=== PATIENT | female | born 1940 | race Caucasian/White ===

== ENCOUNTER 2018-02-07 09:50 | Day surgery (SDC) | payer OTHER ==
--- OUTSIDE RECORDS SUMMARY | 2018-02-07 10:11 | XMS REPORT | Clinical Summary ---
:1940 Author Organization [facility] Address [address] [place] [address] Care Team Providers Name Role Phone Rene Pimenetl MD Primary Care Provider Allergies No Known Allergies Current Medications Prescription Sig. Disp. Refills Start Date End Date Status albuterol (PROAIR Take by mouth. Active HFA,PROVENTIL HFA,VENTOLIN HFA) 90 mcg/actuation inhaler atorvastatin (LIPITOR) 10 Take 10 mg by Active MG tablet mouth. CALCIUM ORAL Take by mouth. Active CHOLECALCIFEROL, VITAMIN Take by mouth. Active D3, ORAL clopidogrel (PLAVIX) 75 mg Take 75 mg by Active tablet mouth. etanercept (ENBREL) 25 mg 25 mg. 11/05/2017 Active (1 mL) injection folic acid (FOLVITE) 1 MG TAKE 1 TABLET 03/01/2017 Active tablet DAILY multivitamins & Take by mouth. Active minerals-ferrous gluconate 9 mg iron/15 mL liquid pantoprazole (PROTONIX) 40 Take 40 mg by Active MG EC tablet mouth. predniSONE (DELTASONE) 2.5 Take 2.5 mg by 12/27/2014 Active mg tablet mouth. valsartan (DIOVAN) 80 MG Take 80 mg by Active tablet mouth. 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) Class 2 obesity due to excess calories with serious comorbidity and body 12/23 mass index (BMI) of 35.0 to 35.9 in adult Encounters Date Type Specialty Care Team Description 01/14/2018 Hospital Encounter Radiology Yohana Hsu, Abnormal CXR (chest MD x-ray) 12/24/2017 Transcribe Orders Access Yohana Hsu, Abnormal CXR (chest MD x-ray) (Primary Dx) 12/23/2017 Hospital Encounter Mauro Arriaza MD 12/23/2017 Hospital Encounter Mauro Arriaza MD 12/23/2017 Hospital Encounter Mauro Arriaza MD 12/23/2017 Office Visit Neurosurgery Mauro Torrez, Lumbar stenosis with neurogenic claudication (Primary Dx); Osteoporosis without current pathological fracture, unspecified osteoporosis type; Rheumatoid arthritis involving multiple sites with positive rheumatoid factor; Class 2 obesity due to excess calories with serious comorbidity and body mass index (BMI) of 35.0 to 35.9 in adult 12/23/2017 Hospital Encounter Mauro Arriaza, Lumbar radiculopathy 12/23/2017 Hospital Encounter Radiology Mauro Torrez Lumbar radiculopathy 12/23/2017 Procedure Pass Radiology 12/23/2017 Procedure Pass Radiology 12/23/2017 Ancillary Orders Mauro Arriaza MD 12/23/2017 Abstract Neurosurgery Sita Cope LVN 12/22/2017 Orders Only Neurosurgery Mauro Torrez, Lumbar radiculopathy (Primary Dx) after 02/06/2017 Family History Medical History Relation Name Comments Cancer Father Cancer Maternal Aunt Asthma Maternal Grandfather Heart disease Maternal Grandfather Diabetes Maternal Grandmother Cancer Mother Relation Name Status Comments Father Maternal Aunt Maternal Grandfather Maternal Grandmother Mother Social History Tobacco Use Types Packs/Day Years Used Date Former Smoker Cigarettes 4 Smokeless Tobacco: Never Used Alcohol Use Drinks/Week oz/Week Comments Yes 2 Standard drinks or equivalent 1.2 Sex Assigned at Date Recorded Not on file Last Filed Vital Signs Vital Sign Reading Time Taken Blood Pressure - - Pulse - - Temperature - - Respiratory Rate - - Oxygen Saturation - - Inhaled Oxygen Concentration - - Weight 90.7 kg (200 lb) 12/23/2017 10:40 AM CDT Height 160 cm (5' 3") 12/23/2017 10:40 AM CDT Body Mass Index 35.43 12/23/2017 10:40 AM CDT Plan of Treatment Health Maintenance Due Date Last Done Comments BREAST CANCER SCREENING 1992 COLON CANCER SCREENING 1992 SHINGRIX VACCINE (#1) 1992 ZOSTER VACCINE 2002 PNEUMOCOCCAL POLYSACCHARIDE VACCINE AGE 65 12/19/2007 AND OVER PNEUMOCOCCAL-13 12/19/2007 INFLUENZA VACCINE 11/17/2017 02/06/2016, 02/05/2015 Procedures Procedure Name Priority Date/Time Associated Diagnosis Comments CT CHEST WO Routine 01/14/2018 11:51 Abnormal CXR (chest Results for this CONTRAST AM CDT x-ray) procedure are in the results section. XR SPINE SCOLIOSIS Routine 12/23/2017 11:51 Lumbar radiculopathy Results for this 2-3 VIEWS AM CDT procedure are in the results section. XR LUMBAR SPINE Routine 12/23/2017 11:50 Lumbar radiculopathy Results for this COMPLETE W BENDING AM CDT procedure are in the results section. CT SPINE EXTERNAL Routine 06/24/2017 11:06 Results for this STUDY AM FRONT ELEVATOR OPERATOR procedure are in the results section. after 02/06/[address] Chest Wo Contrast (01/14/2018 11:51 AM) Narrative Performed At EXAMINATION: CT CHEST WO CONTRAST [facility] CLINICAL HISTORY: R93.8 Abnormal findings on diagnostic imaging of other specified body structures, ABN CHEST XRAY TECHNIQUE:Axial images of the chest were obtained without intravenous contrast. The lack of intravenous contrast reduces the sensitivity of the exam and evaluating vasculature. CT imaging was performed with iterative reconstruction technique and/or automated exposure control to reduce radiation dose. COMPARISON:None. FINDINGS: Lungs and airways: There are numerous calcified and noncalcified pulmonary nodules, most of which are round or ovoid and well-circumscribed. Many of the calcified nodules are in a clustered or linear distribution. Examples of the largest solid noncalcified nodules include the following: *Right upper lobe on image 42 series 2 measuring 5 mm. *Left upper lobe on image 40 of series 2 measuring 5 mm. There is diffuse mosaicism. Mild cylindrical bronchiectasis with bronchial wall thickening, greatest in the lower lobes. Pleura: No pleural effusion or pneumothorax. Mediastinum and lymph nodes: No lymphadenopathy. Cardiovascular: The ascending aorta measures 40 mm. Moderate coronary calcifications. Heavy mitral annular calcifications. Upper abdomen: There are numerous hepatic hypodensities, some compatible with cysts and some too small to characterize but also statistically likely representing cysts. Cholelithiasis without evidence of cholecystitis. Moderate hiatal hernia. Bones: Severe degenerative changes of the left greater than right shoulders. Spondylosis. Mild anterior wedging of several midthoracic vertebral bodies. IMPRESSION: 1.Numerous pulmonary nodules, most of which are calcified, clustered/linear, and therefore very likely postinflammatory. There are solid noncalcified pulmonary nodules measuring up to 5 mm which could also represent granulomas or intrapulmonary lymph nodes but are technically indeterminate. Recommend 12 month follow-up if patient has risk factors for lung cancer. 2.Diffuse mosaicism with mild cylindrical bronchiectasis and bronchial wall thickening, compatible with nonspecific large and small airways disease. 3.Moderate hiatal hernia. 4.Cholelithiasis without evidence of cholecystitis. [facility]-[id number] Procedure Note [facility], Radiology Results - 01/14/2018 12:27 PM CDT EXAMINATION: CT CHEST WO CONTRAST CLINICAL HISTORY: R93.8 Abnormal findings on diagnostic imaging of other specified body structures, ABN CHEST XRAY TECHNIQUE: Axial images of the chest were obtained without intravenous contrast. The lack of intravenous contrast reduces the sensitivity of the exam and evaluating vasculature. CT imaging was performed with iterative reconstruction technique and/or automated exposure control to reduce radiation dose. COMPARISON: None. FINDINGS: Lungs and airways: There are numerous calcified and noncalcified pulmonary nodules, most of which are round or ovoid and well-circumscribed. Many of the calcified nodules are in a clustered or linear distribution. Examples of the largest solid noncalcified nodules include the following: * Right upper lobe on image 42 series 2 measuring 5 mm. * Left upper lobe on image 40 of series 2 measuring 5 mm. There is diffuse mosaicism. Mild cylindrical bronchiectasis with bronchial wall thickening, greatest in the lower lobes. Pleura: No pleural effusion or pneumothorax. Mediastinum and lymph nodes: No lymphadenopathy. Cardiovascular: The ascending aorta measures 40 mm. Moderate coronary calcifications. Heavy mitral annular calcifications. Upper abdomen: There are numerous hepatic hypodensities, some compatible with cysts and some too small to characterize but also statistically likely representing cysts. Cholelithiasis without evidence of cholecystitis. Moderate hiatal hernia. Bones: Severe degenerative changes of the left greater than right shoulders. Spondylosis. Mild anterior wedging of several midthoracic vertebral bodies. IMPRESSION: 1. Numerous pulmonary nodules, most of which are calcified, clustered/linear, and therefore very likely postinflammatory. There are solid noncalcified pulmonary nodules measuring up to 5 mm which could also represent granulomas or intrapulmonary lymph nodes but are technically indeterminate. Recommend 12 month follow-up if patient has risk factors for lung cancer. 2. Diffuse mosaicism with mild cylindrical bronchiectasis and bronchial wall thickening, compatible with nonspecific large and small airways disease. 3. Moderate hiatal hernia. 4. Cholelithiasis without evidence of cholecystitis. [facility]-[id number] Performing Organization Address [facility] Phone Number [facility] [address] [place] [address] XR Spine Scoliosos 2-3 Views (12/23/2017 11:51 AM) Narrative Performed At EXAMINATION:XR SPINE SCOLIOSIS 2-3 VIEWS [facility] CLINICAL HISTORY:M54.16 Radiculopathylumbar region, radiculopathy IMPRESSION: 8 views of the spine were obtained. COMPARISON is made to prior x-rays dated December 23, [address] and MRI of the spine dated June 24, 2017 and January 26, 2017 The spine alignment is unremarkable. Spondylotic disc and facet changes are seen at L3-L4, L4-L5 and L5-S1 levels. Minimal grade 1 anterior translation of L4 on L5 level is appreciated. The bone diseases unremarkable with no focal bone lesion. There is no acute fracture or subluxation. There is no compression deformity. The frontal view is limited due to stitching artifact. [facility]-[id number] Procedure Note Interface, Radiology Results - 12/30/2017 3:39 PM CDT EXAMINATION: XR SPINE SCOLIOSIS 2-3 VIEWS CLINICAL HISTORY: M54.16 Radiculopathy lumbar region, radiculopathy IMPRESSION: 8 views of the spine were obtained. COMPARISON is made to prior x-rays dated December 23, [address] and MRI of the spine dated June 24, 2017 and January 26, 2017 The spine alignment is unremarkable. Spondylotic disc and facet changes are seen at L3-L4, L4-L5 and L5-S1 levels. Minimal grade 1 anterior translation of L4 on L5 level is appreciated. The bone diseases unremarkable with no focal bone lesion. There is no acute fracture or subluxation. There is no compression deformity. The frontal view is limited due to stitching artifact. [facility]-[id number] Performing Organization Address [facility] Phone Number [facility] [address] [place] [address] XR Lumbar Spine Complete W Flex and Ext (12/23/2017 11:50 AM) Narrative Performed At EXAMINATION:XR LUMBAR SPINE COMPLETE W FLEX & EXTEND [facility] NUMBER OF VIEWS: 8 CLINICAL HISTORY:M54.16 Radiculopathylumbar region, radiculopathy COMPARISON:None. FINDINGS: There are 5 nonrib-bearing lumbar vertebra. Marked disc space narrowing, mild spondylosis and degenerative change in the disc at L4-5 and L5-S1 where there are also at least mild degenerative changes in the facet joints and minimal spondylolisthesis at L4-5. There is moderate disc space narrowing greater posteriorly at L3-4 where there are also moderate degenerative changes in the setting joints. There is otherwise no significant spondylosis. There is no abnormal movement on the dynamic views. There is no fracture demonstrated. There is an apparent hip prosthesis on the right side. Vascular calcifications are noted. Note that the spine detail is not well demonstrated because of the patient's size. IMPRESSION: Degenerative changes without acute abnormality. [facility]-[id number] Procedure Note Interface, Radiology Results Incoming - 12/23/2017 3:23 PM CDT EXAMINATION: XR LUMBAR SPINE COMPLETE W FLEX & EXTEND NUMBER OF VIEWS: 8 CLINICAL HISTORY: M54.16 Radiculopathy lumbar region, radiculopathy COMPARISON: None. FINDINGS: There are 5 nonrib-bearing lumbar vertebra. Marked disc space narrowing, mild spondylosis and degenerative change in the disc at L4-5 and L5-S1 where there are also at least mild degenerative changes in the facet joints and minimal spondylolisthesis at L4-5. There is moderate disc space narrowing greater posteriorly at L3-4 where there are also moderate degenerative changes in the setting joints. There is otherwise no significant spondylosis. There is no abnormal movement on the dynamic views. There is no fracture demonstrated. There is an apparent hip prosthesis on the right side. Vascular calcifications are noted. Note that the spine detail is not well demonstrated because of the patient's size. IMPRESSION: Degenerative changes without acute abnormality. [facility]-[id number] Performing Organization Address City/State/Zipcode Phone Number [facility] [address] [place] [address] CT Spine External Study (06/24/2017 11:06 AM) Narrative Performed At This exam was not acquired at a [facility] facility and has not been [facility] interpreted by a [facility] Provider.The exam was imported into our imaging system for comparisons purposes. Performing Organization Address City/State/Zipcode Phone Number [facility] [address] [place] [address] after 02/06/2017 Insurance Payer Benefit Plan / Group Subscriber ID Type Phone Address [employer] PPO xxxxxxxxx PPO [phone] [place] [id number]
[2018-02-07] MEDS ORDERED: Zoledronic Acid/Mannitol/Water 5 MG/100 ML INFUS.BOT IV NR (11:00)
== END 2018-02-07 10:56 | disposition home or self-care (01) ==
LOC: DS 09:50
PROVIDERS: ATTEND Family Medicine
DX: M81.0 Age-related osteoporosis without current pathological fracture (principal)
CPT/HCPCS: 96365; J3489

== ENCOUNTER 2018-08-01 16:29 | Emergency (ER) | payer OTHER ==
--- OUTSIDE RECORDS SUMMARY | 2018-08-01 16:31 | XMS REPORT | Clinical Summary ---
:1940 Author Organization [facility] Address [address] [place] [address] Care Team Providers Name Role Phone Rene Pimentel MD Primary Care Provider Allergies No Known Allergies Medications Medication Sig Dispensed Refills Start Date End Date Status atorvastatin Take 10 mg by 0 Active (LIPITOR) 10 MG mouth. tablet CALCIUM ORAL Take 1 tablet 0 Active by mouth 2 (two) times a day. CHOLECALCIFEROL, Take by mouth 0 Active VITAMIN D3, ORAL daily. clopidogrel (PLAVIX) Take 75 mg by 0 Active 75 mg tablet mouth daily. etanercept (ENBREL) 25 mg 2 (two) 0 11/05/2017 Active 25 mg (1 mL) times a week. injection folic acid (FOLVITE) TAKE 1 TABLET 0 03/01/2017 Active 1 MG tablet DAILY pantoprazole Take 40 mg by 0 Active (PROTONIX) 40 MG EC mouth. tablet predniSONE Take 2.5 mg 0 12/27/2014 Active (DELTASONE) 2.5 mg by mouth. tablet valsartan (DIOVAN) Take 80 mg by 0 Active 80 MG tablet mouth. albuterol (PROAIR Take by 0 05/05/2018 Discontinued HFA,PROVENTIL mouth. HFA,VENTOLIN HFA) 90 mcg/actuation inhaler multivitamins & Take by 0 03/24/2018 Discontinued minerals-ferrous mouth. 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 Class 3 severe obesity due to excess calories with serious comorbidity and 09/2017 body mass index (BMI) of 40.0 to 44.9 in adult Encounters Date Type Specialty Care Team Description 07/11/2018 Office Visit Neurosurgery Mauro Torrez Osteoporosis without current pathological fracture, unspecified osteoporosis type (Primary Dx); MD Artem Lumbar stenosis with neurogenic claudication; Class 3 severe obesity due to excess calories with serious comorbidity and body mass index (BMI) of 40.0 to 44.9 in adult (HCC) 07/11/2018 Hospital Radiology Mauro Torrez Lumbar radiculopathy Encounter MD Artem 07/11/2018 Orders Only Neurosurgery Mauro Torrez Lumbar radiculopathy MD Artem (Primary Dx) 07/04/2018 Anesthesia Event Cardiothoracic Surgery Collins Torres, FARM HELPER 07/04/2018 Surgery Cardiothoracic Surgery Vinny Ashford EGDemetri, ROBOTIC MD Aliza ASSISTED LAPAROSCOPIC TYPE III HIATAL HERNIA W/ TOUPET FUNDOPLICATION, AND ENDOFLIP 07/04/2018 [facility] General Internal Vinny Ashford Hiatal hernia - Encounter Medicine MD Aliza 07/05/2018 07/01/2018 Telephone Cardiothoracic Surgery Hafsa Coleman NP 06/13/2018 Orders Only Cardiothoracic Surgery Vinny Ashford MD 06/09/2018 Telephone Cardiothoracic Surgery Catherine Yoon MA 06/09/2018 Orders Only Cardiothoracic Surgery Bereket Yoon, hiatal ( Primary Dx); J CARLOS Alexander Pre-operative laboratory examination 05/31/2018 Telephone Cardiothoracic Surgery Hafsa Coleman NP 05/26/2018 Orders Only Cardiology Aleksey Bronson MD 05/24/2018 Orders Only Cardiology Aleksey Bronson MD 05/10/2018 Office Visit Cardiology Aleksey Bronson Pre-op exam (Primary Dx); MD Melita Essential hypertension; SOB (shortness of breath) 05/05/2018 Lab Lab Vinny Ashford Hiatal hernia; MD Aliza Pre-op testing 05/05/2018 Office Visit Cardiothoracic Surgery Vinny Ashford Hiatal hernia ( Primary Dx); MD Aliza Pre-op testing 04/29/2018 Surgery Gastroenterology Ergun, Ceceliahin ESOPHAGEAL MANOMETRY MD Jonathon WITH IMPEDANCE PROBE RETURN 04/29/2018 Hospital Gastroenterology Carolina Salmon MD 04/28/2018 Surgery Gastroenterology Carolina Salmon ESOPHAGEAL MANOMETRY MD Jonathon WITH IMPEDANCE PROBE 04/28/2018 [facility] Gastroenterology Carolina Salmon MD 03/30/2018 Orders Only Cardiothoracic Surgery Lyons, Hiatal hernia J CARLOS Aleaxnder (Primary Dx) 03/24/2018 Office Visit Cardiothoracic Surgery Vinny Ashford, kimoatal MD Aliza (Primary Dx) 03/24/2018 Hospital Radiology Vinny Ashford Hiatal hernia Encounter MD Aliza 03/02/2018 Orders Only Cardiothoracic Surgery Anton, Hiatal hernia J CARLOS Carr (Primary Dx) 02/28/2018 Telephone Cardiothoracic Surgery Lilly Walton MA 01/14/2018 [facility] Radiology Yohana Hsu Abnormal CXR (chest Encounter MD [place] x-ray) 12/24/2017 Transcribe Orders Access Yohana Hsu Abnormal CXR (chest MD [place] x-ray) (Primary Dx) 12/23/2017 [facility] Radiology Mauro Torrez MD 12/23/2017 Hospital Radiology Mauro Torrez MD 12/23/2017 [facility] Radiology Mauro Torrez MD 12/23/2017 Office Visit Neurosurgery Mauro Torrez Lumbar stenosis with neurogenic claudication (Primary Dx); MD Artem Osteoporosis without current pathological fracture, unspecified osteoporosis type; Rheumatoid arthritis involving multiple sites with positive rheumatoid factor; Class 2 obesity due to excess calories with serious comorbidity and body mass index (BMI) of 35.0 to 35.9 in adult 12/23/2017 Hospital Radiology Mauro Torrez Lumbar radiculopathy Paul Mcgill MD 12/23/2017 Hospital Radiology Mauro Torrez Lumbar radiculopathy Paul Mcgill MD 12/23/2017 Abstract Neurosurgery Sita Cope LVN 12/22/2017 Orders Only Neurosurgery Mauro Torrez Lumbar radiculopathy MD Artem (Primary Dx) after 07/31/2017 Family History Medical History Relation Name Comments Cancer Father Cancer Maternal Aunt Asthma Maternal Grandfather Heart disease Maternal Grandfather Diabetes Maternal Grandmother Cancer Mother Relation Name Status Comments Father Maternal Aunt Maternal Grandfather Maternal Grandmother Mother Social History Tobacco Use Types Packs/Day Years Used Date Former Smoker Cigarettes 4 Smokeless Tobacco: Never Used Tobacco Cessation: Counseling Given: Yes Alcohol Use Drinks/Week oz/Week Comments Yes 2 Standard drinks or equivalent 1.2 Sex Assigned at Date Recorded Not on file Job Start Date Occupation Industry Not on file Not on file Not on file Travel History Travel Start Travel End No recent travel history available. Last Filed Vital Signs Vital Sign Reading Time Taken Blood Pressure 131/58 07/05/2018 7:38 AM CDT Pulse 78 07/05/2018 7:38 AM CDT Temperature 36.7 C (98 F) 07/05/2018 7:38 AM CDT Respiratory Rate 20 07/05/2018 7:38 AM CDT Oxygen Saturation 96% 07/05/2018 7:38 AM CDT Inhaled Oxygen Concentration - - Weight 102 kg (224 lb 14.4 oz) 07/05/2018 3:55 AM CDT Height 157.5 cm (5' 2") 07/04/2018 5:56 AM CDT Body Mass Index 41.13 07/05/2018 3:55 AM CDT Plan of Treatment Date Type Specialty Care Team Description 08/11/2018 Office Visit Cardiothoracic Surgery Vinny Ashford MD [address] [address] Health Maintenance Due Date Last Done Comments BREAST CANCER SCREENING 1992 COLON CANCER SCREENING 1992 SHINGLES VACCINES (#1) 1992 65+ PNEUMOCOCCAL VACCINE (1 of 2 - 12/19/2007 PCV13) PNEUMOCOCCAL POLYSACCHARIDE VACCINE 12/19/2007 AGE 65 AND OVER INFLUENZA VACCINE 11/17/2018 02/02/2018, 02/06/2016, 02/05/2015 Implants Implanted Type Area Floor Scrubber Device Shelf Model / Identifier Expiration Serial / Date Lot Catheter Endoflip 8cm Measurement - [id number] Surgical N/A: N/A CROSPON 06/08/2019 EF 325N / Implanted: Qty: 1 on 07/04/2018 by Vinny Ashford MD Implants; / Expanders; Extenders; Surgical Wires Procedures Procedure Name Priority Date/Time Associated Diagnosis Comments XR LUMBAR SPINE Routine 07/11/2018 11:45 Lumbar radiculopathy Results for this COMPLETE W BENDING AM CDT procedure are in the results section. HC COMPLETE BLD COUNT Routine 07/05/2018 5:15 Results for this W/AUTO DIFF AM CDT procedure are in the results section. ESTIMATED GFR Routine 07/05/2018 4:00 Results for this AM CDT procedure are in the results section. BASIC METABOLIC PANEL Routine 07/05/2018 4:00 Results for this AM CDT procedure are in the results section. SURGICAL PATHOLOGY Routine 07/04/2018 1:58 Results for this REQUEST PM CDT procedure are in the results section. [place] AN ELECTIVE Routine 07/04/2018 8:28 ENDOTRACHEAL AIRWAY AM CDT Procedure Note - Collins Torres CRNA - 07/04/2018 8:28 AM CDT Airway Date/Time: 07/04/2018 7:49 AM Performed by: Collins Torres CRNA Authorized by: Alexandra Moyer MD Location: OR Urgency: Elective Difficult Airway: No Anesthesiologist: Alexandra Moyer MD Resident/FARM HELPER/AA: Collins Torres CRNA Performed by: resident/GERALD/AA Preoxygenated with 100% O2: Yes C-spine Precautions Maintained Throughout: Yes Mask Ventilation: Easy mask (with oral airway) Final Airway Type: Endotracheal airway Final Endotracheal Airway: ETT Cuffed: Yes Technique Used: Direct laryngoscopy Devices/Methods Used in Placement: Intubating stylet Insertion Site: Oral Blade Type: Bauer Laryngoscope Blade/Videolaryngoscope Blade Size: 2 ETT Size (mm): 7.0 Cuff at minimum occlusion pressure: Yes Measured from: Teeth ETT to Teeth (cm): 20 Placement Verified by: CO2 detection, direct visualization and equal breath sounds Laryngoscopic view: Grade IIa - partial view of glottis Rapid Sequence Induction (RSI): No Modified RSI: No Number of Attempts at Approach: 1 Pt intubated without difficulty or trauma; Positive end tidal CO2 noted, BBS , dentition remains intact per preop assessment TYPE AND SCREEN STAT 07/04/2018 5:32 Results for this AM CDT procedure are in the results section. CBC WITH PLATELET AND Routine 06/13/2018 12:29 Results for this DIFFERENTIAL PM PERISHABLE FRUIT INSPECTOR procedure are in the results section. PROTHROMBIN TIME WITH Routine 06/13/2018 12:29 Results for this INR PM PERISHABLE FRUIT INSPECTOR procedure are in the results section. PARTIAL THROMBOPLASTIN Routine 06/13/2018 12:29 Results for this TIME (PTT) PM PERISHABLE FRUIT INSPECTOR procedure are in the results section. COMPREHENSIVE Routine 06/13/2018 12:29 Results for this METABOLIC PANEL PM PERISHABLE FRUIT INSPECTOR procedure are in the results section. OBTAIN MEDICAL RECORDS Routine 05/26/2018 ECHOCARDIOGRAM 2D Routine 05/25/2018 3:05 SOB (shortness of Results for this COMPLETE W MMODE PM PERISHABLE FRUIT INSPECTOR breath) procedure are in SPECTRAL COLOR DOPPLER Pre-op exam the results (54155) section. NM MYOCARDIAL Routine 05/21/2018 PERFUSION ECG 12-LEAD Routine 05/10/2018 3:21 Essential Results for this PM PERISHABLE FRUIT INSPECTOR hypertension procedure are in the results section. ESTIMATED GFR Routine 05/05/2018 1:40 Results for this PM PERISHABLE FRUIT INSPECTOR procedure are in the results section. PARTIAL THROMBOPLASTIN Routine 05/05/2018 1:40 Hiatal hernia Results for this TIME (PTT) PM PERISHABLE FRUIT INSPECTOR Pre-op testing procedure are in the results section. PROTHROMBIN TIME WITH Routine 05/05/2018 1:40 Hiatal hernia Results for this INR PM PERISHABLE FRUIT INSPECTOR Pre-op testing procedure are in the results section. COMPREHENSIVE Routine 05/05/2018 1:40 Hiatal hernia Results for this METABOLIC PANEL PM PERISHABLE FRUIT INSPECTOR Pre-op testing procedure are in the results section. HC COMPLETE BLD COUNT Routine 05/05/2018 1:40 Hiatal hernia Results for this W/AUTO DIFF PM PERISHABLE FRUIT INSPECTOR Pre-op testing procedure are in the results section. TYPE AND SCREEN Routine 05/05/2018 1:40 Hiatal hernia Results for this PM PERISHABLE FRUIT INSPECTOR Pre-op testing procedure are in the results section. ESOPHAGEAL MANOMETRY 04/29/2018 2:15 Hiatal hernia WITH IMPEDANCE PROBE PM PERISHABLE FRUIT INSPECTOR Special Needs DR ASHFORD ESOPHAGEAL MANOMETRY WITH IMPEDANCE PROBE 04/28/2018 9:00 AM PERISHABLE FRUIT INSPECTOR Hiatal hernia Special Needs DR ASHFORD [place] ESOPHAGRAM Routine 03/24/2018 11:05 AM Hiatal hernia Results for this COMPLETE PERISHABLE FRUIT INSPECTOR procedure are in the results section. CT CHEST WO Routine 01/14/2018 11:51 AM Abnormal CXR (chest Results for this CONTRAST CDT x-ray) procedure are in the results section. XR SPINE SCOLIOSIS Routine 12/23/2017 11:51 AM Lumbar radiculopathy Results for this 2-3 VIEWS CDT procedure are in the results section. XR LUMBAR SPINE Routine 12/23/2017 11:50 AM Lumbar radiculopathy Results for this COMPLETE W BENDING CDT procedure are in the results section. after 07/31/2017 Results XR Lumbar Spine Complete W Flex and Ext (07/11/2018 11:45 AM CDT)Only the most recent of2 resultswithin the time period is included. Narrative Performed At EXAMINATION: XR LUMBAR SPINE COMPLETE W FLEX & EXTEND [facility] CLINICAL HISTORY: M54.16 Radiculopathylumbar region, radiculopathy COMPARISON:12/23/2017 IMPRESSION: 7 views of lumbar spine are interpreted. Dynamic lateral radiograph's are included. Body habitus somewhat degrades image quality. Vertebral heights are preserved. Prominent disc degenerative changes are again noted at L4-5 and L5-S1. There is slight grade 1 anterolisthesis of L4 relative L5. There is no significant change in alignment on dynamic lateral radiographs. Right hip arthroplasty is noted. [id number] Procedure Note Interface, Radiology Results Incoming - 07/11/2018 12:57 PM CDT EXAMINATION: XR LUMBAR SPINE COMPLETE W FLEX & EXTEND CLINICAL HISTORY: M54.16 Radiculopathy lumbar region, radiculopathy COMPARISON: 12/23/2017 IMPRESSION: 7 views of lumbar spine are interpreted. Dynamic lateral radiograph's are included. Body habitus somewhat degrades image quality. Vertebral heights are preserved. Prominent disc degenerative changes are again noted at L4-5 and L5-S1. There is slight grade 1 anterolisthesis of L4 relative L5. There is no significant change in alignment on dynamic lateral radiographs. Right hip arthroplasty is noted. [id number] Performing Organization Address City/State/Zipcode Phone Number [facility] [address] [place] [address] CBC with platelet and differential (07/05/2018 5:15 AM CDT)Only the most recent of3 resultswithin the time period is included. WBC 8.02 4.50 - 11.00 k/uL [facility] RBC 4.19 (L) 4.20 - 5.50 m/uL [facility] HGB 12.3 12.0 - 16.0 g/dL [facility] HCT 40.3 37.0 - 47.0 % [facility] MCV 96.2 82.0 - 100.0 fL [facility] MCH 29.4 27.0 - 34.0 pg [facility] MCHC 30.5 (L) 31.0 - 37.0 g/dL [facility] RDW - SD 49.8 37.0 - 55.0 fL [facility] MPV 10.3 8.8 - 13.2 fL [facility] Platelet count 204 150 - 400 k/uL [facility] Nucleated RBC 0.00 /100 WBC [facility] Neutrophils 62.7 39.0 - 69.0 % [facility] Lymphocytes 25.3 25.0 - 45.0 % [facility] Monocytes 9.2 0.0 - 10.0 % [facility] Eosinophils 1.9 0.0 - 5.0 % [facility] Basophils 0.4 0.0 - 1.0 % [facility] Immature granulocytes 0.5Comment: "Immature 0.0 - 1.0 % [facility] granulocytes" HOSPITAL (promyelocytes, myelocytes, metamyelocytes) Specimen Blood Performing Organization Address City/[facility] Phone Number [facility] DEPARTMENT OF PATHOLOGY AND [address] [place] [address] Estimated GFR (07/05/2018 4:00 AM CDT)Only the most recent of2 resultswithin the time period is included. Estimated GFR 72 mL/min/1.73 m2 [facility] Comment: HOSPITAL CatergoryUnitsInterpretation G1 >=90 Normal or high G2 60-89Mildly decreased S4i11-61Ahzwqe to moderately decreased Q8g05-98Hbyggefuvx to severely decreased G4 15-29Severely decreased G5 <15Kidney failure The eGFR was calculated using the Chronic Kidney Disease Epidemiology Collaboration (CKD-EPI) equation. Interpretation is based on recommendations of the National Kidney Foundation-Kidney Disease Outcomes Quality Initiative (NKF-KDOQI) published in 2014. Specimen Plasma specimen Performing Organization Address City/State/Zipcode Phone Number [facility] DEPARTMENT OF PATHOLOGY AND [address] [place], [place] [id number] Basic metabolic panel (07/05/2018 4:00 AM CDT) Sodium 138 135 - 148 mEq/L [facility] Potassium 3.9 3.5 - 5.0 mEq/L [facility] Chloride 104 98 - 112 mEq/L [facility] CO2 24 24 - 31 mEq/L [facility] Anion gap 10@ANIO 7 - 15 mEq/L [facility] BUN 17 8 - 23 mg/dL [facility] Creatinine 0.80 0.50 - 0.90 mg/dL [facility] Glucose 96 65 - 99 mg/dL [facility] Calcium 8.5 (L) 8.8 - 10.2 mg/dL [facility] Specimen Plasma specimen Performing Organization Address City/[facility] Phone Number [facility] DEPARTMENT OF PATHOLOGY AND [address] [place] [address] Surgical pathology request (07/04/2018 1:58 PM CDT) [facility] DEPARTMENT OF PATHOLOGY AND GENOMIC MEDICINE Surgical pathology report See link below for PDF [facility] DEPARTMENT OF Lab Report PATHOLOGY AND GENOMIC MEDICINE Result status This is Final Report [facility] DEPARTMENT OF for [id number] PATHOLOGY AND GENOMIC MEDICINE Performing Organization Address City/[facility] Phone Number [facility] DEPARTMENT OF PATHOLOGY AND [address] [place] [address] GENOMIC MEDICINE Type and screen (07/04/2018 5:32 AM CDT)Only the most recent of2 resultswithin the time period is included. ABO grouping A [facility] Rh type POS [facility] Antibody screen (gel) NEG [facility] Specimen Blood Performing Organization Address City/[facility] Phone Number [facility] DEPARTMENT OF PATHOLOGY AND [address] [place] [address] GENOMIC MEDICINE [address] [address] Partial thromboplastin time, activated (06/13/2018 12:29 PM PERISHABLE FRUIT INSPECTOR)Only the most recent of2 resultswithin the time period is included. PTT 25 22 - 34 sec [employer] [place] Comment: This test has not been validated for monitoring unfractionated heparin therapy. For testing that is validated for this type of therapy, please refer to the Heparin Anti-Xa assay (test code 34314). For additional information, please refer to http://[employer].WebAction/faq/ZCP247 (This link is being provided for informational/educational purposes only.) Narrative Performed At FASTING:NO [facility]ST FASTING: NO Resulting Agency Comment Performing Organization Information: Site ID: [id number] Name: [facility] Address: [address] [place] [phone] Director: Gilma Edwards Performing Organization Address [facility] Phone Number [place] [address] Prothrombin time with INR (06/13/2018 12:29 PM PERISHABLE FRUIT INSPECTOR)Only the most recent of2 resultswithin the time period is included. INR 1.0 [employer] [place] Comment: Reference Range 0.9-1.1 Moderate-intensity Warfarin Therapy 2.0-3.0 Higher-intensity Warfarin Therapy 3.0-4.0 Prothrombin time 10.1 9.0 - 11.5 sec [employer] [place] Comment: For more information on this test, go to: http://[employer].WO Funding/faq/KKO917 Narrative Performed At FASTING:NO [facility]ST FASTING: NO Resulting Agency Comment Performing Organization Information: Site ID: [id number] Name: [facility] Address: [address] [place] [phone] Director: Gilma Edwards Performing Organization Address [facility] Phone Number JOHNNY [employer] [address] Comprehensive metabolic panel (06/13/2018 12:29 PM PERISHABLE FRUIT INSPECTOR)Only the most recent of2 resultswithin the time period is included. Glucose 122 65 - 139 mg/dL [employer] Comment: [place] Non-fasting reference interval BUN, whole blood 22 7 - 25 mg/dL [employer] [place] Creatinine 0.66 0.60 - 0.93 [facility] Comment: mg/dL [place] For patients >49 years of age, the reference limit for Creatinine is approximately 13% higher for people identified as -Tanzanian. EGFR Non-Afr. Tanzanian 86 > OR=60 [facility] mL/min/1.73m2 [place] EGFR 100 > OR=60 [facility] mL/min/1.73m2 [place] BUN/creatinine ratio NOT APPLICABLE 6 - 22 (calc) [employer] [place] Sodium 139 135 - 146 mmol/L [employer] [place] Potassium 4.5 3.5 - 5.3 mmol/L [facility] [place] Chloride 104 98 - 110 mmol/L [employer] [place] CO2 27 20 - 32 mmol/L [employer] [place] Calcium 9.3 8.6 - 10.4 mg/dL [facility] [employer] [place] Protein 7.1 6.1 - 8.1 g/dL [employer] [place] Albumin, S 4.1 3.6 - 5.1 g/dL [employer] [place] Globulin, total 3.0 1.9 - 3.7 g/dL [employer] (calc) [place] Albumin/globulin ratio 1.4 1.0 - 2.5 (calc) [employer] [place] Total bilirubin 0.4 0.2 - 1.2 mg/dL [employer] [place] Alkaline phosphatase 53 33 - 130 U/L [employer] [facility] AST 13 10 - 35 U/L [employer] [place] ALT 10 6 - 29 U/L [employer] [place] Narrative Performed At FASTING:NO [facility]ST FASTING: NO Resulting Agency Comment Performing Organization Information: Site ID: [id number] Name: [facility] Address: [address] [place] [phone] Director: Gilma Edwards Performing Organization Address City/State/Zipcode Phone [place] [address] Obtain medical records (05/26/2018) Narrative Performed At Echocardiogram complete w contrast and 3D if needed (05/25/2018 3:05 PM PERISHABLE FRUIT INSPECTOR) Narrative Performed At [facility] Echocardiography Report Pat.Name:LEONORA BELLO Pat.ID:[id number] .Date: 05/25/2018Refer.MD:ALEKSEY BRONSON MD Exam Time: 2:10:00 PMStudy Type:Routine Echo Height:63inWeight: 227lb BSA: 2.04 m2 DOBAge:1940,77Y Sex: FEMALEBP:134/75 HR:93 bpm Sonogrphr: FARHAD Morrell FASE Pat. Stat.:OutpatientRoom:[facility] Study Status:Final Echo Event ID:[id number] Order ID:[id number] Reason for Study:SOB, suspected cardiac etiology Procedures:2D Echo, Colorflow Doppler Race:C SUMMARY: Findings are consistent with HFpEF. FINDINGS: LV: LV size is normal. There is mild concentric LV hypertrophy. LVEF is normal. Overall wall motion is normal. Estimated EFis 60-64%. RV: RV size is normal. RV systolic function is normal. RV wall motionis normal. LA: LA volume is severely enlarged. RA: RA size is normal. AO: Aortic root diameter is normal. MAXWELL: No pericardial effusion. AV: Mild calcification of AV leaflets. Mild aortic regurgitation. MV: Moderate mitral annular calcification. PV: Pulmonic valve not well seen. TV: No structural TV abnormalities noted. A trace of tricuspid regurgitation Thompson: LV relaxation is impaired. LV filling pressure is elevated. Other:Estimated PA systolic pressure is 41 mmHg, assuming a mean RAPof 5 mmHg. MEASUREMENTS: 2D Parasternal Long [place] LVIDs3.1 cmLA Ds4.7 cm LV%fs 36.6 % Ao Rtd 3.3 cm Index1.6 cm/m LVOT 2 cmLV Trcq886.8 g(87-129) LVIDd5.1 cmIndex2.5 cm/m LVM Ghpko618 g/m2 IVSd 1.2 cmRWT0.5 LVPWd1.2 cm LA Sng Plane LA Area 27.3 cm2(8.8-23.4) LA Vol99.8 ml Index48.9 ml/m LA LngAx 5.9 cm DOPPLER LVOT Stroke Vol LVOT 2 cmLVOT CO7.9 l/min LVOT TVI27.6 cmLVOT CI3.9 l/m/m2 LVOT Tm286 rgsxSS75 bpm LVOT SV 86.7 ml MV For Flow/Valve Assess MV pkVel 149.9 cm/sMV Mean G3.9 mmHg MV pkPG9 mmHgMV TVI22.9 cm Signed 05/26/2018 5:07:00 PM Emely Baires M.D. Procedure Note Interface, Radiology Results In - 05/27/2018 12:23 PM PERISHABLE FRUIT INSPECTOR [facility] Echocardiography Report Pat.Name: LEONORA BELLO Pat.ID: [id number] St.Date: 05/25/2018 Refer.MD: ALEKSEY BRONSON MD Exam Time: 2:10:00 PM Study Type:Routine Echo Height: 63in Weight: 227lb BSA: 2.04 m2 Age: 9 1940,77Y Sex: FEMALE BP: 134/75 HR: 93 bpm Sonogrphr: FARHAD Morrell FASE Pat. Stat.:Outpatient Room: [place] Study Status:Final Echo Event ID:[id number] Order ID: [id number] Reason for Study:SOB, suspected cardiac etiology Procedures:2D Echo, Colorflow Doppler Race: C SUMMARY: Findings are consistent with HFpEF. FINDINGS: LV: LV size is normal. There is mild concentric LV hypertrophy. LV EF is normal. Overall wall motion is normal. Estimated EF is 60-64%. RV: RV size is normal. RV systolic function is normal. RV wall motion is normal. LA: LA volume is severely enlarged. RA: RA size is normal. AO: Aortic root diameter is normal. MAXWELL: No pericardial effusion. AV: Mild calcification of AV leaflets. Mild aortic regurgitation. MV: Moderate mitral annular calcification. PV: Pulmonic valve not well seen. TV: No structural TV abnormalities noted. A trace of tricuspid regurgitation Thompson: LV relaxation is impaired. LV filling pressure is elevated. Other: Estimated PA systolic pressure is 41 mmHg, assuming a mean RAP of 5 mmHg. MEASUREMENTS: 2D Parasternal Long [place] LVIDs 3.1 cm LA Ds 4.7 cm LV%fs 36.6 % Ao Rtd 3.3 cm Index 1.6 cm/m LVOT 2 cm LV Mass 242.8 g (87-129) LVIDd 5.1 cm Index 2.5 cm/m LVM Index 119 g/m2 IVSd 1.2 cm RWT 0.5 LVPWd 1.2 cm LA Sng Plane LA Area 27.3 cm2 (8.8-23.4) LA Vol 99.8 ml Index 48.9 ml/m LA LngAx 5.9 cm DOPPLER LVOT Stroke Vol LVOT 2 cm LVOT CO 7.9 l/min LVOT TVI 27.6 cm LVOT CI 3.9 l/m/m2 LVOT Tm 286 msec HR 91 bpm LVOT SV 86.7 ml MV For Flow/Valve Assess MV pkVel 149.9 cm/s MV Mean G 3.9 mmHg MV pkPG 9 mmHg MV TVI 22.9 cm Signed 05/26/2018 5:07:00 PM Emely Baires M.D. Performing Organization Address City/State/Zipcode Phone Number [facility] [address] [place] [address] [place] myocardial perfusion (05/21/2018) Narrative Performed At ECG 12 lead (05/10/2018 3:21 PM PERISHABLE FRUIT INSPECTOR) Ventricular rate 86 [facility] Atrial rate 86 [facility] [place] interval 154 [facility] QRSD interval 84 [facility] QT interval 356 [facility] QTC interval 426 [facility] P axis 1 58 [facility] QRS axis 1 -26 [facility] T wave axis 64 [facility] EKG impression Sinus rhythm with occasional premature [facility] MUSE ventricular complexes-Otherwise normal ECG-No previous ECGs available- Narrative Performed At Performing Organization Address City/State/Zipcode Phone Number [facility] MUSE [address] [place] [address] [place] Esophagram Complete (03/24/2018 11:05 AM PERISHABLE FRUIT INSPECTOR) Narrative Performed At [place] ESOPHAGRAM COMPLETE [facility] CLINICAL INDICATION:K44.9 Diaphragmatic hernia without obstruction or gangrene, hiatal hernia TECHNIQUE:An esophogram was performed with single and double contrast technique COMPARISON:None. DOSE: 63.65 mGy (ka,r) FINDINGS: ESOPHAGUS:Esophagus is mildly ectatic in course but normal in caliber without mass or ulceration. No mucosal changes are identified. MOTILITY:Primary peristalsis was preserved but was diminished in amplitude. GASTROESOPHAGEAL JUNCTION:A moderately large hiatal hernia is present. STOMACH:Visualized portions of the proximal stomach appear unremarkable. IMPRESSION: Moderate hiatal hernia. Thank you for allowing us to participate in the care of your patient. [facility]-[id number] Procedure Note Interface, Radiology Results Incoming - 03/24/2018 11:22 AM PERISHABLE FRUIT INSPECTOR [place] ESOPHAGRAM COMPLETE CLINICAL INDICATION: K44.9 Diaphragmatic hernia without obstruction or gangrene, hiatal hernia TECHNIQUE: An esophogram was performed with single and double contrast technique COMPARISON: None. DOSE: 63.65 mGy (ka,r) FINDINGS: ESOPHAGUS: Esophagus is mildly ectatic in course but normal in caliber without mass or ulceration. No mucosal changes are identified. MOTILITY: Primary peristalsis was preserved but was diminished in amplitude. GASTROESOPHAGEAL JUNCTION: A moderately large hiatal hernia is present. STOMACH: Visualized portions of the proximal stomach appear unremarkable. IMPRESSION: Moderate hiatal hernia. Thank you for allowing us to participate in the care of your patient. [facility]-[id number] Performing Organization Address City/State/Zipcode Phone Number [facility] [address] [place] [address] CT Chest Wo Contrast (01/14/2018 11:51 AM CDT) Narrative Performed At EXAMINATION: CT CHEST WO CONTRAST [facility] CLINICAL HISTORY: R93.8 Abnormal findings on diagnostic [...] hiatal hernia. 4.Cholelithiasis without evidence of cholecystitis. [facility]-[id number] Procedure Note Interface, Radiology Results - 01/14/2018 12:27 PM CDT [...] hernia. 4. Cholelithiasis without evidence of cholecystitis. [facility]-[id number] Performing Organization Address City/State/Zipcode Phone Number [facility] [address] [place] [address] XR Spine Scoliosos 2-3 Views (12/23/2017 11:51 AM CDT) Narrative Performed At EXAMINATION:XR SPINE SCOLIOSIS 2-3 VIEWS [facility] CLINICAL HISTORY:M54.16 Radiculopathylumbar region, radiculopathy IMPRESSION: 8 [...] view is limited due to stitching artifact. [id number] Procedure Note Hm Interface, Radiology Results Incoming - 12/30/2017 3:39 PM CDT EXAMINATION: XR [...] view is limited due to stitching artifact. [id number] Performing Organization Address City/State/Zipcode Phone Number [facility] [address] [place] [address] after 07/31/2017 Insurance Payer Benefit Plan / Group Subscriber ID Type Phone Address [employer] MEDICARE HU[employer]NA MEDICARE PPO/PFFS/ERS [facility] xxxxxxxxx PPO ([place]) [place] [address] Advance Directives Patient has advance care planning documents on file. For more information, please contact:[facility] [place] [phone]
[2018-08-01] MEDS ORDERED: TETANUS & DIPHTHERIA TOX,ADULT 0.5 ML VIAL ONE (18:03)
[2018-08-01 18:04] LABS: Absolute Lymphocytes (CBC) 1.6 K/uL (0.7-4.9); Absolute Monocytes 0.6 K/uL (0.1-1.3); Absolute Neutrophil 5.1 K/uL (1.8-8.0); Basophils % 0.5 % (0-1.3); Eosinophils % 3.4 % (0-4.4); Hematocrit 40.8 % (36.0-45.0); Lymphocytes % 20.9 % (15.3-44.8); MPV 8.5 fL (7.6-11.3); Monocytes % 7.7 % (3.3-12.3); RBC Red Blood Cell Count 4.52 M/uL (3.86-4.86)
[2018-08-01 18:41] LABS: Albumin 3.5 g/dL (3.4-5.0); Bilirubin Total 0.4 mg/dL (0.2-1.0); Potassium 4.3 mmol/L (3.5-5.1); Protein, Total 7.1 g/dL (6.4-8.2)
--- NOTE | 2018-08-01 19:13 | RAD REPORT ---
EXAM DESCRIPTION: RAD - Hand Right 3 View - 08/01/2018 6:50 pm CLINICAL HISTORY: Right hand pain FINDINGS: Marked changes of rheumatoid arthritis involves MCP joints and wrist consisting of joint s pace narrowing, erosions and subluxations. No fracture is seen. Osteoporosis. Mild narrowing involves the DIP and PIP joints with mild erosions.
--- NOTE | 2018-08-01 21:21 | ER ---
Nurse's Notes [facility] Name: Marisabel Bello Age: 77 yrs Sex: Female : 1940 Arrival Date: 08/01/2018 Time: 16:30 Bed 9 Private MD: Rene Pimentel Diagnosis: Localized swelling, mass and lump, right upper limb Presentation: 08/01 16:33 Presenting complaint: Patient states: R wrist and hand pain and swelling that began a ss "couple weeks ago." Pt reports that before that she remembered that she had poked her skin at the same wrist about that same time the symptoms began with a metal coat sheet rock hanger. Transition of care: patient was not received from another setting of care. Onset of symptoms was July 18, 2018. Risk Assessment: Do you want to hurt yourself or someone else? Patient reports no desire to harm self or others. Initial Sepsis Screen: Does the patient meet any 2 criteria? No. Patient's initial sepsis screen is negative. Does the patient have a suspected source of infection? Yes: Skin breakdown/wound. Care prior to arrival: None. 16:33 Method Of Arrival: Ambulatory ss 16:33 Acuity: ZECHARIAH 3 ss Historical: - Allergies: 16:36 No Known Allergies; ss - PMHx: 16:36 Back pain; Rheumatoid Arthritis; ss - PSHx: 16:36 FEMUR SURG; ANKLE SURG; HIP REPLACEMENT; Knee surgery; Hernia repair; ss - Immunization history:: Adult Immunizations up to date. - Social history:: Smoking status: Patient/guardian denies using tobacco. - Ebola Screening: : Patient denies exposure to infectious person Patient denies travel to an Ebola-affected area in the 21 days before illness onset. Screenin:45 Abuse screen: Denies threats or abuse. Denies injuries from another. Nutritional aj1 screening: No deficits noted. Tuberculosis screening: No symptoms or risk factors identified. 21:39 Fall Risk None identified. aj1 Assessment: 17:45 General: Appears in no apparent distress. uncomfortable, Behavior is calm, cooperative, aj1 appropriate for age. Pain: Complains of pain in right wrist Pain does not radiate. Neuro: Level of Consciousness is awake, alert, obeys commands. Cardiovascular: Patient's skin is warm and dry. Respiratory: Airway is patent Respiratory effort is even, unlabored, Respiratory pattern is regular, symmetrical. GI: No signs and/or symptoms were reported involving the gastrointestinal system. : No signs and/or symptoms were reported regarding the genitourinary system. EENT: No signs and/or symptoms were reported regarding the EENT system. Derm: No signs and/or symptoms reported regarding the dermatologic system. Skin is pink, warm \\T\\ dry. normal. Musculoskeletal: Range of motion: limited in left wrist Swelling present in left wrist. 18:07 Reassessment: Patient refused splint, states that she does not feel it will help and aj1 she will hold up her arm or prop it up as needed. 18:23 Reassessment: Patient appears in no apparent distress at this time. No changes from aj1 previously documented assessment. Patient and/or family updated on plan of care and expected duration. Pain level reassessed. Patient is alert, oriented x 3, equal unlabored respirations, skin warm/dry/pink. 20:34 Reassessment: Patient appears in no apparent distress at this time. No changes from aj1 previously documented assessment. Patient and/or family updated on plan of care and expected duration. Pain level reassessed. Patient is alert, oriented x 3, equal unlabored respirations, skin warm/dry/pink. 20:34 Reassessment: Rama Anderson NP at bedside. aj1 21:00 Reassessment: Dr. Meek at bedside to evaluate patient. aj1 21:38 Reassessment: Patient appears in no apparent distress at this time. No changes from aj1 previously documented assessment. Patient and/or family updated on plan of care and expected duration. Pain level reassessed. Patient is alert, oriented x 3, equal unlabored respirations, skin warm/dry/pink. Vital Signs: 16:36 BP 165 / 86; Pulse 86; Resp 17; Temp 98.5(TE); Pulse Ox 95% on R/A; Weight 90.72 kg; Height 5 ft. 3 in. (160.02 cm); Pain 2/10; 20:34 BP 175 / 83; Pulse 86; Resp 18; Pulse Ox 95% on R/A; aj1 16:36 Body Mass Index 35.43 (90.72 kg, 160.02 cm) ED Course: 16:30 Patient arrived in ED. as 16:30 Rene Pimentel MD is Private Physician. as 16:35 Triage completed. ss 16:36 Arm band placed on left wrist. ss 17:16 Johnny Anderson NP is PHCP. pm1 17:16 Ellis Meek MD is Attending Physician. pm1 17:31 Magi Abrams RN is Primary Nurse. iw 17:36 Linnea Jones RN is Primary Nurse. aj1 17:45 Patient has correct armband on for positive identification. aj1 17:45 No provider procedures requiring assistance completed. aj1 17:46 Initial lab(s) drawn, by wv, sent to lab. Inserted saline lock: 20 gauge in left iw antecubital area, using aseptic technique. Blood collected. 18:50 Hand Right 3 View XRAY In Process Unspecified. EDMS 21:20 Neftali Lott MD is Referral Physician. pm1 21:39 IV discontinued, intact, bleeding controlled, No redness/swelling at site. Pressure aj1 dressing applied. 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 Exp: aj1 06/02/2020. Lot #: [id number]. } Route: IM; Site: right deltoid; 21:38 Follow up: Response: No adverse reaction aj1 21:37 Drug: predniSONE 60 mg Route: PO; aj1 21:38 Follow up: Response: No adverse reaction aj1 21:38 Drug: KeFLEX 500 mg Route: PO; aj1 21:38 Follow up: Response: No adverse reaction aj1 Outcome: 21:21 Discharge ordered by . pm1 21:39 Discharged to home ambulatory. aj1 21:39 Condition: good 21:39 Discharge instructions given to patient, Instructed on discharge instructions, follow up and referral plans. medication usage, Demonstrated understanding of instructions, follow-up care, medications, Prescriptions given X 2. 21:39 Patient left the ED. aj1 Signatures: Dispatcher [employer] EDHI Linnea Jones RN RN aj1 Mary Ellen Meza as Magi Abrams RN RN Ashley Marshall RN RN ss Johnny Anderson NP HERD TESTER pm1
--- NOTE | 2018-08-01 21:22 | EDPHYS ---
Physician Documentation [facility] Name: Marisabel Bello Age: 77 yrs Sex: Female : 1940 Arrival Date: 08/01/2018 Time: 16:30 Bed 9 Private MD: Rene Pimentel ED Physician Ellis Meek HPI: 08/01 18:30 This 77 yrs old Female presents to ER via Ambulatory with complaints of Wrist pm1 Swelling. 18:30 The patient or guardian complains of swelling. The complaints affect the right wrist pm1 and right hand. Context: The problem was sustained at home, resulted from unknown cause. Onset: The symptoms/episode began/occurred 2 week(s) ago. Treatment prior to arrival includes: no previous treatment. Modifying factors: The symptoms are alleviated by nothing. the symptoms are aggravated by nothing. Associated signs and symptoms: Pertinent positives: swelling, Pertinent negatives: fever, numbness, pain, tingling. Severity of symptoms: in the emergency department the symptoms are actually worse, shortness of breath is not present in the emergency department. The patient has not experienced similar symptoms in the past. Patient reports scratch by coat meat hanger two weeks ago to the right wrist area. Historical: - Allergies: 16:36 No Known Allergies; ss - PMHx: 16:36 Back pain; Rheumatoid Arthritis; ss - PSHx: 16:36 FEMUR SURG; ANKLE SURG; HIP REPLACEMENT; Knee surgery; Hernia repair; ss - Immunization history:: Adult Immunizations up to date. - Social history:: Smoking status: Patient/guardian denies using tobacco. - Ebola Screening: : Patient denies exposure to infectious person Patient denies travel to an Ebola-affected area in the 21 days before illness onset. ROS: 18:30 Constitutional: Negative for fever, chills, and weight loss, Eyes: Negative for injury, pm1 pain, redness, and discharge, ENT: Negative for injury, pain, and discharge, Neck: Negative for injury, pain, and swelling, Cardiovascular: Negative for chest pain, palpitations, and edema, Respiratory: Negative for shortness of breath, cough, wheezing, and pleuritic chest pain, Abdomen/GI: Negative for abdominal pain, nausea, vomiting, diarrhea, and constipation, Back: Negative for injury and pain, : Negative for injury, bleeding, discharge, and swelling. 18:30 Skin: Negative for injury, rash, and discoloration, Neuro: Negative for headache, weakness, numbness, tingling, and seizure. 18:30 MS/extremity: Positive for swelling, of the right hand and right wrist, Negative for decreased range of motion, deformity. Exam: 18:30 Constitutional: This is a well developed, well nourished patient who is awake, alert, pm1 and in no acute distress. Head/Face: Normocephalic, atraumatic. Eyes: Pupils equal round and reactive to light, extra-ocular motions intact. Lids and lashes normal. Conjunctiva and sclera are non-icteric and not injected. Cornea within normal limits. Periorbital areas with no swelling, redness, or edema. ENT: Nares patent. No nasal discharge, no septal abnormalities noted. Tympanic membranes are normal and external auditory canals are clear. Oropharynx with no redness, swelling, or masses, exudates, or evidence of obstruction, uvula midline. Mucous membranes moist. Neck: Trachea midline, no thyromegaly or masses palpated, and no cervical lymphadenopathy. Supple, full range of motion without nuchal rigidity, or vertebral point tenderness. No Meningismus. Chest/axilla: Normal chest wall appearance and motion. Nontender with no deformity. No lesions are appreciated. Cardiovascular: Regular rate and rhythm with a normal S1 and S2. No gallops, murmurs, or rubs. Normal PMI, no JVD. No pulse deficits. Respiratory: Lungs have equal breath sounds bilaterally, clear to auscultation and percussion. No rales, rhonchi or wheezes noted. No increased work of breathing, no retractions or nasal flaring. Abdomen/GI: Soft, non-tender, with normal bowel sounds. No distension or tympany. No guarding or rebound. No evidence of tenderness throughout. Back: No spinal tenderness. No costovertebral tenderness. Full range of motion. Skin: Warm, dry with normal turgor. Normal color with no rashes, no lesions, and no evidence of cellulitis. 18:30 Musculoskeletal/extremity: Extremities: grossly normal except: noted in the right hand and right wrist: swelling, There is no evidence of decreased ROM, erythema, tenderness, Perfusion: the extremity is normal 2+ right radial pulse . Vital Signs: 16:36 BP 165 / 86; Pulse 86; Resp 17; Temp 98.5(TE); Pulse Ox 95% on R/A; Weight 90.72 kg; ss Height 5 ft. 3 in. (160.02 cm); Pain 2/10; 20:34 BP 175 / 83; Pulse 86; Resp 18; Pulse Ox 95% on R/A; aj1 16:36 Body Mass Index 35.43 (90.72 kg, 160.02 cm) ss MDM: 17:19 Patient medically screened. pm1 21:20 Data reviewed: vital signs. Data interpreted: Pulse oximetry: on room air is 95 %. pm1 Interpretation: normal. Counseling: I had a detailed discussion with the patient and/or guardian regarding: the historical points, exam findings, and any diagnostic results supporting the discharge/admit diagnosis, lab results, radiology results, the need for outpatient follow up, for definitive care, a orthopedic surgeon, to return to the emergency department if symptoms worsen or persist or if there are any questions or concerns that arise at home. 21:20 ED course: Dr. Meek evaluated patient. Impression is that it is likely an inflammatory pm1 response versus infection. Recommends outpatient treatment with Keflex and steroids and follow up with PCP rheumatology . 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 Exp: aj06/02/2020. Lot #: [id number]. } Route: IM; Site: right deltoid; 21:38 Follow up: Response: No adverse reaction aj1 21:37 Drug: predniSONE 60 mg Route: PO; aj 21:38 Follow up: Response: No adverse reaction aj 21:38 Drug: KeFLEX 500 mg Route: PO; aj 21:38 Follow up: Response: No adverse reaction aj1 Disposition: 08/02 10:29 Co-signature as Attending Physician, Ellis Meek MD. gs Disposition: 08/01/18 21:21 Discharged to Home. Impression: Localized swelling, mass and lump, right upper limb. - Condition is Stable. - Prescriptions for Keflex 500 mg Oral Capsule - take 1 capsule by ORAL route every 6 hours for 10 days; 40 capsule. Medrol (Taz) 4 mg Oral Tablets, Dose Pack - take 1 tablet by ORAL route as directed - follow package instructions; 1 packet. - Medication Reconciliation Form, Thank You Letter, Antibiotic Education, Prescription Opioid Use form. - Follow up: Emergency Department; When: As needed; Reason: Worsening of condition. Follow up: Neftali Lott MD; When: 2 - 3 days; Reason: Recheck today's complaints, Continuance of care, Re-evaluation by your physician. - Problem is new. - Symptoms have improved. Signatures: Dispatcher [employer] EDMS Linnea Jones RN RN aj1 Ashley Marshall RN RN ss Johnny Anderson, RADIO SURVEY WORKER RADIO SURVEY WORKER pm1 Ellis Meek MD MD Corrections: (The following items were deleted from the chart) 08/01 21:39 21:21 08/01/2018 21:21 Discharged to Home. Impression: Localized swelling, mass and aj1 lump, right upper limb. Condition is Stable. Forms are Medication Reconciliation Form, Thank You Letter, Antibiotic Education, Prescription Opioid Use. Follow up: Emergency Department; When: As needed; Reason: Worsening of condition. Follow up: Neftali Lott; When: 2 - 3 days; Reason: Recheck today's complaints, Continuance of care, Re-evaluation by your physician. Problem is new. Symptoms have improved. pm1
[2018-08-01] MEDS ORDERED: predniSONE 20 MG TAB ONE (21:44)
[2018-08-01] MEDS ORDERED: CEPHALEXIN 250 MG CAP ONE (21:44)
== END 2018-08-01 21:39 | disposition home or self-care (01) ==
LOC: ER 16:29
DX: R22.31 Localized swelling, mass and lump, right upper limb (principal); Z23 Encounter for immunization; M06.831 Other specified rheumatoid arthritis, right wrist; M81.0 Age-related osteoporosis without current pathological fracture
CPT/HCPCS: 36415; 80053; 85025; 90714; 99284; J7512

== ENCOUNTER 2018-09-20 11:58 | Emergency (ER) | payer OTHER ==
--- OUTSIDE RECORDS SUMMARY | 2018-09-20 12:04 | XMS REPORT | Clinical Summary ---
:1940 Author Organization [facility] Address [address] [place] [address] Care Team Providers Name Role Phone Rene [...] 0 03/01/2017 Active 1 MG tablet DAILY predniSONE Take 2.5 mg 0 12/27/2014 Active (DELTASONE) 2.5 mg by mouth. tablet valsartan (DIOVAN) Take 80 mg by 0 Active 80 MG tablet mouth. albuterol (PROAIR Take by 0 05/05/2018 Discontinued HFA,PROVENTIL mouth. HFA,VENTOLIN HFA) 90 mcg/actuation inhaler multivitamins & Take by 0 03/24/2018 Discontinued minerals-ferrous mouth. gluconate 9 mg iron/15 mL liquid pantoprazole Take 40 mg by 0 08/11/2018 Discontinued (PROTONIX) 40 MG EC mouth. tablet Active Problems Problem Noted Date Hiatal hernia [...] Encounters Date Type Specialty Care Team Description 08/11/2018 Office Visit Cardiothoracic Surgery Vinny Ashford Surgery follow- up MD Aliza examination (Primary Dx) 07/11/2018 Office Visit Neurosurgery Mauro Torrez Osteoporosis without current pathological fracture, unspecified osteoporosis type (Primary Dx); MD Artem Lumbar stenosis with neurogenic claudication; Class 3 severe obesity due to excess calories with serious comorbidity and body mass index (BMI) of 40.0 to 44.9 in adult (HCC) 07/11/2018 [facility] Radiology Mauro Torrez Lumbar radiculopathy Encounter MD Artem 07/11/2018 Orders Only Neurosurgery Mauro Torrez Lumbar radiculopathy MD Artem (Primary Dx) 07/04/2018 Anesthesia Event Cardiothoracic Surgery Collins Torres, GERALD 07/04/2018 Surgery Cardiothoracic Surgery Vinny Ashford, ROBOTIC MD Aliza ASSISTED LAPAROSCOPIC TYPE III HIATAL HERNIA W/ TOUPET FUNDOPLICATION, AND ENDOFLIP 07/04/2018 [facility] General Internal Vinny Ashford Hiatal hernia - Encounter Medicine MD Aliza 07/05/2018 07/01/2018 Telephone Cardiothoracic Surgery Hafsa Coleman, GYMNASTIC TEACHER 06/13/2018 Orders Only Cardiothoracic Surgery Vinny Ashford MD 06/09/2018 Telephone Cardiothoracic Surgery Catherine Yoon MA 06/09/2018 Orders Only Cardiothoracic Surgery Bereket Yoon, hiatal ( Primary Dx); J CARLOS Alexander Pre-operative laboratory examination 05/31/2018 Telephone Cardiothoracic Surgery Hafsa Coleman, GYMNASTIC TEACHER 05/26/2018 Orders Only Cardiology Aleksey Bronson MD 05/24/2018 Orders Only Cardiology Aleksey Bronson MD 05/10/2018 Office Visit Cardiology Aleksey Bronson Pre-op exam (Primary Dx); MD Melita Essential hypertension; SOB (shortness of breath) 05/05/2018 Lab Lab Vinny Ashford Hiatal hernia; MD Aliza Pre-op testing 05/05/2018 Office Visit Cardiothoracic Surgery Vinny Ashford Hiatal hernia ( Primary Dx); MD Aliza Pre-op testing 04/29/2018 Surgery Gastroenterology Carolina Salmon ESOPHAGEAL MANOMETRY MD Jonathon WITH IMPEDANCE PROBE RETURN 04/29/2018 [facility] Gastroenterology Carolina Salmon MD 04/28/2018 Surgery Gastroenterology Carolina Salmon ESOPHAGEAL MANOMETRY MD Jonathon WITH IMPEDANCE PROBE 04/28/2018 [facility] Gastroenterology Carolina Salmon MD 03/30/2018 Orders Only Cardiothoracic Surgery Saxis, Hiatal hernia J CARLOS Alexander (Primary Dx) 03/24/2018 Office Visit Cardiothoracic Surgery Vinny Ashford, hiatal MD Aliza (Primary Dx) 03/24/2018 [facility] Radiology Vinny Ashford Hiatal hernia Encounter MD Aliza 03/02/2018 Orders Only Cardiothoracic Surgery Anton, Hiatal hernia J CARLOS Carr (Primary Dx) 02/28/2018 Telephone Cardiothoracic Surgery Lilly Walton MA 01/14/2018 [facility] Radiology Yohana Hsu Abnormal CXR (chest Encounter MD [place] x-ray) 12/24/2017 Transcribe Orders Access Yohana Hsu Abnormal CXR (chest MD [place] x-ray) (Primary Dx) 12/23/2017 [facility] Radiology Mauro Torrez MD 12/23/2017 [facility] Radiology Mauro Torrez MD 12/23/2017 [facility] Radiology Mauro Torrez MD 12/23/2017 Office Visit Neurosurgery Mauro Torrez Lumbar stenosis with neurogenic claudication (Primary Dx); MD Artem Osteoporosis without current pathological fracture, unspecified osteoporosis type; Rheumatoid arthritis involving multiple sites with positive rheumatoid factor; Class 2 obesity due to excess calories with serious comorbidity and body mass index (BMI) of 35.0 to 35.9 in adult 12/23/2017 [facility] Radiology Mauro Torrez Lumbar radiculopathy Paul Mcgill MD 12/23/2017 [facility] Radiology Mauro Torrez Lumbar radiculopathy Paul Mcgill MD 12/23/2017 Abstract Neurosurgery Sita Cope LVN 12/22/2017 Orders Only Neurosurgery Mauro Torrez Lumbar radiculopathy MD Artem (Primary Dx) after 09/19/2017 Family History Medical History Relation Name Comments [...] Vital Sign Reading Time Taken Blood Pressure 145/67 08/11/2018 10:27 AM CDT Pulse 100 08/11/2018 11:25 AM CDT Temperature 36.1 C (96.9 F) 08/11/2018 10:27 AM CDT Respiratory Rate 17 08/11/2018 10:27 AM CDT Oxygen Saturation 97% 08/11/2018 10:27 AM CDT Inhaled Oxygen Concentration - - Weight 95.2 kg (209 lb 12.8 oz) 08/11/2018 10:27 AM CDT Height 157.5 cm (5' 2") 08/11/2018 10:27 AM CDT Body Mass Index 38.37 08/11/2018 10:27 AM CDT Plan of Treatment Health Maintenance Due Date Last Done Comments BREAST CANCER SCREENING 1992 COLON CANCER SCREENING 1992 SHINGLES VACCINES (#1) 1992 65+ PNEUMOCOCCAL VACCINE (1 of 2 - 12/19/2007 PCV13) PNEUMOCOCCAL POLYSACCHARIDE VACCINE 12/19/2007 AGE 65 AND OVER INFLUENZA VACCINE 11/17/2018 02/02/2018, 02/06/2016, 02/05/2015 Implants Implanted Type Area Rn Clinical Documentation Specialist Device Shelf Model / Identifier Expiration Serial / Date Lot Catheter Endoflip 8cm Measurement - [id number] Surgical N/A: N/A CROSPON 06/08/2019 EF 325N [...] procedure are in the results section. CT AN ELECTIVE Routine 07/04/2018 8:28 ENDOTRACHEAL AIRWAY AM CDT Procedure Note - Collins Torres CRNA - 07/04/2018 8:28 AM CDT Airway Date/Time: 07/04/2018 7:49 AM Performed by: Collins Torres CRNA Authorized by: Alexandra Moyer MD Location: OR Urgency: Elective Difficult Airway: No Anesthesiologist: Alexandra Moyer MD Resident/FAMILY SERVICES COORDINATOR/AA: Collins Torres CRNA Performed by: resident/GERALD/AA Preoxygenated [...] 06/13/2018 12:29 Results for this DIFFERENTIAL PM APPLICATION SUPPORT ENGINEER procedure are in the results section. PROTHROMBIN TIME WITH Routine 06/13/2018 12:29 Results for this INR PM APPLICATION SUPPORT ENGINEER procedure are in the results section. PARTIAL THROMBOPLASTIN Routine 06/13/2018 12:29 Results for this TIME (PTT) PM APPLICATION SUPPORT ENGINEER procedure are in the results section. COMPREHENSIVE Routine 06/13/2018 12:29 Results for this METABOLIC PANEL PM APPLICATION SUPPORT ENGINEER procedure are in the results section. OBTAIN MEDICAL RECORDS Routine 05/26/2018 ECHOCARDIOGRAM 2D Routine 05/25/2018 3:05 SOB (shortness of Results for this COMPLETE W MMODE PM APPLICATION SUPPORT ENGINEER breath) procedure are in SPECTRAL COLOR DOPPLER Pre-op exam the results (72276) section. NM MYOCARDIAL Routine 05/21/2018 PERFUSION ECG 12-LEAD Routine 05/10/2018 3:21 Essential Results for this PM APPLICATION SUPPORT ENGINEER hypertension procedure are in the results section. ESTIMATED GFR Routine 05/05/2018 1:40 Results for this PM APPLICATION SUPPORT ENGINEER procedure are in the results section. PARTIAL THROMBOPLASTIN Routine 05/05/2018 1:40 Hiatal hernia Results for this TIME (PTT) PM APPLICATION SUPPORT ENGINEER Pre-op testing procedure are in the results section. PROTHROMBIN TIME WITH Routine 05/05/2018 1:40 Hiatal hernia Results for this INR PM APPLICATION SUPPORT ENGINEER Pre-op testing procedure are in the results section. COMPREHENSIVE Routine 05/05/2018 1:40 Hiatal hernia Results for this METABOLIC PANEL PM APPLICATION SUPPORT ENGINEER Pre-op testing procedure are in the results section. HC COMPLETE BLD COUNT Routine 05/05/2018 1:40 Hiatal hernia Results for this W/AUTO DIFF PM APPLICATION SUPPORT ENGINEER Pre-op testing procedure are in the results section. TYPE AND SCREEN Routine 05/05/2018 1:40 Hiatal hernia Results for this PM APPLICATION SUPPORT ENGINEER Pre-op testing procedure are in the results section. ESOPHAGEAL MANOMETRY 04/29/2018 2:15 Hiatal hernia WITH IMPEDANCE PROBE PM APPLICATION SUPPORT ENGINEER Special Needs DR ASHFORD ESOPHAGEAL MANOMETRY WITH IMPEDANCE PROBE 04/28/2018 9:00 AM APPLICATION SUPPORT ENGINEER Hiatal hernia Special Needs DR ASHFORD [place] ESOPHAGRAM Routine 03/24/2018 11:05 AM Hiatal hernia Results for this COMPLETE APPLICATION SUPPORT ENGINEER procedure are in the results section. CT [...] procedure are in the results section. after 09/19/2017 Results XR Lumbar Spine Complete W Flex and Ext (07/11/2018 11:45 AM CDT)Only the most recent of2 resultswithin the time period is included. Specimen Narrative Performed At EXAMINATION: XR LUMBAR SPINE [...] lateral radiographs. Right hip arthroplasty is noted. [id number] Procedure Note Interface, Radiology Results Incoming - [...] lateral radiographs. Right hip arthroplasty is noted. [id number] Performing Organization Address City/State/Zipcode Phone Number [facility] [address] [place] [address] CBC with platelet and differential (07/05/2018 5:15 AM CDT)Only the most recent of3 resultswithin the time period is included. WBC 8.02 4.50 - 11.00 [facility] RBC 4.19 (L) 4.20 - 5.50 [facility] HGB 12.3 12.0 - 16.0 [facility] g/dL [facility] HCT 40.3 37.0 - 47.0 % [facility] MCV 96.2 82.0 - 100.0 [facility] MCH 29.4 27.0 - 34.0 pg [facility] MCHC 30.5 (L) 31.0 - 37.0 [facility] g/dL HOSPITAL RDW - SD 49.8 37.0 - 55.0 fL [facility] MPV 10.3 8.8 - 13.2 fL [facility] Platelet count 204 150 - 400 k/uL [facility] Nucleated RBC 0.00 /100 WBC [facility] Neutrophils 62.7 39.0 - 69.0 % [facility] Lymphocytes 25.3 25.0 - 45.0 % [facility] Monocytes 9.2 0.0 - 10.0 % [facility] Eosinophils 1.9 0.0 - 5.0 % [facility] Basophils 0.4 0.0 - 1.0 % [facility] Immature granulocytes 0.5Comment: 0.0 - 1.0 % [facility] "[facility] granulocytes" (promyelocytes , myelocytes, metamyelocytes ) Specimen Blood Performing Organization Address City/[facility] Phone Number [facility] DEPARTMENT OF PATHOLOGY AND [address] [place] [address] Estimated GFR (07/05/2018 4:00 AM CDT)Only the most recent of2 resultswithin the time period is included. [facility] Estimated GFR 72 mL/min/1.73 [facility] Comment: HOSPITAL CatergoryUnitsInterpretation G1 >=90 Normal or high G2 60-89Mildly decreased E3x62-99Enecku to moderately decreased W8y76-28Iexdhboyjr to severely decreased G4 15-29Severely decreased G5 <15Kidney failure The eGFR was calculated using the Chronic Kidney Disease Epidemiology Collaboration (CKD-EPI) equation. Interpretation is based on recommendations of the National Kidney Foundation-Kidney Disease Outcomes Quality Initiative (NKF-KDOQI) published in 2014. Specimen Plasma specimen Performing Organization Address City/[facility] Phone Number [facility] DEPARTMENT OF PATHOLOGY AND [address] [place], [place] [id number] Basic metabolic panel (07/05/2018 4:00 AM CDT) [facility] Sodium 138 135 - 148 mEq/L [facility] Potassium 3.9 3.5 - 5.0 mEq/L [facility] Chloride 104 98 - 112 mEq/L [facility] CO2 24 24 - 31 mEq/L [facility] Anion gap 10@ANIO 7 - 15 mEq/L [facility] BUN 17 8 - 23 mg/dL [facility] Creatinine 0.80 0.50 - 0.90 mg/dL [facility] Glucose 96 65 - 99 mg/dL [facility] Calcium 8.5 (L) 8.8 - 10.2 mg/dL [facility] Specimen Plasma specimen Performing Organization Address City/[facility] Phone Number [facility] DEPARTMENT OF PATHOLOGY AND [address] [place] [address] [place] [address] Surgical pathology request (07/04/2018 1:58 PM CDT) [facility] DEPARTMENT OF PATHOLOGY AND GENOMIC MEDICINE Surgical pathology See link below [facility] DEPARTMENT OF report for PDF Lab PATHOLOGY AND Report GENOMIC MEDICINE Result status This is Final [facility] DEPARTMENT OF Report for PATHOLOGY AND [id number] GENOMIC MEDICINE Specimen Performing Organization Address [facility] Phone Number [facility] DEPARTMENT OF PATHOLOGY AND [address] [place] [address] GENOMIC MEDICINE Type and screen (07/04/2018 5:32 AM CDT)Only the most recent of2 resultswithin the time period is included. ABO grouping A [facility] Rh type POS [facility] Antibody screen (gel) NEG [facility] Specimen Blood Performing Organization Address City/[facility] Phone Number [facility] DEPARTMENT OF PATHOLOGY AND [address] [place] [address] GENOMIC MEDICINE [address] [address] Partial thromboplastin time, activated (06/13/2018 12:29 PM APPLICATION SUPPORT ENGINEER)Only the most recent of2 resultswithin the time period is included. PTT 25 22 - 34 sec [facility] Comment: HORATIO This test has not been validated for monitoring unfractionated heparin therapy. For testing that is validated for this type of therapy, please refer to the Heparin Anti-Xa assay (test code 22645). For additional information, please refer to http://education.Shwrüm/faq/BHG010 (This link is being provided for informational/educational purposes only.) Specimen Narrative Performed At FASTING:NO [facility] FASTING: NO Resulting Agency Comment Performing Organization Information: Site ID: [id number] Name: [facility] Address: [address] [place] [phone] Director: Gilma Edwards Performing Organization Address [facility] Phone Number [place] [address] Prothrombin time with INR (06/13/2018 12:29 PM APPLICATION SUPPORT ENGINEER)Only the most recent of2 resultswithin the time period is included. INR 1.0 [facility] Comment: HORATIO Reference Range 0.9-1.1 Moderate-intensity Warfarin Therapy 2.0-3.0 Higher-intensity Warfarin Therapy 3.0-4.0 Prothrombin time 10.1 9.0 - 11.5 [facility] Comment: sec HORATIO For more information on this test, go to: http://[employer].Spoofem.com/faq/UVR400 Specimen Narrative Performed At FASTING:NO [facility] FASTING: NO Resulting Agency Comment Performing Organization Information: Site ID: [facility] Name: [facility] Address: [address] [place] [phone] Director: Gilma Edwards Performing Organization Address [facility] Phone Number [facility] [address] [address] Comprehensive metabolic panel (06/13/2018 12:29 PM APPLICATION SUPPORT ENGINEER)Only the most recent of2 resultswithin the time period is included. Glucose 122 65 - 139 [facility] Comment: mg/dL HORATIO Non-fasting reference interval BUN, whole blood 22 7 - 25 mg/dL [facility] HORATIO Creatinine 0.66 0.60 - 0.93 [facility] Comment: mg/dL HORATIO For patients >49 years of age, the reference limit for Creatinine is approximately 13% higher for people identified as -Croatian. EGFR Non-Afr. 86 > OR=60 [facility] Croatian mL/min/1.73m HORATIO 2 EGFR 100 > OR=60 [facility] Croatian mL/min/1.73m HORATIO 2 BUN/creatinine NOT APPLICABLE 6 - 22 [facility] ratio (calc) HORATIO Sodium 139 135 - 146 [facility] mmol/L [facility] Potassium 4.5 3.5 - 5.3 [facility] mmol/L [facility]ATIO Chloride 104 98 - 110 [facility] mmol/L HORATIO CO2 27 20 - 32 [facility] mmol/L H[facility]ATIO Calcium 9.3 8.6 - 10.4 [facility] mg/dL HORATIO Protein 7.1 6.1 - 8.1 [facility] g/dL HORATIO Albumin, S 4.1 3.6 - 5.1 [facility] g/dL HORATIO Globulin, total 3.0 1.9 - 3.7 [facility] g/dL (calc) HORATIO Albumin/globulin 1.4 1.0 - 2.5 [facility] ratio (calc) HORATIO Total bilirubin 0.4 0.2 - 1.2 [facility] mg/dL HORATIO Alkaline 53 33 - 130 U/L [facility] phosphatase HORATIO AST 13 10 - 35 U/L [facility] HORATIO ALT 10 6 - 29 U/L [facility] HORATIO Specimen Narrative Performed At FASTING:NO [facility] FASTING: NO Resulting Agency Comment Performing Organization Information: Site ID: [id number] Name: [facility] Address: [address] [place] [phone] Director: Gilma Edwards Performing Organization Address City/State/Zipcode [place] [address] Obtain medical records (05/26/2018) Narrative Performed At Echocardiogram complete w contrast and 3D if needed (05/25/2018 3:05 PM APPLICATION SUPPORT ENGINEER) Specimen Narrative Performed At [facility] Echocardiography Report Pat.Name:LEONORA BELLO Pat.ID:[id number] .Date: 05/25/2018Refer.MD:ALEKSEY BRONSON MD Exam Time: 2:10:00 PMStudy Type:Routine Echo Height:63inWeight: 227lb BSA: 2.04 m2 DOBAge:1940,77Y Sex: FEMALEBP:134/75 HR:93 bpm Sonogrphr: FARHAD Morrell FASE Pat. Stat.:OutpatientRoom:Bureau Study Status:Final Echo Event ID:[id number] Order ID:[id number] Reason for Study:SOB, suspected cardiac etiology Procedures:2D [...] RAPof 5 mmHg. MEASUREMENTS: 2D Parasternal Long [place] LVIDs3.1 cmLA Ds4.7 cm LV%fs 36.6 % Ao Rtd 3.3 cm Index1.6 cm/m LVOT 2 cmLV Xuzo327.8 g(87-129) LVIDd5.1 cmIndex2.5 cm/m LVM Fmxoo881 g/m2 IVSd 1.2 cmRWT0.5 LVPWd1.2 cm LA Sng Plane LA Area 27.3 cm2(8.8-23.4) LA Vol99.8 ml Index48.9 ml/m LA LngAx 5.9 cm DOPPLER LVOT Stroke Vol LVOT 2 cmLVOT CO7.9 l/min LVOT TVI27.6 cmLVOT CI3.9 l/m/m2 LVOT Tm286 vfoaDJ04 bpm LVOT SV 86.7 ml MV For Flow/Valve Assess MV pkVel 149.9 cm/sMV Mean G3.9 mmHg MV pkPG9 mmHgMV TVI22.9 cm Signed 05/26/2018 5:07:00 PM Emely Baires M.D. Procedure Note Interface, Radiology Results In - 05/27/2018 12:23 PM APPLICATION SUPPORT ENGINEER [facility] Echocardiography Report Pat.Name: LEONORA BELLO Pat.ID: [id number] St.Date: 05/25/2018 Refer.MD: ALEKSEY BRONSON MD Exam Time: 2:10:00 PM Study Type:Routine Echo Height: 63in Weight: 227lb BSA: 2.04 m2 Age: 9 1940,77Y Sex: FEMALE BP: 134/75 HR: 93 bpm Sonogrphr: FARHAD Morrell FASE Pat. Stat.:Outpatient Room: Bureau Study Status:Final Echo Event ID:[id number] Order ID: [id number] Reason for Study:SOB, suspected cardiac etiology Procedures:2D [...] of 5 mmHg. MEASUREMENTS: 2D Parasternal Long [place] LVIDs 3.1 cm LA Ds 4.7 cm [...] Organization Address City/State/Zipcode Phone Number [facility] [address] [place] [address] Nc myocardial perfusion (05/21/2018) Narrative Performed At ECG 12 lead (05/10/2018 3:21 PM APPLICATION SUPPORT ENGINEER) Ventricular rate 86 [facility] Atrial rate [address] interval 154 [facility] QRSD interval 84 [facility] QT interval 356 [facility] QTC interval 426 [facility] P axis 1 58 [facility] QRS axis 1 -26 [facility] T wave axis 64 [facility] EKG impression Sinus rhythm with [facility] MUSE occasional premature ventricular complexes-Otherwise normal ECG-No previous ECGs available-Electronicall y Signed By Paula Kenyon MD ([id number]) on 05/10/2018 10:21:11 PM Specimen Narrative Performed At Performing Organization Address City/State/Zipcode Phone Number [facility] MUSE [address] [place] [address] [place] Esophagram Complete (03/24/2018 11:05 AM APPLICATION SUPPORT ENGINEER) Specimen Narrative Performed At [place] ESOPHAGRAM COMPLETE [facility] CLINICAL INDICATION:K44.9 Diaphragmatic hernia [...] participate in the care of your patient. [facility]-[id number] Procedure Note Interface, Radiology Results Incoming - 03/24/2018 11:22 AM APPLICATION SUPPORT ENGINEER [place] ESOPHAGRAM COMPLETE CLINICAL INDICATION: K44.9 Diaphragmatic [...] participate in the care of your patient. [facility]-[id number] Performing Organization Address City/State/Zipcode Phone Number [facility] [address] [place] [address] CT Chest Wo Contrast (01/14/2018 11:51 AM CDT) Specimen Narrative Performed At EXAMINATION: CT CHEST WO CONTRAST [facility] CLINICAL HISTORY: R93.8 Abnormal findings on diagnostic [...] hiatal hernia. 4.Cholelithiasis without evidence of cholecystitis. [facility]-[id number] Procedure Note Interface, Radiology Results Incoming - 01/14/2018 12:27 PM CDT EXAMINATION: CT [...] hernia. 4. Cholelithiasis without evidence of cholecystitis. [facility]-[id number] Performing Organization Address City/State/Zipcode Phone Number [facility] [address] [place] [address] XR Spine Scoliosos 2-3 Views (12/23/2017 11:51 AM CDT) Specimen Narrative Performed At EXAMINATION:XR SPINE SCOLIOSIS 2-3 [facility]WS [facility] CLINICAL HISTORY:M54.16 Radiculopathylumbar region, radiculopathy IMPRESSION: 8 [...] view is limited due to stitching artifact. [id number] Procedure Note Hm Interface, Radiology Results Incoming [...] view is limited due to stitching artifact. [id number] Performing Organization Address City/State/Zipcode Phone Number [facility] [address] [place] [address] after 09/19/2017 Insurance Payer Benefit Plan / Subscriber ID Effective Dates Phone Address Type Group HUMANA MEDICARE HUMANA MEDICARE xxxxxxxxx 2017-Present PPO PPO/PFFS/[facility] (Home) [place] [address] Advance Directives Patient has advance care planning documents on file. For more information, please contact:Mark Rainey[address] [place] [address]
[2018-09-20] MEDS ORDERED: NA CHLORIDE 0.9% 1,000 ML ONE (12:42)
[2018-09-20] MEDS ORDERED: ONDANSETRON 4 MG/2 ML VIAL ONE (12:42)
[2018-09-20 12:43] LABS: Absolute Lymphocytes (CBC) 0.9 K/uL (0.7-4.9); Absolute Monocytes 0.6 K/uL (0.1-1.3); Absolute Neutrophil 6.1 K/uL (1.8-8.0); Basophils % 0.5 % (0-1.3); Eosinophils % 1.9 % (0-4.4); Hematocrit 40.6 % (36.0-45.0); Lymphocytes % 11.8 % (15.3-44.8); MPV 8.5 fL (7.6-11.3); Monocytes % 7.2 % (3.3-12.3); RBC Red Blood Cell Count 4.57 M/uL (3.86-4.86)
[2018-09-20 12:50] LABS: Protime INR 1.09
--- NOTE | 2018-09-20 12:58 | RAD REPORT ---
EXAM DESCRIPTION: CT - Stone Protocol - 09/20/2018 12:43 pm CLINICAL HISTORY: Flank pain. ABD PAIN COMPARISON: No comparisons TECHNIQUE: Axial images were obtained without oral or IV contrast. Lack of contrast limits solid org an and vascular assessment. The mpeio-aq-qndh spans the entirety of the system partially obscuring uppermost abdomen and lung bases. Coronal reformatted images were obtained and reviewed. All CT scans are performed using dose optimization technique as appropriate and may include automated exposure control or mA/KV adjustment according to patient size. FINDINGS: Bronchiectasis is noted in both lower lung bases. Small hiatal hernia. Several low-density liver lesions are present likely cysts. Cholelithiasis. The spleen, pancreas, adr enal glands are normal. No pathologic lymphadenopathy in the abdomen or pelvis. Small calcifications are present seen in the inferior right kidney compatible nephrolithiasis. No hyd ronephrosis. No bowel obstruction, free air, free fluid or abscess. The appendix is not identified as a discrete s tructure, however, no secondary findings of appendicitis are identified. Moderate lower lumbar degenerative changes with vacuum disc degeneration. IMPRESSION: Nonobstructive punctate right nephrolithiasis. Cholelithiasis.
[2018-09-20 13:04] LABS: Lipase 87 U/L (73-393); Troponin (Emerg Dept Use Only) < 0.02 ng/mL (0.0-0.045)
[2018-09-20 13:05] LABS: Albumin 3.3 g/dL (3.4-5.0); Bilirubin Direct 0.1 mg/dL (0-0.2); Bilirubin Total 0.6 mg/dL (0.2-1.0); Magnesium 1.6 mg/dL (1.8-2.4); Potassium 3.4 mmol/L (3.5-5.1); Protein, Total 6.9 g/dL (6.4-8.2)
--- NOTE | 2018-09-20 13:42 | RAD REPORT ---
EXAM DESCRIPTION: Angelique Single View09/20/2018 1:20 pm CLINICAL HISTORY: cough COMPARISON: 2016 FINDINGS: The lungs appear clear of acute infiltrate. The heart is moderately enlarged IMPRESSION: No acute abnormalities displayed
[2018-09-20] MEDS ORDERED: NS KCL 20MEQ 1,000 ML IV ONE (13:56)
[2018-09-20] MEDS ORDERED: MAGNESIUM SULFATE 1 gm IVPB 1 GM/100 ML BAG IV ONE (13:56)
--- NOTE | 2018-09-20 15:15 | EKG ---
Test Date: 2018-09-20 Test Time: 12:29:39 Tmh Teacher: ABISAI MEASUREMENT RESULTS: Intervals: Rate: 101 VA: 146 QRSD: 84 QT: 358 QTc: 464 [place]: P: 75 VA: 146 QRS: -28 T: 43 INTERPRETIVE STATEMENTS: Sinus tachycardia with occasional premature ventricular complexes Inferior-posterior infarct, age undetermined Abnormal ECG Compared to ECG 10/23/2015 06:50:41 Ventricular premature complex(es) now present Sinus rhythm no longer present Myocardial infarct finding still present Electronically Signed On 09-20-18 15:13:51 CDT by Yonny Ray
--- NOTE | 2018-09-20 15:17 | ER ---
Nurse's Notes [facility] Name: Marisabel Bello Age: 77 yrs Sex: Female : 1940 Arrival Date: 09/20/2018 Time: 12:00 Bed 19 Private MD: Rene Pimentel Diagnosis: Anorexia;Weakness;Hypomagnesemia;Hypokalemia;Cholelithiasis Presentation: 09/20 12:07 Presenting complaint: Patient states: i have just been sick for several weeks, i have tw2 been under treatment for a UTI, but Dr. Pimentel is thinking its something different, i am tired, i have no appetite, frequent urination. Transition of care: patient was not received from another setting of care. Onset of symptoms was September 20, 2018. Risk Assessment: Do you want to hurt yourself or someone else? Patient reports no desire to harm self or others. Initial Sepsis Screen: Does the patient meet any 2 criteria? No. Patient's initial sepsis screen is negative. Does the patient have a suspected source of infection? No. Patient's initial sepsis screen is negative. Care prior to arrival: None. 12:07 Method Of Arrival: Wheelchair tw2 12:07 Acuity: ZECHARIAH 3 tw2 Triage Assessment: 12:09 General: Appears distressed, obese, well groomed, Behavior is calm, cooperative, tw2 appropriate for age. Pain: Denies pain. 12:09 Neuro: Reports fatigue. : Reports urinary frequency. tw2 Historical: - Allergies: 12:13 No Known Allergies; tw2 - Home Meds: 12:13 ENBREL INJECTIONS (Last Dose: 08/20/2018 08:00) [Active]; pantoprazole 40 mg oral TbEC tw2 [Active]; Prednisone Oral [Active]; Iron CR Oral [Active]; Folic Acid Oral [Active]; Vitamin D Oral [Active]; clopidogrel 75 mg oral tab 1 tab once daily [Active]; "unknown bp med" [Active]; 12:14 "unknonw cholesterol medicine" [Active]; tw2 - PMHx: 12:13 Back pain; Rheumatoid Arthritis; DVT; Hypertension; tw2 12:14 Hyperlipidemia; tw2 - PSHx: 12:13 FEMUR SURG; Knee surgery; ANKLE SURG; HIP REPLACEMENT; Hernia repair; tw2 - Immunization history:: Adult Immunizations. - Social history:: Smoking status: . - Ebola Screening: : Patient denies travel to an Ebola-affected area in the 21 days before illness onset. - Family history:: not pertinent. Screenin:18 Abuse screen: Denies threats or abuse. Denies injuries from another. Nutritional hj screening: No deficits noted. Tuberculosis screening: No symptoms or risk factors identified. Fall Risk None identified. Assessment: 12:13 General: Appears in no apparent distress. uncomfortable, Behavior is calm, cooperative, hj appropriate for age. Pain: Denies pain. Neuro: Level of Consciousness is awake, alert, obeys commands, Oriented to person, place, time, situation, Appropriate for age Reports weakness. Cardiovascular: Capillary refill < 3 seconds Patient's skin is warm and dry. Respiratory: Airway is patent Respiratory effort is even, unlabored, Respiratory pattern is regular, symmetrical. GI: No signs and/or symptoms were reported involving the gastrointestinal system. : No signs and/or symptoms were reported regarding the genitourinary system. EENT: No signs and/or symptoms were reported regarding the EENT system. Derm: No signs and/or symptoms reported regarding the dermatologic system. Musculoskeletal: No signs and/or symptoms reported regarding the musculoskeletal system. 13:34 Reassessment: Patient and/or family updated on plan of care and expected duration. Pain hj level reassessed. Patient is alert, oriented x 3, equal unlabored respirations, skin warm/dry/pink. awaiting results and POC:. Vital Signs: 12:09 BP 145 / 62; Pulse 102; Resp 17; Temp 97.9(O); Pulse Ox 97% on R/A; Weight 88.45 kg tw2 (R); Height 5 ft. 2 in. (157.48 cm); Pain 0/10; 12:57 BP 108 / 80; Pulse 96; Resp 18; Pulse Ox 96% on R/A; hj 13:30 BP 128 / 65; Pulse 95; Resp 18; Pulse Ox 98% on R/A; hj 14:30 BP 114 / 64; Pulse 90; Resp 18; Pulse Ox 99% on R/A; hj 15:30 BP 120 / 65; Pulse 89; Resp 18; Pulse Ox 98% on R/A; hj 16:28 BP 110 / 78; Pulse 89; Resp 18; Pulse Ox 100% on R/A; hj 12:09 Body Mass Index 35.67 (88.45 kg, 157.48 cm) tw2 ED Course: 12:00 Patient arrived in ED. mr 12:01 Rene Pimentel MD is Private Physician. mr 12:09 Triage completed. tw2 12:09 Arm band placed on. tw2 12:15 Deon Kelley, RN is Primary Nurse. hj 12:18 Patient has correct armband on for positive identification. Placed in gown. Bed in low hj position. Call light in reach. Side rails up X 1. Adult w/ patient. 12:19 Jb Starr MD is Attending Physician. [facility] 12:37 EKG done, by donor services technician. reviewed by Jb Starr MD. 3 12:38 Initial lab(s) drawn, by vt, sent to lab. Inserted saline lock: 20 gauge in right kj1 antecubital area, using aseptic technique. 12:42 CT completed. Patient tolerated procedure well. Patient moved to CT via wheelchair. [id number] Patient moved back from CT. 12:45 CT Stone Protocol In Process Unspecified. EDMS 13:18 X-ray completed. Portable x-ray completed in exam room. Patient tolerated procedure sw well. 13:21 XRAY Chest (1 view) In Process Unspecified. EDMS 15:16 Rene Pimentel MD is Referral Physician. [facility] 15:45 First set of blood cultures drawn by ED staff. hj 16:00 Second set of blood cultures drawn by ED staff. hj 16:27 No provider procedures requiring assistance completed. IV discontinued, intact, hj bleeding controlled, No redness/swelling at site. Pressure dressing applied. Administered Medications: 12:36 Drug: NS 0.9% 1000 ml Route: IV; Rate: 1 bolus; Site: right antecubital; hj 14:00 Follow up: IV Status: Completed infusion; IV Intake: 1000ml 12:36 Drug: Zofran 4 mg Route: IVP; Site: right antecubital; hj 13:39 Follow up: Response: No adverse reaction 13:37 Drug: NS 0.9% with KCl 20 mEq/L 1000 ml Route: IV; Rate: 125 ml/hr; Site: right hj antecubital; 16:03 Follow up: IV Status: Order to discontinue infusion; IV Intake: 500ml 13:37 Drug: Magnesium Sulfate 1 grams Route: IVPB; Infused Over: 1 hrs; Site: right antecubital; 14:57 Follow up: IV Status: Completed infusion; IV Intake: 100ml hj 15:45 Drug: Potassium Effervescent Tablet 25 mEq Route: PO; hj 16:04 Follow up: Response: No adverse reaction hj 15:45 Drug: NS 0.9% 500 ml Route: IV; Rate: bolus; Site: right antecubital; hj 16:04 Follow up: IV Status: Infusion continued hj 16:05 Drug: Rocephin - (cefTRIAXone) 1 grams Route: IVPB; Infused Over: 30 mins; Site: right antecubital; 16:06 Follow up: IV Status: Completed infusion; IV Intake: 10ml Intake: 14:00 IV: 1000ml; Total: 1000ml. hj 14:57 IV: 100ml; Total: 1100ml. hj 16:03 IV: 500ml; Total: 1600ml. hj 16:06 IV: 10ml; Total: 1610ml. Outcome: 15:16 Discharge ordered by . bib 16:27 Discharged to home via wheelchair. 16:27 Condition: stable 16:27 Discharge instructions given to patient, family, Instructed on discharge instructions, follow up and referral plans. Demonstrated understanding of instructions, follow-up care. 16:39 Patient left the ED. Signatures: Dispatcher [employer] Jb Horowitz MD MD cha Rivera, Sophie mr Bolaños, Deon Riddle RN RN hj Wise, Tara, RN RN 2 Elen Garcia [facility] Michelle Carrillo Kandis 1
--- NOTE | 2018-09-20 15:17 | EDPHYS ---
Physician Documentation [facility] Name: Marisabel Bello Age: 77 yrs Sex: Female : 1940 Arrival Date: 09/20/2018 Time: 12:00 Bed 19 Private MD: Rene Pimentel ED Physician Jb Starr HPI: 09/20 15:05 This 77 yrs old Female presents to ER via Wheelchair with complaints of bib Decreased Appetite, Fatigue. 15:05 The patient presents with abdominal pain in the lower abdomen, abdominal distention in bib the upper abdomen, in the lower abdomen. Onset: The symptoms/episode began/occurred 2 week(s) ago. anorexia, weakness. Onset: The symptoms/episode began/occurred 2 week(s) ago. The symptoms do not radiate. Associated signs and symptoms: none. Modifying factors: The symptoms are alleviated by nothing, the symptoms are aggravated by nothing. Severity of pain: At its worst the pain was mild in the emergency department the pain is unchanged. Historical: - Allergies: 12:13 No Known Allergies; tw2 - Home Meds: 12:13 ENBREL INJECTIONS (Last Dose: 08/20/2018 08:00) [Active]; pantoprazole 40 mg oral TbEC tw2 [Active]; Prednisone Oral [Active]; Iron CR Oral [Active]; Folic Acid Oral [Active]; Vitamin D Oral [Active]; clopidogrel 75 mg oral tab 1 tab once daily [Active]; "unknown bp med" [Active]; 12:14 "unknonw cholesterol medicine" [Active]; tw2 - PMHx: 12:13 Back pain; Rheumatoid Arthritis; DVT; Hypertension; tw2 12:14 Hyperlipidemia; tw2 - PSHx: 12:13 FEMUR SURG; Knee surgery; ANKLE SURG; HIP REPLACEMENT; Hernia repair; tw2 - Immunization history:: Adult Immunizations. - Social history:: Smoking status: . - Ebola Screening: : Patient denies travel to an Ebola-affected area in the 21 days before illness onset. - Family history:: not pertinent. ROS: 15:05 Constitutional: Negative for fever, chills, and weight loss, Eyes: Negative for injury, bib pain, redness, and discharge, ENT: Negative for injury, pain, and discharge, Neck: Negative for injury, pain, and swelling, Cardiovascular: Negative for chest pain, palpitations, and edema, Respiratory: Negative for shortness of breath, cough, wheezing, and pleuritic chest pain, Back: Negative for injury and pain, : Negative for injury, bleeding, discharge, and swelling, MS/Extremity: Negative for injury and deformity, Skin: Negative for injury, rash, and discoloration, Psych: Negative for depression, anxiety, suicide ideation, homicidal ideation, and hallucinations, Allergy/Immunology: Negative for hives, rash, and allergies, Endocrine: Negative for neck swelling, polydipsia, polyuria, polyphagia, and marked weight changes, Hematologic/Lymphatic: Negative for swollen nodes, abnormal bleeding, and unusual bruising. 15:05 Abdomen/GI: Positive for nausea, anorexia. 15:05 Neuro: Positive for weakness. Exam: 15:05 Constitutional: This is a well developed, well nourished patient who is awake, alert, bib and in no acute distress. Head/Face: Normocephalic, atraumatic. Eyes: Pupils equal round and reactive to light, extra-ocular motions intact. Lids and lashes normal. Conjunctiva and sclera are non-icteric and not injected. Cornea within normal limits. Periorbital areas with no swelling, redness, or edema. ENT: Nares patent. No nasal discharge, no septal abnormalities noted. Tympanic membranes are normal and external auditory canals are clear. Oropharynx with no redness, swelling, or masses, exudates, or evidence of obstruction, uvula midline. Mucous membranes moist. Neck: Trachea midline, no thyromegaly or masses palpated, and no cervical lymphadenopathy. Supple, full range of motion without nuchal rigidity, or vertebral point tenderness. No Meningismus. Chest/axilla: Normal chest wall appearance and motion. Nontender with no deformity. No lesions are appreciated. Cardiovascular: Regular rate and rhythm with a normal S1 and S2. No gallops, murmurs, or rubs. Normal PMI, no JVD. No pulse deficits. Respiratory: Lungs have equal breath sounds bilaterally, clear to auscultation and percussion. No rales, rhonchi or wheezes noted. No increased work of breathing, no retractions or nasal flaring. Abdomen/GI: Soft, non-tender, with normal bowel sounds. No distension or tympany. No guarding or rebound. No evidence of tenderness throughout. Back: No spinal tenderness. No costovertebral tenderness. Full range of motion. Female : Normal external genitalia. Skin: Warm, dry with normal turgor. Normal color with no rashes, no lesions, and no evidence of cellulitis. MS/ Extremity: Pulses equal, no cyanosis. Neurovascular intact. Full, normal range of motion. Neuro: Awake and alert, GCS 15, oriented to person, place, time, and situation. Cranial nerves II-XII grossly intact. Motor strength 5/5 in all extremities. Sensory grossly intact. Cerebellar exam normal. Normal gait. Psych: Awake, alert, with orientation to person, place and time. Behavior, mood, and affect are within normal limits. Vital Signs: 12:09 BP 145 / 62; Pulse 102; Resp 17; Temp 97.9(O); Pulse Ox 97% on R/A; Weight 88.45 kg tw2 (R); Height 5 ft. 2 in. (157.48 cm); Pain 0/10; 12:57 BP 108 / 80; Pulse 96; Resp 18; Pulse Ox 96% on R/A; hj 13:30 BP 128 / 65; Pulse 95; Resp 18; Pulse Ox 98% on R/A; hj 14:30 BP 114 / 64; Pulse 90; Resp 18; Pulse Ox 99% on R/A; hj 15:30 BP 120 / 65; Pulse 89; Resp 18; Pulse Ox 98% on R/A; hj 16:28 BP 110 / 78; Pulse 89; Resp 18; Pulse Ox 100% on R/A; hj 12:09 Body Mass Index 35.67 (88.45 kg, 157.48 cm) tw2 MDM: 12:19 Patient medically screened. [facility] 15:08 Data reviewed: vital signs, nurses notes, lab test result(s), EKG, radiologic studies, [facility] CT scan, plain films. 09/20 12:20 Order name: Basic Metabolic Panel; Complete Time: 13:35 [facility] 09/20 12:20 Order name: CBC with Diff; Complete Time: 13:35 [facility] 09/20 12:20 Order name: LFT's; Complete Time: 13:35 [facility] 09/20 12:20 Order name: Magnesium; Complete Time: 13:35 [facility] 09/20 12:20 Order name: NT PRO-BNP; Complete Time: 13:35 [facility] 09/20 12:20 Order name: PT-INR; Complete Time: 13:35 [facility] 09/20 12:20 Order name: Troponin (emerg Dept Use Only); Complete Time: 13:35 [facility] 09/20 12:20 Order name: XRAY Chest (1 view); Complete Time: 15:11 [facility] 09/20 12:20 Order name: Lipase; Complete Time: 13:35 [facility] 09/20 12:20 Order name: Urine Culture [facility] 09/20 12:21 Order name: CT Stone Protocol; Complete Time: 13:35 [facility] 09/20 15:16 Order name: Blood Culture Adult (2) [facility] 09/20 15:45 Order name: Urine Dipstick--Ancillary (enter results) 09/20 12:20 Order name: EKG; Complete Time: 12:23 [facility] 09/20 12:20 Order name: Cardiac monitoring; Complete Time: 12:24 [facility] 09/20 12:20 Order name: EKG - Nurse/Tech; Complete Time: 12:35 [facility] 09/20 12:20 Order name: IV Saline Lock; Complete Time: 12:35 [facility] 09/20 12:20 Order name: Labs collected and sent; Complete Time: 12:35 [facility] 09/20 12:20 Order name: O2 Per Protocol; Complete Time: 12:24 [facility] 09/20 12:20 Order name: O2 Sat Monitoring; Complete Time: 12:24 [facility] 09/20 12:20 Order name: Urine Dipstick-Ancillary (obtain specimen); Complete Time: 14:57 [facility] Administered Medications: 12:36 Drug: NS 0.9% 1000 ml Route: IV; Rate: 1 bolus; Site: right antecubital; hj 14:00 Follow up: IV Status: Completed infusion; IV Intake: 1000ml 12:36 Drug: Zofran 4 mg Route: IVP; Site: right antecubital; hj 13:39 Follow up: Response: No adverse reaction hj 13:37 Drug: NS 0.9% with KCl 20 mEq/L 1000 ml Route: IV; Rate: 125 ml/hr; Site: right hj antecubital; 16:03 Follow up: IV Status: Order to discontinue infusion; IV Intake: 500ml hj 13:37 Drug: Magnesium Sulfate 1 grams Route: IVPB; Infused Over: 1 hrs; Site: right hj antecubital; 14:57 Follow up: IV Status: Completed infusion; IV Intake: 100ml 15:45 Drug: Potassium Effervescent Tablet 25 mEq Route: PO; hj 16:04 Follow up: Response: No adverse reaction hj 15:45 Drug: NS 0.9% 500 ml Route: IV; Rate: bolus; Site: right antecubital; hj 16:04 Follow up: IV Status: Infusion continued hj 16:05 Drug: Rocephin - (cefTRIAXone) 1 grams Route: IVPB; Infused Over: 30 mins; Site: right antecubital; 16:06 Follow up: IV Status: Completed infusion; IV Intake: 10ml Disposition: 09/20/18 15:16 Discharged to Home. Impression: Anorexia, Weakness, Hypomagnesemia, Hypokalemia, Cholelithiasis. - Condition is Stable. - Discharge Instructions: Potassium Content of Foods, Hypomagnesemia, Weakness, Fatigue, Weakness, [id number], Hypokalemia. - Medication Reconciliation Form, Thank You Letter, Antibiotic Education, Prescription Opioid Use form. - Follow up: Rene Pimentel MD; When: Tomorrow; Reason: Recheck today's complaints, Continuance of care, Re-evaluation by your physician. - Problem is new. - Symptoms have improved. Signatures: Dispatcher [employer] EDJb Roper MD MD cha Joaquin, Henry RN RN Kelle Cuevas RN RN tw2 Corrections: (The following items were deleted from the chart) 16:39 15:16 09/20/2018 15:16 Discharged to Home. Impression: Anorexia; Weakness; hj Hypomagnesemia; Hypokalemia; Cholelithiasis. Condition is Stable. Forms are Medication Reconciliation Form, Thank You Letter, Antibiotic Education, Prescription Opioid Use. Follow up: Rene Pimentel; When: Tomorrow; Reason: Recheck today's complaints, Continuance of care, Re-evaluation by your physician. Problem is new. Symptoms have improved. bib
[2018-09-20 15:49] LABS: Urine Blood TRACE (NEG); Urine Glucose NEGATIVE (NEG); Urine Protein NEGATIVE (NEG); Urine Specific Gravity 1.015 (1.005-1.030); Urine pH 5.5 (5.0-7.0)
[2018-09-20] MEDS ORDERED: POTASSIUM 25 MEQ EFFERV TAB ONE (15:57)
[2018-09-20] MEDS ORDERED: CEFTRIAXONE/SWI 1gm 1 GM/10 ML SYR ONE (15:57)
[2018-09-20] MEDS ORDERED: NA CHLORIDE 0.9% 500 ML ONE (15:57)
== END 2018-09-20 16:39 | disposition home or self-care (01) ==
LOC: ER 11:58
DX: R53.1 Weakness (principal); E87.6 Hypokalemia; E83.42 Hypomagnesemia; K80.20 Calculus of gallbladder without cholecystitis without obstruction; I10 Essential (primary) hypertension; E78.5 Hyperlipidemia, unspecified; Z86.718 Personal history of other venous thrombosis and embolism
CPT/HCPCS: 93005; 87040 ×2; 87088; 85025; 87086; 80048; 36415; 83735; 85610; 80076; 81003; 84484; 83690; 83880; 76377; 74176; 71045; J3475; J0696; J7030; J2405; 96361; 96365; 96375; 99284

== ENCOUNTER 2018-10-18 15:09 | Emergency (ER) | payer OTHER ==
--- OUTSIDE RECORDS SUMMARY | 2018-10-18 15:13 | XMS REPORT | Clinical Summary ---
:1940 Author Organization [facility] Address [address] [place] [address] Care Team Providers Name Role Phone Rene [...] 40.0 to 44.9 in adult (HCC) 07/11/2018 [facility] Radiology Mauro Torrez Lumbar radiculopathy Encounter MD Artem 07/11/2018 Orders Only Neurosurgery Mauro Torrez Lumbar radiculopathy MD Artem (Primary Dx) 07/04/2018 Anesthesia Event Cardiothoracic Surgery Collins Torres, GERALD 07/04/2018 Surgery Cardiothoracic Surgery Vinny Ashford, ROBOTIC MD Aliza ASSISTED LAPAROSCOPIC TYPE III HIATAL HERNIA W/ TOUPET FUNDOPLICATION, AND ENDOFLIP 07/04/2018 [facility] General Internal Vinny Ashford Hiatal hernia - Encounter Medicine MD Aliza 07/05/2018 07/01/2018 Telephone Cardiothoracic Surgery Hafsa Coleman, HEPATOLOGY PHYSICIAN 06/13/2018 Orders Only Cardiothoracic Surgery Vinny Ashford MD 06/09/2018 Telephone Cardiothoracic Surgery Catherine Yoon MA 06/09/2018 Orders Only Cardiothoracic Surgery Bereket Yoon, hiatal ( Primary Dx); J CARLOS Alexander Pre-operative laboratory examination 05/31/2018 Telephone Cardiothoracic Surgery Hafsa Coleman, HEPATOLOGY PHYSICIAN 05/26/2018 Orders Only Cardiology Aleksey Bronson MD 05/24/2018 Orders Only Cardiology Aleksey Bronson MD 05/10/2018 Office Visit Cardiology Aleksey Bronson Pre-op exam (Primary Dx); MD Melita Essential hypertension; SOB (shortness of breath) 05/05/2018 Lab Lab Vinny Ashford Hiatal hernia; MD Aliza Pre-op testing 05/05/2018 Office Visit Cardiothoracic Surgery Vinny Ashford Hiatal hernia ( Primary Dx); MD Aliza Pre-op testing 04/29/2018 Surgery Gastroenterology Carolina Slamon ESOPHAGEAL MANOMETRY MD Jonathon WITH IMPEDANCE PROBE RETURN 04/29/2018 [facility] Gastroenterology Carolina Salmon MD 04/28/2018 Surgery Gastroenterology Carolina Salmon ESOPHAGEAL MANOMETRY MD Jonathon WITH IMPEDANCE PROBE 04/28/2018 [facility] Gastroenterology Carolina Salmon MD 03/30/2018 Orders Only Cardiothoracic Surgery [place], Hiatal hernia J CARLOS Alexander (Primary Dx) 03/24/2018 Office Visit Cardiothoracic Surgery Vinny Ashford, hiatal MD Aliza (Primary Dx) 03/24/2018 [facility] Radiology Vinny Ashford Hiatal hernia Encounter MD Aliza 03/02/2018 Orders Only Cardiothoracic Surgery Anton, Hiatal hernia J CARLOS Carr (Primary Dx) 02/28/2018 Telephone Cardiothoracic Surgery Lilly Walton MA 01/14/2018 [facility] Radiology Yohana Hsu Abnormal CXR (chest Encounter MD [place] x-ray) 12/24/2017 Transcribe Orders Access Yohana Hsu Abnormal CXR (chest MD [place] x-ray) (Primary Dx) 12/23/2017 [facility] Radiology Mauro Torrez MD 12/23/2017 [facility] Radiology Mauro Torrez MD 12/23/2017 [facility] Radiology Mauro Torrez MD 12/23/2017 Office Visit Neurosurgery Mauro Torrez Lumbar stenosis with neurogenic claudication (Primary Dx); MD Artem Osteoporosis without current pathological fracture, unspecified osteoporosis type; Rheumatoid arthritis involving multiple sites with positive rheumatoid factor; Class 2 obesity due to excess calories with serious comorbidity and body mass index (BMI) of 35.0 to 35.9 in adult 12/23/2017 [facility] Radiology Mauro Torrez Lumbar radiculopathy Paul Mcgill MD 12/23/2017 [facility] Radiology Mauro Torrez Lumbar radiculopathy Paul Mcgill MD 12/23/2017 Abstract Neurosurgery iSta Cope LVN 12/22/2017 Orders Only Neurosurgery Mauro Torrez Lumbar radiculopathy MD Artem (Primary Dx) after 10/17/2017 Family History Medical History Relation Name Comments [...] Last Done Comments BREAST CANCER SCREENING 1992 COLONOSCOPY SCREENING 1992 SHINGLES VACCINES (#1) 1992 65+ PNEUMOCOCCAL VACCINE (1 of 2 - 12/19/2007 PCV13) INFLUENZA VACCINE 11/17/2018 02/02/2018, 02/06/2016, 02/05/2015 Implants Implanted Type Area Simulation Specialist Device Shelf Model / Identifier Expiration Serial / Date Lot Catheter Endoflip 8cm Measurement - [id number] Surgical N/A: N/A CROSPON 06/08/2019 EF [id number] [...] CDT procedure are in the results section. PA AN ELECTIVE Routine 07/04/2018 8:28 ENDOTRACHEAL AIRWAY AM CDT Procedure Note - Collins Torres CRNA - 07/04/2018 8:28 AM CDT Airway Date/Time: 07/04/2018 7:49 AM Performed by: Collins Torres CRNA Authorized by: Alexandra Moyer MD Location: OR Urgency: Elective Difficult Airway: No Anesthesiologist: Alexandra Moyer MD Resident/SEARCH ENGINE OPTIMIZER/AA: Collins Torres CRNA Performed by: resident/SEARCH ENGINE OPTIMIZER/AA Preoxygenated with 100% O2: Yes C-spine Precautions [...] 06/13/2018 12:29 Results for this DIFFERENTIAL PM MAJOR ACCOUNT MANAGER procedure are in the results section. PROTHROMBIN TIME WITH Routine 06/13/2018 12:29 Results for this INR PM MAJOR ACCOUNT MANAGER procedure are in the results section. PARTIAL THROMBOPLASTIN Routine 06/13/2018 12:29 Results for this TIME (PTT) PM MAJOR ACCOUNT MANAGER procedure are in the results section. COMPREHENSIVE Routine 06/13/2018 12:29 Results for this METABOLIC PANEL PM MAJOR ACCOUNT MANAGER procedure are in the results section. OBTAIN MEDICAL RECORDS Routine 05/26/2018 ECHOCARDIOGRAM 2D Routine 05/25/2018 3:05 SOB (shortness of Results for this COMPLETE W MMODE PM MAJOR ACCOUNT MANAGER breath) procedure are in SPECTRAL COLOR DOPPLER Pre-op exam the results (30915) section. NM MYOCARDIAL Routine 05/21/2018 PERFUSION ECG 12-LEAD Routine 05/10/2018 3:21 Essential Results for this PM MAJOR ACCOUNT MANAGER hypertension procedure are in the results section. ESTIMATED GFR Routine 05/05/2018 1:40 Results for this PM MAJOR ACCOUNT MANAGER procedure are in the results section. PARTIAL THROMBOPLASTIN Routine 05/05/2018 1:40 Hiatal hernia Results for this TIME (PTT) PM MAJOR ACCOUNT MANAGER Pre-op testing procedure are in the results section. PROTHROMBIN TIME WITH Routine 05/05/2018 1:40 Hiatal hernia Results for this INR PM MAJOR ACCOUNT MANAGER Pre-op testing procedure are in the results section. COMPREHENSIVE Routine 05/05/2018 1:40 Hiatal hernia Results for this METABOLIC PANEL PM MAJOR ACCOUNT MANAGER Pre-op testing procedure are in the results section. HC COMPLETE BLD COUNT Routine 05/05/2018 1:40 Hiatal hernia Results for this W/AUTO DIFF PM MAJOR ACCOUNT MANAGER Pre-op testing procedure are in the results section. TYPE AND SCREEN Routine 05/05/2018 1:40 Hiatal hernia Results for this PM MAJOR ACCOUNT MANAGER Pre-op testing procedure are in the results section. ESOPHAGEAL MANOMETRY 04/29/2018 2:15 Hiatal hernia WITH IMPEDANCE PROBE PM MAJOR ACCOUNT MANAGER Special Needs DR ASHFORD ESOPHAGEAL MANOMETRY WITH IMPEDANCE PROBE 04/28/2018 9:00 AM MAJOR ACCOUNT MANAGER Hiatal hernia Special Needs DR ASHFORD [place] ESOPHAGRAM Routine 03/24/2018 11:05 AM Hiatal hernia Results for this COMPLETE MAJOR ACCOUNT MANAGER procedure are in the results section. CT [...] procedure are in the results section. after 10/17/2017 Results XR Lumbar Spine Complete W Flex [...] lateral radiographs. Right hip arthroplasty is noted. [id number] Procedure Note Interface, Radiology Results Incoming - [...] lateral radiographs. Right hip arthroplasty is noted. [id number] Performing Organization Address City/State/Zipcode Phone Number [facility] [address] [place] [address] CBC with platelet and differential (07/05/2018 5:15 AM CDT)Only the most recent of3 resultswithin the time period is included. WBC 8.02 4.50 - 11.00 [facility] RBC 4.19 (L) 4.20 - 5.50 [facility] HGB 12.3 12.0 - 16.0 [facility] g/dL [facility] HCT 40.3 37.0 - 47.0 % [facility] MCV 96.2 82.0 - 100.0 [facility] MCH 29.4 27.0 - 34.0 pg [facility] MCHC 30.5 (L) 31.0 - 37.0 [facility] g/dL [facility] RDW - SD 49.8 37.0 - 55.0 fL [facility] MPV 10.3 8.8 - 13.2 fL [facility] Platelet count 204 150 - 400 k/uL [facility] Nucleated RBC 0.00 /100 WBC [facility] Neutrophils 62.7 39.0 - 69.0 % [facility] Lymphocytes 25.3 25.0 - 45.0 % [facility] Monocytes 9.2 0.0 - 10.0 % [facility] Eosinophils 1.9 0.0 - 5.0 % [facility] Basophils 0.4 0.0 - 1.0 % [facility] Immature granulocytes 0.5Comment: 0.0 - 1.0 % [facility] granulocytes" (promyelocytes , myelocytes, metamyelocytes ) Specimen Blood Performing Organization Address City/[facility] [address]/[facility] Centercode Phone Number [facility] DEPARTMENT OF PATHOLOGY AND [address] [place] [address] Estimated GFR (07/05/2018 4:00 AM CDT)Only the most recent of2 resultswithin the time period is included. Pathologist [facility] Estimated GFR 72 mL/min/1.73 [facility] Comment: HOSPITAL CatergoryUnitsInterpretation G1 >=90 Normal or high G2 60-89Mildly decreased L8l68-95Yjgbgw to moderately decreased B8t30-91Iishhmhmuu to severely decreased G4 15-29Severely decreased G5 <15Kidney failure The eGFR was calculated using the Chronic Kidney Disease Epidemiology Collaboration (CKD-EPI) equation. Interpretation is based on recommendations of the National Kidney Foundation-Kidney Disease Outcomes Quality Initiative (NKF-KDOQI) published in 2014. Specimen Plasma specimen Performing Organization Address City/[facility] [address]/Zipcode Phone Number [facility] DEPARTMENT OF PATHOLOGY AND [address] [place] [address] Basic metabolic panel (07/05/2018 4:00 AM CDT) [facility] Sodium 138 135 - 148 mEq/L [facility] Potassium 3.9 3.5 - 5.0 mEq/L [facility] Chloride 104 98 - 112 mEq/L [facility] CO2 24 24 - 31 mEq/L [facility] Anion gap 10@ANIO 7 - 15 mEq/L [facility] BUN 17 8 - 23 mg/dL [facility] Creatinine 0.80 0.50 - 0.90 mg/dL [facility] Glucose 96 65 - 99 mg/dL [facility] Calcium 8.5 (L) 8.8 - 10.2 mg/dL [facility] Specimen Plasma specimen Performing Organization Address City/State/Zipcode Phone Number [facility] DEPARTMENT OF PATHOLOGY AND [address] [place] [address] [place] [address] Surgical pathology request (07/04/2018 1:58 PM CDT) [facility] DEPARTMENT OF PATHOLOGY AND GENOMIC MEDICINE Surgical pathology See link below [facility] DEPARTMENT OF report for PDF Lab PATHOLOGY AND Report GENOMIC MEDICINE Result status This is Final [facility] DEPARTMENT OF Report for PATHOLOGY AND [id number] GENOMIC MEDICINE Specimen Performing Organization Address City/[facility] [address]/[facility] Centerconv Phone Number [facility] DEPARTMENT OF PATHOLOGY AND [address] [place] [address] GENOMIC MEDICINE Type and screen (07/04/2018 5:32 AM CDT)Only the most recent of2 resultswithin the time period is included. Pathologist [facility] ABO grouping A [facility] Rh type POS [facility] Antibody screen (gel) NEG [facility] Specimen Blood Performing Organization Address [facility] [address]/[facility] Centercode Phone Number [facility] DEPARTMENT OF PATHOLOGY AND [address] [place] [address] GENOMIC MEDIC[address] [address] Partial thromboplastin time, activated (06/13/2018 12:29 PM MAJOR ACCOUNT MANAGER)Only the most recent of2 resultswithin the time period is included. Pathologist [facility] PTT 25 22 - 34 sec [facility] Comment: [place] This test has not been validated for monitoring unfractionated heparin therapy. For testing that is validated for this type of therapy, please refer to the Heparin Anti-Xa assay (test code 98433). For additional information, please refer to http://education.Ohm Universe/faq/OCZ851 (This link is being provided for informational/educational purposes only.) Specimen Narrative Performed At FASTING:NO [facility] FASTING: NO Resulting Agency Comment Performing Organization Information: Site ID: [id number] Name: [facility] Address: [address] [place] [phone] Director: Gilma Edwards Performing Organization Address [facility] [address]/[facility] Centercode Phone Number [facility] [address] [address] Prothrombin time with INR (06/13/2018 12:29 PM MAJOR ACCOUNT MANAGER)Only the most recent of2 resultswithin the time period is included. INR 1.0 [facility] Comment: [place] Reference Range 0.9-1.1 Moderate-intensity Warfarin Therapy 2.0-3.0 Higher-intensity Warfarin Therapy 3.0-4.0 Prothrombin time 10.1 9.0 - 11.5 [facility] Comment: [facility] For more information on this test, go to: http://education.fabrik/faq/CVP834 Specimen Narrative Performed At FASTING:NO [facility] FASTING: NO Resulting Agency Comment Performing Organization Information: Site ID: [id number] Name: [facility] Address: [address] [place] [phone] Director: Gilma Edwards Performing Organization Address [facility] [address]/[facility] [place] [address] Comprehensive metabolic panel (06/13/2018 12:29 PM MAJOR ACCOUNT MANAGER)Only the most recent of2 resultswithin the time period is included. Glucose 122 65 - 139 [facility] Comment: mg/dL [place] Non-fasting reference interval BUN, whole blood 22 7 - 25 mg/dL [facility] [place] Creatinine 0.66 0.60 - 0.93 [facility] Comment: mg/dL [place] For patients >49 years of age, the reference limit for Creatinine is approximately 13% higher for people identified as -[place]. EGFR Non-Afr. 86 > OR=60 [facility] [place] mL/min/1.73m [place] 2 EGFR 100 > OR=60 [facility] [place] mL/min/1.73m [place] 2 BUN/creatinine NOT APPLICABLE 6 - 22 [facility] ratio (calc) [place] Sodium 139 135 - 146 [facility] mmol/L [place] Potassium 4.5 3.5 - 5.3 [facility] mmol/L [place] Chloride 104 98 - 110 [facility] mmol/L [place] CO2 27 20 - 32 [facility] mmol/L [place] Calcium 9.3 8.6 - 10.4 [facility] mg/dL [place] Protein 7.1 6.1 - 8.1 [facility] g/dL [place] Albumin, S 4.1 3.6 - 5.1 [facility] g/dL [place] Globulin, total 3.0 1.9 - 3.7 [facility] g/dL (calc) [place] Albumin/globulin 1.4 1.0 - 2.5 [facility] ratio (calc) [place] Total bilirubin 0.4 0.2 - 1.2 [facility] mg/dL [place] Alkaline 53 33 - 130 U/L [facility] phosphatase [place] AST 13 10 - 35 U/L [facility] [place] ALT 10 6 - 29 U/L [facility] [place] Specimen Narrative Performed At FASTING:NO [facility] FASTING: NO Resulting Agency Comment Performing Organization Information: Site ID: [id number] Name: [facility] Address: [address] [place] [phone] Director: Gilma Edwards Performing Organization Address City/State/Zipcode [place] [address] Obtain medical records (05/26/2018) Narrative Performed At Echocardiogram complete w contrast and 3D if needed (05/25/2018 3:05 PM MAJOR ACCOUNT MANAGER) Specimen Narrative Performed At [facility] Echocardiography Report Pat.Name:LUIS EDUARDOCHIDI TOROLEONORA ANN Pat.ID:[id number] .Date: 05/25/2018Refer.MD:ALEKSEY BRONSON MD Exam Time: 2:10:00 PMStudy Type:Routine Echo Height:63inWeight: 227lb BSA: 2.04 m2 DOBAge:1940,77Y Sex: FEMALEBP:134/75 HR:93 bpm Sonogrphr: FARHAD Morrell FASE Pat. Stat.:OutpatientRoom:[facility] Study Status:Final Echo Event ID:[id number] Order ID:[id number] Reason for Study:SOB, suspected cardiac etiology Procedures:2D [...] RAPof 5 mmHg. MEASUREMENTS: 2D Parasternal [place] LVIDs3.1 cmLA Ds4.7 cm LV%fs 36.6 % Ao Rtd 3.3 cm Index1.6 cm/m LVOT 2 cmLV Ehtc034.8 g(87-129) LVIDd5.1 cmIndex2.5 cm/m LVM Dvwpd321 g/m2 IVSd 1.2 cmRWT0.5 LVPWd1.2 cm LA Sng Plane LA Area 27.3 cm2(8.8-23.4) LA Vol99.8 ml Index48.9 ml/m LA LngAx 5.9 cm DOPPLER LVOT Stroke Vol LVOT 2 cmLVOT CO7.9 l/min LVOT TVI27.6 cmLVOT CI3.9 l/m/m2 LVOT Tm286 jcaqZA46 bpm LVOT SV 86.7 ml MV For Flow/Valve Assess MV pkVel 149.9 cm/sMV Mean G3.9 mmHg MV pkPG9 mmHgMV TVI22.9 cm Signed 05/26/2018 5:07:00 PM Emely Baires M.D. Procedure Note Interface, Radiology Results In - 05/27/2018 12:23 PM MAJOR ACCOUNT MANAGER [facility] Echocardiography Report Pat.Name: LEONORA BELLO Pat.ID: [id number] St.Date: 05/25/2018 Refer.MD: ALEKSEY BRONSON MD Exam Time: 2:10:00 PM Study Type:Routine Echo Height: 63in Weight: 227lb BSA: 2.04 m2 Age: 11 1940,77Y Sex: FEMALE BP: 134/75 HR: 93 bpm Sonogrphr: FARHAD Morrell FASE Pat. Stat.:Outpatient Room: [facility] Study Status:Final Echo Event ID:[id number] Order ID: [id number] Reason for Study:SOB, suspected cardiac etiology Procedures:2D [...] of 5 mmHg. MEASUREMENTS: 2D Parasternal [place] LVIDs 3.1 cm LA Ds 4.7 cm [...] Address City/State/Zipcode Phone Number [facility] [address] [place] [address] Ia myocardial perfusion (05/21/2018) Narrative Performed At ECG 12 lead (05/10/2018 3:21 PM MAJOR ACCOUNT MANAGER) Ventricular rate 86 [facility] Atrial rate 86 [facility] PA interval 154 [facility] QRSD interval 84 [facility] QT interval 356 [facility] QTC interval 426 [facility] P axis 1 58 [facility] QRS axis 1 -26 [facility] T wave axis 64 [facility] EKG impression Sinus rhythm with [facility] MUSE occasional premature ventricular complexes-Otherwise normal ECG-No previous ECGs available-Electronicall y Signed By Paula Kenyon MD ([id number]) on 05/10/2018 10:21:11 PM Specimen Narrative Performed At Performing Organization Address City/State/Zipcode Phone Number [facility] MUSE [address] [place] [address] [place] Esophagram Complete (03/24/2018 11:05 AM MAJOR ACCOUNT MANAGER) Specimen Narrative Performed At [place] ESOPHAGRAM COMPLETE [facility] CLINICAL INDICATION:K44.9 Diaphragmatic hernia [...] in the care of your patient. [facility]-[id number] Procedure Note Interface, Radiology Results Incoming - 03/24/2018 11:22 AM MAJOR ACCOUNT MANAGER [place] ESOPHAGRAM COMPLETE CLINICAL INDICATION: K44.9 Diaphragmatic [...] in the care of your patient. [facility]-[id number] Performing Organization Address City/State/Zipcode Phone Number [facility] [address] [place] [address] CT Chest Wo Contrast (01/14/2018 11:51 AM CDT) Specimen Narrative Performed At EXAMINATION: CT CHEST WO CONTRAST [facility] CLINICAL HISTORY: R93.8 Abnormal findings on [...] hernia. 4.Cholelithiasis without evidence of cholecystitis. [facility]-[id number] Procedure Note Interface, Radiology Results - 01/14/2018 [...] 4. Cholelithiasis without evidence of cholecystitis. [facility]-[id number] Performing Organization Address City/State/Zipcode Phone Number [facility] [address] [place] [address] XR Spine [place] 2-3 Views (12/23/2017 11:51 [...] view is limited due to stitching artifact. [id number] Procedure Note Hm Interface, Radiology Results Incoming [...] view is limited due to stitching artifact. [id number] Performing Organization Address City/State/Zipcode Phone Number [facility] [address] [place] [address] after 10/17/2017 Insurance Payer Benefit Plan / Subscriber ID Effective Dates Phone Address Type Group HUMANA MEDICARE HUMANA MEDICARE xxxxxxxxx 2017-Present PPO PPO/PFFS/[facility] [place] [address] Advance Directives Patient has advance care planning documents on file. For more information, please contact:Mark Rainey[address] [place] [address]
--- NOTE | 2018-10-18 15:37 | RAD REPORT ---
EXAM DESCRIPTION: CT - Ct Stroke Brain Wo Cont - 10/18/2018 3:30 pm CLINICAL HISTORY: Acute onset right-sided weakness and numbness COMPARISON: None. TECHNIQUE: Axial 5 millimeter thick images of the head were obtained without IV contrast. All CT scans are performed using dose optimization technique as appropriate and may include automated exposure control or mA/KV adjustment according to patient size. FINDINGS: A 2.5 centimeter intraparenchymal hematoma is present centered in the deep posterior periv entricular left frontal lobe and superior margin left thalamus. Intraventricular extension of the hem orrhage is present. No associated mass definable. Underlying atrophy and chronic ischemic changes are present. Ventricles are in proportion. No midline shift. There is a mild localized edema surrounding the intraparenchymal hematoma. No other hemorrhage or mass. No sulcal effacement. No acute cortical based infarction. No extra-axial fluid collections. Pete matter-white matter differentiation is preserved. Visualized portions of the mastoid air cells, paranasal sinuses, and orbits are unremarkable. Findings telephoned to the referring clinician 1532 hours. IMPRESSION: A 2.5 centimeter acute intraparenchymal hemorrhage is present centered in the superior m argin left thalamus and the deep periventricular posterior left frontal lobe. Intraventricular extension of hemorrhage is present. Mild localized edema surrounds the hematoma. Ventricles are in proportion to the amount of underlying atrophy. Chronic ischemic change scattered throughout the cerebral hemispheres.
[2018-10-18 15:50] LABS: Absolute Lymphocytes (CBC) 2.2 K/uL (0.7-4.9); Basophils % 0.7 % (0-1.3); Eosinophils % 1.1 % (0-4.4); Hematocrit 40.9 % (36.0-45.0); Lymphocytes % 26.9 % (15.3-44.8); MPV 8.5 fL (7.6-11.3); Monocytes % 5.4 % (3.3-12.3); RBC Red Blood Cell Count 4.54 M/uL (3.86-4.86)
[2018-10-18 15:53] LABS: Protime INR 0.96
[2018-10-18] MEDS ORDERED: levETIRAcetam 1,000 MG in NA CHLORIDE 0.9% 100 ML IV ONE (16:00)
--- NOTE | 2018-10-18 16:11 | RAD REPORT ---
EXAM DESCRIPTION: RAD - Chest Single View - 10/18/2018 4:00 pm CLINICAL HISTORY: Right-sided weakness, slurred speech, code stroke chest film COMPARISON: September 20 TECHNIQUE: AP portable chest image was obtained 1541 hours . FINDINGS: No focal mass, consolidation or failure finding. Chronic interstitial lung disease matches comparison. Heart and vasculature are normal. No measurable pleural effusion and no pneumothorax. No acute bony abnormality seen. No acute aortic findings suspected. IMPRESSION: No acute cardiopulmonary process. Chronic interstitial lung disease is present similar to comparison.
[2018-10-18 16:14] LABS: ALT/SGPT 16 U/L (12-78); AST/SGOT 12 U/L (15-37); Albumin 3.6 g/dL (3.4-5.0); Alkaline Phosphatase 50 U/L (45-117); BUN Blood Urea Nitrogen 12 mg/dL (7-18); Bicarbonate 27 mmol/L (21-32); Bilirubin Direct 0.2 mg/dL (0-0.2); Bilirubin Total 0.6 mg/dL (0.2-1.0); Creatine Phosphokinase 71 U/L (26-192); Glucose Level 175 mg/dL (74-106); Potassium 3.7 mmol/L (3.5-5.1); Protein, Total 7.5 g/dL (6.4-8.2); Sodium Level 139 mmol/L (136-145); Troponin (Emerg Dept Use Only) < 0.02 ng/mL (0.0-0.045)
[2018-10-18] MEDS ORDERED: Nicardipine/NS 25 MG/250 ML KIT IV ONE (16:31)
--- NOTE | 2018-10-18 16:34 | ER ---
Nurse's Notes [facility] Name: Marisabel Bello Age: 77 yrs Sex: Female : 1940 Arrival Date: 10/18/2018 Time: 15:11 Bed 3 Private MD: Rene Pimentel Diagnosis: Acute Fall;L side Intraparechymal and L thalamic bleed;R side weakness;Hyperglycemia Presentation: 10/18 15:20 Presenting complaint: A code stroke has been called. sg 15:25 Presenting complaint: Patient states: My right side of my body went real weak and it sg made me fall getting out of my car, denies head injury, denies LOC, pt has slurred speech and is unable to raise right arm and move right leg. Care prior to arrival: None. Mechanism of Injury: Fall from standing position. 15:25 Acuity: ZECHARIAH 2 sg 15:25 Method Of Arrival: Wheelchair sg 15:36 Transition of care: patient was not received from another setting of care. Onset of sg symptoms was October 18, 2018. Risk Assessment: Do you want to hurt yourself or someone else? Patient reports no desire to harm self or others. Initial Sepsis Screen: Does the patient meet any 2 criteria? HR > 90 bpm. Does the patient have a suspected source of infection? No. Patient's initial sepsis screen is negative. 17:28 Trauma event details: Injury occurred in the [facility], Injury occurred: on a bp street or highway. Injury occurred: October 18, 2018 Injury occurred at: 15:30. Trauma Activation: Not Applicable Physician: ED Physician; Name: ; Notified At: ; Arrived At: Physician: General Surgeon; Name: ; Notified At: ; Arrived At: Physician: Radiology; Name: ; Notified At: ; Arrived At: Physician: Respiratory; Name: ; Notified At: ; Arrived At: Physician: Lab; Name: ; Notified At: ; Arrived At: Historical: - Allergies: 15:35 No Known Allergies; bp 15:35 No Known Allergies; sg - Home Meds: 15:35 clopidogrel 75 mg Oral tab 1 tab once daily [Active]; sg - PMHx: 15:35 Back pain; DVT; Hyperlipidemia; Hypertension; Rheumatoid Arthritis; bp 15:35 Back pain; DVT; Hyperlipidemia; Hypertension; Rheumatoid Arthritis; sg - PSHx: 15:35 FEMUR SURG; Knee surgery; ANKLE SURG; HIP REPLACEMENT; Hernia repair; bp 15:35 FEMUR SURG; Knee surgery; ANKLE SURG; HIP REPLACEMENT; Hernia repair; sg - Immunization history:: Adult Immunizations up to date. - Immunization history: Last tetanus immunization: unknown. - Social history:: Smoking status: Patient/guardian denies using tobacco. - Family history:: not pertinent. - Ebola Screening: : No symptoms or risks identified at this time. - Hospitalizations: : No recent hospitalization is reported. Screenin:35 Abuse screen: Denies threats or abuse. Denies injuries from another. Tuberculosis bp screening: No symptoms or risk factors identified. 16:20 Nutritional screening: No deficits noted. Fall Risk Fall in past 12 months (25 points). ss Secondary diagnosis (15 points) CVA, IV access (20 points). Ambulatory Aid- None/Bed Rest/Nurse Assist (0 pts). Gait- Normal/Bed Rest/Wheelchair (0 pts) Mental Status- Oriented to own ability (0 pts). Total [place] Fall Scale indicates High Risk Score (45 or more points). Fall prevention measures have been instituted. Side Rails Up X 2 Placed Close to Nursing Station Frequent Obs/Assessments Occuring Family Present and informed to notify staff if the need to leave the bedside As available patient and family educated on Fall Prevention Program and Strategies. Primary Survey: 15:35 NO uncontrolled hemorrhage observed. A: The patient is alert. Airway: patent, No bp supplemental oxygen in use on arrival. Breathing/Chest: Respiratory pattern: regular, Respiratory effort: spontaneous, unlabored. 15:35 Circulation: Skin color: pink, Skin temperature: warm, dry. Disability Alert. bp Exposure/Environment: All clothing and personal items were removed. Forensic evidence collection is not deemed to be indicated at this time. Items placed in patient belonging bag. 17:27 Reassessment Breathing/Chest Respiratory pattern Regular Respiratory effort Spontaneous bp Unlabored. Assessment: 15:20 General: Appears distressed, comfortable, obese, Behavior is cooperative, anxious. bp Pain: Denies pain. Neuro: Level of Consciousness is awake, obeys commands, confused, Oriented to person, place, time, situation, Manager Human Resources are weak on right Weakness in right hand(s) arm(s) leg(s) Gait is unsteady, Speech is slurred. EENT: No deficits noted. Cardiovascular: Rhythm is sinus tachycardia with unifocal PVCs. Respiratory: Airway is patent Respiratory effort is even, unlabored, Respiratory pattern is regular, symmetrical. GI: No signs and/or symptoms were reported involving the gastrointestinal system. : No signs and/or symptoms were reported regarding the genitourinary system. Derm: No deficits noted. Musculoskeletal: Circulation, motion, and sensation intact. 15:54 Reassessment: TRANSFER IN PROCESS, HEMORRHAGE NOTED ON CT HEAD. bp 16:20 Reassessment: belongings given to Son Jp and daughter in law Yohana. Black watch (1), gold dangle earrings and 3 rings. 16:20 Reassessment: family and patient updated on plan of care and pending transfer to [facility] center and verbalize understanding. 16:52 Reassessment: REPORT TO IMANI ASHTON AT [facility] FOR 7 SOUTH 4 [id number], TRANSPORT PENDING. bp 17:26 Reassessment: EMS AT B/ FOR TRANSPORT. bp Vital Signs: 15:35 BP 156 / 102; Pulse 121; Resp 17; Pulse Ox 96% on R/A; Weight 88.9 kg; Height 5 ft. 3 bp in. (160.02 cm); Pain 0/10; 15:47 BP 151 / 78; Pulse 113; ss 16:26 BP 136 / 75; Pulse 112; Resp 16; Pulse Ox 97% ; bp 17:26 BP 152 / 75; Pulse 111; Resp 18; Temp 98; Pulse Ox 98% ; bp 15:35 Body Mass Index 34.72 (88.90 kg, 160.02 cm) bp [place] Coma Score: 15:35 Eye Response: spontaneous(4). Verbal Response: confused(4). Motor Response: obeys bp commands(6). Total: 14. Trauma Score (Adult): 15:35 Eye Response: spontaneous(1); Verbal Response: confused(1); Motor Response: obeys bp commands(2); Systolic BP: > 89 mm Hg(4); Respiratory Rate: 10 to 29 per min(4); [place] Score: 14; Trauma Score: 12 ED Course: 15:11 Patient arrived in ED. rg4 15:11 Rene Pimentel MD is Private Physician. rg4 15:15 Rigoberto Arthur MD is Attending Physician. wa 15:20 Krystal Salomon, RN is Primary Nurse. ca1 15:[address] sg 15:22 Danilo Valencia, RN is Primary Nurse. bp 15:26 Triage completed. sg 15:31 CT Stroke Brain w/o Contrast In Process Unspecified. EDMS 15:35 Patient has correct armband on for positive identification. Placed in gown. Bed in low bp position. Call light in reach. Side rails up X2. 15:35 Inserted saline lock: 20 gauge in right forearm, using aseptic technique. Blood bp collected. Patient maintains SpO2 saturation greater than 95% on room air. Thermoregulation: warm blanket given to patient. 15:36 Arm band placed on. sg 15:41 EKG done, by i&c technician. reviewed by Rigoberto Arthur MD. at1 16:00 Stroke CXR 1 View In Process Unspecified. EDMS 16:20 cardiac monitor technician on. Pulse ox on. NIBP on. ss 16:20 Inserted saline lock: 22 gauge in left wrist, using aseptic technique. ss 17:27 No provider procedures requiring assistance completed. Patient transferred, IV remains bp in place. Administered Medications: 16:10 Drug: Keppra 1000 mg Route: IV; Rate: 1000 mg/hr; Site: right forearm; ss 16:59 Follow up: IV Status: Completed infusion; IV Intake: 100ml bp 16:24 Drug: niCARdipine (25mg/250ml) 2.5 mg/hr Route: IV; Rate: mg/hr; Site: left forearm; bp 16:59 Follow up: IV Status: Infusion continued upon transfer bp Point of Care Testing: Blood Glucose: 15:35 Blood Glucose: 181 mg/dL; bp Ranges: Intake: 15:35 PO: 0ml; Total: 0ml. bp 16:59 IV: 100ml; Total: 100ml. bp Output: 15:35 Urine: 0ml; Total: 0ml. bp Outcome: 16:34 ER care complete, transfer ordered by . wa 17:27 Transferred by ground EMS to [facility], Transfer form completed. bp 17:27 Condition: stable 17:27 Instructed on the need for transfer. 17:30 NOT A TRAUMA ACTIVATIONPatient's length of stay extended due to bp 17:35 Patient left the ED. bp Signatures: Dispatcher [employer] EDMS Ermias Sweeney RN RN sg Ashley Marshall RN RN ss Dennise Velazquez, surgical services manager EKG Tat1 Ysabel Carrillo rg4 Rigoberto Arthur MD MD wa Peltier, Brian RN RN bp Krystal Salomon RN RN ca1 Corrections: (The following items were deleted from the chart) 15:37 15:25 Presenting complaint: Patient states: My right side of my body is gone weak and i sg fell getting out of my car, denies head injury, denies LOC, pt has slurred speech sg
--- NOTE | 2018-10-18 16:34 | EDPHYS ---
Physician Documentation [facility] Name: Marisabel Bello Age: 77 yrs Sex: Female : 1940 Arrival Date: 10/18/2018 Time: 15:11 Bed 3 Private MD: Rene Pimentel ED Physician Rigoberto Arthur HPI: 10/18 16:06 This 77 yrs old Female presents to ER via Wheelchair with complaints of Fall wa Injury. 16:06 The patient's problem is reported as weakness, in the right upper extremity. wa 16:19 Onset: The symptoms/episode began/occurred just prior to arrival. Duration: This was a wa single incident. Context: the episode(s) was witnessed, by no one, occurred here on [facility], occurred while the patient was walking, Possible contributing factors include: unknown. The symptoms are alleviated by nothing. The symptoms are aggravated by nothing. Associated signs and symptoms: Pertinent positives: weakness. Severity of symptoms: At their worst the symptoms were moderate in the emergency department the symptoms are unchanged. Patient's baseline: Neuro: alert and fully oriented, Motor: no deficits, Ambulation: walks without assistance, Speech: normal, The patient has a previous history of HTN. The patient has not experienced similar symptoms in the past. The patient has not recently seen a physician. pt states was feeling weak while walking and felt like she was going to fall, then fell. denies hitting head. . Historical: - Allergies: 15:35 No Known Allergies; bp 15:35 No Known Allergies; sg - Home Meds: 15:35 clopidogrel 75 mg Oral tab 1 tab once daily [Active]; sg - PMHx: 15:35 Back pain; DVT; Hyperlipidemia; Hypertension; Rheumatoid Arthritis; bp 15:35 Back pain; DVT; Hyperlipidemia; Hypertension; Rheumatoid Arthritis; sg - PSHx: 15:35 FEMUR SURG; Knee surgery; ANKLE SURG; HIP REPLACEMENT; Hernia repair; bp 15:35 FEMUR SURG; Knee surgery; ANKLE SURG; HIP REPLACEMENT; Hernia repair; sg - Immunization history:: Adult Immunizations up to date. - Immunization history: Last tetanus immunization: unknown. - Social history:: Smoking status: Patient/guardian denies using tobacco. - Family history:: not pertinent. - Ebola Screening: : No symptoms or risks identified at this time. - Hospitalizations: : No recent hospitalization is reported. ROS: 16:22 Constitutional: Negative for fever, chills, and weight loss, Eyes: Negative for injury, wa pain, redness, and discharge, ENT: Negative for injury, pain, and discharge, Neck: Negative for injury, pain, and swelling, Cardiovascular: Negative for chest pain, palpitations, and edema, Respiratory: Negative for shortness of breath, cough, wheezing, and pleuritic chest pain, Abdomen/GI: Negative for abdominal pain, nausea, vomiting, diarrhea, and constipation, Back: Negative for injury and pain, : Negative for injury, bleeding, discharge, and swelling, MS/Extremity: Negative for injury and deformity, Skin: Negative for injury, rash, and discoloration. 16:22 Neuro: Positive for speech changes, weakness. 16:22 All other systems are negative. Exam: 16:23 Radiologist reports: 2.5 cm Intraparenchymal bleed superior margin of L thalamus and wa deep periventricular posterior L frontal lobe. Interventricular extension of hemorrhage noted present 16:23 Constitutional: This is a well developed, well nourished patient who is awake, alert, and in no acute distress. Head/Face: Normocephalic, atraumatic. Eyes: Pupils equal round and reactive to light, extra-ocular motions intact. Lids and lashes normal. Conjunctiva and sclera are non-icteric and not injected. Cornea within normal limits. Periorbital areas with no swelling, redness, or edema. ENT: Nares patent. No nasal discharge, no septal abnormalities noted. Tympanic membranes are normal and external auditory canals are clear. Oropharynx with no redness, swelling, or masses, exudates, or evidence of obstruction, uvula midline. Mucous membranes moist. Neck: Trachea midline, no thyromegaly or masses palpated, and no cervical lymphadenopathy. Supple, full range of motion without nuchal rigidity, or vertebral point tenderness. No Meningismus. Chest/axilla: Normal chest wall appearance and motion. Nontender with no deformity. No lesions are appreciated. Cardiovascular: Regular rate and rhythm with a normal S1 and S2. No gallops, murmurs, or rubs. Normal PMI, no JVD. No pulse deficits. Respiratory: Lungs have equal breath sounds bilaterally, clear to auscultation and percussion. No rales, rhonchi or wheezes noted. No increased work of breathing, no retractions or nasal flaring. Abdomen/GI: Soft, non-tender, with normal bowel sounds. No distension or tympany. No guarding or rebound. No evidence of tenderness throughout. Back: No spinal tenderness. No costovertebral tenderness. Full range of motion. Skin: Warm, dry with normal turgor. Normal color with no rashes, no lesions, and no evidence of cellulitis. MS/ Extremity: Pulses equal, no cyanosis. Neurovascular intact. Full, normal range of motion. Psych: Awake, alert, with orientation to person, place and time. Behavior, mood, and affect are within normal limits. 16:23 Neuro: Orientation: is normal, Mentation: is normal, Cranial nerves: grossly normal, Motor: noted 2/5 motor weakness R UE. no facial droop. , noted slurred speech. Vital Signs: 15:35 BP 156 / 102; Pulse 121; Resp 17; Pulse Ox 96% on R/A; Weight 88.9 kg; Height 5 ft. 3 bp in. (160.02 cm); Pain 0/10; 15:47 BP 151 / 78; Pulse 113; ss 16:26 BP 136 / 75; Pulse 112; Resp 16; Pulse Ox 97% ; bp 17:26 BP 152 / 75; Pulse 111; Resp 18; Temp 98; Pulse Ox 98% ; bp 15:35 Body Mass Index 34.72 (88.90 kg, 160.02 cm) bp [place] Coma Score: 15:35 Eye Response: spontaneous(4). Verbal Response: confused(4). Motor Response: obeys bp commands(6). Total: 14. Trauma Score (Adult): 15:35 Eye Response: spontaneous(1); Verbal Response: confused(1); Motor Response: obeys bp commands(2); Systolic BP: > 89 mm Hg(4); Respiratory Rate: 10 to 29 per min(4); Nish Score: 14; Trauma Score: 12 MDM: 15:15 Patient medically screened. al 16:26 Differential diagnosis: CVA, TIA, paralysis, metabolic disorder, suspect acute CVA. wa STAT head CT shows acute bleed. will give IV cerebyx. cardene drip to improve BP. transfer for neuro care. Data reviewed: vital signs, nurses notes, lab test result(s), EKG, radiologic studies. Test interpretation: by ED physician or midlevel provider: EKG: HR 116. sinus tach. nml axis. PVC's incomplete RBBB. Response to treatment: the patient's symptoms have mildly improved after treatment. Physician consultation: neurosurgery Dr. Woodard at [facility] advised BP control and transfer to his neuro ICU. Admission orders: after a detailed discussion of the patient's condition and case, the admit orders are written by me. Admission orders: after a detailed discussion of the patient's condition and case, the admit orders are written by me. Admission orders: after a detailed discussion of the patient's condition and case, the admit orders are written by me. Admission orders: after a detailed discussion of the patient's condition and case, the admit orders are written by me. 16:30 Special discussion: possible hypertensive bleed per location. pt did not hit head or wa has lesions on head to suggest head injury. probably fell as a result of weakness secondary to bleed. . 16:31 Test interpretation: by ED physician or midlevel provider: labs: elevated Blood al glucose, otherwise wnl.. 10/18 15:41 Order name: Magnesium al 10/18 15:41 Order name: CPK al 10/18 15:41 Order name: Hepatic Function al 10/18 15:41 Order name: Troponin (emerg Dept Use Only); Complete Time: 16:17 al 10/18 15:41 Order name: Basic Metabolic Panel al 10/18 15:41 Order name: CBC with Diff; Complete Time: 16:05 al 10/18 15:25 Order name: CT Stroke Brain w/o Contrast; Complete Time: 15:44 10/18 15:41 Order name: Protime (+inr); Complete Time: 16:05 al 10/18 15:41 Order name: Ptt, Activated; Complete Time: 16:05 al 10/18 15:41 Order name: Stroke CXR 1 View; Complete Time: 16:18 al 10/18 15:42 Order name: Magnesium; Complete Time: 16:17 [facility] 10/18 15:42 Order name: Creatine Phosphokinase; Complete Time: 16:17 [facility] 10/18 15:42 Order name: Liver (Hepatic) Function; Complete Time: 16:17 [facility] 10/18 15:42 Order name: Basic Metabolic Panel; Complete Time: 16:17 [facility] 10/18 15:41 Order name: EKG; Complete Time: 15:43 al 10/18 15:41 Order name: Accucheck; Complete Time: 15:45 al 10/18 15:41 Order name: Cardiac monitoring; Complete Time: 15:45 al 10/18 15:41 Order name: EKG - Nurse/Tech; Complete Time: 15:46 al 10/18 15:41 Order name: IV Saline Lock; Complete Time: 15:46 al 10/18 15:41 Order name: Labs collected and sent; Complete Time: 15:47 al 10/18 15:41 Order name: NPO; Complete Time: 15:47 al 10/18 15:41 Order name: O2 Per Protocol; Complete Time: 15:46 al 10/18 15:41 Order name: O2 Sat Monitoring; Complete Time: 15:46 al Administered Medications: 16:10 Drug: Keppra 1000 mg Route: IV; Rate: 1000 mg/hr; Site: right forearm; ss 16:59 Follow up: IV Status: Completed infusion; IV Intake: 100ml bp 16:24 Drug: niCARdipine (25mg/250ml) 2.5 mg/hr Route: IV; Rate: mg/hr; Site: left forearm; bp 16:59 Follow up: IV Status: Infusion continued upon transfer bp Point of Care Testing: Blood Glucose: 15:35 Blood Glucose: 181 mg/dL; bp Ranges: Critical Glucose Levels:Adult <50 mg/dl or >400 mg/dl <40 mg/dl or >180 mg/dl Disposition: 10/18/18 16:34 Transfer ordered to [facility]. Diagnosis are Acute Fall, L side Intraparechymal and L thalamic bleed, R side weakness, Hyperglycemia. - Reason for transfer: Higher level of care. - Accepting physician is Dr. Verde _ [facility]. - Condition is Serious. - Problem is new. - Symptoms have improved. Critical care time excluding procedures: 16:34 Critical care time: Bedside Care: 20 minutes, Consultation: 5 minutes, Family wa Intervention: 10 minutes. Total time: 35 minutes Signatures: Dispatcher [employer] Ermias Dyer RN RN Ashley Marshall RN RN ss Rigoberto Arthur MD MD wa Peltier, Brian, RN RN bp Corrections: (The following items were deleted from the chart) 17:35 16:34 10/18/2018 16:34 Transfer ordered to [facility]. Diagnosis is bp Acute Fall; L side Intraparechymal and L thalamic bleed; R side weakness; Hyperglycemia. Reason for transfer: Higher level of care. Accepting physician is Dr. Verde _ [facility]. Condition is Serious. Problem is new. Symptoms have improved. ron
--- NOTE | 2018-10-19 06:54 | EKG ---
Test Date: 2018-10-18 Test Time: 15:36:55 Director Of Vendor Management: MEASUREMENT RESULTS: Intervals: Rate: 116 RI: 134 QRSD: 90 QT: 332 QTc: 461 [place]: P: 15 RI: 134 QRS: -29 T: 49 INTERPRETIVE STATEMENTS: Sinus tachycardia with frequent premature ventricular complexes Inferior infarct, age undetermined Abnormal ECG Compared to ECG 09/20/2018 12:29:39 No significant changes Electronically Signed On 10-19-18 06:53:14 CDT by Yonny Ray
== END 2018-10-18 17:35 | disposition short-term general hospital (02) ==
LOC: ER 15:09
DX: I61.4 Nontraumatic intracerebral hemorrhage in cerebellum (principal); R73.9 Hyperglycemia, unspecified; W18.30XA Fall on same level, unspecified, initial encounter; Y93.01 Activity, walking, marching and hiking; Y92.239 Unspecified place in hospital as the place of occurrence of the external cause; I10 Essential (primary) hypertension; Z86.718 Personal history of other venous thrombosis and embolism
CPT/HCPCS: 93005; 85025; 80048; 36415; 83735; 82550; 85610; 82962; 80076; 85730; 84484; 70450; 71045; 99285; J1953

== ENCOUNTER 2018-10-28 09:05 | Inpatient (IN) | payer OTHER ==
--- NOTE | 2018-10-28 09:49 | R.PREADM ---
SCREENING DATE AND TIME 10/28/2018 09:10 (CDT) ANTICIPATED REHAB ADMISSION DATE 10/30/2018 REFERRING FACILITY [facility] REFERRAL DATE AND TIME 10/28/2018 09:10 (CDT) ACUTE ADMIT DATE 10/18/2018 Previous Rehabilitation(s): No. REFERRING PHYSICIAN Indra Myers REHAB FACILITY [facility] CLINICAL LIAISON Paul Chandler PHYSICIAN REVIEWER Dr. Harpreet Alan M.D. MR# [id number] NAME LEONORA HOFF AD[address]ESS [address] [place] [place] [address] DATE OF 1940 AGE 77 SSN# [id number] GENDER female MARITAL STATUS RACE white ADMIT FROM 02 - [facility] PRE-HOSPITAL LIVING SETTING 01 - Home (private home/apt. board/care, assisted living, fci, transitional living) HOME TYPE AND DETAILS Type of home: single family house # of steps to enter the residence: 0 # of steps within the residence: 0 # of levels in the residence: 1 PRE-HOSPITAL LIVING WITH Family/Relatives FAMILY SUPPORT Yes PRIMARY FAMILY CONTACT NAME Migue Hoff PRIMARY FAMILY CONTACT PHONE PHONE PRIMARY FAMILY CONTACT ON ADM.? no IS PRIMARY FAMILY CONTACT AUTH. REP.? no 1ST EMERGENCY CONTACT Migue Hoff 1ST CONTACT PHONE PHONE 1ST CONTACT ON ADM. no IS 1ST CONTACT AUTH. REP.? no PHONE 2ND CONTACT ON ADM.? no PATIENT EMPLOYMENT STATUS Retired (for age) PATIENT EMPLOYER No Employer PAYOR INFORMATION: 1ST PAYOR NAME WOODY 1ST PAYOR PHONE 1ST PAYOR INJURY/ILLNESS DUE TO ACCIDENT? No ANOTHER CONSTITUTION PARTY RESPONSIBLE? 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 COMORBID REHAB/ACUTE DIAGNOSES: - N/A rheumatoid arthritis involving multiple sites SUMMARY OF ACUTE HOSPITALIZATION: Pt. is a 77 yo Right-handed white female. On 10/18/2018 Pt. presented to [facility] with sudden onset of right-side weakness. On 10/18/2018 she was admitted to [facility] with diagnosis acute parenchy mal hemorrhage in the left thalamocapsular region and left gallego radiata with intraventricular exten lamine. Her impairment category is Stroke 01 - Right Body (Left Brain) (01.2). Pre-morbidly, Pt. was independent/mod-I in Self-Care, Sphincter Control, Transfers Control, Locomotio n, Communication, and Social Cognition; and she had good Sphincter Control. Currently, she has deficits of Transfers Control, Locomotion, Endurance, Balance, Safety Awareness, a nd Self-Care. Pt. is now referred to [facility] for acute in-patient rehabilitation in order to maximize patient's functional independence in activities of daily living, strength, ROM, and mobi lity. Patient has realistic goal of being discharged at assistance level 2-maxA to reside at Home with Fam blanka/Relatives. PAST MEDICAL HISTORY rheumatoid arthritis involving multiple sites MEDICATION ALLERGIES: No Known Drug Allergies (NKDA) ENVIRONMENTAL ALLERGIES: - Substance Allergies None Known - Other Allergies None Known CODE STATUS: Full code WEIGHT/HEIGHT/BMI: WEIGHT 192 lbs HEIGHT 5' 3" BMI 34 DIET: - Diet Type Regular - Diet - Solid Texture Regular - Diet - Liquid Texture Regular - Tube Feed N/A REVIEW OF SYSTEMS: - Gen Alert and awake Lying in bed No apparent distress Oriented to: person, time, and place - Vital Signs Vital signs stable, afebrile - CVS RRR VITAL SIGNS Temperature: 98.0 F SBP/DBP: 135/59 Pulse: 88 Resp: 21 Vital signs stable, afebrile MEDICATIONS/TREATMENT: Other- See attached MAR (Medication Administration Record) [id number].pdf. CURRENT SPHINCTER CONTROL: Pre-hospital bladder status: continent # of bladder accidents in the last 7 days prior to screenin Pre-hospital bowel status: continent # of bowel accidents in the last 7 days prior to screenin Last Bowel Movement Date: 10/28/2018 DETAILED CURRENT FUNCTIONAL STATUS: - Bladder accident frequency: Ind - No accidents in the past 7 days - Bowel accident frequency: Ind - No accidents in the past 7 days - Walking score based on distance walked: 1(<=50ft) - Wheelchair score based on distance traveled: 1(<=50ft) FUNCTIONAL STATUS: - Self-Care A. Eating Ind Ind B. Grooming Ind modA C. Bathing Ind maxA D. Dressing - Upper Ind modA E. Dressing - Lower Ind Dep F. Toileting Ind maxA - Sphincter Control G: Bladder control Ind Ind H: Bowel control Ind Ind - Transfers Control I. Bed/Chair/Wheelchair Ind maxA J. Toilet Ind maxA K. Tub/Shower Ind maxA - Locomotion L. Walk/Wheelchair (C) Ind maxA L. Walk/Wheelchair (W) Ind maxA M. Stairs Ind ADNO - Communication N. Comprehension (B) Ind Ind O. Expression (B) Ind Ind - Social Cognition P. Social Interaction Ind Ind Q. Problem Solving Ind Ind R. Memory Ind Ind - Endurance Poor - Balance Poor - Safety Awareness Poor CURRENT FUNC. DEFICITS: Transfers Control, Locomotion, Endurance, Balance, Safety Awareness, and Self-Care THERAPY NOTES FROM ACUTE CARE: Attached. SPECIAL NEEDS: - Safety Concerns Skin breakdown precautions needed due to skin breakdown risk PRECAUTIONS: - Weight Bearing Precaution WBAT right LE PATIENT NEEDS ACTIVE AND ONGOING THERAPEUTIC INTERVENTION OF MULTIPLE THERAPY DISCIPLINES, INCLUDING: - Occupational Therapy Cognitive Retraining. Visual Perceptual Training. - Dietary and Nutrition Adequate Nutrition. Nutritional Education. Nutritional Supplements. - Speech Therapy Cognitive Training. Expressive Language Skills. Memory Strategies. Receptive Language Skills. Speech Intelligibility Training. PATIENT NEEDS CLOSE MEDICAL SUPERVISION BY A REHABILITATION PHYSICIAN FOR: Bowel and Bladder Management Coordination of Treatment Team Medical and Co-Morbidity Management PATIENT REQUIRES 24X7 REHAB NURSING FOR MEDICAL AND FUNCTIONAL MGT. OF THE FOLLOWING DEFICITS: ADL's Ambulation Bowel and Bladder Management Communication Disease Management Medication Management Patient/Family Education Providing Safe Environment Transfers PATIENT REQUIRES INTENSIVE, COORDINATED INTERDISCIPLINARY APPROACH TO REHAB: Arranging Home Equipment/Services Discharge Planning Family Intervention/Training Cotton Ginner Helper/Case Management PATIENT REHAB POTENTIAL: Rama HOFF is able and expected to receive 3 hours of individualized therapy daily on at least 5 of romain ry 7 days Rama HOFF's prognosis for significant practical improvement within a reasonable period of time appears Good Expected level of measurable improvement will be of a practical value to Rama HOFF's functional capaci ty or adaptations to impairments Has a viable Discharge Plan Medically appropriate; condition is sufficiently stable to participate in intensive rehab program DISCHARGE PLAN: - Estimated Length of Stay (days) 17. - Consensus on plan Discharge plan has been discussed with primary caregiver. Patient/Family is in agreement with the mirian n. Primary caregiver is in agreement with the plan. - Patient/Family Goals Return home with assistance. - Planned Living Setting Upon Discharge Home, to live with Family/Relatives. RECOMMENDED CARE LEVEL: IRF RECOMMENDATION DETAILS: Recommended Admission to Comprehensive Rehabilitation Program to Increase Functional Foster SCREENER'S COMPLETENESS CONFIRMATION: - Screening Confirmation The patient data collection on this preadmission screening form is finished PHYSICIANS REVIEW AND ADMISSION DETERMINATION Admit - Based on my review of the Pre-Admission Screening results, in my medical judgment and experie nce, I concur with the findings and recommend admission to [facility], as this patient requires an IRF level of care. SIGNATURE PANEL: Clinical Liaison - [electronically] signed by Emily Carr on 10/28/2018 at 09:43 (CDT) Clinical Liaison - [electronically] signed by Paul Chandler on 10/28/2018 at 09:46 (CDT) Physician Reviewer - [electronically] signed by Dr. Harpreet Alan M.D. on 10/28/2018 at 09:48 (CDT )
--- OUTSIDE RECORDS SUMMARY | 2018-10-28 15:25 | XMS REPORT | Clinical Summary ---
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, AND ENDOFLIP 07/04/2018 [facility] General Internal Vinny Ashford Hiatal hernia - Encounter Medicine MD Aliza 07/05/2018 07/01/2018 Telephone Cardiothoracic Surgery Hafsa Coleman, STOCK PATCH SAWYER 06/13/2018 Orders Only Cardiothoracic Surgery Vinny Ashford MD 06/09/2018 Telephone Cardiothoracic Surgery Catherine Yoon MA 06/09/2018 Orders Only Cardiothoracic Surgery Bereket Yoon, hiatal ( Primary Dx); J CARLOS Alexander Pre-operative laboratory examination 05/31/2018 Telephone Cardiothoracic Surgery Hafsa Coleman, STOCK PATCH SAWYER 05/26/2018 Orders Only Cardiology Aleksey Bronson MD [...] MD Jonathon WITH IMPEDANCE PROBE RETURN 04/29/2018 [facility] Gastroenterology Carolina Salmon MD 04/28/2018 Surgery Gastroenterology Carolina Salmon ESOPHAGEAL MANOMETRY MD Jonathon WITH IMPEDANCE PROBE 04/28/2018 [facility] Gastroenterology Carolina Salmon MD 03/30/2018 Orders Only Cardiothoracic Surgery Olin, Hiatal hernia J CARLOS Alexander (Primary Dx) 03/24/2018 Office Visit Cardiothoracic Surgery Vinny Ashford, hiatal MD Aliza (Primary Dx) 03/24/2018 [facility] Radiology Vinny Ashford Hiatal hernia Encounter MD Aliza 03/02/2018 Orders Only Cardiothoracic Surgery Anton, Hiatal hernia J CARLOS Carr (Primary Dx) 02/28/2018 Telephone Cardiothoracic Surgery Lilly Walton MA 01/14/2018 [facility] Radiology Yohana Hsu Abnormal CXR (chest Encounter MD [place] x-ray) 12/24/2017 Transcribe Orders Access Yohana Hsu Abnormal CXR (chest MD [place] x-ray) (Primary Dx) 12/23/2017 [facility] Radiology Mauro Torrez MD 12/23/2017 [facility] Radiology Mauro Torrez MD 12/23/2017 [facility] Radiology Mauro Torrez MD 12/23/2017 Office Visit Neurosurgery Mauro Torrez Lumbar stenosis with neurogenic claudication (Primary Dx); MD Artem Osteoporosis without current pathological fracture, unspecified osteoporosis type; Rheumatoid arthritis involving multiple sites with positive rheumatoid factor; Class 2 obesity due to excess calories with serious comorbidity and body mass index (BMI) of 35.0 to 35.9 in adult 12/23/2017 [facility] Radiology Mauro Torrez Lumbar radiculopathy Paul Mcgill MD 12/23/2017 [facility] Radiology Mauro Torrez Lumbar radiculopathy Paul Mcgill MD 12/23/2017 Abstract Neurosurgery Sita Cope LVN 12/22/2017 Orders Only Neurosurgery Mauro Torrez Lumbar radiculopathy MD Artem (Primary Dx) after 10/27/2017 Family History Medical History Relation Name Comments [...] 02/02/2018, 02/06/2016, 02/05/2015 Implants Implanted Type Area Basin Operator Device Shelf Model / Identifier Expiration Serial / Date Lot Catheter Endoflip 8cm Measurement - [id number] Surgical N/A: N/A CROSPON 06/08/2019 EF 325N [...] CDT procedure are in the results section. TN AN ELECTIVE Routine 07/04/2018 8:28 ENDOTRACHEAL AIRWAY AM CDT Procedure Note - Collins Torres CRNA - 07/04/2018 8:28 AM CDT Airway Date/Time: 07/04/2018 7:49 AM Performed by: Collins Torres CRNA Authorized by: Alexandra Moyer MD Location: OR Urgency: Elective Difficult Airway: No Anesthesiologist: Alexandra Moyer MD Resident/TICKET BROKER/AA: Collins Torres CRNA Performed by: resident/TICKET BROKER/AA Preoxygenated with 100% O2: Yes C-spine Precautions [...] 06/13/2018 12:29 Results for this DIFFERENTIAL PM [employer] procedure are in the results section. PROTHROMBIN TIME WITH Routine 06/13/2018 12:29 Results for this INR PM [employer]ADE [employer] procedure are in the results section. PARTIAL THROMBOPLASTIN Routine 06/13/2018 12:29 Results for this TIME (PTT) PM [employer] procedure are in the results section. COMPREHENSIVE Routine 06/13/2018 12:29 Results for this METABOLIC PANEL PM [employer]ADE [employer] procedure are in the results section. OBTAIN MEDICAL RECORDS Routine 05/26/2018 ECHOCARDIOGRAM 2D Routine 05/25/2018 3:05 SOB (shortness of Results for this COMPLETE W MMODE PM [employer] BLADE ALIGNER breath) procedure are in SPECTRAL COLOR DOPPLER Pre-op exam the results (71690) section. NM MYOCARDIAL Routine 05/21/2018 PERFUSION ECG 12-LEAD Routine 05/10/2018 3:21 Essential Results for this PM [employer]ADE [employer]ER hypertension procedure are in the results section. ESTIMATED GFR Routine 05/05/2018 1:40 Results for this PM [employer]ER procedure are in the results section. PARTIAL THROMBOPLASTIN Routine 05/05/2018 1:40 Hiatal hernia Results for this TIME (PTT) PM [employer]ADE [employer]ER Pre-op testing procedure are in the results section. PROTHROMBIN TIME WITH Routine 05/05/2018 1:40 Hiatal hernia Results for this INR PM [employer]ADE [employer]ER Pre-op testing procedure are in the results section. COMPREHENSIVE Routine 05/05/2018 1:40 Hiatal hernia Results for this METABOLIC PANEL PM [employer] BLADE ALIGNER Pre-op testing procedure are in the results section. HC COMPLETE BLD COUNT Routine 05/05/2018 1:40 Hiatal hernia Results for this W/AUTO DIFF PM [employer]ER Pre-op testing procedure are in the results section. TYPE AND SCREEN Routine 05/05/2018 1:40 Hiatal hernia Results for this PM [employer]ER Pre-op testing procedure are in the results section. ESOPHAGEAL MANOMETRY 04/29/2018 2:15 Hiatal hernia WITH IMPEDANCE PROBE PM F[employer] BLADE ALIGNER Special Needs DR ASHFORD ESOPHAGEAL MANOMETRY WITH IMPEDANCE PROBE 04/28/2018 9:00 AM F[employer]ADE ALIGNER Hiatal hernia Special Needs DR ASHFORD [place] ESOPHAGRAM Routine 03/24/2018 11:05 AM Hiatal hernia Results for this COMPLETE [employer]IGNER procedure are in the results section. CT [...] procedure are in the results section. after 10/27/2017 Results XR Lumbar Spine Complete W Flex [...] lateral radiographs. Right hip arthroplasty is noted. [id number] Procedure Note Interface, Radiology Results Incoming - [...] lateral radiographs. Right hip arthroplasty is noted. [id number] Performing Organization Address City/State/Zipcode Phone Number [facility] [address] [place] [address] CBC with platelet and differential (07/05/2018 5:15 AM CDT)Only the most recent of3 resultswithin the time period is included. WBC 8.02 4.50 - 11.00 [facility] RBC 4.19 (L) 4.20 - 5.50 [facility] HGB 12.3 12.0 - 16.0 [facility] g/dL [facility] HCT 40.3 37.0 - 47.0 % [facility] MCV 96.2 82.0 - 100.0 [facility] MCH 29.4 27.0 - 34.0 pg [facility] MCHC 30.5 (L) 31.0 - 37.0 [facility] g/dL [facility] RDW - SD 49.8 37.0 - 55.0 fL [facility] MPV 10.3 8.8 - 13.2 fL [facility] Platelet count 204 150 - 400 k/uL [facility] Nucleated RBC 0.00 /100 WBC [facility] Neutrophils 62.7 39.0 - 69.0 % [facility] Lymphocytes 25.3 25.0 - 45.0 % [facility] Monocytes 9.2 0.0 - 10.0 % [facility] Eosinophils 1.9 0.0 - 5.0 % [facility] Basophils 0.4 0.0 - 1.0 % [facility] Immature granulocytes 0.5Comment: 0.0 - 1.0 % [facility] granulocytes" (promyelocytes , myelocytes, metamyelocytes ) Specimen Blood Performing Organization Address City/[facility] Phone Number [facility] DEPARTMENT OF PATHOLOGY AND [address] [place] [address] Estimated GFR (07/05/2018 4:00 AM CDT)Only the most recent of2 resultswithin the time period is included. Pathologist [facility] Estimated GFR 72 mL/min/1.73 [facility] Comment: HOSPITAL CatergoryUnitsInterpretation G1 >=90 Normal or high G2 60-89Mildly decreased N8l59-53Ejgjwk to moderately decreased J7g73-09Yongocjurv to severely decreased G4 15-29Severely decreased G5 <15Kidney failure The eGFR was calculated using the Chronic Kidney Disease Epidemiology Collaboration (CKD-EPI) equation. Interpretation is based on recommendations of the National Kidney Foundation-Kidney Disease Outcomes Quality Initiative (NKF-KDOQI) published in 2014. Specimen Plasma specimen Performing Organization Address City/[facility]/Zipcode Phone Number [facility] DEPARTMENT OF PATHOLOGY AND [address] [place] [address] Basic metabolic panel (07/05/2018 4:00 AM CDT) [facility] Sodium 138 135 - 148 mEq/L [facility] Potassium 3.9 3.5 - 5.0 mEq/L [facility] Chloride 104 98 - 112 mEq/L [facility] CO2 24 24 - 31 mEq/L [facility] Anion gap 10@ANIO 7 - 15 mEq/L [facility] BUN 17 8 - 23 mg/dL [facility] Creatinine 0.80 0.50 - 0.90 mg/dL [facility] Glucose 96 65 - 99 mg/dL [facility] Calcium 8.5 (L) 8.8 - 10.2 mg/dL [facility] Specimen Plasma specimen Performing Organization Address City/State/Zipcode Phone Number [facility] DEPARTMENT OF PATHOLOGY AND [address] [place] [address] [place] [address] Surgical pathology request (07/04/2018 1:58 PM CDT) [facility] DEPARTMENT OF PATHOLOGY AND GENOMIC MEDICINE Surgical pathology See link below [facility] DEPARTMENT OF report for PDF Lab PATHOLOGY AND Report GENOMIC MEDICINE Result status This is Final [facility] DEPARTMENT OF Report for PATHOLOGY AND [id number] GENOMIC MEDICINE Specimen Performing Organization Address City/[facility] Phone Number [facility] DEPARTMENT OF PATHOLOGY AND [address] [place] [address] GENOMIC MEDICINE Type and screen (07/04/2018 5:32 AM CDT)Only the most recent of2 resultswithin the time period is included. Pathologist [facility] ABO grouping A [facility] Rh type POS [facility] Antibody screen (gel) NEG [facility] Specimen Blood Performing Organization Address [facility] Phone Number [facility] DEPARTMENT OF PATHOLOGY AND [address] [place] [address] GENOM[address] MED[address]INE [address] [address] Partial thromboplastin time, activated (06/13/2018 12:29 PM F[employer] BLADE ALIGNER)Only the most recent of2 resultswithin the time period is included. Pathologist [facility] PTT 25 22 - 34 sec [facility] Comment: [place] This test has not been validated for monitoring unfractionated heparin therapy. For testing that is validated for this type of therapy, please refer to the Heparin Anti-Xa assay (test code 21491). For additional information, please refer to http://education.QponDirect/faq/DIT872 (This link is being provided for informational/educational purposes only.) Specimen Narrative Performed At FASTING:NO [facility] FASTING: NO Resulting Agency Comment Performing Organization Information: Site ID: [id number] Name: [employer] [facility] Address: [address] [place] [phone] Director: Gilma Edwards Performing Organization Address [facility] Hospitalcode Phone Number [facility] [address] [address] Prothrombin time with INR (06/13/2018 12:29 PM FAN BLADE ALIGNER)Only the most recent of2 resultswithin the time period is included. INR 1.0 [facility] Comment: [place] Reference Range 0.9-1.1 Moderate-intensity Warfarin Therapy 2.0-3.0 Higher-intensity Warfarin Therapy 3.0-4.0 Prothrombin time 10.1 9.0 - 11.5 [facility] Comment: [facility] For more information on this test, go to: http://education.Aquicore/faq/DVB641 Specimen Narrative Performed At FASTING:NO [facility] FASTING: NO Resulting Agency Comment Performing Organization Information: Site ID: [id number] Name: [facility] Address: [address] [place] [phone] Director: Gilma Edwards Performing Organization Address [facility] [place] [address] Comprehensive metabolic panel (06/13/2018 12:29 PM F[employer] BLADE ALIGNER)Only the most recent of2 resultswithin the time period is included. Glucose 122 65 - 139 [facility] Comment: mg/dL [place] Non-fasting reference interval BUN, whole blood 22 7 - 25 mg/dL [facility] [place] Creatinine 0.66 0.60 - 0.93 [facility] Comment: mg/dL [place] For patients >49 years of age, the reference limit for Creatinine is approximately 13% higher for people identified as -Italian. EGFR Non-Afr. 86 > OR=60 [facility] Italian mL/min/1.73m [place] 2 EGFR 100 > OR=60 [facility] Italian mL/min/1.73m [place] 2 BUN/creatinine NOT APPLICABLE 6 - 22 [facility] ratio (calc) [place] Sodium 139 135 - 146 [facility] mmol/L [place] Potassium 4.5 3.5 - 5.3 [facility] mmol/L [place] Chloride 104 98 - 110 [facility] mmol/L [place] CO2 27 20 - 32 [facility] mmol/L [place] Calcium 9.3 8.6 - 10.4 [facility] mg/dL [place] Protein 7.1 6.1 - 8.1 [facility] g/dL [place] Albumin, S 4.1 3.6 - 5.1 [facility] g/dL [place] Globulin, total 3.0 1.9 - 3.7 [facility] g/dL (calc) [place] Albumin/globulin 1.4 1.0 - 2.5 [facility] ratio (calc) [place] Total bilirubin 0.4 0.2 - 1.2 [facility] mg/dL [place] Alkaline 53 33 - 130 U/L [facility] phosphatase [place] AST 13 10 - 35 U/L [facility] [place] ALT 10 6 - 29 U/L [facility] [place] Specimen Narrative Performed At FASTING:NO [facility] FASTING: NO Resulting Agency Comment Performing Organization Information: Site ID: [id number] Name: [facility] Address: [address] [place] [phone] Director: Gilma Edwards Performing Organization Address City/State/[place] [address] Obtain medical records (05/26/2018) Narrative Performed At Echocardiogram complete w contrast and 3D if needed (05/25/2018 3:05 PM F[employer] BLADE ALIGNER) Specimen Narrative Performed At [facility] Echocardiography Report Pat.Name:LUIS EDUARDOCHIDI TOROLEONORA ANN Pat.ID:[id number] .Date: 05/25/2018Refer.MD:ALEKSEY BRONSON MD Exam Time: 2:10:00 PMStudy Type:Routine Echo Height:63inWeight: 227lb BSA: 2.04 m2 DOBAge:1940,77Y Sex: FEMALEBP:134/75 HR:93 bpm Sonogrphr: FARHAD Morrell FASE Pat. Stat.:OutpatientRoom:[place] Study Status:Final Echo Event ID:[id number] Order ID:[id number] Reason for Study:SOB, suspected cardiac etiology Procedures:2D [...] RAPof 5 mmHg. MEASUREMENTS: 2D Parasternal Long Ailey LVIDs3.1 cmLA Ds4.7 cm LV%fs 36.6 % Ao Rtd 3.3 cm Index1.6 cm/m LVOT 2 cmLV Bron585.8 g(87-129) LVIDd5.1 cmIndex2.5 cm/m LVM Rjmtc229 g/m2 IVSd 1.2 cmRWT0.5 LVPWd1.2 cm LA Sng Plane LA Area 27.3 cm2(8.8-23.4) LA Vol99.8 ml Index48.9 ml/m LA LngAx 5.9 cm DOPPLER LVOT Stroke Vol LVOT 2 cmLVOT CO7.9 l/min LVOT TVI27.6 cmLVOT CI3.9 l/m/m2 LVOT Tm286 cfzeLO79 bpm LVOT SV 86.7 ml MV For Flow/Valve Assess MV pkVel 149.9 cm/sMV Mean G3.9 mmHg MV pkPG9 mmHgMV TVI22.9 cm Signed 05/26/2018 5:07:00 PM Emely Baires M.D. Procedure Note Interface, Radiology Results In - 05/27/2018 12:23 PM [facility]ADE [facility] Echocardiography Report Pat.Name: LEONORA BELLO Pat.ID: [id number] St.Date: 05/25/2018 Refer.MD: ALEKSEY BRONSON MD Exam Time: 2:10:00 PM Study Type:Routine Echo Height: 63in Weight: 227lb BSA: 2.04 m2 Age: 9 1940,77Y Sex: FEMALE BP: 134/75 HR: 93 bpm Sonogrphr: FARHAD Morrell FASE Pat. Stat.:Outpatient Room: [place] Study Status:Final Echo Event ID:[id number] Order ID: [id number] Reason for Study:SOB, suspected cardiac etiology Procedures:2D [...] of 5 mmHg. MEASUREMENTS: 2D Parasternal Long Ailey LVIDs 3.1 cm LA Ds 4.7 cm [...] Address City/State/Zipcode Phone Number [facility] [address] [place] [address] [place] myocardial perfusion (05/21/2018) Narrative Performed At ECG 12 lead (05/10/2018 3:21 PM F[employer] BLADE [employer]IGNER) Ventricular rate 86 [facility] Atrial rate 86 [facility] TN interval 154 [facility] QRSD interval 84 [facility] QT interval 356 [facility] QTC interval 426 [facility] P axis 1 58 [facility] QRS axis 1 -26 [facility] T wave axis 64 [facility] EKG impression Sinus rhythm with [facility] MUSE occasional premature ventricular complexes-Otherwise normal ECG-No previous ECGs available-Electronicall y Signed By Paula Kenyon MD ([id number]) on 05/10/2018 10:21:11 PM Specimen Narrative Performed At Performing Organization Address City/State/Zipcode Phone Number [facility] MUSE [address] [place] [address] [place] Esophagram Complete (03/24/2018 11:05 AM F[employer]IGNER) Specimen Narrative Performed At [place] ESOPHAGRAM COMPLETE [facility] CLINICAL INDICATION:K44.9 Diaphragmatic hernia [...] participate in the care of your patient. [facility]-[id number] Procedure Note Interface, Radiology Results Incoming - 03/24/2018 11:22 AM F[employer]ER [place] ESOPHAGRAM COMPLETE CLINICAL INDICATION: K44.9 Diaphragmatic [...] participate in the care of your patient. [facility]-[id number] Performing Organization Address City/State/Zipcode Phone Number [facility] [address] [place] [address] CT Chest Wo Contrast (01/14/2018 11:51 AM [...] hiatal hernia. 4.Cholelithiasis without evidence of cholecystitis. [facility]-[id number] Procedure Note Interface, Radiology Results - 01/14/2018 [...] hernia. 4. Cholelithiasis without evidence of cholecystitis. [facility]-[id number] Performing Organization Address City/State/Zipcode Phone Number [facility] [address] [place] [address] XR Spine [place] 2-3 Views (12/23/2017 11:51 [...] view is limited due to stitching artifact. [id number] Procedure Note Hm Interface, Radiology Results Incoming [...] view is limited due to stitching artifact. [id number] Performing Organization Address City/State/Zipcode Phone Number [facility] [address] [place] [address] after 10/27/2017 Insurance Payer Benefit Plan / Subscriber ID Effective Dates Phone Address Type Group HU[employer]NA MEDICARE HUMANA MEDICARE xxxxxxxxx 2017-Present PPO PPO/PFFS/[facility] [place] [address] Advance Directives Patient has advance care planning documents on file. For more information, please contact:Mark Rainey[address] [place] [address]
--- OUTSIDE RECORDS SUMMARY | 2018-10-28 15:26 | XMS REPORT | Clinical Summary ---
:1940 Author Organization [facility] [employer] Address [address] [place] [address] Care Team Providers Name Role Phone Rene Pimentel MD Primary Care Provider Allergies No Known Allergies Medications Medication Sig Dispensed Refills Start Date End Date Status predniSONE Take 2.5 mg by mouth 0 12/27/2014 Active (DELTASONE) 2.5 MG every other day. tablet folic acid (FOLVITE) Take 1 mg by mouth 0 Active 1 MG tablet daily. pantoprazole Take 40 mg by mouth 0 Active (PROTONIX) 40 MG daily. tablet clopidogrel (PLAVIX) Take 75 mg by mouth 0 Active 75 mg tablet daily. atorvastatin Take 10 mg by mouth 0 Active (LIPITOR) 10 MG daily. tablet irbesartan (AVAPRO) Take 75 mg by mouth 0 Active 75 MG tablet nightly. cholecalciferol, Take 1,000 Units by 0 Active vitamin D3, 1,000 mouth daily. unit capsule calcium carbonate Take 1 tablet by 0 Active (TUMS) 500 mg mouth 2 (two) times chewable tablet daily. acetaminophen Take 500 mg by mouth 0 Active (TYLENOL) 500 MG every 6 (six) hours tablet as needed for Pain. etanercept (ENBREL) Inject 25 mg 0 Active 25 mg (1 mL) subcutaneously twice injection a week. 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 Never 10/19/2018 How many drinks containing alcohol do you have on a typical Not asked day when you are drinking? How often do you have six or more drinks on one occasion? Not asked Sex Assigned at Date Recorded Not on file Job Start Date Occupation Industry Not on file Not on file Not on file Travel History Travel Start Travel End No recent travel history available. Last Filed Vital Signs Vital Sign Reading Time Taken Blood Pressure 122/60 10/28/2018 11:50 AM CDT Pulse 86 10/28/2018 11:50 AM CDT Temperature 36.1 C (96.9 F) 10/28/2018 11:50 AM CDT Respiratory Rate 18 10/28/2018 11:50 AM CDT Oxygen Saturation 94% 10/28/2018 11:50 AM CDT Inhaled Oxygen Concentration - - Weight 87.2 kg (192 lb 3.9 oz) 10/18/2018 7:15 PM CDT Height 160 cm (5' 3") 10/18/2018 7:15 PM CDT Body Mass Index 34.05 10/18/2018 7:15 PM CDT Plan of Treatment Not on file Procedures Procedure Name Priority Date/Time Associated Comments Diagnosis POCT-GLUCOSE METER Routine 10/28/2018 1:33 Results for this PM CDT procedure are in the results section. POCT-GLUCOSE METER Routine 10/28/2018 11:49 Results for this AM CDT procedure are in the results section. POCT-GLUCOSE METER Routine 10/28/2018 6:18 Results for this AM CDT procedure are in the results section. POCT-GLUCOSE METER Routine 10/27/2018 5:36 Results for this PM CDT procedure are in the results section. POCT-GLUCOSE METER Routine 10/27/2018 12:03 Results for this PM CDT procedure are in the results section. POCT-GLUCOSE METER Routine 10/27/2018 12:28 Results for this AM CDT procedure are in the results section. POCT-GLUCOSE METER Routine 10/26/2018 5:52 Results for this PM CDT procedure are in the results section. POCT-GLUCOSE METER Routine 10/26/2018 12:16 Results for this PM CDT procedure are in the results section. POCT-GLUCOSE METER Routine 10/25/2018 5:00 Results for this PM CDT procedure are in the results section. POCT-GLUCOSE METER Routine 10/25/2018 11:51 Results for this AM CDT procedure are in the results section. POCT-GLUCOSE METER Routine 10/25/2018 12:01 Results for this AM CDT procedure are in the results section. POCT-GLUCOSE METER Routine 10/24/2018 6:18 Results for this PM CDT procedure are in the results section. POCT-GLUCOSE METER Routine 10/24/2018 2:06 Results for this PM CDT procedure are in the results section. POCT-GLUCOSE METER Routine 10/24/2018 8:03 Results for this AM CDT procedure are in the results section. POCT-GLUCOSE METER Routine 10/23/2018 9:40 Results for this PM CDT procedure are in the results section. POCT-GLUCOSE METER Routine 10/23/2018 5:26 Results for this PM CDT procedure are in the results section. POCT-GLUCOSE METER Routine 10/23/2018 8:09 Results for this AM CDT procedure are in the results section. POCT-GLUCOSE METER Routine 10/22/2018 7:49 Results for this AM CDT procedure are in the results section. POCT-GLUCOSE METER Routine 10/21/2018 10:41 Results for this PM CDT procedure are in the results section. POCT-GLUCOSE METER Routine 10/21/2018 5:09 Results for this PM CDT procedure are in the results section. POCT-GLUCOSE METER Routine 10/21/2018 5:36 Results for this AM CDT procedure are in the results section. CBC (HEMOGRAM ONLY) Routine 10/21/2018 3:28 Results for this AM CDT procedure are in the results section. BASIC METABOLIC PANEL Routine 10/21/2018 3:28 Results for this (7) AM CDT procedure are in the results section. POCT-GLUCOSE METER Routine 10/20/2018 11:24 Results for this PM CDT procedure are in the results section. POCT-GLUCOSE METER Routine 10/20/2018 6:20 Results for this PM CDT procedure are in the results section. TRANSFUSION SERVICE 10/20/2018 5:52 REPORT - SCAN PM CDT XR FOREARM RIGHT 2 Routine 10/20/2018 12:55 Results for this VIEW PM CDT procedure are in the results section. POCT-GLUCOSE METER Routine 10/20/2018 12:44 Results for this PM CDT procedure are in the results section. POCT-GLUCOSE METER Routine 10/20/2018 5:50 Results for this AM CDT procedure are in the results section. CBC (HEMOGRAM ONLY) Routine 10/20/2018 5:08 Results for this AM CDT procedure are in the results section. PHOSPHORUS Routine 10/20/2018 5:08 Results for this AM CDT procedure are in the results section. MAGNESIUM Routine 10/20/2018 5:08 Results for this AM CDT procedure are in the results section. BASIC METABOLIC PANEL Routine 10/20/2018 5:08 Results for this (7) AM CDT procedure are in the results section. PREPARE LEUKO-REDUCED Routine 10/19/2018 11:54 Results for this PLATELETS PM CDT procedure are in the results section. POCT-GLUCOSE METER Routine 10/19/2018 9:34 Results for this PM CDT procedure are in the results section. POCT-GLUCOSE METER Routine 10/19/2018 6:00 Results for this PM CDT procedure are in the results section. TRANSFUSION SERVICE 10/19/2018 5:51 REPORT - SCAN PM CDT BASIC METABOLIC PANEL STAT 10/19/2018 5:28 Results for this (7) PM CDT procedure are in the results section. MAGNESIUM Routine 10/19/2018 3:38 Results for this PM CDT procedure are in the results section. POTASSIUM Routine 10/19/2018 3:38 Results for this PM CDT procedure are in the results section. XR WRIST RIGHT Routine 10/19/2018 3:35 Results for this COMPLETE (MIN 3 PM CDT procedure are in VIEWS) the results section. XR SHOULDER RIGHT Routine 10/19/2018 3:35 Results for this COMPLETE MIN 2 VWS PM CDT procedure are in the results section. XR ELBOW RIGHT (MIN 3 Routine 10/19/2018 3:35 Results for this VIEWS) PM CDT procedure are in the results section. XR LEG/TIBIA & FIBULA Routine 10/19/2018 3:35 Results for this RIGHT 2 VIEWS PM CDT procedure are in the results section. XR HIP RIGHT 2 VIEW STAT 10/19/2018 3:15 Results for this PM CDT procedure are in the results section. POCT-GLUCOSE METER Routine 10/19/2018 11:53 Results for this AM CDT procedure are in the results section. POCT-GLUCOSE METER Routine 10/19/2018 6:21 Results for this AM CDT procedure are in the results section. CBC (HEMOGRAM ONLY) Routine 10/19/2018 4:27 Results for this AM CDT procedure are in the results section. PHOSPHORUS Routine 10/19/2018 4:27 Results for this AM CDT procedure are in the results section. MAGNESIUM Routine 10/19/2018 4:27 Results for this AM CDT procedure are in the results section. BASIC METABOLIC PANEL Routine 10/19/2018 4:27 Results for this (7) AM CDT procedure are in the results section. CT BRAIN WITHOUT IV Routine 10/19/2018 4:12 Results for this CONTRAST AM CDT procedure are in the results section. TRANSFUSE Routine 10/19/2018 3:47 LEUKO-REDUCED AM CDT PLATELETS TRANSFUSE Routine 10/19/2018 1:40 LEUKO-REDUCED AM CDT PLATELETS POCT-GLUCOSE METER Routine 10/19/2018 12:32 Results for this AM CDT procedure are in the results section. ABORH, MANUAL STAT 10/18/2018 10:37 Results for this PM CDT procedure are in the results section. TYPE AND SCREEN, Routine 10/18/2018 10:02 Results for this AUTOMATED PM CDT procedure are in the results section. TROPONIN I Routine 10/18/2018 8:23 Results for this PM CDT procedure are in the results section. CBC (HEMOGRAM ONLY) Routine 10/18/2018 8:23 Results for this PM CDT procedure are in the results section. APTT Routine 10/18/2018 8:23 Results for this PM CDT procedure are in the results section. PROTHROMBIN TIME/INR Routine 10/18/2018 8:23 Results for this PM CDT procedure are in the results section. HEPATIC FUNCTION Routine 10/18/2018 8:23 Results for this PANEL PM CDT procedure are in the results section. PHOSPHORUS Routine 10/18/2018 8:23 Results for this PM CDT procedure are in the results section. MAGNESIUM Routine 10/18/2018 8:23 Results for this PM CDT procedure are in the results section. BASIC METABOLIC PANEL Routine 10/18/2018 8:23 Results for this (7) PM CDT procedure are in the results section. after 10/27/2017 Results POC-Glucose meter (10/28/2018 1:33 PM CDT)Only the most recent of30 resultswithin the time period is included. POC-Glucose Meter 124 (H)Comment: TESTED AT 70 - 110 mg/dL [facility] [address] [place] [id number] Specimen Blood Performing Organization Address City/[facility] [place] [address] [place] CBC (Hemogram only) (10/21/2018 3:28 AM CDT)Only the most recent of4 resultswithin the time period is included. WBC 7.1 3.5 - 10.5 K/L [facility] RBC 3.63 (L) 3.93 - 5.22 M/L [facility] Hemoglobin 10.7 (L) 11.2 - 15.7 GM/DL [facility] Hematocrit 34.1 34.1 - 44.9 % [facility] MCV 93.9 79.4 - 94.8 fL [facility] MCH 29.5 25.6 - 32.2 pg [facility] MCHC 31.4 (L) 32.2 - 35.5 GM/DL [facility] RDW 14.7 (H) 11.7 - 14.4 % [facility] Platelets 279 150 - 450 K/CU MM [facility] MPV 10.0 9.4 - 12.3 fL [facility] nRBC 0 0 - 0 /100 WBC [facility] Specimen Blood Performing Organization Address City/[facility]/Zipcode Phone Number [address] [address] [phone] [place] Basic Metabolic Panel (10/21/2018 3:28 AM CDT)Only the most recent of5 resultswithin the time period is included. Sodium 139 136 - 145 meq/L [facility] Potassium 4.1 3.5 - 5.1 meq/L [facility] Chloride 106 98 - 107 meq/L [facility] CO2 26 22 - 29 meq/L [facility] BUN 12 7 - 21 mg/dL [facility] Creatinine 0.69 0.57 - 1.25 mg/dL [facility] Glucose 114 (H) 70 - 105 mg/dL [facility] Calcium 8.1 (L) 8.4 - 10.2 mg/dL [facility] EGFR 83Comment: ESTIMATED GFR IS mL/min/1.73 sq m [facility] NOT ACCURATE CREATININE [facility] CLEARANCE IN PREDICTING GLOMERULAR FILTRATION RATE. ESTIMATED GFR IS NOT APPLICABLE FOR DIALYSIS PATIENTS. Specimen Blood Narrative Performed At Once on admission and Daily AM afterwards [facility] Performing Organization Address City/State/Zipcode Phone Number [facility] [address] [place] [address] CENTER TRANSFUSION SERVICE REPORT - SCAN (10/20/2018 5:52 PM CDT)Only the most recent of2 resultswithin the time period is included. Narrative Performed At XR forearm 2 views right (10/20/2018 12:55 PM CDT) Specimen Narrative Performed At FINAL REPORT [facility] Technique: 2 views of the right forearm COMPARISON: None FINDINGS: Exam limited by diffuse osteopenia and suboptimal technique and positioning. No gross acute fracture or dislocation involving the right forearm. Osteopenia and degenerative changes of the wrist bones noted. No gross radiopaque soft tissue foreign body. Signed: Stevan Villagran MD Report Verified Date/Time:10/20/2018 13:04:50 Reading Location: [address] Transitional Reading Room Procedure Note Interface, External Ris In - 10/20/2018 1:07 PM CDT FINAL REPORT Technique: 2 views of the right forearm COMPARISON: None FINDINGS: Exam limited by diffuse osteopenia and suboptimal technique and positioning. No gross acute fracture or dislocation involving the right forearm. Osteopenia and degenerative changes of the wrist bones noted. No gross radiopaque soft tissue foreign body. Signed: Stevan Villagran MD Report Verified Date/Time: 10/20/2018 13:04:50 Reading Location: [facility] Transitional Reading Room Performing Organization Address City/State/Zipcode Phone Number RIS Phosphorus (10/20/2018 5:08 AM CDT)Only the most recent of3 resultswithin the time period is included. Phosphorus 2.5 2.3 - 4.7 mg/dL [facility] Specimen Blood Narrative Performed At Once on admission and Daily AM afterwards [facility] Once on admission and Daily AM afterwards Once on admission and Daily AM afterwards Performing Organization Address City/[facility]/Zipcode Phone Number [address] [address] CENTER Magnesium (10/20/2018 5:08 AM CDT)Only the most recent of4 resultswithin the time period is included. Magnesium 2.3 1.6 - 2.6 mg/dL [facility] Specimen Blood Narrative Performed At Once on admission and Daily AM afterwards [facility] Once on admission and Daily AM afterwards Once on admission and Daily AM afterwards Performing Organization Address [facility]/Zipcode Phone Number [address] [address] CENTER Prepare Leuko-Red PLT (10/19/2018 11:54 PM CDT) Unit ABO O Pos SAFETRACE TX UNIT NUMBER [id number] SAFETRACE TX Status TX_TIMEINCHART SAFETRACE TX Blood Bank Product PLATELETS [employer]ET[employer] [place] PRODUCT CODE [id number] SAFETRACE TX Unit ABO O Pos SAFETRACE TX UNIT NUMBER [id number] SAFETRACE TX Status TX_TIMEINCHART SAFETRACE TX Blood Bank Product PLATELETS SAFETRACE [place] PRODUCT CODE [id number] [employer]AFET[employer] [place] Specimen Blood Performing Organization Address City/State/Zipcode Phone Number SAFET[employer] [place] Potassium (10/19/2018 3:38 PM CDT) Potassium 5.7 (H) 3.5 - 5.1 meq/L [facility] Specimen Blood Narrative Performed At Check Serum Potassium level 2 hours after [facility] oral potassium replacement completed or 30 min after intravenous potassium replacement. Performing Organization Address City/[facility] Phone Number [address] [phone] CENTER XR wrist complete 3 views min right (10/19/2018 3:35 PM CDT) Specimen Narrative Performed At FINAL REPORT [facility] RAD, WRIST, RIGHT, COMPLETE (MIN 3 VIEWS) CLINICAL INDICATION:Fracture rule out COMPARISON: None TECHNIQUE: Frontal, oblique and lateral views of the right wrist were obtained. 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 There is severe degenerative disease at the radiocarpal interval and at the distal radial ulnar joint. No acute fracture is identified. Overlying soft tissue edema is present. Signed: JR Abdul Robert MD Report Verified Date/Time:10/19/2018 15:55:55 Reading Location: [facility] B1 [id number] Consult Reading Room Procedure Note Interface, External Ris In - 10/19/2018 3:58 PM CDT FINAL REPORT RAD, WRIST, RIGHT, COMPLETE (MIN 3 VIEWS) CLINICAL INDICATION: Fracture rule out COMPARISON: None TECHNIQUE: Frontal, oblique and lateral views of the right wrist were obtained. 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 There is severe degenerative disease at the radiocarpal interval and at the distal radial ulnar joint. No acute fracture is identified. Overlying soft tissue edema is present. Signed: JR Abdul Robert MD Report Verified Date/Time: 10/19/2018 15:55:55 Reading Location: [facility] C013 Consult Reading Room Performing Organization Address [facility] Number [facility] XR shoulder complete 2 views min right (10/19/2018 3:35 PM CDT) Specimen Narrative Performed At FINAL REPORT [facility] RAD, SHOULDER, COMPLETE (MIN 2 VIEWS), RIGHT COMPARISON: None INDICATION:fracture FINDINGS:AP views in internal and external rotation and an axillary "Y" view of the right shoulder. Osseous structures: No fracture. Joint spaces: Intact without malalignment. No significant degenerative changes. Soft tissues: Unremarkable IMPRESSION: No acute abnormality of the right shoulder. Signed: JR Abdul Robert MD Report Verified Date/Time:10/19/2018 15:47:55 Reading Location: [facility] C013 Consult Reading Room Procedure Note Interface, External Ris In - 10/19/2018 3:50 PM CDT FINAL REPORT RAD, SHOULDER, COMPLETE (MIN 2 VIEWS), RIGHT COMPARISON: None INDICATION: fracture FINDINGS: AP views in internal and external rotation and an axillary "Y" view of the right shoulder. Osseous structures: No fracture. Joint spaces: Intact without malalignment. No significant degenerative changes. Soft tissues: Unremarkable IMPRESSION: No acute abnormality of the right shoulder. Signed: JR Abdul Robert MD Report Verified Date/Time: 10/19/2018 15:47:55 Reading Location: [facility] C013 Consult Reading Room Performing Organization Address [facility] [place] Phone Number GE RIS XR leg / tibia and fibula 2 views right (10/19/2018 3:35 PM CDT) Specimen Narrative Performed At FINAL REPORT [facility] RAD, LEG, TIBIA \\T\\ FIBULA, 2 VIEWS, RIGHT CLINICAL INDICATION:Fracture rule out COMPARISON: None FINDINGS: Frontal and lateral views of the right tibia and fibula. IMPRESSION: Severe degenerative changes are present in the visible portions of the ankle joint. 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 Osseous expansile and degenerative changes are noted. There is minimal overlying soft tissue edema. Tibial and fibular shafts are intact. The patient is post total knee arthroplasty in satisfactory alignment within the limits of the provided images. Signed: JR Abdul Robert MD Report Verified Date/Time:10/19/2018 15:57:30 Reading Location: [address] Consult Reading Room Procedure Note Interface, External Ris In - 10/19/2018 3:59 PM CDT FINAL REPORT RAD, LEG, TIBIA \\T\\ FIBULA, 2 VIEWS, RIGHT CLINICAL INDICATION: Fracture rule out COMPARISON: None FINDINGS: Frontal and lateral views of the right tibia and fibula. IMPRESSION: Severe degenerative changes are present in the visible portions of the ankle joint. 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 Osseous expansile and degenerative changes are noted. There is minimal overlying soft tissue edema. Tibial and fibular shafts are intact. The patient is post total knee arthroplasty in satisfactory alignment within the limits of the provided images. Signed: JR Abdul Robert MD Report Verified Date/Time: 10/19/2018 15:57:30 Reading Location: [address] Consult Reading Room Performing Organization Address City/State/Zipcode Phone Number [facility] XR elbow 3 views min right (10/19/2018 3:35 PM CDT) Specimen Narrative Performed At FINAL REPORT [facility] RAD, ELBOW, 3 VIEWS, RIGHT CLINICAL INDICATION: Fall COMPARISON: None FINDINGS: AP, lateral and oblique radiographs of the right elbow. IMPRESSION: Severe degenerative changes are noted at the elbow joint. There are posterior and anterior joint effusions without identifiable fracture or malalignment. This suggests occult fracture. Cross-sectional imaging is recommended for additional characterization. Signed: JR Abdul Robert MD Report Verified Date/Time:10/19/2018 15:49:56 Reading Location: [address] Consult Reading Room Procedure Note Interface, External Ris In - 10/19/2018 3:52 PM CDT FINAL REPORT RAD, ELBOW, 3 VIEWS, RIGHT CLINICAL INDICATION: Fall COMPARISON: None FINDINGS: AP, lateral and oblique radiographs of the right elbow. IMPRESSION: Severe degenerative changes are noted at the elbow joint. There are posterior and anterior joint effusions without identifiable fracture or malalignment. This suggests occult fracture. Cross-sectional imaging is recommended for additional characterization. Signed: JR Abdul Robert MD Report Verified Date/Time: 10/19/2018 15:49:56 Reading Location: [address] Consult Reading Room Performing Organization Address City/State/Zipcode Phone Number [facility] XR hip 2 views right (10/19/2018 3:15 PM CDT) Specimen Narrative Performed At FINAL REPORT [facility] RAD, HIP, 2 VIEWS, RIGHT CLINICAL INDICATION: Fall, rule out fracture COMPARISON: None FINDINGS: Frontal and frogleg views of the Right hip. IMPRESSION: The examination is limited by osteopenia and body habitus. No fracture or malalignment is identified. The patient is post total hip arthroplasty and open reduction, internal fixation of the proximal femur with cerclage wire placement. Surgical construct is intact and appears anatomically seated. Signed: JR Abdul Robert MD Report Verified Date/Time:10/19/2018 15:52:13 Reading Location: [address] Consult Reading Room Procedure Note Interface, External Ris In - 10/19/2018 3:54 PM CDT FINAL REPORT RAD, HIP, 2 VIEWS, RIGHT CLINICAL INDICATION: Fall, rule out fracture COMPARISON: None FINDINGS: Frontal and frogleg views of the Right hip. IMPRESSION: The examination is limited by osteopenia and body habitus. No fracture or malalignment is identified. The patient is post total hip arthroplasty and open reduction, internal fixation of the proximal femur with cerclage wire placement. Surgical construct is intact and appears anatomically seated. Signed: JR Abdul Robert MD Report Verified Date/Time: 10/19/2018 15:52:13 Reading Location: [facility] B1 [id number] Consult Reading Room Performing Organization Address City/State/Zipcode Phone Number [facility] CT brain without IV contrast (10/19/2018 4:12 AM CDT) Specimen Narrative Performed At FINAL REPORT [employer] EXAM: CT head without contrast. CLINICAL HISTORY: Intracranial hemorrhage COMPARISON: None TECHNIQUE: CT images of the head were obtained without intravenous contrast.This exam was performed according to our departmental dose optimization program which includes automated exposure control, adjustment of the mA and/or kV according to patient's size and/or use of iterative reconstructive technique. FINDINGS: There is an acute parenchymal hemorrhage in the left thalamocapsular region with extension into the left gallego radiata, measuring 2.5 x 2 x 1.9 cm (2.5 cc in volume). There is mild surrounding edema and mild mass effect. There is extension of the hematoma into the left lateral ventricle. There is layering hemorrhage in both occipital horns, left greater than right. There are mild white matter microvascular ischemic changes. There is intracranial calcific atherosclerosis. There is no midline shift or hydrocephalus. The basal cisterns are patent. There are bilateral lens replacements. The visualized paranasal sinuses and tympanomastoid cavities are clear.The skull base and calvarium are intact. There are degenerative changes of the tonsil dental interval. IMPRESSION: Small acute parenchymal hemorrhage in the left thalamocapsular region and left gallego radiata with intraventricular extension. Mild associated and mild mass effect. No midline shift or hydrocephalus. Discussed with Dr Howard of neurology at 505a 10/19/18. Signed: Griselda Dowling MD Report Verified Date/Time:10/19/2018 05:05:44 Procedure Note Interface, External Ris In - 10/19/2018 5:07 AM CDT FINAL REPORT EXAM: CT head without contrast. CLINICAL HISTORY: Intracranial hemorrhage COMPARISON: None TECHNIQUE: CT images of the head were obtained without intravenous contrast. This exam was performed according to our departmental dose optimization program which includes automated exposure control, adjustment of the mA and/or kV according to patient's size and/or use of iterative reconstructive technique. FINDINGS: There is an acute parenchymal hemorrhage in the left thalamocapsular region with extension into the left gallego radiata, measuring 2.5 x 2 x 1.9 cm (2.5 cc in volume). There is mild surrounding edema and mild mass effect. There is extension of the hematoma into the left lateral ventricle. There is layering hemorrhage in both occipital horns, left greater than right. There are mild white matter microvascular ischemic changes. There is intracranial calcific atherosclerosis. There is no midline shift or hydrocephalus. The basal cisterns are patent. There are bilateral lens replacements. The visualized paranasal sinuses and tympanomastoid cavities are clear. The skull base and calvarium are intact. There are degenerative changes of the tonsil dental interval. IMPRESSION: Small acute parenchymal hemorrhage in the left thalamocapsular region and left gallego radiata with intraventricular extension. Mild associated and mild mass effect. No midline shift or hydrocephalus. Discussed with Dr Howard of neurology at 505a 10/19/18. Signed: Griselda Dowling MD Report Verified Date/Time: 10/19/2018 05:05:44 Performing Organization Address City/[facility]/Zipcode Phone Number GE RIS Transfuse Leuko-Red PLT (10/19/2018 3:47 AM CDT)Only the most recent of3 resultswithin the time period is included.ABORH, manual (10/18/2018 10:37 PM CDT ) ABO Grouping A [facility] Rh Factor POS [facility] Specimen Blood Performing Organization Address City/[facility]/Zipcode Phone Number [facility] [address] [place] [address] [phone] Type and screen, automated (10/18/2018 10:02 PM CDT) ABO/RH AUTOMATED (BEAKER) A POSITIVE [facility] Ab Scrn NEGATIVE [facility] Specimen Blood Performing Organization Address [facility] Phone Number [address] [phone] Troponin I (10/18/2018 8:23 PM CDT) Troponin I <0.01 0.00 - 0.03 ng/mL [facility] Specimen Blood Narrative Performed At Troponin I (TnI) levels must be interpreted [facility] in the context of the presenting symptoms and the clinical findings. Elevated TnI levels indicate myocardial damage, but are not specific for ischemic heart disease. Elevated TnI levels are seen in patients with other cardiac conditions (including myocarditis and congestive heart failure), and slight TnI elevations occur in patients with other conditions, including sepsis, renal failure, acidosis, acute neurological disease, and persistent tachyarrhythmia. Once on admission and Daily AM afterwards Once on admission and Daily AM afterwards Once on admission and Daily AM afterwards Performing Organization Address City/[facility] Phone Number [address] [address] [phone] CENTER aPTT (10/18/2018 8:23 PM CDT) PTT 25.4 22.5 - 36.0 seconds [facility] Specimen Blood Performing Organization Address [facility] Phone Number [address] [address] CENTER Prothrombin time/INR (10/18/2018 8:23 PM CDT) Protime 13.3 11.9 - 14.2 seconds [facility] INR 1.1 <=5.9 [facility] Specimen Blood Narrative Performed At Effective 09/14/2018: PT Reference Range [facility] Change New: 11.9-14.2Previous: 11.7-14.7 RECOMMENDED COUMADIN/WARFARIN INR THERAPY RANGES STANDARD DOSE: 2.0-3.0Includes: PROPHYLAXIS for venous thrombosis, systemic embolization; TREATMENT for venous thrombosis and/or pulmonary embolus. HIGH RISK: Target INR is 2.5-3.5 for patients wiht mechanical heart valves. Performing Organization Address City/State/Zipcode Phone Number [phone] [place], [place] [phone] [place] Hepatic function panel (10/18/2018 8:23 PM CDT) Protein, Total 7.1 6.0 - 8.3 gm/dL [facility] Albumin 4.0 3.5 - 5.0 g/dL [facility] Total Bilirubin 0.6 0.2 - 1.2 mg/dL [facility] Bilirubin, Direct 0.3 0.1 - 0.5 mg/dL [facility] Alkaline Phosphatase 47 40 - 150 U/L [facility] AST 14 5 - 34 U/L [facility] ALT 14 6 - 55 U/L [facility] Specimen Blood Narrative Performed At Once on admission and Daily AM afterwards [facility] Once on admission and Daily AM afterwards Once on admission and Daily AM afterwards Performing Organization Address City/State/[facility] Phone Number [phone] [place] [address] [phone] [place] after 10/27/2017 Insurance Payer Benefit Plan / Group Subscriber ID Type Phone Address [employer] - MEDICARE MGD [employer] MEDICARE ADV xxxxxxxxx Maps Contracted CARE ([place]) [place] [address] Advance Directives For more information, please contact:[address] [phone] Code Status Date Activated Date Inactivated Comments Full Code 10/18/2018 7:38 PM This code status was determined by: Patient
--- OUTSIDE RECORDS SUMMARY | 2018-10-28 15:26 | XMS REPORT ---
:1940 Author Organization [facility] Address [address] [place] [address] Dr. Kaminski [address] [place] [address] Care Team Providers Name Role Phone NISHI AMARAL Unavailable Unavailable Problems This patient has no known problems. Allergies, Adverse Reactions, Alerts This patient has no known allergies or adverse reactions. Medications This patient has no known medications. Results Test Description Test Time Test Comments Text Results Atomic Results Result Comments POCT-GLUCOSE METER 2018-10-28 13:37:00 Test Item Value Reference Range Comments POC-GLUCOSE METER (BEAKER) (test 124 mg/dL 70-110 TESTED AT [address] mesp=9926) [facility] [address] POCT-GLUCOSE [id number] 12:26:00 Test Item Value Reference Range Comments POC-GLUCOSE METER (BEAKER) 327 mg/dL 70-110 Notified DAISHA VILLALOBOS/TESTED AT [facility] (test wuyy=9722) [address] [place] [address] POCT-GLUCOSE [id number] 06:25:00 Test Item Value Reference Range Comments POC-GLUCOSE METER (BEAKER) 102 mg/dL 70-110 TESTED AT [address] (test wdmw=5444) [facility] [address] POCT-GLUCOSE [id number] 17:56:00 Test Item Value Reference Range Comments POC-GLUCOSE METER (BEAKER) 111 mg/dL 70-110 TESTED AT [address] (test rmzp=7311) [facility] [address] POCT-GLUCOSE [id number] 14:04:00 Test Item Value Reference Range Comments POC-GLUCOSE METER (BEAKER) 188 mg/dL 70-110 TESTED AT [address] (test qfcf=5062) [facility] [address] POCT-GLUCOSE [id number] 00:42:00 Test Item Value Reference Range Comments POC-GLUCOSE METER (BEAKER) 123 mg/dL 70-110 TESTED AT [address] (test tewl=5850) [facility] [address] POCT-GLUCOSE [id number] 17:58:00 Test Item Value Reference Range Comments POC-GLUCOSE METER (BEAKER) 162 mg/dL 70-110 TESTED AT [address] (test xvgh=0832) [facility] [address] POCT-GLUCOSE [id number] 12:17:00 Test Item Value Reference Range Comments POC-GLUCOSE METER (BEAKER) 133 mg/dL 70-110 TESTED AT [address] (test rmqu=5613) [facility] [address] POCT-GLUCOSE [id number] 17:18:00 Test Item Value Reference Range Comments POC-GLUCOSE METER (BEAKER) 101 mg/dL 70-110 TESTED AT [address] (test qolh=4384) [facility] [address] POCT-GLUCOSE [id number] 12:05:00 Test Item Value Reference Range Comments POC-GLUCOSE METER (BEAKER) 131 mg/dL 70-110 TESTED AT [address] (test orwj=5008) [facility] [address] POCT-GLUCOSE [id number] 00:07:00 Test Item Value Reference Range Comments POC-GLUCOSE METER (BEAKER) 103 mg/dL 70-110 TESTED AT [address] (test ihns=9007) [facility] [address] POCT-GLUCOSE [id number] 18:41:00 Test Item Value Reference Range Comments POC-GLUCOSE METER (BEAKER) 136 mg/dL 70-110 TESTED AT [address] (test htsp=3089) [facility] [address] POCT-GLUCOSE [id number] 14:11:00 Test Item Value Reference Range Comments POC-GLUCOSE METER (BEAKER) 150 mg/dL 70-110 TESTED AT [address] (test uowa=8090) [facility] [address] POCT-GLUCOSE [id number] 08:37:00 Test Item Value Reference Range Comments POC-GLUCOSE METER (BEAKER) 119 mg/dL 70-110 TESTED AT [address] (test koqx=7543) [facility] [address] POCT-GLUCOSE [id number] 21:50:00 Test Item Value Reference Range Comments POC-GLUCOSE METER (BEAKER) 123 mg/dL 70-110 TESTED AT [address] (test ncmt=6839) [facility] [address] POCT-GLUCOSE [id number] 17:49:00 Test Item Value Reference Range Comments POC-GLUCOSE METER (BEAKER) 126 mg/dL 70-110 TESTED AT [address] (test kuke=8299) [facility] [address] POCT-GLUCOSE [id number] 08:22:00 Test Item Value Reference Range Comments POC-GLUCOSE METER (BEAKER) 122 mg/dL 70-110 TESTED AT [address] (test axew=8922) [facility] [address] POCT-GLUCOSE [id number] 08:19:00 Test Item Value Reference Range Comments POC-GLUCOSE METER (BEAKER) 107 mg/dL 70-110 TESTED AT [address] (test czkr=7802) [place] [address] POCT-GLUCOSE [id number] 22:45:00 Test Item Value Reference Range Comments POC-GLUCOSE METER (BEAKER) 117 mg/dL 70-110 TESTED AT [address] (test zoew=6627) [facility] [address] POCT-GLUCOSE [id number] 17:17:00 Test Item Value Reference Range Comments POC-GLUCOSE METER (BEAKER) 131 mg/dL 70-110 TESTED AT [address] (test salq=7086) [place] [address] POCT-GLUCOSE [id number] 05:42:00 Test Item Value Reference Range Comments POC-GLUCOSE METER (BEAKER) 101 mg/dL 70-110 TESTED AT [address] (test wwav=3630) [facility] [address] BASIC METABOLIC [id number] 04:34:00 Test Item Value Reference Range Comments SODIUM (BEAKER) (test 139 meq/L 136-145 bayu=282) POTASSIUM (BEAKER) (test 4.1 meq/L 3.5-5.1 bonx=485) CHLORIDE (BEAKER) (test 106 meq/L 98-107 xthd=892) CO2 (BEAKER) (test 26 meq/L 22-29 uzwn=504) BLOOD UREA NITROGEN 12 mg/dL 7-21 (BEAKER) (test wafr=833) CREATININE (BEAKER) (test 0.69 mg/dL 0.57-1.25 awxg=564) GLUCOSE RANDOM (BEAKER) 114 mg/dL 70-105 (test utby=845) CALCIUM (BEAKER) (test 8.1 mg/dL 8.4-10.2 vvyt=696) EGFR (BEAKER) (test 83 mL/min/1.73 sq m ESTIMATED GFR IS NOT hqxw=5595) ACCURATE CREATININE CLEARANCE IN PREDICTING GLOMERULAR FILTRATION RATE. ESTIMATED GFR IS NOT APPLICABLE FOR DIALYSIS PATIENTS. [facility] on [facility] and [facility]-21 03:59:00 Test Item Value Reference Range Comments WHITE BLOOD CELL COUNT (BEAKER) (test ttyf=091) 7.1 K/ L 3.5-10.5 RED BLOOD CELL COUNT (BEAKER) (test fecb=598) 3.63 M/ L 3.93-5.22 HEMOGLOBIN (BEAKER) (test iuxt=968) 10.7 GM/DL 11.2-15.7 HEMATOCRIT (BEAKER) (test kitj=778) 34.1 % 34.1-44.9 MEAN CORPUSCULAR VOLUME (BEAKER) (test ffyg=997) 93.9 fL 79.4-94.8 MEAN CORPUSCULAR HEMOGLOBIN (BEAKER) (test 29.5 pg 25.6-32.2 kocn=414) MEAN CORPUSCULAR HEMOGLOBIN CONC (BEAKER) (test 31.4 GM/DL 32.2-35.5 smqz=645) RED CELL DISTRIBUTION WIDTH (BEAKER) (test 14.7 % 11.7-14.4 tupy=621) PLATELET COUNT (BEAKER) (test qurh=306) 279 K/CU MM 150-450 MEAN PLATELET VOLUME (BEAKER) (test ywep=974) 10.0 fL 9.4-12.3 NUCLEATED RED BLOOD CELLS (BEAKER) (test 0 /100 WBC 0-0 dlrv=749) POCT-GLUCOSE [id number] 23:50:00 Test Item Value Reference Range Comments POC-GLUCOSE METER (BEAKER) 116 mg/dL 70-110 TESTED AT [facility] [address] [facility] (test kuvf=7488) [facility] [address] POCT-GLUCOSE [id number] 18:45:00 Test Item Value Reference Range Comments POC-GLUCOSE METER (BEAKER) 107 mg/dL 70-110 TESTED AT [address] (test wgvv=8433) [facility] [address] RAD, FOREARM, 2 VIEWS, [id number] 13:04:00Reason for exam:->Rule out fractureShould this be performed at the bedside?->YesFINAL REPORT Technique: 2 views of the right forearm COMPARISON: None FINDINGS: Exam limited by diffuse osteopenia and suboptimal technique and positioning. No gross acute fracture or dislocation involving the right forearm. Osteopenia and degenerative changes of the wrist bonesnoted. No gross radiopaque soft tissue foreign body. Signed: Stevan Villagraneport Verified Date/Time: 10/20/2018 13:04 :50 Reading Location: [address] Transitional Reading Room POCT-GLUCOSE [id number] 12:53:00 Test Item Value Reference Range Comments POC-GLUCOSE METER (BEAKER) 144 mg/dL 70-110 TESTED AT [address] (test fkuo=9024) [place] [id number] [id number] 06:18:00 Test Item Value Reference Range Comments PHOSPHORUS (BEAKER) (test asic=136) 2.5 mg/dL 2.3-4.7 Once on admission and Daily AM afterwardsOnce on admission and Daily AM afterwardsOnce on admission and Daily AM [id number] 06:18:00 Test Item Value Reference Range Comments MAGNESIUM (BEAKER) (test ffla=396) 2.3 mg/dL 1.6-2.6 Once on admission and Daily AM afterwardsOnce on admission and Daily AM afterwardsOnce on admission and Daily AM afterwardsBASIC METABOLIC [id number] 06:18:00 Test Item Value Reference Range Comments SODIUM (BEAKER) (test 138 meq/L 136-145 suzo=404) POTASSIUM (BEAKER) (test 3.9 meq/L 3.5-5.1 luew=646) CHLORIDE (BEAKER) (test 107 meq/L 98-107 yycr=005) CO2 (BEAKER) (test 26 meq/L 22-29 uzcs=924) BLOOD UREA NITROGEN 10 mg/dL 7-21 (BEAKER) (test glym=479) CREATININE (BEAKER) (test 0.66 mg/dL 0.57-1.25 ohou=086) GLUCOSE RANDOM (BEAKER) 107 mg/dL 70-105 (test dkcj=246) CALCIUM (BEAKER) (test 8.3 mg/dL 8.4-10.2 ggye=559) EGFR (BEAKER) (test 87 mL/min/1.73 sq m ESTIMATED GFR IS NOT vqwc=0572) ACCURATE CREATININE CLEARANCE IN PREDICTING GLOMERULAR FILTRATION RATE. ESTIMATED GFR IS NOT APPLICABLE FOR DIALYSIS PATIENTS. Once on admission and Daily AM afterwardsOnce on admission and Daily AM afterwardsOnce on admission and Daily AM afterwardsPOCT-GLUCOSE [id number] 05:59:00 Test Item Value Reference Range Comments POC-GLUCOSE METER (BEAKER) 98 mg/dL 70-110 TESTED AT [facility] [address] [facility] (test fmhp=2333) [facility] [address] CBC (HEMOGRAM ONLY)2018-10-20 05:47:00 Test Item Value Reference Range Comments WHITE BLOOD CELL COUNT (BEAKER) (test vvum=706) 7.0 K/ L 3.5-10.5 RED BLOOD CELL COUNT (BEAKER) (test uaka=571) 3.92 M/ L 3.93-5.22 HEMOGLOBIN (BEAKER) (test pedc=056) 11.3 GM/DL 11.2-15.7 HEMATOCRIT (BEAKER) (test wpwe=418) 37.5 % 34.1-44.9 MEAN CORPUSCULAR VOLUME (BEAKER) (test yene=451) 95.7 fL 79.4-94.8 MEAN CORPUSCULAR HEMOGLOBIN (BEAKER) (test 28.8 pg 25.6-32.2 qfym=039) MEAN CORPUSCULAR HEMOGLOBIN CONC (BEAKER) (test 30.1 GM/DL 32.2-35.5 mroo=052) RED CELL DISTRIBUTION WIDTH (BEAKER) (test 14.8 % 11.7-14.4 hshs=036) PLATELET COUNT (BEAKER) (test pfci=030) 286 K/CU MM 150-450 MEAN PLATELET VOLUME (BEAKER) (test brnu=115) 9.9 fL 9.4-12.3 NUCLEATED RED BLOOD CELLS (BEAKER) (test 0 /100 WBC 0-0 ovqg=792) POCT-GLUCOSE [id number] 21:36:00 Test Item Value Reference Range Comments POC-GLUCOSE METER (BEAKER) 146 mg/dL 70-110 TESTED AT [address] (test azew=6352) [place] [address] BASIC METABOLIC [id number] 18:49:00 Test Item Value Reference Range Comments SODIUM (BEAKER) (test 136 meq/L 136-145 khyb=011) POTASSIUM (BEAKER) (test 4.3 meq/L 3.5-5.1 dedr=283) CHLORIDE (BEAKER) (test 105 meq/L 98-107 jkcc=606) CO2 (BEAKER) (test 23 meq/L 22-29 amda=204) BLOOD UREA NITROGEN 8 mg/dL 7-21 (BEAKER) (test vbjp=048) CREATININE (BEAKER) (test 0.69 mg/dL 0.57-1.25 qecv=168) GLUCOSE RANDOM (BEAKER) 118 mg/dL 70-105 (test lxnm=673) CALCIUM (BEAKER) (test 8.5 mg/dL 8.4-10.2 jukn=779) EGFR (BEAKER) (test 83 mL/min/1.73 sq m ESTIMATED GFR IS NOT yjzh=3788) ACCURATE CREATININE CLEARANCE IN PREDICTING GLOMERULAR FILTRATION RATE. ESTIMATED GFR IS NOT APPLICABLE FOR DIALYSIS PATIENTS. POCT-GLUCOSE [id number] 18:31:00 Test Item Value Reference Range Comments POC-GLUCOSE METER (BEAKER) 162 mg/dL 70-110 TESTED AT [address] (test wymo=4819) [place] [address] [id number] 16:03:00 Test Item Value Reference Range Comments POTASSIUM (BEAKER) (test whde=682) 5.7 meq/L 3.5-5.1 Check Serum Potassium level 2 hours after oral potassium replacement completed or 30 min after intravenous potassium replacement.[id number] 16:03:00 Test Item Value Reference Range Comments MAGNESIUM (BEAKER) (test dtmu=835) 2.1 mg/dL 1.6-2.6 Check Serum Potassium level 2 hours after oral potassium replacement completed or 30 min after intravenous potassium replacement.RAD, LEG, [id number] 15: 57:00Reason for exam:->Fracture rule outShould this be performed at the bedside?->YesFINAL REPORT RAD, LEG, TIBIA \\T\\ FIBULA , 2 VIEWS, RIGHT CLINICAL INDICATION: Fracture rule out COMPARISON: None FINDINGS: Frontal and lateral views of the right tibia and fibula. 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 Osseous expansile and degenerative changes are noted. There is minimal overlying soft tissue edema. Tibial and fibular shafts are intact. The patient is post total knee arthroplasty in satisfactory alignment within the limits of the provided images. Signed: JR Abdul Robert MDReport Verified Date/Time: 10/19/2018 15:57:30 Reading Location: [address] Consult Reading Room RAD, WRIST, RIGHT, COMPLETE (MIN 3 VIEWS)2018 15:55:00Reason for exam:->Fracture rule outShould this be performed at the bedside?->YesFINAL REPORT RAD, WRIST, RIGHT, COMPLETE (MIN 3 [...] edema is present. Signed: JR Abdul Robert MDReport Verified Date/Time: 10/19/2018 15:55:55 Reading Location: [facility] Consult Reading Room RAD, HIP, 2 VIEWS, [id number] 15:52:00Reason for exam :->Fall, rule out fractureShould this be performed at the bedside?-> YesFINAL REPORT RAD, HIP, 2 VIEWS, RIGHT CLINICAL [...] appears anatomically seated. Signed: JR Abdul Robert MDReport Verified Date/Time: 10/19/2018 15:52:13 Reading Location: [address] Consult Reading Room RAD, ELBOW, 3 VIEWS, [id number] 15:49:00Reason for exam:-> FallShould this be performed at the bedside?->YesFINAL REPORT RAD, ELBOW, 3 VIEWS, RIGHT CLINICAL INDICATION: Fall COMPARISON: None FINDINGS: AP, lateral and oblique radiographs of the right elbow. IMPRESSION: Severe degenerative changes are noted at the elbow joint. There are posterior and anterior joint effusions without identifiable fracture or malalignment. This suggests occult fracture. Cross-sectional imaging is recommended for additional characterization. Signed: JR Abdul Robert MDReport Verified Date/Time: 10/19/2018 15:49:56 Reading Location: [facility] Consult Reading Room RAD, SHOULDER, COMPLETE (MIN 2 VIEWS), [id number] 15: 47:00Reason for exam:->fractureShould this be performed at the bedside?-> YesFINAL REPORT RAD, SHOULDER, COMPLETE (MIN 2 VIEWS), RIGHT COMPARISON: None INDICATION: fracture FINDINGS: AP views in internal and external rotation and an axillary "Y" view of the right shoulder. Osseous structures: No fracture.Joint spaces: Intact without malalignment. No significant degenerative changes.Soft tissues: Unremarkable IMPRESSION: No acute abnormality of theright shoulder. Signed: JR Abdul Robert MDReport Verified Date/Time: 10/19/2018 15:47:55 Reading Location: [facility] B1 C013W Consult Reading Room POCT-GLUCOSE [id number] 12:47:00 Test Item Value Reference Range Comments POC-GLUCOSE METER (BEAKER) 109 mg/dL 70-110 TESTED AT [facility] [address] [facility] (test ejlf=5648) [facility] [address] POCT-GLUCOSE [id number] 07:04:00 Test Item Value Reference Range Comments POC-GLUCOSE METER (BEAKER) 111 mg/dL 70-110 TESTED AT [address] (test zvoz=7386) [facility] [address] CT, BRAIN, WITHOUT [id number] 05:05:00FINAL REPORT EXAM: CT head without contrast. CLINICAL HISTORY: Intracranial hemorrhage COMPARISON: None TECHNIQUE: CT images of the head were obtained without intravenous contrast. This exam was performed according to our departmental dose optimization program which includes automated exposure control , adjustment of the mA and/or kV according to patient's size and/or use of iterative reconstructive technique. FINDINGS:There is an acute parenchymal hemorrhage in the left thalamocapsular region with extension into the left gallgeo radiata, measuring 2.5 x 2 x 1.9 cm (2.5 cc involume). There is mild surrounding edema and mild mass effect. There is extension of the hematoma into the left lateral ventricle. There is layering hemorrhage in both occipital horns , left greater than right. There are mild white matter microvascular ischemic changes. There is intracranial calcificatherosclerosis. There is no midline shift or hydrocephalus. [...] and mild mass effect. No midline shift orhydrocephalus. Discussed with Dr Howard of neurology at 505a 10/19/18. Signed: Griselda Dowling MDReport Verified Date/Time: 10/19/2018 05:05:44 [id number] 05:02:00 Test Item Value Reference Range Comments PHOSPHORUS (BEAKER) (test xvnw=910) 2.8 mg/dL 2.3-4.7 Once on admission and Daily AM afterwardsOnce on admission and Daily AM afterwardsOnce on admission and Daily AM [id number] 05:02:00 Test Item Value Reference Range Comments MAGNESIUM (BEAKER) (test anzt=693) 1.7 mg/dL 1.6-2.6 Once on admission and Daily AM afterwardsOnce on admission and Daily AM afterwardsOnce on admission and Daily AM afterwardsBASIC METABOLIC [id number] 05:02:00 Test Item Value Reference Range Comments SODIUM (BEAKER) (test 140 meq/L 136-145 rbrx=642) POTASSIUM (BEAKER) (test 3.7 meq/L 3.5-5.1 ktdo=979) CHLORIDE (BEAKER) (test 106 meq/L 98-107 qwtj=469) CO2 (BEAKER) (test 27 meq/L 22-29 vgxg=915) BLOOD UREA NITROGEN 9 mg/dL 7-21 (BEAKER) (test ogbm=405) CREATININE (BEAKER) (test 0.70 mg/dL 0.57-1.25 lnit=706) GLUCOSE RANDOM (BEAKER) 122 mg/dL 70-105 (test tjql=229) CALCIUM (BEAKER) (test 9.0 mg/dL 8.4-10.2 ckcr=645) EGFR (BEAKER) (test 82 mL/min/1.73 sq m ESTIMATED GFR IS NOT xbqc=6252) ACCURATE CREATININE CLEARANCE IN PREDICTING GLOMERULAR FILTRATION RATE. ESTIMATED GFR IS NOT APPLICABLE FOR DIALYSIS PATIENTS. Once on admission and Daily AM afterwardsOnce on admission and Daily AM afterwardsOnce on admission and Daily AM afterwardsCBC (HEMOGRAM ONLY) 04:48:00 Test Item Value Reference Range Comments WHITE BLOOD CELL COUNT (BEAKER) (test rzdn=536) 8.3 K/ L 3.5-10.5 RED BLOOD CELL COUNT (BEAKER) (test mwow=060) 3.80 M/ L 3.93-5.22 HEMOGLOBIN (BEAKER) (test jojp=225) 11.3 GM/DL 11.2-15.7 HEMATOCRIT (BEAKER) (test pbvt=222) 35.4 % 34.1-44.9 MEAN CORPUSCULAR VOLUME (BEAKER) (test werv=202) 93.2 fL 79.4-94.8 MEAN CORPUSCULAR HEMOGLOBIN (BEAKER) (test 29.7 pg 25.6-32.2 vvmr=871) MEAN CORPUSCULAR HEMOGLOBIN CONC (BEAKER) (test 31.9 GM/DL 32.2-35.5 ckmn=834) RED CELL DISTRIBUTION WIDTH (BEAKER) (test 14.7 % 11.7-14.4 exdh=010) PLATELET COUNT (BEAKER) (test fsgy=956) 269 K/CU MM 150-450 MEAN PLATELET VOLUME (BEAKER) (test cxds=585) 9.7 fL 9.4-12.3 NUCLEATED RED BLOOD CELLS (BEAKER) (test 0 /100 WBC 0-0 aykl=865) POCT-GLUCOSE [id number] 00:34:00 Test Item Value Reference Range Comments POC-GLUCOSE METER (BEAKER) 122 mg/dL 70-110 TESTED AT [facility] [address] [place] [address] (test oacu=9442) [facility] [address] TROPONIN [id number] 20:52:00 Test Item Value Reference Range Comments TROPONIN I (BEAKER) (test kyjv=267) < ng/mL 0.00-0.03 Troponin I (TnI) levels must be interpreted in the context of the presenting symptoms and the clinical findings. Elevated TnI levels indicate myocardial damage, but are not specific for ischemic heart disease. Elevated TnI levels are seen in patients with other cardiac conditions (including myocarditis and congestive heart failure), and slight TnI elevations occur in patients with other conditions, including sepsis, renal failure, acidosis, acute neurological disease, and persistent tachyarrhythmia.Once on admission and Daily AM afterwardsOnce on admission and Daily AM afterwardsOnce on admission and Daily AM [id number] 20:47:00 Test Item Value Reference Range Comments PHOSPHORUS (BEAKER) (test lvpv=072) 3.3 mg/dL 2.3-4.7 Once on admission and Daily AM afterwardsOnce on admission and Daily AM afterwardsOnce on admission and Daily AM [id number] 20:47:00 Test Item Value Reference Range Comments MAGNESIUM (BEAKER) (test gyrj=962) 1.7 mg/dL 1.6-2.6 Once on admission and Daily AM afterwardsOnce on admission and Daily AM afterwardsOnce on admission and Daily AM afterwardsBASIC METABOLIC [id number] 20:47:00 Test Item Value Reference Range Comments SODIUM (BEAKER) (test 140 meq/L 136-145 aktz=265) POTASSIUM (BEAKER) (test 3.8 meq/L 3.5-5.1 cndy=896) CHLORIDE (BEAKER) (test 104 meq/L 98-107 mvsk=726) CO2 (BEAKER) (test 26 meq/L 22-29 vasz=804) BLOOD UREA NITROGEN 11 mg/dL 7-21 (BEAKER) (test cdmm=615) CREATININE (BEAKER) (test 0.74 mg/dL 0.57-1.25 mrog=791) GLUCOSE RANDOM (BEAKER) 123 mg/dL 70-105 (test cisp=836) CALCIUM (BEAKER) (test 9.8 mg/dL 8.4-10.2 iydx=459) EGFR (BEAKER) (test 77 mL/min/1.73 sq m ESTIMATED GFR IS NOT nlai=4122) ACCURATE CREATININE CLEARANCE IN PREDICTING GLOMERULAR FILTRATION RATE. ESTIMATED GFR IS NOT APPLICABLE FOR DIALYSIS PATIENTS. Once on admission and Daily AM afterwardsOnce on admission and Daily AM afterwardsOnce on admission and Daily AM afterwardsHEPATIC FUNCTION [id number] 20:47:00 Test Item Value Reference Range Comments TOTAL PROTEIN (BEAKER) (test gkbj=715) 7.1 gm/dL 6.0-8.3 ALBUMIN (BEAKER) (test feuw=6680) 4.0 g/dL 3.5-5.0 BILIRUBIN TOTAL (BEAKER) (test jqbp=886) 0.6 mg/dL 0.2-1.2 BILIRUBIN DIRECT (BEAKER) (test bwsr=356) 0.3 mg/dL 0.1-0.5 ALKALINE PHOSPHATASE (BEAKER) (test evvg=126) 47 U/L 40-150 AST (SGOT) (BEAKER) (test brpb=097) 14 U/L 5-34 ALT (SGPT) (BEAKER) (test jcfr=366) 14 U/L 6-55 Once on admission and Daily AM afterwardsOnce on admission and Daily AM afterwardsOnce on admission and Daily AM [id number] 20:37:00 Test Item Value Reference Range Comments PARTIAL THROMBOPLASTIN TIME (BEAKER) (test 25.4 seconds 22.5-36.0 yzts=163) PROTHROMBIN TIME/[id number] 20:36:00 Test Item Value Reference Range Comments PROTIME (BEAKER) (test uqfj=035) 13.3 seconds 11.9-14.2 INR (BEAKER) (test fmmb=447) 1.1 <=5.9 Effective 09/14/2018: PT Reference Range ChangeNew: 11.9-14.2 Previous: 11.7- 14.7RECOMMENDED COUMADIN/WARFARIN INR THERAPY RANGESSTANDARD DOSE: 2.0-3.0 Includes: PROPHYLAXIS for venous thrombosis, systemic embolization; TREATMENT for venous thrombosis and/or pulmonary embolus.HIGH RISK: Target INR is2.5-3.5 for patients wiht mechanical heart valves.CBC (HEMOGRAM ONLY)2018-10-18 20:30:00 Test Item Value Reference Range Comments WHITE BLOOD CELL COUNT (BEAKER) (test pbzv=378) 10.8 K/ L 3.5-10.5 RED BLOOD CELL COUNT (BEAKER) (test wqfi=213) 4.42 M/ L 3.93-5.22 HEMOGLOBIN (BEAKER) (test slwh=778) 13.1 GM/DL 11.2-15.7 HEMATOCRIT (BEAKER) (test daio=344) 40.4 % 34.1-44.9 MEAN CORPUSCULAR VOLUME (BEAKER) (test ppxb=682) 91.4 fL 79.4-94.8 MEAN CORPUSCULAR HEMOGLOBIN (BEAKER) (test 29.6 pg 25.6-32.2 aizb=241) MEAN CORPUSCULAR HEMOGLOBIN CONC (BEAKER) (test 32.4 GM/DL 32.2-35.5 xbru=002) RED CELL DISTRIBUTION WIDTH (BEAKER) (test 14.7 % 11.7-14.4 tkke=737) PLATELET COUNT (BEAKER) (test qius=074) 255 K/CU MM 150-450 MEAN PLATELET VOLUME (BEAKER) (test hzaw=126) 9.5 fL 9.4-12.3 NUCLEATED RED BLOOD CELLS (BEAKER) (test 0 /100 WBC 0-0 lqfi=850)
[2018-10-28] MEDS: predniSONE 5 MG TAB PO SCH (17:07)
[2018-10-28] MEDS ORDERED: ENOXAPARIN 40 MG/0.4 ML SQ SCH (19:00)
[2018-10-28] MEDS ORDERED: PNEUMOCOCCAL VACCINE 0.5 ML IMVAC ONE (19:00)
[2018-10-28] MEDS: CALCIUM CARBONATE 500 MG TAB PO SCH (20:00)
[2018-10-28 20:12] LABS: Urine Appearance TURBID; Urine Bilirubin NEGATIVE (NEG); Urine Blood 3+ (NEG); Urine Color YELLOW; Urine Glucose NEGATIVE (NEG); Urine Protein 2+ (NEG); Urine Urobilinogen 0.2 mg/dL (0.2-1.0); Urine pH 5.5 (5.0-7.0)
[2018-10-28 20:34] LABS: Urine Bacteria LOADED /HPF (<20); Urine Culture Reflex Order NOT NEEDED; Urine RBC TNTC /HPF (NONE SEEN)
[2018-10-28] MEDS: IRBESARTAN 150 MG TAB PO SCH (21:00)
[2018-10-29] MEDS: ACETAMINOPHEN 500 MG TAB PO PRN ×4 (03:10→20:07)
[2018-10-29 06:04] LABS: Absolute Lymphocytes (CBC) 1.6 K/uL (0.7-4.9); Basophils % 0.7 % (0-1.3); Hematocrit 35.1 % (36.0-45.0); Lymphocytes % 24.7 % (15.3-44.8); MPV 8.3 fL (7.6-11.3); RBC Red Blood Cell Count 3.89 M/uL (3.86-4.86)
[2018-10-29 06:21] LABS: Albumin 2.8 g/dL (3.4-5.0); Magnesium 2.3 mg/dL (1.8-2.4); Potassium 4.5 mmol/L (3.5-5.1); Prealbumin 17.9 mg/dL (20-40)
[2018-10-29] MEDS: PANTOPRAZOLE 40MG TABLET PO SCH (06:56)
[2018-10-29] MEDS: ENOXAPARIN 40 MG/0.4 ML SQ SCH (06:56)
[2018-10-29] MEDS: VITAMIN D 1000 UNIT TAB PO SCH (07:29)
[2018-10-29] MEDS: ATORVASTATIN 10 MG TAB PO SCH (07:30)
[2018-10-29] MEDS: CALCIUM CARBONATE 500 MG TAB PO SCH ×2 (07:30→19:19)
[2018-10-29] MEDS: CLOPIDOGREL 75 MG TABLET PO SCH (07:30)
[2018-10-29] MEDS: FOLIC ACID 1 MG TABLET PO SCH (07:30)
[2018-10-29] MEDS ORDERED: ENBREL SQ SCH ×2 (08:00)
--- NOTE | 2018-10-29 10:29 | FAST ---
SHIFT START DATE/TIME: 10/29/2018 07:00 (CDT) SHIFT END DATE/TIME: 10/29/2018 19:00 (CDT) NAME LEONORA HOFF DATE OF : 1940 DATE OF ADMISSION: 10/28/2018 15:22 (CDT) PHONE: AGE: 77 N# [id number] GENDER: Female ENCOUNTER PHYSICIAN: Dr. Harpreet Alan M.D. 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 EATING: EATING - STEP 1: Does the patient require the assistance of a person or device, or need extra time when eating? Yes. EATING - STEP 2: Does the patient require the assistance of a helper? Yes. EATING - STEP 3: Does the patient perform half or more of the eating tasks? Yes. EATING - STEP 4: Does the patient need only supervision, cuing, coaxing OR help to apply an orthosis OR help to cut fo od, open containers, pour liquids, or butter bread? Yes. EATING - SCORE: 5-SUP GROOMING: Activity did not occur on this shift GROOMING - SCORE: 0-UNK BATHING: Activity did not occur on this shift BATHING - SCORE: 0-UNK DRESSING - UPPER BODY: Activity did not occur on this shift ARTICLES SCORE Total number of steps: 0 DRESSING - UPPER BODY - SCORE: 0-UNK DRESSING - LOWER BODY: Activity did not occur on this shift ARTICLES SCORE Total number of steps: 0 DRESSING - LOWER BODY - SCORE: 0-UNK TOILETING: TOILETING - STEP 1: Does the patient require the assistance of a person or device, or need extra time with toileting? Yes . TOILETING - STEP 2: Does the patient require the assistance of a helper? Yes. TOILETING - STEP 3: How much assistance does the patient require from the helper? Hands-on assistance from the helper TOILETING - STEP 4: Of the 3 tasks: 1) Adjusting clothing prior to use, 2) Cleansing of perineal area, 3) Adjusting clot juan f after use; How many tasks does the patient perform WITHOUT assistance of the helper? No tasks; h elper performs all three tasks TOILETING - SCORE: 1-DEP BLADDER MANAGEMENT: Patient depends entirely on [place] when using bedpan [helper rolls patient onto side / side-lying pos ition; positions bedpan; assists patient to roll onto bedpan; holds bedpan in place; assists patient off bedpan]. BLADDER MANAGEMENT - SCORE: 1-DEP BOWEL MANAGEMENT: Activity did not occur on this shift BOWEL MANAGEMENT - SCORE: 7-IND TRANSFERS: BED, CHAIR, WHEELCHAIR: TRANSFERS: BED, CHAIR, WHEELCHAIR - STEP 1: Does the patient require assistance of a person or device, or need extra time with bed, chair, or whe elchair transfers? Yes. TRANSFERS: BED, CHAIR, WHEELCHAIR - STEP 2: Does the patient require the assistance of a helper? Yes. TRANSFERS: BED, CHAIR, WHEELCHAIR - STEP 3: How much assistance does the patient require from the helper? Lifting of the patient TRANSFERS: BED, CHAIR, WHEELCHAIR - STEP 4: Does the helper lift the patient ONLY up? ONLY down? Up AND Down? Up AND Down. TRANSFERS: BED, CHAIR, WHEELCHAIR - SCORE: 2-MAX TRANSFERS: TOILET: TRANSFERS: TOILET - STEP 1: Does the patient require the assistance of a person or device, or need extra time with toilet transfe rs? Yes. TRANSFERS: TOILET - STEP 2: Does the patient require the assistance of a helper? Yes. TRANSFERS: TOILET - STEP 3: How much assistance does the patient require from the helper? Patient performs less than half of the transferring tasks TRANSFERS: TOILET - STEP 4: Does the patient require total assistance for the toilet transfer such as the helper doing basically all the lifting? No. TRANSFERS: TOILET - SCORE: 2-MAX TRANSFERS: SHOWER: Activity did not occur on this shift TRANSFERS: SHOWER - SCORE: 0-UNK TRANSFERS: TUB: Activity did not occur on this shift TRANSFERS: TUB - SCORE: 0-UNK LOCOMOTION: WALK: Activity did not occur on this shift LOCOMOTION: WALK - SCORE: 0-UNK LOCOMOTION: WHEELCHAIR: Activity did not occur on this shift LOCOMOTION: WHEELCHAIR - SCORE: 0-UNK COMPREHENSION: COMPREHENSION: TYPE: Both COMPREHENSION - STEP 1: Does the patient require help from a person or device, or need extra time to understand complex and a bstract ideas (such as current events, finances, discharge planning, medical issues, relationships, e tc)? No. COMPREHENSION - STEP 2: Does the patient need extra time, require an assistive device (such as glasses for visual comprehensi on or a hearing aid for auditory comprehension) or does s/he have mild difficulty understanding compl ex and abstract information? Yes. COMPREHENSION - SCORE: 6-RANDY EXPRESSION EXPRESSION: TYPE: Both EXPRESSION - STEP 1: Does the patient require help from a person or device, or need extra time expressing complex and abst ract ideas (such as current events, finances, discharge planning, medical issues, relationships, etc) ? No. EXPRESSION - STEP 2: Does the patient need extra time, require an assistive device (such as augmentive communication syste m or a communication board), OR does s/he have mild difficulty expressing complex and abstract ideas (including mild dysarthria or mild word-find problems)? Yes. EXPRESSION - SCORE: 6-RANDY SOCIAL INTERACTION: SOCIAL INTERACTION - STEP 1: Does the patient require a helper to interact with others in social and therapeutic situations? Yes. SOCIAL INTERACTION - STEP 2: Does the patient interact appropriately half or more of the time? Yes. SOCIAL INTERACTION - STEP 3: How often does the patient need help to interact appropriately? Less than 10% of the time SOCIAL INTERACTION - SCORE: 5-SUP PROBLEM SOLVING: PROBLEM SOLVING - STEP 1: Does the patient need help from a person or device, or need extra time to solve complex problems such as managing a checking account or confronting interpersonal problems? Yes. PROBLEM SOLVING - STEP 2: Does the patient solve basic routine problems half or more of the time? Yes. PROBLEM SOLVING - STEP 3: How often does the patient need help to solve basic routine problems? Less than 10% of the time PROBLEM SOLVING - SCORE: 5-SUP MEMORY: MEMORY - STEP 1: Does the patient need help from a person or device, or need extra time to remember frequently encount ered people, daily routines, and executing requests? Yes. MEMORY - STEP 2: How often does the patient need help to remember frequently encountered people, daily routines, and e xecuting requests? Less than 10% of the time MEMORY - SCORE: 5-SUP SIGNATURE PANEL: The following modified sections: Eating - Score, Grooming - Score, Bathing - Score, Dressing - Upper Body - Score, Dressing - Lower Body - Score, Toileting - Score, Bladder Management - Score, Bowel Man agement - Score, Transfers: Bed, Chair, Wheelchair - Score, Transfers: Toilet - Score, Transfers: Amrita wer - Score, Transfers: Tub - Score, Locomotion: Walk - Score, Locomotion: Wheelchair - Score, Compre hension - Score, Social Interaction - Score, Problem Solving - Score, Memory - Score, Expression - Sc ore were [electronically] signed by Germán Camilo on Sat Oct 29 2018 10:28:09 T-0500 (Central Daylight Time)
--- NOTE | 2018-10-29 13:47 | FAST ---
ENCOUNTER DATE AND TIME: 10/29/2018 08:00 (CDT) NAME LEONORA HOFF DATE OF : 1940 DATE OF ADMISSION: 10/28/2018 15:22 (CDT) PHONE: AGE: 77 SSN# [id number] GENDER: Female ENCOUNTER PHYSICIAN: Dr. Harpreet Alan M.D. 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 EATING: Activity did not occur on this shift EATING - SCORE: 0-UNK GROOMING: Activity did not occur on this shift GROOMING - SCORE: 0-UNK BATHING: Activity did not occur on this shift BATHING - SCORE: 0-UNK DRESSING - UPPER BODY: Activity did not occur on this shift Patient is not dressing in public clothing ARTICLES SCORE Total number of steps: 0 DRESSING - UPPER BODY - SCORE: 0-UNK DRESSING - LOWER BODY: Activity did not occur on this shift Patient is not dressing in public clothing ARTICLES SCORE Total number of steps: 0 DRESSING - LOWER BODY - SCORE: 0-UNK TOILETING: Activity did not occur on this shift TOILETING - SCORE: 0-UNK BLADDER MANAGEMENT: Activity did not occur on this shift BLADDER MANAGEMENT - SCORE: 7-IND BOWEL MANAGEMENT: Activity did not occur on this shift BOWEL MANAGEMENT - SCORE: 7-IND TRANSFERS: BED, CHAIR, WHEELCHAIR: TRANSFERS: BED, CHAIR, WHEELCHAIR - STEP 1: Does the patient require assistance of a person or device, or need extra time with bed, chair, or whe elchair transfers? Yes. TRANSFERS: BED, CHAIR, WHEELCHAIR - STEP 2: Does the patient require the assistance of a helper? Yes. TRANSFERS: BED, CHAIR, WHEELCHAIR - STEP 3: How much assistance does the patient require from the helper? Lifting of the patient TRANSFERS: BED, CHAIR, WHEELCHAIR - STEP 4: Does the helper lift the patient ONLY up? ONLY down? Up AND Down? Patient needs help with all lifting TRANSFERS: BED, CHAIR, WHEELCHAIR - SCORE: 1-DEP TRANSFERS: TOILET: Activity did not occur on this shift TRANSFERS: TOILET - SCORE: 0-UNK TRANSFERS: SHOWER: Activity did not occur on this shift TRANSFERS: SHOWER - SCORE: 0-UNK TRANSFERS: TUB: Activity did not occur on this shift TRANSFERS: TUB - SCORE: 0-UNK LOCOMOTION: WALK: Activity did not occur on this shift LOCOMOTION: WALK - SCORE: 0-UNK LOCOMOTION: WHEELCHAIR: LOCOMOTION: WHEELCHAIR - STEP 1: Does the patient need help to go 150 feet in a wheelchair? Yes. LOCOMOTION: WHEELCHAIR - STEP 2: How much assistance does the patient need from the helper? Patient goes less than 150 feet - but more than 50 feet - with the assistance of only one helper LOCOMOTION: WHEELCHAIR - SCORE: 2-MAX LOCOMOTION: STAIRS: Activity did not occur on this shift LOCOMOTION: STAIRS - SCORE: 0-UNK COMPREHENSION: COMPREHENSION - SCORE: 0-UNK EXPRESSION EXPRESSION - SCORE: 0-UNK SOCIAL INTERACTION: SOCIAL INTERACTION - SCORE: 0-UNK PROBLEM SOLVING: PROBLEM SOLVING - SCORE: 0-UNK MEMORY: MEMORY - SCORE: 0-UNK SIGNATURE PANEL: The following modified sections: Transfers: Bed, Chair, Wheelchair - Score, Transfers: Toilet - Score , Locomotion: Walk - Score, Locomotion: Wheelchair - Score, Locomotion: Stairs - Score were [electron ically] signed by Michael Vazquez PT on Sat Oct 29 2018 13:46:41 T-0500 (Central Daylight Time)
--- NOTE | 2018-10-29 15:24 | R.HP ---
FACILITY: [facility] ENCOUNTER DATE AND TIME: 10/29/2018 15:17 (CDT) MR#: [id number] NAME LEONORA HOFF ADDRESS: [address] [place] [address]: [place] [address] [address] PHONE: DATE OF : 1940 AGE: 77 SSN# [id number] GENDER: Female DEXTERITY Right-handed MARITAL STATUS RACE White PRE-HOSPITAL LIVING SETTING 01 - Home (private home/apt. board/care, assisted living, shelter, transitional living) PRE-HOSPITAL LIVING WITH Family/Relatives ENCOUNTER PHYSICIAN: Dr. Harpreet Alan M.D. REFERRING DOCTOR: Indra Myers DATE OF ADMISSION: 10/28/2018 15:22 (CDT) REFERRING FACILITY [facility] HOME TYPE AND DETAILS: Type of home: single family house # of steps to enter the residence: 0 # of steps within the residence: 0 # of levels in the residence: 1 ADMISSION DIAGNOSIS: acute parenchymal hemorrhage in the left thalamocapsular region and left gallego radiata with intraven tricular extension PRIMARY DIAGNOSIS-RELATED SURGERIES: No surgeries related to the primary diagnosis were performed. SECONDARY/COMORBID DIAGNOSES (TIERED): - N/A rheumatoid arthritis involving multiple sites HISTORY OF PRESENT ILLNESS (HPI): Pt. is a 77 yo Right-handed white female. On 10/18/2018 Pt. presented to [facility] with sudden onset of right-side weakness. On 10/18/2018 she was admitted to [facility] with diagnosis acute parenchy mal hemorrhage in the left thalamocapsular region and left gallego radiata with intraventricular exten lamine. Her impairment category is Stroke 01 - Right Body (Left Brain) (01.2). Pre-morbidly, Pt. was independent/mod-I in Self-Care, Sphincter Control, Transfers Control, Locomotio n, Communication, and Social Cognition; and she had good Sphincter Control. Currently, she has deficits of Transfers Control, Locomotion, Endurance, Balance, Safety Awareness, a nd Self-Care. Pt. is now referred to [facility] for acute in-patient rehabilitation in order to maximize patient's functional independence in activities of daily living, strength, ROM, and mobi lity. Patient has realistic goal of being discharged at assistance level 2-[facility] to reside at Home with Fam blanka/Relatives. MEDICATION ALLERGIES: No Known Drug Allergies (NKDA) ENVIRONMENTAL ALLERGIES: - Substance Allergies None Known - Other Allergies None Known PAST MEDICAL HISTORY: rheumatoid arthritis involving multiple sites FAMILY HISTORY: Family history is not contributory. SOCIAL HISTORY: - Home Living Family/Relatives REVIEW OF SYSTEMS: - Gen No Chills No Fatigue No Fever - Eyes No Double Vision No itchiness - ENMT No Difficulty Swallowing - CVS No Chest Discomfort No Chest Pain Fatigue No Weight Gain - Resp No Cough No Shortness of Breath - GI Continent No Abdominal Pain No Constipation No Diarrhea - Continent No Kidney Pain No Painful Urination No Urinary Urgency - MSK Joint Pain Muscle Cramps Stiffness - Skin No Itching No Rash No Suspicious Lesions - Neuro Coordination Difficulty No Difficulty with Concentration No Memory Loss No Seizures Weakness - Psych No Anxiety Depression No HIV Exposure No Persistent Infections No Seasonal Allergies - Endo No Cold/Heat Intolerance No Excessive Hunger No Excessive Thirst No Excessive Urination PHYSICAL EXAM - Gen Alert and awake Lying in bed No apparent distress Oriented to: person, time, and place - Skin No breakdown No abnormalities - Eyes No abnormalities - ENMT No abnormalities - Neck No pain - CVS RRR - Chest Clear - Abd Soft - GI Non distended Deferred - No abnormalities - Ext Mild right more than left lower extremity edema. - MSK 2/5 weakness in right upper and 4/5 weakness in right lower extremity. - Neuro 2/5 weakness in right upper and 4/5 weakness in right lower extremity. - Psych No abnormalities VITAL SIGNS Temperature: 98.4 F SBP/DBP: 142/63 Pulse: 91 Resp: 14 NURSING: - Shower allowing shower - Bladder care per protocol - Skin care per protocol PRECAUTIONS: - Weight Bearing Precaution WBAT right LE ACTIVITIES OOB only with supervision FUNCTIONAL STATUS: - Self-Care A. Eating Ind Ind B. Grooming Ind modA C. Bathing Ind maxA D. Dressing - Upper Ind modA E. Dressing - Lower Ind Dep F. Toileting Ind maxA - Sphincter Control G: Bladder control Ind Ind H: Bowel control Ind Ind - Transfers Control I. Bed/Chair/Wheelchair Ind maxA J. Toilet Ind maxA K. Tub/Shower Ind maxA - Locomotion L. Walk/Wheelchair (C) Ind maxA L. Walk/Wheelchair (W) Ind maxA M. Stairs Ind ADNO - Communication N. Comprehension (B) Ind Ind O. Expression (B) Ind Ind - Social Cognition P. Social Interaction Ind Ind Q. Problem Solving Ind Ind R. Memory Ind Ind - Endurance Poor - Balance Poor - Safety Awareness Poor CURRENT FUNC. DEFICITS: Transfers Control, Locomotion, Endurance, Balance, Safety Awareness, and Self-Care MEDICATIONS: - Other See attached MAR (Medication Administration Record) [id number].pdf ASSESSMENT: Pt. is a 77 yo Right-handed white female.On 10/18/2018 Pt. presented to [facility] with sudden onset of right-side weakness.On 10/18/2018 she was admitted to [facility] with diagnosis acute parenchymal hemorrhage in the left thalamocapsular region a nd left gallego radiata with intraventricular extension.Her impairment category is Stroke 01 - Right Body (Left Brain) (01.2).Pre-morbidly, Pt. was independent/mod-I in Self-Care, Sphincter Control, Tra nsfers Control, Locomotion, Communication, and Social Cognition; and she had good Sphincter Control.C urrently, she has deficits of Transfers Control, Locomotion, Endurance, Balance, Safety Awareness, an d Self-Care.Pt. is now referred to [facility] for acute in-patient rehabilitat ion in order to maximize patient's functional independence in activities of daily living, strength, R OM, and mobility.- Rehab Goal Patient has realistic goal of being discharged at assistance level 2-maxA to reside at Home with Fam blanka/Relatives. for Dementia, TBI, Stroke, or others - Physical Therapy Gait dysfunction - to improve, our physical therapists will perform initial evaluation of pt's statu s upon admission and devise an individualized program for Gait Training, and Wheel Chair mobility Inability to transfer - to improve, our physical therapists will perform initial evaluation of pt's status upon admission and devise an individualized program for Bed mobility Need for home safety evaluation - to improve, our physical therapists will perform initial evaluatio n of pt's status upon admission and devise an individualized program for Home Evaluation Need in caregiver upon discharge - to improve, our physical therapists will perform initial evaluati on of pt's status upon admission and devise an individualized program for Caregiver Training New precaution - to improve, our physical therapists will perform initial evaluation of pt's status upon admission and devise an individualized program for Patient precaution education Poor balance - to improve, our physical therapists will perform initial evaluation of pt's status up on admission and devise an individualized program for Balance Training Poor endurance - to improve, our physical therapists will perform initial evaluation of pt's status upon admission and devise an individualized program for Endurance Training Weakness - to improve, our physical therapists will perform initial evaluation of pt's status upon a dmission and devise an individualized program for Aquatic Therapy, Neuromuscular Reeducation, and Str engthening Edema - to improve, our physical therapists will perform initial evaluation of pt's status upon admi ssion and devise an individualized program for Elevation Training, and Lymphedema Therapy - Occupational Therapy ADL deficits - to improve, our occupation therapists will perform initial evaluation of pt's status upon admission and devise an individualized program for Bathing, Bed mobility, Community Reintegratio n, Cooking, Dressing, Eating, Fine Motor Skills, Grooming, Homemaking, Kitchen Mobility, Laundry, Pat ient Education, Safety Awareness, Splinting - Positioning, Transfers(Toilet, Tub, Shower), and Wheel Chair Management Need for daycare manager - to improve, our occupation therapists will perform initial evaluation of pt's status upon admission and devise an individualized program for Caregiver Training Weakness - to improve, our occupation therapists will perform initial evaluation of pt's status upon admission and devise an individualized program for Aquatic Therapy, Balance, Endurance, UE ROM, and UE strengthening MEDICAL PLAN: - Bladder care per protocol - Weight Bearing Precaution WBAT right UE andLE - Skin care per protocol - Diet - Solid Texture Start Regular - Shower allowing shower DISCHARGE PLAN: - Estimated Length of Stay (days) 17. - Consensus on plan Discharge plan has been discussed with primary caregiver. Patient/Family is in agreement with the mirian n. Primary caregiver is in agreement with the plan. - Patient/Family Goals Return home with assistance. - Planned Living Setting Upon Discharge Home, to live with Family/Relatives. SIGNATURE PANEL: (CDT)
--- NOTE | 2018-10-29 15:25 | PAPE ---
PATIENT: [facility] MR# [id number] REFERRING DOCTOR Indra Myers EVALUATION DATE AND TIME 10/29/2018 15:23 (CDT) NAME LEONORA HOFF DATE OF 1940 AGE 77 PHONE SSN# [id number] GENDER female EVALUATING PHYSICIAN Dr. Harpreet Alan M.D. 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 PATIENT NEEDS CLOSE MEDICAL SUPERVISION BY A REHABILITATION PHYSICIAN FOR: Bowel and Bladder Management Coordination of Treatment Team Medical and Co-Morbidity Management PATIENT REQUIRES 24X7 REHAB NURSING FOR MEDICAL AND FUNCTIONAL MGT. OF THE FOLLOWING DEFICITS: ADL's Ambulation Bowel and Bladder Management Communication Disease Management Medication Management Patient/Family Education Providing Safe Environment Transfers PATIENT REQUIRES INTENSIVE, COORDINATED INTERDISCIPLINARY APPROACH TO REHAB: Arranging Home Equipment/Services Discharge Planning Family Intervention/Training Application Designer/Case Management LIST OF IDENTIFIED AND POTENTIAL PROBLEMS: Alteration in leisure activities Bladder, Incontinence Bowel, Incontinence Infection, Actual or Potential Mobility Impaired Pain, Alteration in Comfort Self Care Deficit Skin Integrity, Actual or Potential Urinary Tract Infection (UTI), Actual or Potential PATIENT COULD BE AT RISK FOR COMPLICATIONS FROM ADVERSE MEDICAL CONDITIONS DUE TO HIS/HER COMORBIDITI ES AND THE RIGORS OF THE INTENSIVE REHABILLITATION PROGRAM. METHODS OR INTERVENTIONS TO AVOID COMPLIC ATIONS INCLUDE: - Bleeding Stroke patients assessed for lethargy or change in status. - Infection Clinical staff to assess and manage the signs and symptoms of infection including fever, redness, war mth, etc. - Urinary Tract Infection - Aspiration Clinical staff will assess and manage coughing, drooling, congestion. - Falls Patient will be evaluated for Fall Precautions and will be placed on Fall Precautions as indicated pe r protocol. - Skin Breakdown Nursing will assess skin daily using assessment tool and will place on Skin Breakdown Precautions as indicated per protocol. - Pain Clinical staff may employ non-medication methods such as massage, distraction, decrease stimulus, etc . as needed. Clinical staff will assess patient's pain level every shift per protocol to assess and e nsure pain management effectiveness. Medications will be given and the pain level re-assessed. PRELIMINARY PLAN OF CARE: - Physical Therapy Patient needs Physical Therapy for a daily minimum of 1.5 hours at least 5 out of 7 days, to improve: Mobility, Strengthening, Transfers, Stretching, ROM, Endurance, Ability to manage stairs, Gait, and Balance. - Speech Therapy Patient needs Speech Therapy for a daily minimum of 0.5 hours at least 5 out of 7 days, to improve: S wallowing, Cognition, Language Skills, and Compensatory Strategies. - Rehabilitation Nursing Patient requires 24x7 Rehabilitation Nursing for: Pain Issues, Identifying and preventing risk factor s, Monitoring and reporting current medical conditions, Assisting with ambulation and transfer, Shawna ting with all ADL-s, Teaching patients about disease process and medications, Family teaching, Provid ing safe environment, Bowel and Bladder Issues, Skin Integrity, and Medication Management. Patient needs Application Designer and/or Case Management for: Discharge Planning, Arranging Home Equipmen t or Services, and Family Interventions. - Dietary and Nutrition Services Patient needs Dietary and Nutrition Services for: Adequate Nutrition, Nutritional Supplements, and Nu tritional Education. - Occupational Therapy Patient needs Occupational Therapy for a daily minimum of 1.5 hours at least 5 out of 7 days, to impr ove Activities of Daily Living, including: Eating, Grooming, Bathing, Dressing, Toileting, Toilet Tra nsfers, Community Reintegration, Higher functional activities, Adaptive Equipment, Splinting, Househo ld Tasks, and Other activities as determined. POTENTIAL FUNCTIONAL GOALS FOR PATIENT TO ACHIEVE BY DISCHARGE: - Safety Precaution Patient will remain free from falls or injury at time of discharge. - Bed Mobility Patient will perform bed mobility at 4-Angella level of assistance. - Transfers Patient will complete transfers from bed to chair at 4-Angella level of assistance. - Mobility Patient will ambulate 150 ft with 4-Angella level of assistance with RW. PATIENT REHAB POTENTIAL Rama HOFF is able and expected to receive 3 hours of individualized therapy daily on at least 5 of romain ry 7 days PSuzie HOFF's prognosis for significant practical improvement within a reasonable period of time appears Good Expected level of measurable improvement will be of a practical value to Rama HOFF's functional capaci ty or adaptations to impairments Has a viable Discharge Plan Medically appropriate; condition is sufficiently stable to participate in intensive rehab program DISCHARGE PLAN: - Estimated Length of Stay (days) 17. - Consensus on plan Discharge plan has been discussed with primary caregiver. Patient/Family is in agreement with the mirian n. Primary caregiver is in agreement with the plan. - Patient/Family Goals Return home with assistance. - Planned Living Setting Upon Discharge Home, to live with Family/Relatives. CONCLUSION ON REHABILITATION NECESSITY: I have evaluated patient's pre-admission functional status and, comparing it to the patient's post-ad mission functional status now, I conclude that the pre-admission assessment was accurate. Patient's c ondition on admission supports the medical necessity of admission to IRF. It is safe to proceed with patient's therapy program. SIGNATURE PANEL: (CDT)
--- NOTE | 2018-10-29 16:18 | FAST ---
ENCOUNTER DATE AND TIME: 10/29/2018 08:00 (CDT) NAME LEONORA HOFF DATE OF : 1940 DATE OF ADMISSION: 10/28/2018 15:22 (CDT) PHONE: AGE: 77 SSN# [id number] GENDER: Female ENCOUNTER PHYSICIAN: Dr. Harpreet Alan M.D. 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 EATING: Activity did not occur on this shift EATING - SCORE: 0-UNK GROOMING: Comb/brush hair Wash, rinse, and dry face Wash, rinse, and dry hands GROOMING - STEP 1: Does the patient require the assistance of a person or device, or need extra time when grooming? Yes. GROOMING - STEP 2: Does the patient require the assistance of a helper? Yes. GROOMING - STEP 3: How much assistance does the patient require from the helper? More than incidental help GROOMING - STEP 4: How many grooming tasks does the patient perform WITHOUT the assistance of the helper? Half or more o f the grooming tasks GROOMING - SCORE: 3-MOD BATHING: Abdomen Buttocks Chest Left arm Left lower leg and foot Left upper leg Perineal area Right arm Right lower leg and foot Right upper leg BATHING - STEP 1: Does the patient require the assistance of a person or device, or need extra time when bathing? Yes. BATHING - STEP 2: Does the patient require the assistance of a helper? Yes. BATHING - STEP 3: How much assistance does the patient require from the helper? More than just incidental help BATHING - STEP 4: What percent of the body parts did the patient bathe WITHOUT the helper? None. All work was performed by the helper BATHING - SCORE: 1-DEP DRESSING - UPPER BODY: Bra (three steps) T-shirt/pullover shirt (four steps) ARTICLES SCORE Total number of steps: 7 DRESSING - UPPER BODY - STEP 1: Does the patient require help from a person or device, or need extra time when dressing above the [address]? Yes. DRESSING - UPPER BODY - STEP 2: Does the patient require the assistance of a helper? Yes. DRESSING - UPPER BODY - STEP 3: Does the helper touch the patient while dressing? Yes. DRESSING - UPPER BODY - STEP 4: How many of the total steps does the patient complete on his/her own? 1 DRESSING - UPPER BODY - STEP 5: Does Patient require total assistance for dressing above the waist such as the helper holding clothin g and performing basically all the activities? No. DRESSING - UPPER BODY - SCORE: 2-MAX DRESSING - LOWER BODY: Elastic waist pants (three steps) Sock - Left foot (one step) Sock - Right foot (one step) Underwear (three steps) ARTICLES SCORE Total number of steps: 8 DRESSING - LOWER BODY - STEP 1: Does the patient require help from a person or device, or need extra time when dressing below the [address] st? Yes. DRESSING - LOWER BODY - STEP 2: Does the patient require the assistance of a helper? Yes. DRESSING - LOWER BODY - STEP 3: Does the helper touch the patient while dressing? Yes. DRESSING - LOWER BODY - STEP 4: How many of the total steps does the patient complete on his/her own? 0 DRESSING - LOWER BODY - STEP 5: Does patient require total assistance for dressing below the waist such as the helper holding clothin g and performing basically all the activities? Yes. DRESSING - LOWER BODY - SCORE: 1-DEP TOILETING: TOILETING - STEP 1: Does the patient require the assistance of a person or device, or need extra time with toileting? Yes . TOILETING - STEP 2: Does the patient require the assistance of a helper? Yes. TOILETING - STEP 3: How much assistance does the patient require from the helper? Hands-on assistance from the helper TOILETING - STEP 4: Of the 3 tasks: 1) Adjusting clothing prior to use, 2) Cleansing of perineal area, 3) Adjusting clot juan f after use; How many tasks does the patient perform WITHOUT assistance of the helper? No tasks; h abhilash performs all three tasks TOILETING - SCORE: 1-DEP BLADDER MANAGEMENT: Activity did not occur on this shift BLADDER MANAGEMENT - SCORE: 7-IND BOWEL MANAGEMENT: Activity did not occur on this shift BOWEL MANAGEMENT - SCORE: 7-IND TRANSFERS: BED, CHAIR, WHEELCHAIR: Activity did not occur on this shift TRANSFERS: BED, CHAIR, WHEELCHAIR - SCORE: 0-UNK TRANSFERS: TOILET: Patient requires more than one helper and/or the use of a mechanical lift is utilized TRANSFERS: TOILET - SCORE: 1-DEP TRANSFERS: SHOWER: More than one helper is required for shower transfer TRANSFERS: SHOWER - SCORE: 1-DEP TRANSFERS: TUB: Activity did not occur on this shift TRANSFERS: TUB - SCORE: 0-UNK LOCOMOTION: WALK: Activity did not occur on this shift LOCOMOTION: WALK - SCORE: 0-UNK LOCOMOTION: WHEELCHAIR: Activity did not occur on this shift LOCOMOTION: WHEELCHAIR - SCORE: 0-UNK LOCOMOTION: STAIRS: Activity did not occur on this shift LOCOMOTION: STAIRS - SCORE: 0-UNK COMPREHENSION: COMPREHENSION: TYPE: Both COMPREHENSION - STEP 1: Does the patient require help from a person or device, or need extra time to understand complex and a bstract ideas (such as current events, finances, discharge planning, medical issues, relationships, e tc)? No. COMPREHENSION - STEP 2: Does the patient need extra time, require an assistive device (such as glasses for visual comprehensi on or a hearing aid for auditory comprehension) or does s/he have mild difficulty understanding compl ex and abstract information? Yes. COMPREHENSION - SCORE: 6-RANDY EXPRESSION EXPRESSION: TYPE: Vocal EXPRESSION - STEP 1: Does the patient require help from a person or device, or need extra time expressing complex and abst ract ideas (such as current events, finances, discharge planning, medical issues, relationships, etc) ? No. EXPRESSION - STEP 2: Does the patient need extra time, require an assistive device (such as augmentive communication syste m or a communication board), OR does s/he have mild difficulty expressing complex and abstract ideas (including mild dysarthria or mild word-find problems)? Yes. EXPRESSION - SCORE: 6-RANDY SOCIAL INTERACTION: SOCIAL INTERACTION - STEP 1: Does the patient require a helper to interact with others in social and therapeutic situations? No. SOCIAL INTERACTION - STEP 2: Does the patient need extra time in social situations, OR does s/he interact with staff, other patien ts, and family members ONLY in structured environments, OR does s/he require medication for social in teraction? No. SOCIAL INTERACTION - SCORE: 7-IND PROBLEM SOLVING: PROBLEM SOLVING - STEP 1: Does the patient need help from a person or device, or need extra time to solve complex problems such as managing a checking account or confronting interpersonal problems? Yes. PROBLEM SOLVING - STEP 2: Does the patient solve basic routine problems half or more of the time? Yes. PROBLEM SOLVING - STEP 3: How often does the patient need help to solve basic routine problems? Less than 10% of the time PROBLEM SOLVING - SCORE: 5-SUP MEMORY: MEMORY - STEP 1: Does the patient need help from a person or device, or need extra time to remember frequently encount ered people, daily routines, and executing requests? No. MEMORY - STEP 2: Does the patient have slight difficulty recognizing frequently encountered people, daily routines, or executing requests without the need for repetition or using self-initiated or environmental cues to remember? Yes. MEMORY - SCORE: 6-RANDY SIGNATURE PANEL: The following modified sections: Eating - Score, Grooming - Score, Bathing - Score, Dressing - Upper Body - Score, Dressing - Lower Body - Score, Toileting - Score, Transfers: Bed, Chair, Wheelchair - S core, Transfers: Toilet - Score, Transfers: Shower - Score, Transfers: Tub - Score, Comprehension - S core, Expression - Score, Social Interaction - Score, Problem Solving - Score, Memory - Score were [e lectronically] signed by Ashlie Polk OT on Sat Oct 29 2018 16:17:59 GMT-0500 ([facility])
[2018-10-29] MEDS: ENBREL SQ SCH (16:24)
[2018-10-29] MEDS: LIDOCAINE 5% PATCH TOP SCH (19:32)
[2018-10-29] MEDS: IRBESARTAN 150 MG TAB PO SCH (19:59)
[2018-10-29] MEDS: MELATONIN 3 MG TABLET PO PRN (20:00)
[2018-10-30] MEDS: TRAMADOL HCL 50 MG TAB PO PRN ×4 (01:11→20:48)
[2018-10-30] MEDS: ACETAMINOPHEN 500 MG TAB PO PRN (01:46)
--- NOTE | 2018-10-30 02:23 | FAST ---
SHIFT START DATE/TIME: 10/29/2018 19:00 (CDT) SHIFT END DATE/TIME: 10/30/2018 07:00 (CDT) NAME LEONORA HOFF DATE OF : 1940 DATE OF ADMISSION: 10/28/2018 15:22 (CDT) PHONE: AGE: 77 N# [id number] GENDER: Female ENCOUNTER PHYSICIAN: Dr. Harpreet Alan M.D. 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 EATING: Activity did not occur on this shift EATING - SCORE: 0-UNK GROOMING: Activity did not occur on this shift GROOMING - SCORE: 0-UNK BATHING: Activity did not occur on this shift BATHING - SCORE: 0-UNK DRESSING - UPPER BODY: T-shirt/pullover shirt (four steps) ARTICLES SCORE Total number of steps: 4 DRESSING - UPPER BODY - STEP 1: Does the patient require help from a person or device, or need extra time when dressing above the [address]? Yes. DRESSING - UPPER BODY - STEP 2: Does the patient require the assistance of a helper? Yes. DRESSING - UPPER BODY - STEP 3: Does the helper touch the patient while dressing? Yes. DRESSING - UPPER BODY - STEP 4: How many of the total steps does the patient complete on his/her own? 0 DRESSING - UPPER BODY - STEP 5: Does Patient require total assistance for dressing above the waist such as the helper holding clothin g and performing basically all the activities? No. DRESSING - UPPER BODY - SCORE: 2-MAX DRESSING - LOWER BODY: Elastic waist pants (three steps) ARTICLES SCORE Total number of steps: 3 DRESSING - LOWER BODY - STEP 1: Does the patient require help from a person or device, or need extra time when dressing below the z[address] st? Yes. DRESSING - LOWER BODY - STEP 2: Does the patient require the assistance of a helper? Yes. DRESSING - LOWER BODY - STEP 3: Does the helper touch the patient while dressing? Yes. DRESSING - LOWER BODY - STEP 4: How many of the total steps does the patient complete on his/her own? 0 DRESSING - LOWER BODY - STEP 5: Does patient require total assistance for dressing below the waist such as the helper holding clothin g and performing basically all the activities? No. DRESSING - LOWER BODY - SCORE: 2-MAX TOILETING: TOILETING - STEP 1: Does the patient require the assistance of a person or device, or need extra time with toileting? Yes . TOILETING - STEP 2: Does the patient require the assistance of a helper? Yes. TOILETING - STEP 3: How much assistance does the patient require from the helper? Hands-on assistance from the helper TOILETING - STEP 4: Of the 3 tasks: 1) Adjusting clothing prior to use, 2) Cleansing of perineal area, 3) Adjusting clot juan f after use; How many tasks does the patient perform WITHOUT assistance of the helper? No tasks; h elper performs all three tasks TOILETING - SCORE: 1-DEP BLADDER MANAGEMENT: BLADDER MANAGEMENT - STEP 1: Does the patient control the bladder completely and intentionally without equipment or devices or med ications, and is always continent? No. BLADDER MANAGEMENT - STEP 2: Does the patient require the assistance of a helper? Yes. BLADDER MANAGEMENT - STEP 3: How much assistance does the patient require from the helper? Patient requires contact assistance fro m the helper BLADDER MANAGEMENT - STEP 4: How much contact assistance does the patient require from the helper? Patient requires maximal assist ance, and only performs 25% to 49% of bladder management tasks BLADDER MANAGEMENT - SCORE: 2-MAX BLADDER MANAGEMENT - FREQUENCY OF ACCIDENTS: BLADDER MANAGEMENT(FA) - STEP 1: How many accidents has the patient had during the current shift? 1 BOWEL MANAGEMENT: BOWEL MANAGEMENT - STEP 1: Does the patient control bowels completely and intentionally without equipment devices or medications AND is always continent? No. BOWEL MANAGEMENT - STEP 2: Does the patient require the assistance of a helper? No, patient requires and manages independently a n assistive device such as a bedpan, bedside commode, absorbent pad, incontinent device, or collectin g device BOWEL MANAGEMENT - SCORE: 6-RANDY BOWEL MANAGEMENT - FREQUENCY OF ACCIDENTS: BOWEL MANAGEMENT(FA) - STEP 1: How many accidents has the patient had during the current shift? 0 TRANSFERS: BED, CHAIR, WHEELCHAIR: Activity did not occur on this shift TRANSFERS: BED, CHAIR, WHEELCHAIR - SCORE: 0-UNK TRANSFERS: TOILET: Activity did not occur on this shift TRANSFERS: TOILET - SCORE: 0-UNK TRANSFERS: SHOWER: Activity did not occur on this shift TRANSFERS: SHOWER - SCORE: 0-UNK TRANSFERS: TUB: Activity did not occur on this shift TRANSFERS: TUB - SCORE: 0-UNK LOCOMOTION: WALK: Activity did not occur on this shift LOCOMOTION: WALK - SCORE: 0-UNK LOCOMOTION: WHEELCHAIR: Activity did not occur on this shift LOCOMOTION: WHEELCHAIR - SCORE: 0-UNK COMPREHENSION: COMPREHENSION - SCORE: 0-UNK EXPRESSION EXPRESSION - SCORE: 0-UNK SOCIAL INTERACTION: SOCIAL INTERACTION - SCORE: 0-UNK PROBLEM SOLVING: PROBLEM SOLVING - SCORE: 0-UNK MEMORY: MEMORY - SCORE: 0-UNK SIGNATURE PANEL: The following modified sections: Eating - Score, Grooming - Score, Bathing - Score, Dressing - Upper Body - Score, Dressing - Lower Body - Score, Toileting - Score, Bladder Management - Score, Bowel Man agement - Score, Transfers: Bed, Chair, Wheelchair - Score, Transfers: Toilet - Score, Transfers: Amrita wer - Score, Transfers: Tub - Score, Locomotion: Walk - Score, Locomotion: Wheelchair - Score, Compre hension - Score, Expression - Score, Social Interaction - Score, Problem Solving - Score, Memory - Sc ore were [electronically] signed by Zachary Roth RN on WedOct 30 2018 02:22:32 T-0500 ([facility] Time)
[2018-10-30] MEDS: PANTOPRAZOLE 40MG TABLET PO SCH (06:47)
[2018-10-30] MEDS: ENOXAPARIN 40 MG/0.4 ML SQ SCH (06:48)
[2018-10-30] MEDS: LIDOCAINE 5% PATCH TOP SCH (06:48)
[2018-10-30] MEDS: FOLIC ACID 1 MG TABLET PO SCH (09:30)
[2018-10-30] MEDS: VITAMIN D 1000 UNIT TAB PO SCH (09:30)
[2018-10-30] MEDS: CLOPIDOGREL 75 MG TABLET PO SCH (09:30)
[2018-10-30] MEDS: ATORVASTATIN 10 MG TAB PO SCH (09:31)
[2018-10-30] MEDS: CALCIUM CARBONATE 500 MG TAB PO SCH ×2 (09:31→20:48)
--- NOTE | 2018-10-30 10:20 | FAST ---
SHIFT START DATE/TIME: 10/30/2018 07:00 (CDT) SHIFT END DATE/TIME: 10/30/2018 19:00 (CDT) NAME LEONORA HOFF DATE OF : 1940 DATE OF ADMISSION: 10/28/2018 15:22 (CDT) PHONE: AGE: 77 N# [id number] GENDER: Female ENCOUNTER PHYSICIAN: Dr. Harpreet Alan M.D. 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 EATING: EATING - STEP 1: Does the patient require the assistance of a person or device, or need extra time when eating? Yes. EATING - STEP 2: Does the patient require the assistance of a helper? Yes. EATING - STEP 3: Does the patient perform half or more of the eating tasks? Yes. EATING - STEP 4: Does the patient need only supervision, cuing, coaxing OR help to apply an orthosis OR help to cut fo od, open containers, pour liquids, or butter bread? Yes. EATING - SCORE: 5-SUP GROOMING: Activity did not occur on this shift GROOMING - SCORE: 0-UNK BATHING: Activity did not occur on this shift BATHING - SCORE: 0-UNK DRESSING - UPPER BODY: Activity did not occur on this shift ARTICLES SCORE Total number of steps: 0 DRESSING - UPPER BODY - SCORE: 0-UNK DRESSING - LOWER BODY: Activity did not occur on this shift ARTICLES SCORE Total number of steps: 0 DRESSING - LOWER BODY - SCORE: 0-UNK TOILETING: TOILETING - STEP 1: Does the patient require the assistance of a person or device, or need extra time with toileting? Yes . TOILETING - STEP 2: Does the patient require the assistance of a helper? Yes. TOILETING - STEP 3: How much assistance does the patient require from the helper? Hands-on assistance from the helper TOILETING - STEP 4: Of the 3 tasks: 1) Adjusting clothing prior to use, 2) Cleansing of perineal area, 3) Adjusting clot juan f after use; How many tasks does the patient perform WITHOUT assistance of the helper? No tasks; h elper performs all three tasks TOILETING - SCORE: 1-DEP BLADDER MANAGEMENT: Patient depends entirely on [place] when using bedpan [helper rolls patient onto side / side-lying pos ition; positions bedpan; assists patient to roll onto bedpan; holds bedpan in place; assists patient off bedpan]. BLADDER MANAGEMENT - SCORE: 1-DEP BOWEL MANAGEMENT: Activity did not occur on this shift BOWEL MANAGEMENT - SCORE: 7-IND TRANSFERS: BED, CHAIR, WHEELCHAIR: Patient requires more than one helper and/or the use of a mechanical lift is utilized TRANSFERS: BED, CHAIR, WHEELCHAIR - SCORE: 1-DEP TRANSFERS: TOILET: Patient requires more than one helper and/or the use of a mechanical lift is utilized TRANSFERS: TOILET - SCORE: 1-DEP TRANSFERS: SHOWER: Activity did not occur on this shift TRANSFERS: SHOWER - SCORE: 0-UNK TRANSFERS: TUB: Activity did not occur on this shift TRANSFERS: TUB - SCORE: 0-UNK LOCOMOTION: WALK: Activity did not occur on this shift LOCOMOTION: WALK - SCORE: 0-UNK LOCOMOTION: WHEELCHAIR: Activity did not occur on this shift LOCOMOTION: WHEELCHAIR - SCORE: 0-UNK COMPREHENSION: COMPREHENSION: TYPE: Both COMPREHENSION - STEP 1: Does the patient require help from a person or device, or need extra time to understand complex and a bstract ideas (such as current events, finances, discharge planning, medical issues, relationships, e tc)? Yes. COMPREHENSION - STEP 2: Does the patient require help to understand questions or statements about basic needs or ideas (such as hunger, thirst, sleep, safety, daily schedule, room location, or discomfort) half or more of the t davin? No. COMPREHENSION - STEP 3: How often does the patient need help to understand directions and conversation about basic needs? 10% - 24% of the time COMPREHENSION - SCORE: 4-MIN EXPRESSION EXPRESSION: TYPE: Both EXPRESSION - STEP 1: Does the patient require help from a person or device, or need extra time expressing complex and abst ract ideas (such as current events, finances, discharge planning, medical issues, relationships, etc) ? Yes. EXPRESSION - STEP 2: Does the patient require help to express basic necessities or ideas (such as hunger, thirst, sleep, s afety, daily schedule, room location, or discomfort) half or more of the time? No. EXPRESSION - STEP 3: How often does the patient need help to express directions and conversation about basic needs? 10-24% of the time EXPRESSION - SCORE: 4-MIN SOCIAL INTERACTION: SOCIAL INTERACTION - STEP 1: Does the patient require a helper to interact with others in social and therapeutic situations? Yes. SOCIAL INTERACTION - STEP 2: Does the patient interact appropriately half or more of the time? Yes. SOCIAL INTERACTION - STEP 3: How often does the patient need help to interact appropriately? 10-24% of the time SOCIAL INTERACTION - SCORE: 4-MIN PROBLEM SOLVING: PROBLEM SOLVING - STEP 1: Does the patient need help from a person or device, or need extra time to solve complex problems such as managing a checking account or confronting interpersonal problems? Yes. PROBLEM SOLVING - STEP 2: Does the patient solve basic routine problems half or more of the time? Yes. PROBLEM SOLVING - STEP 3: How often does the patient need help to solve basic routine problems? 10%-24% of the time PROBLEM SOLVING - SCORE: 4-MIN MEMORY: MEMORY - STEP 1: Does the patient need help from a person or device, or need extra time to remember frequently encount ered people, daily routines, and executing requests? Yes. MEMORY - STEP 2: How often does the patient need help to remember frequently encountered people, daily routines, and e xecuting requests? 25% - 49% of the time MEMORY - SCORE: 3-MOD SIGNATURE PANEL: The following modified sections: Eating - Score, Grooming - Score, Bathing - Score, Dressing - Upper Body - Score, Dressing - Lower Body - Score, Toileting - Score, Bladder Management - Score, Bowel Man agement - Score, Transfers: Bed, Chair, Wheelchair - Score, Transfers: Toilet - Score, Transfers: Amrita wer - Score, Transfers: Tub - Score, Locomotion: Walk - Score, Locomotion: Wheelchair - Score, Compre hension - Score, Expression - Score, Social Interaction - Score, Problem Solving - Score, Memory - Sc ore were [electronically] signed by Germán Camilo on WedOct 30 2018 10:19:16 T-0500 (Central Daylight Time)
[2018-10-30] MEDS: GABAPENTIN 100 MG CAP PO SCH ×2 (11:47→20:47)
[2018-10-30] MEDS: predniSONE 5 MG TAB PO SCH (17:15)
[2018-10-30] MEDS: IRBESARTAN 150 MG TAB PO SCH (20:47)
[2018-10-30] MEDS: MELATONIN 3 MG TABLET PO PRN (20:48)
--- NOTE | 2018-10-31 02:06 | FAST ---
SHIFT START DATE/TIME: 10/30/2018 19:00 (CDT) SHIFT END DATE/TIME: 10/31/2018 07:00 (CDT) NAME LEONORA HOFF DATE OF : 1940 DATE OF ADMISSION: 10/28/2018 15:22 (CDT) PHONE: AGE: 77 N# [id number] GENDER: Female ENCOUNTER PHYSICIAN: Dr. Harpreet Alan M.D. 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 EATING: Activity did not occur on this shift EATING - SCORE: 0-UNK GROOMING: Activity did not occur on this shift GROOMING - SCORE: 0-UNK BATHING: Activity did not occur on this shift BATHING - SCORE: 0-UNK DRESSING - UPPER BODY: Patient is not dressing in public clothing ARTICLES SCORE Total number of steps: 0 DRESSING - UPPER BODY - SCORE: 0-UNK DRESSING - LOWER BODY: Patient is not dressing in public clothing ARTICLES SCORE Total number of steps: 0 DRESSING - LOWER BODY - SCORE: 0-UNK TOILETING: TOILETING - STEP 1: Does the patient require the assistance of a person or device, or need extra time with toileting? Yes . TOILETING - STEP 2: Does the patient require the assistance of a helper? Yes. TOILETING - STEP 3: How much assistance does the patient require from the helper? Hands-on assistance from the helper TOILETING - STEP 4: Of the 3 tasks: 1) Adjusting clothing prior to use, 2) Cleansing of perineal area, 3) Adjusting clot juan f after use; How many tasks does the patient perform WITHOUT assistance of the helper? No tasks; h elper performs all three tasks TOILETING - SCORE: 1-DEP BLADDER MANAGEMENT: Hundred removes incontinent device (Depends, pull ups, etc.); cleans the patient after accident / inco ntinent episode; and, applies new incontinent device. BLADDER MANAGEMENT - SCORE: 1-DEP BOWEL MANAGEMENT: Activity did not occur on this shift BOWEL MANAGEMENT - SCORE: 7-IND TRANSFERS: BED, CHAIR, WHEELCHAIR: Patient requires more than one helper and/or the use of a mechanical lift is utilized TRANSFERS: BED, CHAIR, WHEELCHAIR - SCORE: 1-DEP TRANSFERS: TOILET: Patient requires more than one helper and/or the use of a mechanical lift is utilized TRANSFERS: TOILET - SCORE: 1-DEP TRANSFERS: SHOWER: Activity did not occur on this shift TRANSFERS: SHOWER - SCORE: 0-UNK TRANSFERS: TUB: Activity did not occur on this shift TRANSFERS: TUB - SCORE: 0-UNK LOCOMOTION: WALK: Activity did not occur on this shift LOCOMOTION: WALK - SCORE: 0-UNK LOCOMOTION: WHEELCHAIR: Activity did not occur on this shift LOCOMOTION: WHEELCHAIR - SCORE: 0-UNK COMPREHENSION: COMPREHENSION: TYPE: Both COMPREHENSION - STEP 1: Does the patient require help from a person or device, or need extra time to understand complex and a bstract ideas (such as current events, finances, discharge planning, medical issues, relationships, e tc)? Yes. COMPREHENSION - STEP 2: Does the patient require help to understand questions or statements about basic needs or ideas (such as hunger, thirst, sleep, safety, daily schedule, room location, or discomfort) half or more of the t davin? No. COMPREHENSION - STEP 3: How often does the patient need help to understand directions and conversation about basic needs? 25% - 49% of the time COMPREHENSION - SCORE: 3-MOD EXPRESSION EXPRESSION: TYPE: Both EXPRESSION - STEP 1: Does the patient require help from a person or device, or need extra time expressing complex and abst ract ideas (such as current events, finances, discharge planning, medical issues, relationships, etc) ? No. EXPRESSION - STEP 2: Does the patient need extra time, require an assistive device (such as augmentive communication syste m or a communication board), OR does s/he have mild difficulty expressing complex and abstract ideas (including mild dysarthria or mild word-find problems)? Yes. EXPRESSION - SCORE: 6-RANDY SOCIAL INTERACTION: SOCIAL INTERACTION - STEP 1: Does the patient require a helper to interact with others in social and therapeutic situations? No. SOCIAL INTERACTION - STEP 2: Does the patient need extra time in social situations, OR does s/he interact with staff, other patien ts, and family members ONLY in structured environments, OR does s/he require medication for social in teraction? Yes, patient needs extra time SOCIAL INTERACTION - SCORE: 6-RANDY PROBLEM SOLVING: PROBLEM SOLVING - STEP 1: Does the patient need help from a person or device, or need extra time to solve complex problems such as managing a checking account or confronting interpersonal problems? Yes. PROBLEM SOLVING - STEP 2: Does the patient solve basic routine problems half or more of the time? Yes. PROBLEM SOLVING - STEP 3: How often does the patient need help to solve basic routine problems? 25%-49% of the time PROBLEM SOLVING - SCORE: 3-MOD MEMORY: MEMORY - STEP 1: Does the patient need help from a person or device, or need extra time to remember frequently encount ered people, daily routines, and executing requests? No. MEMORY - STEP 2: Does the patient have slight difficulty recognizing frequently encountered people, daily routines, or executing requests without the need for repetition or using self-initiated or environmental cues to remember? Yes. MEMORY - SCORE: 6-RANDY SIGNATURE PANEL: The following modified sections: Eating - Score, Grooming - Score, Dressing - Upper Body - Score, Vitaliy ssing - Lower Body - Score, Toileting - Score, Bladder Management - Score, Bowel Management - Score, Transfers: Bed, Chair, Wheelchair - Score, Transfers: Toilet - Score, Transfers: Shower - Score, Levine sfers: Tub - Score, Locomotion: Walk - Score, Locomotion: Wheelchair - Score, Comprehension - Score, Expression - Score, Social Interaction - Score, Problem Solving - Score, Memory - Score were [electro nically] signed by Jayda Tejeda CNA on WedOct 31 2018 02:05:15 GMT-0500 (Central Daylight Time)
[2018-10-31] MEDS: ACETAMINOPHEN 500 MG TAB PO PRN (04:09)
[2018-10-31] MEDS: ENOXAPARIN 40 MG/0.4 ML SQ SCH (08:23)
[2018-10-31] MEDS: LIDOCAINE 5% PATCH TOP SCH (08:23)
[2018-10-31] MEDS: ATORVASTATIN 10 MG TAB PO SCH (08:25)
[2018-10-31] MEDS: GABAPENTIN 100 MG CAP PO SCH ×2 (08:25→20:20)
[2018-10-31] MEDS: CALCIUM CARBONATE 500 MG TAB PO SCH ×2 (08:25→20:20)
[2018-10-31] MEDS: VITAMIN D 1000 UNIT TAB PO SCH (08:25)
[2018-10-31] MEDS: CLOPIDOGREL 75 MG TABLET PO SCH (08:26)
[2018-10-31] MEDS: PANTOPRAZOLE 40MG TABLET PO SCH (08:26)
[2018-10-31] MEDS: FOLIC ACID 1 MG TABLET PO SCH (08:26)
--- NOTE | 2018-10-31 12:31 | FAST ---
ENCOUNTER DATE AND TIME: 10/31/2018 08:00 (CDT) NAME LEONORA HOFF DATE OF : 1940 DATE OF ADMISSION: 10/28/2018 15:22 (CDT) PHONE: AGE: 77 SSN# [id number] GENDER: Female ENCOUNTER PHYSICIAN: Dr. Harpreet Alan M.D. 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 EATING: Activity did not occur on this shift EATING - SCORE: 0-UNK GROOMING: Activity did not occur on this shift GROOMING - SCORE: 0-UNK BATHING: Activity did not occur on this shift BATHING - SCORE: 0-UNK DRESSING - UPPER BODY: Activity did not occur on this shift Patient is not dressing in public clothing ARTICLES SCORE Total number of steps: 0 DRESSING - UPPER BODY - SCORE: 0-UNK DRESSING - LOWER BODY: Activity did not occur on this shift Patient is not dressing in public clothing ARTICLES SCORE Total number of steps: 0 DRESSING - LOWER BODY - SCORE: 0-UNK TOILETING: Activity did not occur on this shift TOILETING - SCORE: 0-UNK BLADDER MANAGEMENT: Activity did not occur on this shift BLADDER MANAGEMENT - SCORE: 7-IND BOWEL MANAGEMENT: Activity did not occur on this shift BOWEL MANAGEMENT - SCORE: 7-IND TRANSFERS: BED, CHAIR, WHEELCHAIR: Activity did not occur on this shift TRANSFERS: BED, CHAIR, WHEELCHAIR - SCORE: 0-UNK TRANSFERS: TOILET: Activity did not occur on this shift TRANSFERS: TOILET - SCORE: 0-UNK TRANSFERS: SHOWER: Activity did not occur on this shift TRANSFERS: SHOWER - SCORE: 0-UNK TRANSFERS: TUB: Activity did not occur on this shift TRANSFERS: TUB - SCORE: 0-UNK LOCOMOTION: WALK: Activity did not occur on this shift LOCOMOTION: WALK - SCORE: 0-UNK LOCOMOTION: WHEELCHAIR: Activity did not occur on this shift LOCOMOTION: WHEELCHAIR - SCORE: 0-UNK LOCOMOTION: STAIRS: Activity did not occur on this shift LOCOMOTION: STAIRS - SCORE: 0-UNK COMPREHENSION: COMPREHENSION - SCORE: 0-UNK EXPRESSION EXPRESSION - SCORE: 0-UNK SOCIAL INTERACTION: SOCIAL INTERACTION - SCORE: 0-UNK PROBLEM SOLVING: PROBLEM SOLVING - SCORE: 0-UNK MEMORY: MEMORY - SCORE: 0-UNK SIGNATURE PANEL: The following modified sections: Transfers: Bed, Chair, Wheelchair - Score, Transfers: Toilet - Score , Locomotion: Walk - Score, Locomotion: Wheelchair - Score, Locomotion: Stairs - Score were [electron ically] signed by Michael Vazquez PT on WedOct 31 2018 12:29:41 [facility]-0500 (Central Daylight Time)
[2018-10-31] MEDS: TRAMADOL HCL 50 MG TAB PO PRN ×2 (12:41→21:06)
--- NOTE | 2018-10-31 19:19 | R.PN ---
ENCOUNTER DATE AND TIME: 10/31/2018 19:14 (CDT) NAME LEONORA HOFF DATE OF : 1940 DATE OF ADMISSION: 10/28/2018 15:22 (CDT) acute parenchymal hemorrhage in the left thalamocapsular region and left gallego radiata with intraven tricular extensionCHIEF COMPLAINT: Intracerebral hemorrhage SUBJECTIVE: Pt denied any Shortness of Breath. Pt denied any depression. Hgb 11.5, WBC 6.4, prealbumin 17.9 Toilet transfers with maximum assistance. Mobilized wheelchair 70' with moderate assistance. VITAL SIGNS Temperature: 97.6 F SBP/DBP: 140/76 Pulse: 80 Resp: 16 MEDICATION ALLERGIES: No Known Drug Allergies (NKDA) ENVIRONMENTAL ALLERGIES: - Substance Allergies None Known - Other Allergies None Known NURSING: - Shower allowing shower - Bladder care per protocol - Skin care per protocol PRECAUTIONS: - Weight Bearing Precaution WBAT right LE ACTIVITIES OOB only with supervision THERAPIES: - Occupational Therapy Cognitive Retraining. Visual Perceptual Training. - Dietary and Nutrition Adequate Nutrition. Nutritional Education. Nutritional Supplements. - Speech Therapy Cognitive Training. Expressive Language Skills. Memory Strategies. Receptive Language Skills. Speech Intelligibility Training. PHYSICAL EXAM - Gen Alert and awake Lying in bed No apparent distress Oriented to: person, time, and place - Skin No breakdown No abnormalities - Eyes No abnormalities - ENMT No abnormalities - Neck No pain - CVS RRR - Chest Clear - Abd Soft - GI Non distended Deferred - No abnormalities - Ext Mild right more than left lower extremity edema. - MSK 2/5 weakness in right upper and 4/5 weakness in right lower extremity. - Neuro 2/5 weakness in right upper and 4/5 weakness in right lower extremity. - Psych No abnormalities ASSESSMENT: Pt. is a 77 yo Right-handed white female.On 10/18/2018 Pt. presented to [facility] with sudden onset of right-side weakness.On 10/18/2018 she was admitted to [facility] with diagnosis acute parenchymal hemorrhage in the left thalamocapsular region a nd left gallego radiata with intraventricular extension.Her impairment category is Stroke 01 - Right Body (Left Brain) (01.2).Pre-morbidly, Pt. was independent/mod-I in Self-Care, Sphincter Control, Tra nsfers Control, Locomotion, Communication, and Social Cognition; and she had good Sphincter Control.C urrently, she has deficits of Transfers Control, Locomotion, Endurance, Balance, Safety Awareness, an d Self-Care.Pt. is now referred to [facility] for acute in-patient rehabilitat ion in order to maximize patient's functional independence in activities of daily living, strength, R OM, and mobility.- Rehab Goal Patient has realistic goal of being discharged at assistance level 2-maxA to reside at Home with Fam blanka/Relatives. MDM/PLAN: - Physical Therapy Gait dysfunction - to improve, our physical therapists will perform initial evaluation of pt's status upon admission and devise an individualized program for Gait Training, and Wheel Chair mobility Inability to transfer - to improve, our physical therapists will perform initial evaluation of pt's s tatus upon admission and devise an individualized program for Bed mobility Need for home safety evaluation - to improve, our physical therapists will perform initial evaluation of pt's status upon admission and devise an individualized program for Home Evaluation Need in caregiver upon discharge - to improve, our physical therapists will perform initial evaluatio n of pt's status upon admission and devise an individualized program for Caregiver Training New precaution - to improve, our physical therapists will perform initial evaluation of pt's status u cherise admission and devise an individualized program for Patient precaution education Poor balance - to improve, our physical therapists will perform initial evaluation of pt's status upo n admission and devise an individualized program for Balance Training Poor endurance - to improve, our physical therapists will perform initial evaluation of pt's status u cherise admission and devise an individualized program for Endurance Training Weakness - to improve, our physical therapists will perform initial evaluation of pt's status upon ad mission and devise an individualized program for Aquatic Therapy, Neuromuscular Reeducation, and Stre ngthening Edema - to improve, our physical therapists will perform initial evaluation of pt's status upon admis lamine and devise an individualized program for Elevation Training, and Lymphedema Therapy - Occupational Therapy ADL deficits - to improve, our occupation therapists will perform initial evaluation of pt's status u cherise admission and devise an individualized program for Bathing, Bed mobility, Community Reintegration , Cooking, Dressing, Eating, Fine Motor Skills, Grooming, Homemaking, Kitchen Mobility, Laundry, Cecy ent Education, Safety Awareness, Splinting - Positioning, Transfers(Toilet, Tub, Shower), and Wheel C hair Management Need for lpn care manager - to improve, our occupation therapists will perform initial evaluation of pt's s tatus upon admission and devise an individualized program for Caregiver Training Weakness - to improve, our occupation therapists will perform initial evaluation of pt's status upon admission and devise an individualized program for Aquatic Therapy, Balance, Endurance, UE ROM, and U E strengthening - Other See attached MAR (Medication Administration Record) [id number].pdf - Bladder care per protocol - Weight Bearing Precaution WBAT right UE andLE - Skin care per protocol - Diet - Solid Texture Continue Regular - Shower allowing shower for Dementia, TBI, Stroke, or others FUNCTIONAL STATUS: UPDATED AT WEEKLY TEAM CONFERENCE - Bladder Same accident frequency: 7-Ind - No accidents in the past 7 days - Bowel Same accident frequency: 7-Ind - No accidents in the past 7 days - Walking Same score based on distance walked: 1(<=50ft) - Wheelchair Same score based on distance traveled: 1(<=50ft) FUNCTIONAL STATUS: - Self-Care A. Eating Ind B. Grooming modA C. Bathing maxA D. Dressing - Upper modA E. Dressing - Lower Dep F. Toileting maxA - Sphincter Control G: Bladder control Ind H: Bowel control Ind - Transfers Control I. Bed/Chair/Wheelchair maxA J. Toilet maxA K. Tub/Shower maxA - Locomotion L. Walk/Wheelchair (C) maxA L. Walk/Wheelchair (W) maxA M. Stairs ADNO - Communication N. Comprehension (B) Ind O. Expression (B) Ind - Social Cognition P. Social Interaction Ind Q. Problem Solving Ind R. Memory Ind - Endurance Poor - Balance Poor - Safety Awareness Poor CURRENT FUNC. DEFICITS: Transfers Control, Locomotion, Endurance, Balance, Safety Awareness, and Self-Care SIGNATURE PANEL: (CDT)
[2018-10-31] MEDS: IRBESARTAN 150 MG TAB PO SCH (20:19)
--- NOTE | 2018-11-01 02:58 | FAST ---
SHIFT START DATE/TIME: 10/31/2018 19:00 (CDT) SHIFT END DATE/TIME: 11/01/2018 07:00 (CDT) NAME LEONORA HOFF DATE OF : 1940 DATE OF ADMISSION: 10/28/2018 15:22 (CDT) PHONE: AGE: 77 N# [id number] GENDER: Female ENCOUNTER PHYSICIAN: Dr. Harpreet Alan M.D. 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 EATING: Activity did not occur on this shift EATING - SCORE: 0-UNK GROOMING: Activity did not occur on this shift GROOMING - SCORE: 0-UNK BATHING: Activity did not occur on this shift BATHING - SCORE: 0-UNK DRESSING - UPPER BODY: Patient is not dressing in public clothing ARTICLES SCORE Total number of steps: 0 DRESSING - UPPER BODY - SCORE: 0-UNK DRESSING - LOWER BODY: Patient is not dressing in public clothing ARTICLES SCORE Total number of steps: 0 DRESSING - LOWER BODY - SCORE: 0-UNK TOILETING: TOILETING - STEP 1: Does the patient require the assistance of a person or device, or need extra time with toileting? Yes . TOILETING - STEP 2: Does the patient require the assistance of a helper? Yes. TOILETING - STEP 3: How much assistance does the patient require from the helper? Hands-on assistance from the helper TOILETING - STEP 4: Of the 3 tasks: 1) Adjusting clothing prior to use, 2) Cleansing of perineal area, 3) Adjusting clot juan f after use; How many tasks does the patient perform WITHOUT assistance of the helper? No tasks; h abhilash performs all three tasks TOILETING - SCORE: 1-DEP BLADDER MANAGEMENT: BLADDER MANAGEMENT - STEP 1: Does the patient control the bladder completely and intentionally without equipment or devices or med ications, and is always continent? No. BLADDER MANAGEMENT - STEP 2: Does the patient require the assistance of a helper? Yes. BLADDER MANAGEMENT - STEP 3: How much assistance does the patient require from the helper? Only set-up of equipment - such as plac ing it within reach of the patient or emptying a device - to maintain either satisfactory voiding pat tern or managing an external device, such as an absorbent pad, ileal device, or catheter BLADDER MANAGEMENT - SCORE: 5-SUP BOWEL MANAGEMENT: BOWEL MANAGEMENT - STEP 1: Does the patient control bowels completely and intentionally without equipment devices or medications AND is always continent? No. BOWEL MANAGEMENT - STEP 2: Does the patient require the assistance of a helper? No, patient requires medication for control such as stool softeners, suppositories, laxatives, enemas, or OTC medications BOWEL MANAGEMENT - SCORE: 6-RANDY TRANSFERS: BED, CHAIR, WHEELCHAIR: Patient requires more than one helper and/or the use of a mechanical lift is utilized TRANSFERS: BED, CHAIR, WHEELCHAIR - SCORE: 1-DEP TRANSFERS: TOILET: Patient requires more than one helper and/or the use of a mechanical lift is utilized TRANSFERS: TOILET - SCORE: 1-DEP TRANSFERS: SHOWER: Activity did not occur on this shift TRANSFERS: SHOWER - SCORE: 0-UNK TRANSFERS: TUB: Activity did not occur on this shift TRANSFERS: TUB - SCORE: 0-UNK LOCOMOTION: WALK: Activity did not occur on this shift LOCOMOTION: WALK - SCORE: 0-UNK LOCOMOTION: WHEELCHAIR: Activity did not occur on this shift LOCOMOTION: WHEELCHAIR - SCORE: 0-UNK COMPREHENSION: COMPREHENSION: TYPE: Both COMPREHENSION - STEP 1: Does the patient require help from a person or device, or need extra time to understand complex and a bstract ideas (such as current events, finances, discharge planning, medical issues, relationships, e tc)? Yes. COMPREHENSION - STEP 2: Does the patient require help to understand questions or statements about basic needs or ideas (such as hunger, thirst, sleep, safety, daily schedule, room location, or discomfort) half or more of the t davin? No. COMPREHENSION - STEP 3: How often does the patient need help to understand directions and conversation about basic needs? 25% - 49% of the time COMPREHENSION - SCORE: 3-MOD EXPRESSION EXPRESSION: TYPE: Both EXPRESSION - STEP 1: Does the patient require help from a person or device, or need extra time expressing complex and abst ract ideas (such as current events, finances, discharge planning, medical issues, relationships, etc) ? No. EXPRESSION - STEP 2: Does the patient need extra time, require an assistive device (such as augmentive communication syste m or a communication board), OR does s/he have mild difficulty expressing complex and abstract ideas (including mild dysarthria or mild word-find problems)? Yes. EXPRESSION - SCORE: 6-RANDY SOCIAL INTERACTION: SOCIAL INTERACTION - STEP 1: Does the patient require a helper to interact with others in social and therapeutic situations? No. SOCIAL INTERACTION - STEP 2: Does the patient need extra time in social situations, OR does s/he interact with staff, other patien ts, and family members ONLY in structured environments, OR does s/he require medication for social in teraction? Yes, patient needs extra time SOCIAL INTERACTION - SCORE: 6-RANDY PROBLEM SOLVING: PROBLEM SOLVING - STEP 1: Does the patient need help from a person or device, or need extra time to solve complex problems such as managing a checking account or confronting interpersonal problems? Yes. PROBLEM SOLVING - STEP 2: Does the patient solve basic routine problems half or more of the time? Yes. PROBLEM SOLVING - STEP 3: How often does the patient need help to solve basic routine problems? 25%-49% of the time PROBLEM SOLVING - SCORE: 3-MOD MEMORY: MEMORY - STEP 1: Does the patient need help from a person or device, or need extra time to remember frequently encount ered people, daily routines, and executing requests? No. MEMORY - STEP 2: Does the patient have slight difficulty recognizing frequently encountered people, daily routines, or executing requests without the need for repetition or using self-initiated or environmental cues to remember? Yes. MEMORY - SCORE: 6-RANDY SIGNATURE PANEL: The following modified sections: Eating - Score, Grooming - Score, Dressing - Upper Body - Score, Vitaliy ssing - Lower Body - Score, Toileting - Score, Bladder Management - Score, Bowel Management - Score, Transfers: Bed, Chair, Wheelchair - Score, Transfers: Toilet - Score, Transfers: Shower - Score, Levine sfers: Tub - Score, Locomotion: Walk - Score, Locomotion: Wheelchair - Score, Comprehension - Score, Expression - Score, Social Interaction - Score, Problem Solving - Score, Memory - Score were [electro nically] signed by Jayda Tejeda CNA on WedNov 01 2018 02:58:00 GMT-0500 (Central Daylight Time)
[2018-11-01] MEDS: ACETAMINOPHEN 500 MG TAB PO PRN (03:50)
[2018-11-01] MEDS: GABAPENTIN 100 MG CAP PO SCH ×2 (08:46→20:33)
[2018-11-01] MEDS: CALCIUM CARBONATE 500 MG TAB PO SCH ×2 (08:46→20:33)
[2018-11-01] MEDS: CLOPIDOGREL 75 MG TABLET PO SCH (08:46)
[2018-11-01] MEDS: VITAMIN D 1000 UNIT TAB PO SCH (08:46)
[2018-11-01] MEDS: FOLIC ACID 1 MG TABLET PO SCH (08:47)
[2018-11-01] MEDS: PANTOPRAZOLE 40MG TABLET PO SCH (08:47)
[2018-11-01] MEDS: ATORVASTATIN 10 MG TAB PO SCH (08:47)
[2018-11-01] MEDS: ENOXAPARIN 40 MG/0.4 ML SQ SCH (08:47)
[2018-11-01] MEDS: TRAMADOL HCL 50 MG TAB PO PRN ×2 (08:48→20:37)
[2018-11-01] MEDS: LIDOCAINE 5% PATCH TOP SCH (08:48)
--- NOTE | 2018-11-01 11:48 | FAST ---
ENCOUNTER DATE AND TIME: 10/31/2018 08:00 (CDT) NAME LEONORA HOFF DATE OF : 1940 DATE OF ADMISSION: 10/28/2018 15:22 (CDT) PHONE: AGE: 77 SSN# [id number] GENDER: Female ENCOUNTER PHYSICIAN: Dr. Harpreet Alan M.D. 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 EATING: Activity did not occur on this shift EATING - SCORE: 0-UNK GROOMING: Comb/brush hair Oral care Patient applied make-up Wash, rinse, and dry face Wash, rinse, and dry hands GROOMING - STEP 1: Does the patient require the assistance of a person or device, or need extra time when grooming? Yes. GROOMING - STEP 2: Does the patient require the assistance of a helper? Yes. GROOMING - STEP 3: How much assistance does the patient require from the helper? More than incidental help GROOMING - STEP 4: How many grooming tasks does the patient perform WITHOUT the assistance of the helper? Less than half of the grooming tasks GROOMING - SCORE: 2-MAX BATHING: Abdomen Buttocks Chest Left arm Left lower leg and foot Left upper leg Perineal area Right arm Right lower leg and foot Right upper leg BATHING - STEP 1: Does the patient require the assistance of a person or device, or need extra time when bathing? Yes. BATHING - STEP 2: Does the patient require the assistance of a helper? Yes. BATHING - STEP 3: How much assistance does the patient require from the helper? More than just incidental help BATHING - STEP 4: What percent of the body parts did the patient bathe WITHOUT the helper? Less than half of the body p arts BATHING - SCORE: 2-MAX DRESSING - UPPER BODY: Bra (three steps) T-shirt/pullover shirt (four steps) ARTICLES SCORE Total number of steps: 7 DRESSING - UPPER BODY - STEP 1: Does the patient require help from a person or device, or need extra time when dressing above the [address]? Yes. DRESSING - UPPER BODY - STEP 2: Does the patient require the assistance of a helper? Yes. DRESSING - UPPER BODY - STEP 3: Does the helper touch the patient while dressing? Yes. DRESSING - UPPER BODY - STEP 4: How many of the total steps does the patient complete on his/her own? 4 DRESSING - UPPER BODY - SCORE: 3-MOD DRESSING - LOWER BODY: Elastic waist pants (three steps) Sock - Left foot (one step) Sock - Right foot (one step) Underwear (three steps) ARTICLES SCORE Total number of steps: 8 DRESSING - LOWER BODY - STEP 1: Does the patient require help from a person or device, or need extra time when dressing below the [address] st? Yes. DRESSING - LOWER BODY - STEP 2: Does the patient require the assistance of a helper? Yes. DRESSING - LOWER BODY - STEP 3: Does the helper touch the patient while dressing? Yes. DRESSING - LOWER BODY - STEP 4: How many of the total steps does the patient complete on his/her own? 0 DRESSING - LOWER BODY - STEP 5: Does patient require total assistance for dressing below the waist such as the helper holding clothin g and performing basically all the activities? Yes. DRESSING - LOWER BODY - SCORE: 1-DEP TOILETING: Activity did not occur on this shift TOILETING - SCORE: 0-UNK BLADDER MANAGEMENT: Activity did not occur on this shift BLADDER MANAGEMENT - SCORE: 7-IND BOWEL MANAGEMENT: Activity did not occur on this shift BOWEL MANAGEMENT - SCORE: 7-IND TRANSFERS: BED, CHAIR, WHEELCHAIR: Activity did not occur on this shift TRANSFERS: BED, CHAIR, WHEELCHAIR - SCORE: 0-UNK TRANSFERS: TOILET: Activity did not occur on this shift TRANSFERS: TOILET - SCORE: 0-UNK TRANSFERS: SHOWER: TRANSFERS: SHOWER - STEP 1: Does the patient require the assistance of a person or device, or need extra time with shower transfe rs? Yes. TRANSFERS: SHOWER - STEP 2: Does the patient require the assistance of a helper? Yes. TRANSFERS: SHOWER - STEP 3: How much assistance does the patient require from the helper? More than incidental help TRANSFERS: SHOWER - STEP 4: How much more help does the patient require from the helper? Lifting the patient up AND down from the wheelchair onto the shower chair TRANSFERS: SHOWER - SCORE: 2-MAX TRANSFERS: TUB: Activity did not occur on this shift TRANSFERS: TUB - SCORE: 0-UNK LOCOMOTION: WALK: Activity did not occur on this shift LOCOMOTION: WALK - SCORE: 0-UNK LOCOMOTION: WHEELCHAIR: Activity did not occur on this shift LOCOMOTION: WHEELCHAIR - SCORE: 0-UNK LOCOMOTION: STAIRS: Activity did not occur on this shift LOCOMOTION: STAIRS - SCORE: 0-UNK COMPREHENSION: COMPREHENSION: TYPE: Both COMPREHENSION - STEP 1: Does the patient require help from a person or device, or need extra time to understand complex and a bstract ideas (such as current events, finances, discharge planning, medical issues, relationships, e tc)? No. COMPREHENSION - STEP 2: Does the patient need extra time, require an assistive device (such as glasses for visual comprehensi on or a hearing aid for auditory comprehension) or does s/he have mild difficulty understanding compl ex and abstract information? Yes. COMPREHENSION - SCORE: 6-RANDY EXPRESSION EXPRESSION: TYPE: Both EXPRESSION - STEP 1: Does the patient require help from a person or device, or need extra time expressing complex and abst ract ideas (such as current events, finances, discharge planning, medical issues, relationships, etc) ? Yes. EXPRESSION - STEP 2: Does the patient require help to express basic necessities or ideas (such as hunger, thirst, sleep, s afety, daily schedule, room location, or discomfort) half or more of the time? No. EXPRESSION - STEP 3: How often does the patient need help to express directions and conversation about basic needs? Less t rosales 10% of the time EXPRESSION - SCORE: 5-SUP SOCIAL INTERACTION: SOCIAL INTERACTION - STEP 1: Does the patient require a helper to interact with others in social and therapeutic situations? No. SOCIAL INTERACTION - STEP 2: Does the patient need extra time in social situations, OR does s/he interact with staff, other patien ts, and family members ONLY in structured environments, OR does s/he require medication for social in teraction? Yes, patient needs extra time SOCIAL INTERACTION - SCORE: 6-RANDY PROBLEM SOLVING: PROBLEM SOLVING - STEP 1: Does the patient need help from a person or device, or need extra time to solve complex problems such as managing a checking account or confronting interpersonal problems? Yes. PROBLEM SOLVING - STEP 2: Does the patient solve basic routine problems half or more of the time? Yes. PROBLEM SOLVING - STEP 3: How often does the patient need help to solve basic routine problems? 10%-24% of the time PROBLEM SOLVING - SCORE: 4-MIN MEMORY: MEMORY - STEP 1: Does the patient need help from a person or device, or need extra time to remember frequently encount ered people, daily routines, and executing requests? Yes. MEMORY - STEP 2: How often does the patient need help to remember frequently encountered people, daily routines, and e xecuting requests? 10% - 24% of the time MEMORY - SCORE: 4-MIN SIGNATURE PANEL: The following modified sections: Eating - Score, Grooming - Score, Bathing - Score, Dressing - Upper Body - Score, Dressing - Lower Body - Score, Toileting - Score, Transfers: Bed, Chair, Wheelchair - S core, Transfers: Toilet - Score, Transfers: Tub - Score, Transfers: Shower - Score, Comprehension - S core, Expression - Score, Social Interaction - Score, Problem Solving - Score, Memory - Score were [e lectronically] signed by Nayla Burton OT on WedNov 01 2018 11:47:28 T-0500 (Central Daylight T davin)
[2018-11-01] MEDS: ENBREL SQ SCH (17:00)
--- NOTE | 2018-11-01 17:07 | FAST ---
ENCOUNTER DATE AND TIME: 11/01/2018 08:00 (CDT) NAME LEONORA HOFF DATE OF : 1940 DATE OF ADMISSION: 10/28/2018 15:22 (CDT) PHONE: AGE: 77 SSN# [id number] GENDER: Female ENCOUNTER PHYSICIAN: Dr. Harpreet Alan M.D. 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 EATING: Activity did not occur on this shift EATING - SCORE: 0-UNK GROOMING: Activity did not occur on this shift GROOMING - SCORE: 0-UNK BATHING: Activity did not occur on this shift BATHING - SCORE: 0-UNK DRESSING - UPPER BODY: Activity did not occur on this shift Patient is not dressing in public clothing ARTICLES SCORE Total number of steps: 0 DRESSING - UPPER BODY - SCORE: 0-UNK DRESSING - LOWER BODY: Activity did not occur on this shift Patient is not dressing in public clothing ARTICLES SCORE Total number of steps: 0 DRESSING - LOWER BODY - SCORE: 0-UNK TOILETING: Activity did not occur on this shift TOILETING - SCORE: 0-UNK BLADDER MANAGEMENT: Activity did not occur on this shift BLADDER MANAGEMENT - SCORE: 7-IND BOWEL MANAGEMENT: Activity did not occur on this shift BOWEL MANAGEMENT - SCORE: 7-IND TRANSFERS: BED, CHAIR, WHEELCHAIR: Activity did not occur on this shift TRANSFERS: BED, CHAIR, WHEELCHAIR - SCORE: 0-UNK TRANSFERS: TOILET: Activity did not occur on this shift TRANSFERS: TOILET - SCORE: 0-UNK TRANSFERS: SHOWER: Activity did not occur on this shift TRANSFERS: SHOWER - SCORE: 0-UNK TRANSFERS: TUB: Activity did not occur on this shift TRANSFERS: TUB - SCORE: 0-UNK LOCOMOTION: WALK: Activity did not occur on this shift LOCOMOTION: WALK - SCORE: 0-UNK LOCOMOTION: WHEELCHAIR: Activity did not occur on this shift LOCOMOTION: WHEELCHAIR - SCORE: 0-UNK LOCOMOTION: STAIRS: Activity did not occur on this shift LOCOMOTION: STAIRS - SCORE: 0-UNK COMPREHENSION: COMPREHENSION - SCORE: 0-UNK EXPRESSION EXPRESSION - SCORE: 0-UNK SOCIAL INTERACTION: SOCIAL INTERACTION - SCORE: 0-UNK PROBLEM SOLVING: PROBLEM SOLVING - SCORE: 0-UNK MEMORY: MEMORY - SCORE: 0-UNK SIGNATURE PANEL: The following modified sections: Transfers: Bed, Chair, Wheelchair - Score, Transfers: Toilet - Score , Locomotion: Walk - Score, Locomotion: Wheelchair - Score, Locomotion: Stairs - Score were [electron ically] signed by Michael Vazquez PT on WedNov 01 2018 17:06:16 T-0500 (Central Daylight Time)
[2018-11-01] MEDS: predniSONE 5 MG TAB PO SCH (18:43)
[2018-11-01] MEDS: IRBESARTAN 150 MG TAB PO SCH (20:33)
--- NOTE | 2018-11-01 23:28 | R.PN ---
ENCOUNTER DATE AND TIME: 11/01/2018 23:24 (CDT) NAME LEONORA HOFF DATE OF : 1940 DATE OF ADMISSION: 10/28/2018 15:22 (CDT) acute parenchymal hemorrhage in the left thalamocapsular region and left gallego radiata with intraven tricular extensionCHIEF COMPLAINT: Intracerebral hemorrhage SUBJECTIVE: Pt denied any Shortness of Breath. Pt denied any depression. Hgb 11.5, WBC 6.4, prealbumin 17.9 Ambulated 24' with maximum assistance in the parallel bars. Toilet transfers with maximum assistance. Mobilized wheelchair 70' with moderate assistance. VITAL SIGNS Temperature: 97.6 F SBP/DBP: 139/66 Pulse: 86 Resp: 16 MEDICATION ALLERGIES: No Known Drug Allergies (NKDA) ENVIRONMENTAL ALLERGIES: - Substance Allergies None Known - Other Allergies None Known NURSING: - Shower allowing shower - Bladder care per protocol - Skin care per protocol PRECAUTIONS: - Weight Bearing Precaution WBAT right LE ACTIVITIES OOB only with supervision THERAPIES: - Occupational Therapy Cognitive Retraining. Visual Perceptual Training. - Dietary and Nutrition Adequate Nutrition. Nutritional Education. Nutritional Supplements. - Speech Therapy Cognitive Training. Expressive Language Skills. Memory Strategies. Receptive Language Skills. Speech Intelligibility Training. PHYSICAL EXAM - Gen Alert and awake Lying in bed No apparent distress Oriented to: person, time, and place - Skin No breakdown No abnormalities - Eyes No abnormalities - ENMT No abnormalities - Neck No pain - CVS RRR - Chest Clear - Abd Soft - GI Non distended Deferred - No abnormalities - Ext Mild right more than left lower extremity edema. - MSK 2/5 weakness in right upper and 4/5 weakness in right lower extremity. - Neuro 2/5 weakness in right upper and 4/5 weakness in right lower extremity. - Psych No abnormalities ASSESSMENT: Pt. is a 77 yo Right-handed white female.On 10/18/2018 Pt. presented to [facility] with sudden onset of right-side weakness.On 10/18/2018 she was admitted to [facility] with diagnosis acute parenchymal hemorrhage in the left thalamocapsular region a nd left gallego radiata with intraventricular extension.Her impairment category is Stroke 01 - Right Body (Left Brain) (01.2).Pre-morbidly, Pt. was independent/mod-I in Self-Care, Sphincter Control, Tra nsfers Control, Locomotion, Communication, and Social Cognition; and she had good Sphincter Control.C urrently, she has deficits of Transfers Control, Locomotion, Endurance, Balance, Safety Awareness, an d Self-Care.Pt. is now referred to [facility] for acute in-patient rehabilitat ion in order to maximize patient's functional independence in activities of daily living, strength, R OM, and mobility.- Rehab Goal Patient has realistic goal of being discharged at assistance level 2-maxA to reside at Home with Fam blanka/Relatives. MDM/PLAN: - Physical Therapy Gait dysfunction - to improve, our physical therapists will perform initial evaluation of pt's statu s upon admission and devise an individualized program for Gait Training, and Wheel Chair mobility Inability to transfer - to improve, our physical therapists will perform initial evaluation of pt's status upon admission and devise an individualized program for Bed mobility Need for home safety evaluation - to improve, our physical therapists will perform initial evaluatio n of pt's status upon admission and devise an individualized program for Home Evaluation Need in caregiver upon discharge - to improve, our physical therapists will perform initial evaluati on of pt's status upon admission and devise an individualized program for Caregiver Training New precaution - to improve, our physical therapists will perform initial evaluation of pt's status upon admission and devise an individualized program for Patient precaution education Poor balance - to improve, our physical therapists will perform initial evaluation of pt's status up on admission and devise an individualized program for Balance Training Poor endurance - to improve, our physical therapists will perform initial evaluation of pt's status upon admission and devise an individualized program for Endurance Training Weakness - to improve, our physical therapists will perform initial evaluation of pt's status upon a dmission and devise an individualized program for Aquatic Therapy, Neuromuscular Reeducation, and Str engthening Edema - to improve, our physical therapists will perform initial evaluation of pt's status upon admi ssion and devise an individualized program for Elevation Training, and Lymphedema Therapy - Occupational Therapy ADL deficits - to improve, our occupation therapists will perform initial evaluation of pt's status upon admission and devise an individualized program for Bathing, Bed mobility, Community Reintegratio n, Cooking, Dressing, Eating, Fine Motor Skills, Grooming, Homemaking, Kitchen Mobility, Laundry, Pat ient Education, Safety Awareness, Splinting - Positioning, Transfers(Toilet, Tub, Shower), and Wheel Chair Management Need for care professional - to improve, our occupation therapists will perform initial evaluation of pt's status upon admission and devise an individualized program for Caregiver Training Weakness - to improve, our occupation therapists will perform initial evaluation of pt's status upon admission and devise an individualized program for Aquatic Therapy, Balance, Endurance, UE ROM, and UE strengthening - Other See attached MAR (Medication Administration Record) [id number].pdf - Bladder care per protocol - Weight Bearing Precaution WBAT right UE andLE - Skin care per protocol - Diet - Solid Texture Continue Regular - Shower allowing shower for Dementia, TBI, Stroke, or others FUNCTIONAL STATUS: UPDATED AT WEEKLY TEAM CONFERENCE - Bladder Same accident frequency: 7-Ind - No accidents in the past 7 days - Bowel Same accident frequency: 7-Ind - No accidents in the past 7 days - Walking Same score based on distance walked: 1(<=50ft) - Wheelchair Same score based on distance traveled: 1(<=50ft) FUNCTIONAL STATUS: - Self-Care A. Eating Ind B. Grooming modA C. Bathing maxA D. Dressing - Upper modA E. Dressing - Lower Dep F. Toileting maxA - Sphincter Control G: Bladder control Ind H: Bowel control Ind - Transfers Control I. Bed/Chair/Wheelchair maxA J. Toilet maxA K. Tub/Shower maxA - Locomotion L. Walk/Wheelchair (C) maxA L. Walk/Wheelchair (W) maxA M. Stairs ADNO - Communication N. Comprehension (B) Ind O. Expression (B) Ind - Social Cognition P. Social Interaction Ind Q. Problem Solving Ind R. Memory Ind - Endurance Poor - Balance Poor - Safety Awareness Poor CURRENT FUNC. DEFICITS: Transfers Control, Locomotion, Endurance, Balance, Safety Awareness, and Self-Care SIGNATURE PANEL: (CDT)
[2018-11-02] MEDS: ACETAMINOPHEN 500 MG TAB PO PRN (03:41)
[2018-11-02] MEDS: ENOXAPARIN 40 MG/0.4 ML SQ SCH (07:28)
[2018-11-02] MEDS: TRAMADOL HCL 50 MG TAB PO PRN ×4 (07:28→20:33)
[2018-11-02] MEDS: PANTOPRAZOLE 40MG TABLET PO SCH (07:28)
[2018-11-02] MEDS: GABAPENTIN 100 MG CAP PO SCH ×2 (09:34→20:34)
[2018-11-02] MEDS: CALCIUM CARBONATE 500 MG TAB PO SCH ×2 (09:35→20:34)
[2018-11-02] MEDS: CLOPIDOGREL 75 MG TABLET PO SCH (09:35)
[2018-11-02] MEDS: ATORVASTATIN 10 MG TAB PO SCH (09:35)
[2018-11-02] MEDS: VITAMIN D 1000 UNIT TAB PO SCH (09:35)
[2018-11-02] MEDS: LIDOCAINE 5% PATCH TOP SCH (09:36)
[2018-11-02] MEDS: FOLIC ACID 1 MG TABLET PO SCH (09:38)
[2018-11-02] MEDS: ETANERCEPT 25 MG SQ SCH (14:02)
--- NOTE | 2018-11-02 15:22 | FAST ---
SHIFT START DATE/TIME: 11/02/2018 07:00 (CDT) SHIFT END DATE/TIME: 11/02/2018 19:00 (CDT) NAME LEONORA HOFF DATE OF : 1940 DATE OF ADMISSION: 10/28/2018 15:22 (CDT) PHONE: AGE: 77 N# [id number] GENDER: Female ENCOUNTER PHYSICIAN: Dr. Harpreet Alan M.D. 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 EATING: EATING - STEP 1: Does the patient require the assistance of a person or device, or need extra time when eating? Yes. EATING - STEP 2: Does the patient require the assistance of a helper? Yes. EATING - STEP 3: Does the patient perform half or more of the eating tasks? Yes. EATING - STEP 4: Does the patient need only supervision, cuing, coaxing OR help to apply an orthosis OR help to cut fo od, open containers, pour liquids, or butter bread? Yes. EATING - SCORE: 5-SUP GROOMING: Activity did not occur on this shift GROOMING - SCORE: 0-UNK BATHING: Activity did not occur on this shift BATHING - SCORE: 0-UNK DRESSING - UPPER BODY: Activity did not occur on this shift ARTICLES SCORE Total number of steps: 0 DRESSING - UPPER BODY - SCORE: 0-UNK DRESSING - LOWER BODY: Activity did not occur on this shift ARTICLES SCORE Total number of steps: 0 DRESSING - LOWER BODY - SCORE: 0-UNK TOILETING: TOILETING - STEP 1: Does the patient require the assistance of a person or device, or need extra time with toileting? Yes . TOILETING - STEP 2: Does the patient require the assistance of a helper? Yes. TOILETING - STEP 3: How much assistance does the patient require from the helper? Hands-on assistance from the helper TOILETING - STEP 4: Of the 3 tasks: 1) Adjusting clothing prior to use, 2) Cleansing of perineal area, 3) Adjusting clot juan f after use; How many tasks does the patient perform WITHOUT assistance of the helper? No tasks; h elper performs all three tasks TOILETING - SCORE: 1-DEP BLADDER MANAGEMENT: BLADDER MANAGEMENT - STEP 1: Does the patient control the bladder completely and intentionally without equipment or devices or med ications, and is always continent? Yes. BLADDER MANAGEMENT - SCORE: 7-IND BOWEL MANAGEMENT: Activity did not occur on this shift BOWEL MANAGEMENT - SCORE: 7-IND TRANSFERS: BED, CHAIR, WHEELCHAIR: TRANSFERS: BED, CHAIR, WHEELCHAIR - STEP 1: Does the patient require assistance of a person or device, or need extra time with bed, chair, or whe elchair transfers? Yes. TRANSFERS: BED, CHAIR, WHEELCHAIR - STEP 2: Does the patient require the assistance of a helper? Yes. TRANSFERS: BED, CHAIR, WHEELCHAIR - STEP 3: How much assistance does the patient require from the helper? Lifting of the patient TRANSFERS: BED, CHAIR, WHEELCHAIR - STEP 4: Does the helper lift the patient ONLY up? ONLY down? Up AND Down? Up AND Down. TRANSFERS: BED, CHAIR, WHEELCHAIR - SCORE: 2-MAX TRANSFERS: TOILET: TRANSFERS: TOILET - STEP 1: Does the patient require the assistance of a person or device, or need extra time with toilet transfe rs? Yes. TRANSFERS: TOILET - STEP 2: Does the patient require the assistance of a helper? Yes. TRANSFERS: TOILET - STEP 3: How much assistance does the patient require from the helper? Patient performs less than half of the transferring tasks TRANSFERS: TOILET - STEP 4: Does the patient require total assistance for the toilet transfer such as the helper doing basically all the lifting? No. TRANSFERS: TOILET - SCORE: 2-MAX TRANSFERS: SHOWER: Activity did not occur on this shift TRANSFERS: SHOWER - SCORE: 0-UNK TRANSFERS: TUB: Activity did not occur on this shift TRANSFERS: TUB - SCORE: 0-UNK LOCOMOTION: WALK: Activity did not occur on this shift LOCOMOTION: WALK - SCORE: 0-UNK LOCOMOTION: WHEELCHAIR: Activity did not occur on this shift LOCOMOTION: WHEELCHAIR - SCORE: 0-UNK COMPREHENSION: COMPREHENSION: TYPE: Both COMPREHENSION - STEP 1: Does the patient require help from a person or device, or need extra time to understand complex and a bstract ideas (such as current events, finances, discharge planning, medical issues, relationships, e tc)? No. COMPREHENSION - STEP 2: Does the patient need extra time, require an assistive device (such as glasses for visual comprehensi on or a hearing aid for auditory comprehension) or does s/he have mild difficulty understanding compl ex and abstract information? Yes. COMPREHENSION - SCORE: 6-RANDY EXPRESSION EXPRESSION: TYPE: Both EXPRESSION - STEP 1: Does the patient require help from a person or device, or need extra time expressing complex and abst ract ideas (such as current events, finances, discharge planning, medical issues, relationships, etc) ? Yes. EXPRESSION - STEP 2: Does the patient require help to express basic necessities or ideas (such as hunger, thirst, sleep, s afety, daily schedule, room location, or discomfort) half or more of the time? No. EXPRESSION - STEP 3: How often does the patient need help to express directions and conversation about basic needs? Less t rosales 10% of the time EXPRESSION - SCORE: 5-SUP SOCIAL INTERACTION: SOCIAL INTERACTION - STEP 1: Does the patient require a helper to interact with others in social and therapeutic situations? Yes. SOCIAL INTERACTION - STEP 2: Does the patient interact appropriately half or more of the time? Yes. SOCIAL INTERACTION - STEP 3: How often does the patient need help to interact appropriately? Less than 10% of the time SOCIAL INTERACTION - SCORE: 5-SUP PROBLEM SOLVING: PROBLEM SOLVING - STEP 1: Does the patient need help from a person or device, or need extra time to solve complex problems such as managing a checking account or confronting interpersonal problems? Yes. PROBLEM SOLVING - STEP 2: Does the patient solve basic routine problems half or more of the time? Yes. PROBLEM SOLVING - STEP 3: How often does the patient need help to solve basic routine problems? Less than 10% of the time PROBLEM SOLVING - SCORE: 5-SUP MEMORY: MEMORY - STEP 1: Does the patient need help from a person or device, or need extra time to remember frequently encount ered people, daily routines, and executing requests? Yes. MEMORY - STEP 2: How often does the patient need help to remember frequently encountered people, daily routines, and e xecuting requests? 10% - 24% of the time MEMORY - SCORE: 4-MIN SIGNATURE PANEL: The following modified sections: Memory - Score, Problem Solving - Score, Social Interaction - Score, Expression - Score, Comprehension - Score, Locomotion: Wheelchair - Score, Locomotion: Walk - Score, Transfers: Tub - Score, Transfers: Shower - Score, Transfers: Toilet - Score, Transfers: Bed, Chair, Wheelchair - Score, Bowel Management - Score, Bladder Management - Score, Toileting - Score, Dressin g - Lower Body - Score, Dressing - Upper Body - Score, Bathing - Score, Grooming - Score, Eating - Sc ore were [electronically] signed by Germán Camilo on WedNov 02 2018 15:22:09 GMT-0500 (Central Daylight Time)
--- NOTE | 2018-11-02 15:39 | FAST ---
ENCOUNTER DATE AND TIME: 11/02/2018 08:00 (CDT) NAME LEONORA HOFF DATE OF : 1940 DATE OF ADMISSION: 10/28/2018 15:22 (CDT) PHONE: AGE: 77 SSN# [id number] GENDER: Female ENCOUNTER PHYSICIAN: Dr. Harpreet Alan M.D. 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 EATING: Activity did not occur on this shift EATING - SCORE: 0-UNK GROOMING: Activity did not occur on this shift GROOMING - SCORE: 0-UNK BATHING: Activity did not occur on this shift BATHING - SCORE: 0-UNK DRESSING - UPPER BODY: Activity did not occur on this shift Patient is not dressing in public clothing ARTICLES SCORE Total number of steps: 0 DRESSING - UPPER BODY - SCORE: 0-UNK DRESSING - LOWER BODY: Activity did not occur on this shift Patient is not dressing in public clothing ARTICLES SCORE Total number of steps: 0 DRESSING - LOWER BODY - SCORE: 0-UNK TOILETING: Activity did not occur on this shift TOILETING - SCORE: 0-UNK BLADDER MANAGEMENT: Activity did not occur on this shift BLADDER MANAGEMENT - SCORE: 7-IND BOWEL MANAGEMENT: Activity did not occur on this shift BOWEL MANAGEMENT - SCORE: 7-IND TRANSFERS: BED, CHAIR, WHEELCHAIR: TRANSFERS: BED, CHAIR, WHEELCHAIR - STEP 1: Does the patient require assistance of a person or device, or need extra time with bed, chair, or whe elchair transfers? Yes. TRANSFERS: BED, CHAIR, WHEELCHAIR - STEP 2: Does the patient require the assistance of a helper? Yes. TRANSFERS: BED, CHAIR, WHEELCHAIR - STEP 3: How much assistance does the patient require from the helper? Lifting of the patient TRANSFERS: BED, CHAIR, WHEELCHAIR - STEP 4: Does the helper lift the patient ONLY up? ONLY down? Up AND Down? Up AND Down. TRANSFERS: BED, CHAIR, WHEELCHAIR - SCORE: 2-MAX TRANSFERS: TOILET: Activity did not occur on this shift TRANSFERS: TOILET - SCORE: 0-UNK TRANSFERS: SHOWER: Activity did not occur on this shift TRANSFERS: SHOWER - SCORE: 0-UNK TRANSFERS: TUB: Activity did not occur on this shift TRANSFERS: TUB - SCORE: 0-UNK LOCOMOTION: WALK: Activity did not occur on this shift LOCOMOTION: WALK - SCORE: 0-UNK LOCOMOTION: WHEELCHAIR: LOCOMOTION: WHEELCHAIR - STEP 1: Does the patient need help to go 150 feet in a wheelchair? Yes. LOCOMOTION: WHEELCHAIR - STEP 2: How much assistance does the patient need from the helper? Patient goes less than 150 feet - but more than 50 feet - with the assistance of only one helper LOCOMOTION: WHEELCHAIR - SCORE: 2-MAX LOCOMOTION: STAIRS: Activity did not occur on this shift LOCOMOTION: STAIRS - SCORE: 0-UNK COMPREHENSION: COMPREHENSION - SCORE: 0-UNK EXPRESSION EXPRESSION - SCORE: 0-UNK SOCIAL INTERACTION: SOCIAL INTERACTION - SCORE: 0-UNK PROBLEM SOLVING: PROBLEM SOLVING - SCORE: 0-UNK MEMORY: MEMORY - SCORE: 0-UNK SIGNATURE PANEL: The following modified sections: Transfers: Bed, Chair, Wheelchair - Score, Transfers: Toilet - Score , Locomotion: Walk - Score, Locomotion: Wheelchair - Score, Locomotion: Stairs - Score were [electron ically] signed by Michael Vazquez PT on WedNov 02 2018 15:38:26 T-0500 (Central Daylight Time)
--- NOTE | 2018-11-02 17:21 | PN ---
Date of Progress Note: 11/01/2018 Patient was seen. Reviewed medications and discussed the use of her Enbrel while she was in the adeel very stage in rehab. She is quite upset about the situation, and progress and options were discussed in detail. Also felt it was curry to continue with her Enbrel. States she has improved slightly sin ce the episode; however, obviously, she still has a significant amount of work to do. HR/MODL Voice ID: [id number] Report ID: [id number]
[2018-11-02] MEDS: CIPROFLOXACIN HCL 500 MG TAB PO SCH (20:33)
[2018-11-02] MEDS: MELATONIN 3 MG TABLET PO PRN (20:34)
[2018-11-02] MEDS: IRBESARTAN 150 MG TAB PO SCH (20:34)
--- NOTE | 2018-11-02 22:52 | R.PN ---
ENCOUNTER DATE AND TIME: 11/02/2018 22:51 (CDT) NAME LEONORA HOFF DATE OF : 1940 DATE OF ADMISSION: 10/28/2018 15:22 (CDT) acute parenchymal hemorrhage in the left thalamocapsular region and left gallego radiata with intraven tricular extensionCHIEF COMPLAINT: Intracerebral hemorrhage SUBJECTIVE: Pt denied any Shortness of Breath. Pt denied any depression. Hgb 11.5, WBC 6.4, prealbumin 17.9 Ambulated 12' with moderate assistance in the parallel bars. Toilet transfers with maximum assistance . Mobilized wheelchair 70' with moderate assistance. VITAL SIGNS Temperature: 97.6 F SBP/DBP: 131/67 Pulse: 88 Resp: 16 MEDICATION ALLERGIES: No Known Drug Allergies (NKDA) ENVIRONMENTAL ALLERGIES: - Substance Allergies None Known - Other Allergies None Known NURSING: - Shower allowing shower - Bladder care per protocol - Skin care per protocol PRECAUTIONS: - Weight Bearing Precaution WBAT right LE ACTIVITIES OOB only with supervision THERAPIES: - Occupational Therapy Cognitive Retraining. Visual Perceptual Training. - Dietary and Nutrition Adequate Nutrition. Nutritional Education. Nutritional Supplements. - Speech Therapy Cognitive Training. Expressive Language Skills. Memory Strategies. Receptive Language Skills. Speech Intelligibility Training. PHYSICAL EXAM - Gen Alert and awake Lying in bed No apparent distress Oriented to: person, time, and place - Skin No breakdown No abnormalities - Eyes No abnormalities - ENMT No abnormalities - Neck No pain - CVS RRR - Chest Clear - Abd Soft - GI Non distended Deferred - No abnormalities - Ext Mild right more than left lower extremity edema. - MSK 2/5 weakness in right upper and 4/5 weakness in right lower extremity. - Neuro 2/5 weakness in right upper and 4/5 weakness in right lower extremity. - Psych No abnormalities ASSESSMENT: Pt. is a 77 yo Right-handed white female.On 10/18/2018 Pt. presented to [facility] with sudden onset of right-side weakness.On 10/18/2018 she was admitted to [facility] with diagnosis acute parenchymal hemorrhage in the left thalamocapsular region a nd left gallego radiata with intraventricular extension.Her impairment category is Stroke 01 - Right Body (Left Brain) (01.2).Pre-morbidly, Pt. was independent/mod-I in Self-Care, Sphincter Control, Tra nsfers Control, Locomotion, Communication, and Social Cognition; and she had good Sphincter Control.C urrently, she has deficits of Transfers Control, Locomotion, Endurance, Balance, Safety Awareness, an d Self-Care.Pt. is now referred to [facility] for acute in-patient rehabilitat ion in order to maximize patient's functional independence in activities of daily living, strength, R OM, and mobility.- Rehab Goal Patient has realistic goal of being discharged at assistance level 2-maxA to reside at Home with Fam blanka/Relatives. MDM/PLAN: - Physical Therapy Gait dysfunction - to improve, our physical therapists will perform initial evaluation of pt's statu s upon admission and devise an individualized program for Gait Training, and Wheel Chair mobility Inability to transfer - to improve, our physical therapists will perform initial evaluation of pt's status upon admission and devise an individualized program for Bed mobility Need for home safety evaluation - to improve, our physical therapists will perform initial evaluatio n of pt's status upon admission and devise an individualized program for Home Evaluation Need in caregiver upon discharge - to improve, our physical therapists will perform initial evaluati on of pt's status upon admission and devise an individualized program for Caregiver Training New precaution - to improve, our physical therapists will perform initial evaluation of pt's status upon admission and devise an individualized program for Patient precaution education Poor balance - to improve, our physical therapists will perform initial evaluation of pt's status up on admission and devise an individualized program for Balance Training Poor endurance - to improve, our physical therapists will perform initial evaluation of pt's status upon admission and devise an individualized program for Endurance Training Weakness - to improve, our physical therapists will perform initial evaluation of pt's status upon a dmission and devise an individualized program for Aquatic Therapy, Neuromuscular Reeducation, and Str engthening Edema - to improve, our physical therapists will perform initial evaluation of pt's status upon admi ssion and devise an individualized program for Elevation Training, and Lymphedema Therapy - Occupational Therapy ADL deficits - to improve, our occupation therapists will perform initial evaluation of pt's status upon admission and devise an individualized program for Bathing, Bed mobility, Community Reintegratio n, Cooking, Dressing, Eating, Fine Motor Skills, Grooming, Homemaking, Kitchen Mobility, Laundry, Pat ient Education, Safety Awareness, Splinting - Positioning, Transfers(Toilet, Tub, Shower), and Wheel Chair Management Need 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 - to improve, our occupation therapists will perform initial evaluation of pt's status upon admission and devise an individualized program for Caregiver Training Weakness - to improve, our occupation therapists will perform initial evaluation of pt's status upon admission and devise an individualized program for Aquatic Therapy, Balance, Endurance, UE ROM, and UE strengthening - Other See attached MAR (Medication Administration Record) [id number].pdf - Bladder care per protocol - Weight Bearing Precaution WBAT right UE andLE - Skin care per protocol - Diet - Solid Texture Continue Regular - Shower allowing shower for Dementia, TBI, Stroke, or others FUNCTIONAL STATUS: UPDATED AT WEEKLY TEAM CONFERENCE - Bladder Same accident frequency: 7-Ind - No accidents in the past 7 days - Bowel Same accident frequency: 7-Ind - No accidents in the past 7 days - Walking Same score based on distance walked: 1(<=50ft) - Wheelchair Same score based on distance traveled: 1(<=50ft) FUNCTIONAL STATUS: - Self-Care A. Eating Ind B. Grooming modA C. Bathing maxA D. Dressing - Upper modA E. Dressing - Lower Dep F. Toileting maxA - Sphincter Control G: Bladder control Ind H: Bowel control Ind - Transfers Control I. Bed/Chair/Wheelchair maxA J. Toilet maxA K. Tub/Shower maxA - Locomotion L. Walk/Wheelchair (C) maxA L. Walk/Wheelchair (W) maxA M. Stairs ADNO - Communication N. Comprehension (B) Ind O. Expression (B) Ind - Social Cognition P. Social Interaction Ind Q. Problem Solving Ind R. Memory Ind - Endurance Poor - Balance Poor - Safety Awareness Poor CURRENT FUNC. DEFICITS: Transfers Control, Locomotion, Endurance, Balance, Safety Awareness, and Self-Care SIGNATURE PANEL: (CDT)
--- NOTE | 2018-11-03 01:23 | FAST ---
SHIFT START DATE/TIME: 11/02/2018 19:00 (CDT) SHIFT END DATE/TIME: 11/03/2018 07:00 (CDT) NAME LEONORA HOFF DATE OF : 1940 DATE OF ADMISSION: 10/28/2018 15:22 (CDT) PHONE: AGE: 77 N# [id number] GENDER: Female ENCOUNTER PHYSICIAN: Dr. Harpreet Alan M.D. 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 EATING: Activity did not occur on this shift EATING - SCORE: 0-UNK GROOMING: Wash, rinse, and dry hands GROOMING - STEP 1: Does the patient require the assistance of a person or device, or need extra time when grooming? Yes. GROOMING - STEP 2: Does the patient require the assistance of a helper? Yes. GROOMING - STEP 3: How much assistance does the patient require from the helper? Only prior equipment preparation/set up from the helper GROOMING - SCORE: 5-SUP BATHING: Activity did not occur on this shift BATHING - SCORE: 0-UNK DRESSING - UPPER BODY: Patient is not dressing in public clothing ARTICLES SCORE Total number of steps: 0 DRESSING - UPPER BODY - SCORE: 0-UNK DRESSING - LOWER BODY: Patient is not dressing in public clothing ARTICLES SCORE Total number of steps: 0 DRESSING - LOWER BODY - SCORE: 0-UNK TOILETING: TOILETING - STEP 1: Does the patient require the assistance of a person or device, or need extra time with toileting? Yes . TOILETING - STEP 2: Does the patient require the assistance of a helper? Yes. TOILETING - STEP 3: How much assistance does the patient require from the helper? Hands-on assistance from the helper TOILETING - STEP 4: Of the 3 tasks: 1) Adjusting clothing prior to use, 2) Cleansing of perineal area, 3) Adjusting clot juan f after use; How many tasks does the patient perform WITHOUT assistance of the helper? No tasks; h elper performs all three tasks TOILETING - SCORE: 1-DEP BLADDER MANAGEMENT: BLADDER MANAGEMENT - STEP 1: Does the patient control the bladder completely and intentionally without equipment or devices or med ications, and is always continent? No. BLADDER MANAGEMENT - STEP 2: Does the patient require the assistance of a helper? Yes. BLADDER MANAGEMENT - STEP 3: How much assistance does the patient require from the helper? Only set-up of equipment - such as plac ing it within reach of the patient or emptying a device - to maintain either satisfactory voiding pat tern or managing an external device, such as an absorbent pad, ileal device, or catheter BLADDER MANAGEMENT - SCORE: 5-SUP BOWEL MANAGEMENT: BOWEL MANAGEMENT - STEP 1: Does the patient control bowels completely and intentionally without equipment devices or medications AND is always continent? No. BOWEL MANAGEMENT - STEP 2: Does the patient require the assistance of a helper? No, patient requires medication for control such as stool softeners, suppositories, laxatives, enemas, or OTC medications BOWEL MANAGEMENT - SCORE: 6-RANDY TRANSFERS: BED, CHAIR, WHEELCHAIR: Patient requires more than one helper and/or the use of a mechanical lift is utilized TRANSFERS: BED, CHAIR, WHEELCHAIR - SCORE: 1-DEP TRANSFERS: TOILET: Patient requires more than one helper and/or the use of a mechanical lift is utilized TRANSFERS: TOILET - SCORE: 1-DEP TRANSFERS: SHOWER: Activity did not occur on this shift TRANSFERS: SHOWER - SCORE: 0-UNK TRANSFERS: TUB: Activity did not occur on this shift TRANSFERS: TUB - SCORE: 0-UNK LOCOMOTION: WALK: Activity did not occur on this shift LOCOMOTION: WALK - SCORE: 0-UNK LOCOMOTION: WHEELCHAIR: Activity did not occur on this shift LOCOMOTION: WHEELCHAIR - SCORE: 0-UNK COMPREHENSION: COMPREHENSION: TYPE: Both COMPREHENSION - STEP 1: Does the patient require help from a person or device, or need extra time to understand complex and a bstract ideas (such as current events, finances, discharge planning, medical issues, relationships, e tc)? Yes. COMPREHENSION - STEP 2: Does the patient require help to understand questions or statements about basic needs or ideas (such as hunger, thirst, sleep, safety, daily schedule, room location, or discomfort) half or more of the t davin? No. COMPREHENSION - STEP 3: How often does the patient need help to understand directions and conversation about basic needs? 25% - 49% of the time COMPREHENSION - SCORE: 3-MOD EXPRESSION EXPRESSION: TYPE: Both EXPRESSION - STEP 1: Does the patient require help from a person or device, or need extra time expressing complex and abst ract ideas (such as current events, finances, discharge planning, medical issues, relationships, etc) ? No. EXPRESSION - STEP 2: Does the patient need extra time, require an assistive device (such as augmentive communication syste m or a communication board), OR does s/he have mild difficulty expressing complex and abstract ideas (including mild dysarthria or mild word-find problems)? Yes. EXPRESSION - SCORE: 6-RANDY SOCIAL INTERACTION: SOCIAL INTERACTION - STEP 1: Does the patient require a helper to interact with others in social and therapeutic situations? No. SOCIAL INTERACTION - STEP 2: Does the patient need extra time in social situations, OR does s/he interact with staff, other patien ts, and family members ONLY in structured environments, OR does s/he require medication for social in teraction? Yes, patient needs extra time SOCIAL INTERACTION - SCORE: 6-RANDY PROBLEM SOLVING: PROBLEM SOLVING - STEP 1: Does the patient need help from a person or device, or need extra time to solve complex problems such as managing a checking account or confronting interpersonal problems? Yes. PROBLEM SOLVING - STEP 2: Does the patient solve basic routine problems half or more of the time? Yes. PROBLEM SOLVING - STEP 3: How often does the patient need help to solve basic routine problems? 10%-24% of the time PROBLEM SOLVING - SCORE: 4-MIN MEMORY: MEMORY - STEP 1: Does the patient need help from a person or device, or need extra time to remember frequently encount ered people, daily routines, and executing requests? No. MEMORY - STEP 2: Does the patient have slight difficulty recognizing frequently encountered people, daily routines, or executing requests without the need for repetition or using self-initiated or environmental cues to remember? Yes. MEMORY - SCORE: 6-RANDY SIGNATURE PANEL: The following modified sections: Eating - Score, Grooming - Score, Dressing - Upper Body - Score, Vitaliy ssing - Lower Body - Score, Toileting - Score, Bladder Management - Score, Bowel Management - Score, Transfers: Bed, Chair, Wheelchair - Score, Transfers: Toilet - Score, Transfers: Shower - Score, Levine sfers: Tub - Score, Locomotion: Walk - Score, Locomotion: Wheelchair - Score, Comprehension - Score, Expression - Score, Social Interaction - Score, Problem Solving - Score, Memory - Score were [electro nically] signed by Jayda Tejeda CNA on WedNov 03 2018 01:20:59 GMT-0500 (Central Daylight Time)
[2018-11-03 06:07] LABS: Basophils % 0.6 % (0-1.3); Hematocrit 35.8 % (36.0-45.0); Lymphocytes % 27.1 % (15.3-44.8); MPV 7.7 fL (7.6-11.3); RBC Red Blood Cell Count 3.96 M/uL (3.86-4.86)
[2018-11-03 06:24] LABS: Magnesium 2.1 mg/dL (1.8-2.4); Potassium 4.2 mmol/L (3.5-5.1); Prealbumin 21.7 mg/dL (20-40)
[2018-11-03] MEDS: LIDOCAINE 5% PATCH TOP SCH (09:06)
[2018-11-03] MEDS: ENOXAPARIN 40 MG/0.4 ML SQ SCH (09:06)
[2018-11-03] MEDS: CLOPIDOGREL 75 MG TABLET PO SCH (09:07)
[2018-11-03] MEDS: CALCIUM CARBONATE 500 MG TAB PO SCH ×2 (09:07→20:35)
[2018-11-03] MEDS: FOLIC ACID 1 MG TABLET PO SCH (09:07)
[2018-11-03] MEDS: VITAMIN D 1000 UNIT TAB PO SCH (09:07)
[2018-11-03] MEDS: GABAPENTIN 100 MG CAP PO SCH ×2 (09:07→20:36)
[2018-11-03] MEDS: CIPROFLOXACIN HCL 500 MG TAB PO SCH (09:08)
[2018-11-03] MEDS: PANTOPRAZOLE 40MG TABLET PO SCH (09:08)
[2018-11-03] MEDS: ATORVASTATIN 10 MG TAB PO SCH (09:08)
[2018-11-03] MEDS: TRAMADOL HCL 50 MG TAB PO PRN ×2 (09:09→20:36)
[2018-11-03] MEDS: ONDANSETRON 4 MG (ODT) TAB PO PRN (12:12)
--- NOTE | 2018-11-03 14:38 | FAST ---
SHIFT START DATE/TIME: 11/03/2018 07:00 (CDT) SHIFT END DATE/TIME: 11/03/2018 19:00 (CDT) NAME LEONORA HOFF DATE OF : 1940 DATE OF ADMISSION: 10/28/2018 15:22 (CDT) PHONE: AGE: 77 N# [id number] GENDER: Female ENCOUNTER PHYSICIAN: Dr. Harpreet Alan M.D. 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 EATING: EATING - STEP 1: Does the patient require the assistance of a person or device, or need extra time when eating? Yes. EATING - STEP 2: Does the patient require the assistance of a helper? Yes. EATING - STEP 3: Does the patient perform half or more of the eating tasks? Yes. EATING - STEP 4: Does the patient need only supervision, cuing, coaxing OR help to apply an orthosis OR help to cut fo od, open containers, pour liquids, or butter bread? Yes. EATING - SCORE: 5-SUP GROOMING: Activity did not occur on this shift GROOMING - SCORE: 0-UNK BATHING: Activity did not occur on this shift BATHING - SCORE: 0-UNK DRESSING - UPPER BODY: Activity did not occur on this shift ARTICLES SCORE Total number of steps: 0 DRESSING - UPPER BODY - SCORE: 0-UNK DRESSING - LOWER BODY: Activity did not occur on this shift ARTICLES SCORE Total number of steps: 0 DRESSING - LOWER BODY - SCORE: 0-UNK TOILETING: TOILETING - STEP 1: Does the patient require the assistance of a person or device, or need extra time with toileting? Yes . TOILETING - STEP 2: Does the patient require the assistance of a helper? Yes. TOILETING - STEP 3: How much assistance does the patient require from the helper? Hands-on assistance from the helper TOILETING - STEP 4: Of the 3 tasks: 1) Adjusting clothing prior to use, 2) Cleansing of perineal area, 3) Adjusting clot juan f after use; How many tasks does the patient perform WITHOUT assistance of the helper? No tasks; h elper performs all three tasks TOILETING - SCORE: 1-DEP BLADDER MANAGEMENT: BLADDER MANAGEMENT - STEP 1: Does the patient control the bladder completely and intentionally without equipment or devices or med ications, and is always continent? No. BLADDER MANAGEMENT - STEP 2: Does the patient require the assistance of a helper? No, patient requires and independently uses an a ssistive device, such as a urinal, bedpan, bedside commode, catheter, absorbent pad, or collecting de vice BLADDER MANAGEMENT - SCORE: 6-RANDY BOWEL MANAGEMENT: Activity did not occur on this shift BOWEL MANAGEMENT - SCORE: 7-IND TRANSFERS: BED, CHAIR, WHEELCHAIR: Patient requires more than one helper and/or the use of a mechanical lift is utilized TRANSFERS: BED, CHAIR, WHEELCHAIR - SCORE: 1-DEP TRANSFERS: TOILET: Patient requires more than one helper and/or the use of a mechanical lift is utilized TRANSFERS: TOILET - SCORE: 1-DEP TRANSFERS: SHOWER: Activity did not occur on this shift TRANSFERS: SHOWER - SCORE: 0-UNK TRANSFERS: TUB: Activity did not occur on this shift TRANSFERS: TUB - SCORE: 0-UNK LOCOMOTION: WALK: Activity did not occur on this shift LOCOMOTION: WALK - SCORE: 0-UNK LOCOMOTION: WHEELCHAIR: Activity did not occur on this shift LOCOMOTION: WHEELCHAIR - SCORE: 0-UNK COMPREHENSION: COMPREHENSION: TYPE: Both COMPREHENSION - STEP 1: Does the patient require help from a person or device, or need extra time to understand complex and a bstract ideas (such as current events, finances, discharge planning, medical issues, relationships, e tc)? No. COMPREHENSION - STEP 2: Does the patient need extra time, require an assistive device (such as glasses for visual comprehensi on or a hearing aid for auditory comprehension) or does s/he have mild difficulty understanding compl ex and abstract information? Yes. COMPREHENSION - SCORE: 6-RANDY EXPRESSION EXPRESSION: TYPE: Both EXPRESSION - STEP 1: Does the patient require help from a person or device, or need extra time expressing complex and abst ract ideas (such as current events, finances, discharge planning, medical issues, relationships, etc) ? No. EXPRESSION - STEP 2: Does the patient need extra time, require an assistive device (such as augmentive communication syste m or a communication board), OR does s/he have mild difficulty expressing complex and abstract ideas (including mild dysarthria or mild word-find problems)? Yes. EXPRESSION - SCORE: 6-RANDY SOCIAL INTERACTION: SOCIAL INTERACTION - STEP 1: Does the patient require a helper to interact with others in social and therapeutic situations? No. SOCIAL INTERACTION - STEP 2: Does the patient need extra time in social situations, OR does s/he interact with staff, other patien ts, and family members ONLY in structured environments, OR does s/he require medication for social in teraction? Yes, patient needs extra time SOCIAL INTERACTION - SCORE: 6-RANDY PROBLEM SOLVING: PROBLEM SOLVING - STEP 1: Does the patient need help from a person or device, or need extra time to solve complex problems such as managing a checking account or confronting interpersonal problems? No. PROBLEM SOLVING - STEP 2: Does the patient require extra time to make decisions or solve problems, OR does s/he have slight dif ficulty reading, initiating, or self-correcting in unfamiliar situations? Yes, patient needs extra ti me. PROBLEM SOLVING - SCORE: 6-RANDY MEMORY: MEMORY - STEP 1: Does the patient need help from a person or device, or need extra time to remember frequently encount ered people, daily routines, and executing requests? No. MEMORY - STEP 2: Does the patient have slight difficulty recognizing frequently encountered people, daily routines, or executing requests without the need for repetition or using self-initiated or environmental cues to remember? Yes. MEMORY - SCORE: 6-RANDY SIGNATURE PANEL: The following modified sections: Eating - Score, Grooming - Score, Bathing - Score, Dressing - Upper Body - Score, Dressing - Lower Body - Score, Toileting - Score, Bladder Management - Score, Bowel Man agement - Score, Transfers: Bed, Chair, Wheelchair - Score, Transfers: Toilet - Score, Transfers: Amrita wer - Score, Transfers: Tub - Score, Locomotion: Walk - Score, Locomotion: Wheelchair - Score, Compre hension - Score, Expression - Score, Social Interaction - Score, Problem Solving - Score, Memory - Sc ore were [electronically] signed by Germán Camilo on WedNov 03 2018 14:37:25 GMT-0500 (Central Daylight Time)
--- NOTE | 2018-11-03 15:10 | FAST ---
ENCOUNTER DATE AND TIME: 11/03/2018 08:00 (CDT) NAME LEONORA HOFF DATE OF : 1940 DATE OF ADMISSION: 10/28/2018 15:22 (CDT) PHONE: AGE: 77 SSN# [id number] GENDER: Female ENCOUNTER PHYSICIAN: Dr. Harpreet Alan M.D. 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 EATING: Activity did not occur on this shift EATING - SCORE: 0-UNK GROOMING: Activity did not occur on this shift GROOMING - SCORE: 0-UNK BATHING: Activity did not occur on this shift BATHING - SCORE: 0-UNK DRESSING - UPPER BODY: Activity did not occur on this shift Patient is not dressing in public clothing ARTICLES SCORE Total number of steps: 0 DRESSING - UPPER BODY - SCORE: 0-UNK DRESSING - LOWER BODY: Activity did not occur on this shift Patient is not dressing in public clothing ARTICLES SCORE Total number of steps: 0 DRESSING - LOWER BODY - SCORE: 0-UNK TOILETING: Activity did not occur on this shift TOILETING - SCORE: 0-UNK BLADDER MANAGEMENT: Activity did not occur on this shift BLADDER MANAGEMENT - SCORE: 7-IND BOWEL MANAGEMENT: Activity did not occur on this shift BOWEL MANAGEMENT - SCORE: 7-IND TRANSFERS: BED, CHAIR, WHEELCHAIR: TRANSFERS: BED, CHAIR, WHEELCHAIR - STEP 1: Does the patient require assistance of a person or device, or need extra time with bed, chair, or whe elchair transfers? Yes. TRANSFERS: BED, CHAIR, WHEELCHAIR - STEP 2: Does the patient require the assistance of a helper? Yes. TRANSFERS: BED, CHAIR, WHEELCHAIR - STEP 3: How much assistance does the patient require from the helper? Lifting of the patient TRANSFERS: BED, CHAIR, WHEELCHAIR - STEP 4: Does the helper lift the patient ONLY up? ONLY down? Up AND Down? Up AND Down. TRANSFERS: BED, CHAIR, WHEELCHAIR - SCORE: 2-MAX TRANSFERS: TOILET: Activity did not occur on this shift TRANSFERS: TOILET - SCORE: 0-UNK TRANSFERS: SHOWER: Activity did not occur on this shift TRANSFERS: SHOWER - SCORE: 0-UNK TRANSFERS: TUB: Activity did not occur on this shift TRANSFERS: TUB - SCORE: 0-UNK LOCOMOTION: WALK: Activity did not occur on this shift LOCOMOTION: WALK - SCORE: 0-UNK LOCOMOTION: WHEELCHAIR: Activity did not occur on this shift LOCOMOTION: WHEELCHAIR - SCORE: 0-UNK LOCOMOTION: STAIRS: Activity did not occur on this shift LOCOMOTION: STAIRS - SCORE: 0-UNK COMPREHENSION: COMPREHENSION - SCORE: 0-UNK EXPRESSION EXPRESSION - SCORE: 0-UNK SOCIAL INTERACTION: SOCIAL INTERACTION - SCORE: 0-UNK PROBLEM SOLVING: PROBLEM SOLVING - SCORE: 0-UNK MEMORY: MEMORY - SCORE: 0-UNK SIGNATURE PANEL: The following modified sections: Transfers: Bed, Chair, Wheelchair - Score, Transfers: Toilet - Score , Locomotion: Walk - Score, Locomotion: Wheelchair - Score, Locomotion: Stairs - Score were [electron ically] signed by Michael Vazquez PT on WedNov 03 2018 15:09:42 T-0500 (Central Daylight Time)
[2018-11-03] MEDS: predniSONE 5 MG TAB PO SCH (17:07)
[2018-11-03] MEDS: SMZ./TMP. 800/160 MG TABLET PO SCH (20:35)
[2018-11-03] MEDS: MELATONIN 3 MG TABLET PO PRN (20:36)
[2018-11-03] MEDS: IRBESARTAN 150 MG TAB PO SCH (20:37)
--- NOTE | 2018-11-04 02:25 | FAST ---
SHIFT START DATE/TIME: 11/03/2018 19:00 (CDT) SHIFT END DATE/TIME: 11/04/2018 07:00 (CDT) NAME LEONORA HOFF DATE OF : 1940 DATE OF ADMISSION: 10/28/2018 15:22 (CDT) PHONE: AGE: 77 N# [id number] GENDER: Female ENCOUNTER PHYSICIAN: Dr. Harpreet Alan M.D. 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 EATING: Activity did not occur on this shift EATING - SCORE: 0-UNK GROOMING: Oral care Wash, rinse, and dry face Wash, rinse, and dry hands GROOMING - STEP 1: Does the patient require the assistance of a person or device, or need extra time when grooming? Yes. GROOMING - STEP 2: Does the patient require the assistance of a helper? Yes. GROOMING - STEP 3: How much assistance does the patient require from the helper? Only prior equipment preparation/set up from the helper GROOMING - SCORE: 5-SUP BATHING: Activity did not occur on this shift BATHING - SCORE: 0-UNK DRESSING - UPPER BODY: Patient is not dressing in public clothing ARTICLES SCORE Total number of steps: 0 DRESSING - UPPER BODY - SCORE: 0-UNK DRESSING - LOWER BODY: Patient is not dressing in public clothing ARTICLES SCORE Total number of steps: 0 DRESSING - LOWER BODY - SCORE: 0-UNK TOILETING: TOILETING - STEP 1: Does the patient require the assistance of a person or device, or need extra time with toileting? Yes . TOILETING - STEP 2: Does the patient require the assistance of a helper? Yes. TOILETING - STEP 3: How much assistance does the patient require from the helper? Hands-on assistance from the helper TOILETING - STEP 4: Of the 3 tasks: 1) Adjusting clothing prior to use, 2) Cleansing of perineal area, 3) Adjusting clot juan f after use; How many tasks does the patient perform WITHOUT assistance of the helper? No tasks; h elper performs all three tasks TOILETING - SCORE: 1-DEP BLADDER MANAGEMENT: BLADDER MANAGEMENT - STEP 1: Does the patient control the bladder completely and intentionally without equipment or devices or med ications, and is always continent? No. BLADDER MANAGEMENT - STEP 2: Does the patient require the assistance of a helper? Yes. BLADDER MANAGEMENT - STEP 3: How much assistance does the patient require from the helper? Patient requires contact assistance fro m the helper BLADDER MANAGEMENT - STEP 4: How much contact assistance does the patient require from the helper? Patient requires minimal assist ance to maintain an external device - by positioning, and the patient performs 75% or more of bladder management tasks, while the helper provides less than 25% of the assistance to position patient on / off bedpan BLADDER MANAGEMENT - SCORE: 4-MIN BOWEL MANAGEMENT: Activity did not occur on this shift BOWEL MANAGEMENT - SCORE: 7-IND TRANSFERS: BED, CHAIR, WHEELCHAIR: Patient requires more than one helper and/or the use of a mechanical lift is utilized TRANSFERS: BED, CHAIR, WHEELCHAIR - SCORE: 1-DEP TRANSFERS: TOILET: Patient requires more than one helper and/or the use of a mechanical lift is utilized TRANSFERS: TOILET - SCORE: 1-DEP TRANSFERS: SHOWER: Activity did not occur on this shift TRANSFERS: SHOWER - SCORE: 0-UNK TRANSFERS: TUB: Activity did not occur on this shift TRANSFERS: TUB - SCORE: 0-UNK LOCOMOTION: WALK: Activity did not occur on this shift LOCOMOTION: WALK - SCORE: 0-UNK LOCOMOTION: WHEELCHAIR: Activity did not occur on this shift LOCOMOTION: WHEELCHAIR - SCORE: 0-UNK COMPREHENSION: COMPREHENSION: TYPE: Both COMPREHENSION - STEP 1: Does the patient require help from a person or device, or need extra time to understand complex and a bstract ideas (such as current events, finances, discharge planning, medical issues, relationships, e tc)? Yes. COMPREHENSION - STEP 2: Does the patient require help to understand questions or statements about basic needs or ideas (such as hunger, thirst, sleep, safety, daily schedule, room location, or discomfort) half or more of the t davin? No. COMPREHENSION - STEP 3: How often does the patient need help to understand directions and conversation about basic needs? 25% - 49% of the time COMPREHENSION - SCORE: 3-MOD EXPRESSION EXPRESSION: TYPE: Both EXPRESSION - STEP 1: Does the patient require help from a person or device, or need extra time expressing complex and abst ract ideas (such as current events, finances, discharge planning, medical issues, relationships, etc) ? No. EXPRESSION - STEP 2: Does the patient need extra time, require an assistive device (such as augmentive communication syste m or a communication board), OR does s/he have mild difficulty expressing complex and abstract ideas (including mild dysarthria or mild word-find problems)? Yes. EXPRESSION - SCORE: 6-RANDY SOCIAL INTERACTION: SOCIAL INTERACTION - STEP 1: Does the patient require a helper to interact with others in social and therapeutic situations? No. SOCIAL INTERACTION - STEP 2: Does the patient need extra time in social situations, OR does s/he interact with staff, other patien ts, and family members ONLY in structured environments, OR does s/he require medication for social in teraction? Yes, patient needs extra time SOCIAL INTERACTION - SCORE: 6-RANDY PROBLEM SOLVING: PROBLEM SOLVING - STEP 1: Does the patient need help from a person or device, or need extra time to solve complex problems such as managing a checking account or confronting interpersonal problems? Yes. PROBLEM SOLVING - STEP 2: Does the patient solve basic routine problems half or more of the time? Yes. PROBLEM SOLVING - STEP 3: How often does the patient need help to solve basic routine problems? 10%-24% of the time PROBLEM SOLVING - SCORE: 4-MIN MEMORY: MEMORY - STEP 1: Does the patient need help from a person or device, or need extra time to remember frequently encount ered people, daily routines, and executing requests? No. MEMORY - STEP 2: Does the patient have slight difficulty recognizing frequently encountered people, daily routines, or executing requests without the need for repetition or using self-initiated or environmental cues to remember? Yes. MEMORY - SCORE: 6-RANDY
[2018-11-04] MEDS: ETANERCEPT 25 MG SQ SCH (08:00)
[2018-11-04] MEDS: ENOXAPARIN 40 MG/0.4 ML SQ SCH (08:00)
[2018-11-04] MEDS: CLOPIDOGREL 75 MG TABLET PO SCH (08:00)
[2018-11-04] MEDS: LIDOCAINE 5% PATCH TOP SCH (08:25)
[2018-11-04] MEDS: ATORVASTATIN 10 MG TAB PO SCH (08:25)
[2018-11-04] MEDS: FOLIC ACID 1 MG TABLET PO SCH (08:25)
[2018-11-04] MEDS: CALCIUM CARBONATE 500 MG TAB PO SCH ×2 (08:26→21:05)
[2018-11-04] MEDS: VITAMIN D 1000 UNIT TAB PO SCH (08:26)
[2018-11-04] MEDS: ONDANSETRON 4 MG (ODT) TAB PO PRN (08:26)
[2018-11-04] MEDS: TRAMADOL HCL 50 MG TAB PO PRN ×2 (08:28→21:08)
[2018-11-04] MEDS: PANTOPRAZOLE 40MG TABLET PO SCH (08:28)
[2018-11-04] MEDS: SMZ./TMP. 800/160 MG TABLET PO SCH ×2 (08:29→21:03)
[2018-11-04] MEDS: GABAPENTIN 100 MG CAP PO SCH ×2 (08:30→21:03)
--- NOTE | 2018-11-04 10:10 | P.RH.PN ---
Estimated Length of Stay: 23 Expected Discharge Date: 11/19/18 Discharge Disposition Plan: Home Family Support: Yes Group Home Goal: Mobility, Transfers, Self Care Vital Signs: Last Vital Signs Temp 96.2 F L 11/04/18 06:56 Pulse 85 11/04/18 06:56 Resp 18 11/04/18 06:56 BP 144/63 H 11/04/18 06:56 Pulse Ox 97 11/04/18 06:56 Laboratory: Laboratory Last Values WBC 7.3 K/uL (4.3-10.9) D 11/03/18 05:49 RBC 3.96 M/uL (3.86-4.86) 11/03/18 05:49 Hgb 11.9 g/dL (12.0-15.0) L 11/03/18 05:49 Hct 35.8 % (36.0-45.0) L 11/03/18 05:49 MCV 90.4 fL (80-100) 11/03/18 05:49 MCH 30.0 pg (27.0-35.0) 11/03/18 05:49 MCHC 33.1 g/dL (32.0-36.0) 11/03/18 05:49 RDW 14.9 % (12.1-15.2) 11/03/18 05:49 Plt Count 276 K/uL (152-406) 11/03/18 05:49 MPV 7.7 fL (7.6-11.3) 11/03/18 05:49 Neutrophils % 56.9 % (41.7-73.7) 11/03/18 05:49 Lymphocytes % 27.1 % (15.3-44.8) 11/03/18 05:49 Monocytes % 9.7 % (3.3-12.3) 11/03/18 05:49 Eosinophils % 5.7 % (0-4.4) H 11/03/18 05:49 Basophils % 0.6 % (0-1.3) 11/03/18 05:49 Absolute Neutrophils 4.1 K/uL (1.8-8.0) 11/03/18 05:49 Absolute Lymphocytes 2.0 K/uL (0.7-4.9) 11/03/18 05:49 Absolute Monocytes 0.7 K/uL (0.1-1.3) 11/03/18 05:49 Absolute Eosinophils 0.4 K/uL (0-0.5) 11/03/18 05:49 Absolute Basophils 0.0 K/uL (0-0.5) 11/03/18 05:49 Sodium 139 mmol/L (136-145) 11/03/18 05:49 Potassium 4.2 mmol/L (3.5-5.1) 11/03/18 05:49 Chloride 103 mmol/L (98-107) 11/03/18 05:49 Carbon Dioxide 30 mmol/L (21-32) 11/03/18 05:49 BUN 13 mg/dL (7-18) 11/03/18 05:49 Creatinine 0.70 mg/dL (0.55-1.3) 11/03/18 05:49 Estimated GFR 82 mL/min (=/>90) L 11/03/18 05:49 Glucose 93 mg/dL (74-106) 11/03/18 05:49 Calcium 8.5 mg/dL (8.5-10.1) 11/03/18 05:49 Magnesium 2.1 mg/dL (1.8-2.4) 11/03/18 05:49 Albumin 3.0 g/dL (3.4-5.0) L 11/03/18 05:49 Prealbumin 21.7 mg/dL (20-40) 11/03/18 05:49 Urine Color Yellow 10/28/18 19:20 Urine Appearance Turbid 10/28/18 19:20 Urine pH 5.5 (5.0-7.0) 10/28/18 19:20 Ur Specific [place] 1.010 (1.005-1.030) 10/28/18 19:20 Urine Ketones Negative (NEG) 10/28/18 19:20 Urine Blood 3+ (NEG) H 10/28/18 19:20 Urine Nitrite Positive (NEG) H 10/28/18 19:20 Urine Bilirubin Negative (NEG) 10/28/18 19:20 Urine Urobilinogen 0.2 mg/dL (0.2-1.0) 10/28/18 19:20 Ur Leukocyte Esterase 3+ (NEG) H 10/28/18 19:20 Urine RBC Tntc /HPF (NONE SEEN) H 10/28/18 19:20 Urine WBC Loaded /HPF (<5) H 10/28/18 19:20 Ur Squamous Epith Cells 5-10 /HPF (NONE SEEN) H 10/28/18 19:20 Urine Bacteria Loaded /HPF (<20) H 10/28/18 19:20 Urine Culture Reflexed Not needed 10/28/18 19:20 Urine Glucose Negative (NEG) 10/28/18 19:20 Urine Total Protein 2+ (NEG) H 10/28/18 19:20 Weight: 189 lb Wound Present: No Closed Surgical Incision Present: No Negative Pressure Wound Therapy Present: No Physician Update: Her labs are stable. She is doing well with physical and occupational therapy. She is still having difficulty with transfers. She is max to mod assistance with ADLs. She is limited by advanced arthritis. She is getting better in the parallel bars but has more difficulty using a walker. Medical Issues: UTI- Ciprofloxacin 500mg BID X 3 days. DVT Prophylaxis - Lovenox 40mg SQ Daily Pain Issues: Tramadol 50mg Q4H PRN PO. Gabapentin 100mg BID PO. Lidoderm patch 5% Daily Functional Improvement: pt is demonstrating slow progress. She has improved her static standing balance and neutral posturing. pt is greatly limited by her premorbid conditions of multiple joint surgeries and RA. These issues cause pain and additional weakness and ROM restrictions, which will serve to slow progress and functional recovery. pt will be able to recover and perform well; however, this process will likely be a bit slower due to pt's physical nature. pt remains motivated and works hard in therapy. Balance, stability, and trunk control remain a primary area of focus at this time. Functional Improvement Occupational Therapy: Cont to educate pt on one handed technique for UB/LB dressing tasks using A/E and for energy conservation techniques for safety. Cont to increase pt's static standing tolerance and endurance, cont to increase pt's UB strength/ROM on the right to increase pt's Right UE. Speech Therapy Update: Pt requires SUPV to MOD I for Auditory Comprehension ( for complex, novel information), MOD I to I for Verbal Expression and Social Interaction, SUPV to MOD I for Problem Solving, and SUPV for Memory. She requires repeated, simplified instruction and extra response time, as well as verbal reminders. 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 Please see the Rehabilitation Signature page for all necessary signatures.
--- NOTE | 2018-11-04 13:19 | FAST ---
ENCOUNTER DATE AND TIME: 11/04/2018 08:00 (CDT) NAME LEONORA HOFF DATE OF : 1940 DATE OF ADMISSION: 10/28/2018 15:22 (CDT) PHONE: AGE: 77 SSN# [id number] GENDER: Female ENCOUNTER PHYSICIAN: Dr. Harpreet Alan M.D. 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 EATING: Activity did not occur on this shift EATING - SCORE: 0-UNK GROOMING: Comb/brush hair Oral care Patient applied make-up Wash, rinse, and dry face Wash, rinse, and dry hands GROOMING - STEP 1: Does the patient require the assistance of a person or device, or need extra time when grooming? Yes. GROOMING - STEP 2: Does the patient require the assistance of a helper? Yes. GROOMING - STEP 3: How much assistance does the patient require from the helper? Incidental touching assistance from the helper while grooming GROOMING - SCORE: 4-MIN BATHING: Abdomen Buttocks Chest Left arm Left lower leg and foot Left upper leg Perineal area Right arm Right lower leg and foot Right upper leg BATHING - STEP 1: Does the patient require the assistance of a person or device, or need extra time when bathing? Yes. BATHING - STEP 2: Does the patient require the assistance of a helper? Yes. BATHING - STEP 3: How much assistance does the patient require from the helper? More than just incidental help BATHING - STEP 4: What percent of the body parts did the patient bathe WITHOUT the helper? Half or more of the body par ts BATHING - SCORE: 3-MOD DRESSING - UPPER BODY: Bra (three steps) T-shirt/pullover shirt (four steps) ARTICLES SCORE Total number of steps: 7 DRESSING - UPPER BODY - STEP 1: Does the patient require help from a person or device, or need extra time when dressing above the [address]? Yes. DRESSING - UPPER BODY - STEP 2: Does the patient require the assistance of a helper? Yes. DRESSING - UPPER BODY - STEP 3: Does the helper touch the patient while dressing? Yes. DRESSING - UPPER BODY - STEP 4: How many of the total steps does the patient complete on his/her own? 4 DRESSING - UPPER BODY - SCORE: 3-MOD DRESSING - LOWER BODY: Elastic waist pants (three steps) Sock - Left foot (one step) Sock - Right foot (one step) Underwear (three steps) ARTICLES SCORE Total number of steps: 8 DRESSING - LOWER BODY - STEP 1: Does the patient require help from a person or device, or need extra time when dressing below the [address]? Yes. DRESSING - LOWER BODY - STEP 2: Does the patient require the assistance of a helper? Yes. DRESSING - LOWER BODY - STEP 3: Does the helper touch the patient while dressing? Yes. DRESSING - LOWER BODY - STEP 4: How many of the total steps does the patient complete on his/her own? 2 DRESSING - LOWER BODY - STEP 5: Does patient require total assistance for dressing below the waist such as the helper holding clothin g and performing basically all the activities? No. DRESSING - LOWER BODY - SCORE: 2-MAX TOILETING: TOILETING - STEP 1: Does the patient require the assistance of a person or device, or need extra time with toileting? Yes . TOILETING - STEP 2: Does the patient require the assistance of a helper? Yes. TOILETING - STEP 3: How much assistance does the patient require from the helper? Hands-on assistance from the helper TOILETING - STEP 4: Of the 3 tasks: 1) Adjusting clothing prior to use, 2) Cleansing of perineal area, 3) Adjusting clot juan f after use; How many tasks does the patient perform WITHOUT assistance of the helper? One task TOILETING - SCORE: 2-MAX BLADDER MANAGEMENT: Activity did not occur on this shift BLADDER MANAGEMENT - SCORE: 7-IND BOWEL MANAGEMENT: Activity did not occur on this shift BOWEL MANAGEMENT - SCORE: 7-IND TRANSFERS: BED, CHAIR, WHEELCHAIR: Activity did not occur on this shift TRANSFERS: BED, CHAIR, WHEELCHAIR - SCORE: 0-UNK TRANSFERS: TOILET: TRANSFERS: TOILET - STEP 1: Does the patient require the assistance of a person or device, or need extra time with toilet transfe rs? Yes. TRANSFERS: TOILET - STEP 2: Does the patient require the assistance of a helper? Yes. TRANSFERS: TOILET - STEP 3: How much assistance does the patient require from the helper? Patient performs half or more of the tr ansferring tasks TRANSFERS: TOILET - STEP 4: Does the patient need only incidental help such as contact guard or steadying during toilet transfer? No. Patient needs more than incidental help TRANSFERS: TOILET - SCORE: 3-MOD TRANSFERS: SHOWER: TRANSFERS: SHOWER - STEP 1: Does the patient require the assistance of a person or device, or need extra time with shower transfe rs? Yes. TRANSFERS: SHOWER - STEP 2: Does the patient require the assistance of a helper? Yes. TRANSFERS: SHOWER - STEP 3: How much assistance does the patient require from the helper? More than incidental help TRANSFERS: SHOWER - STEP 4: How much more help does the patient require from the helper? Lifting the patient either up OR down fr om the wheelchair onto the shower chair TRANSFERS: SHOWER - SCORE: 3-MOD TRANSFERS: TUB: Activity did not occur on this shift TRANSFERS: TUB - SCORE: 0-UNK LOCOMOTION: WALK: Activity did not occur on this shift LOCOMOTION: WALK - SCORE: 0-UNK LOCOMOTION: WHEELCHAIR: Activity did not occur on this shift LOCOMOTION: WHEELCHAIR - SCORE: 0-UNK LOCOMOTION: STAIRS: Activity did not occur on this shift LOCOMOTION: STAIRS - SCORE: 0-UNK COMPREHENSION: COMPREHENSION: TYPE: Both COMPREHENSION - STEP 1: Does the patient require help from a person or device, or need extra time to understand complex and a bstract ideas (such as current events, finances, discharge planning, medical issues, relationships, e tc)? No. COMPREHENSION - STEP 2: Does the patient need extra time, require an assistive device (such as glasses for visual comprehensi on or a hearing aid for auditory comprehension) or does s/he have mild difficulty understanding compl ex and abstract information? Yes. COMPREHENSION - SCORE: 6-RANDY EXPRESSION EXPRESSION: TYPE: Both EXPRESSION - STEP 1: Does the patient require help from a person or device, or need extra time expressing complex and abst ract ideas (such as current events, finances, discharge planning, medical issues, relationships, etc) ? No. EXPRESSION - STEP 2: Does the patient need extra time, require an assistive device (such as augmentive communication syste m or a communication board), OR does s/he have mild difficulty expressing complex and abstract ideas (including mild dysarthria or mild word-find problems)? Yes. EXPRESSION - SCORE: 6-RANDY SOCIAL INTERACTION: SOCIAL INTERACTION - STEP 1: Does the patient require a helper to interact with others in social and therapeutic situations? No. SOCIAL INTERACTION - STEP 2: Does the patient need extra time in social situations, OR does s/he interact with staff, other patien ts, and family members ONLY in structured environments, OR does s/he require medication for social in teraction? No. SOCIAL INTERACTION - SCORE: 7-IND PROBLEM SOLVING: PROBLEM SOLVING - STEP 1: Does the patient need help from a person or device, or need extra time to solve complex problems such as managing a checking account or confronting interpersonal problems? Yes. PROBLEM SOLVING - STEP 2: Does the patient solve basic routine problems half or more of the time? Yes. PROBLEM SOLVING - STEP 3: How often does the patient need help to solve basic routine problems? Less than 10% of the time PROBLEM SOLVING - SCORE: 5-SUP MEMORY: MEMORY - STEP 1: Does the patient need help from a person or device, or need extra time to remember frequently encount ered people, daily routines, and executing requests? Yes. MEMORY - STEP 2: How often does the patient need help to remember frequently encountered people, daily routines, and e xecuting requests? Less than 10% of the time MEMORY - SCORE: 5-SUP SIGNATURE PANEL: The following modified sections: Eating - Score, Grooming - Score, Bathing - Score, Dressing - Upper Body - Score, Dressing - Lower Body - Score, Toileting - Score, Transfers: Bed, Chair, Wheelchair - S core, Transfers: Toilet - Score, Transfers: Shower - Score, Transfers: Tub - Score, Comprehension - S core, Expression - Score, Social Interaction - Score, Problem Solving - Score, Memory - Score were [e lectronically] signed by Jennifer Felipe OT on WedNov 04 2018 13:18:39 T-0500 ([facility] Time)
--- NOTE | 2018-11-04 14:34 | FAST ---
ENCOUNTER DATE AND TIME: 11/04/2018 08:00 (CDT) NAME LEONORA HOFF DATE OF : 1940 DATE OF ADMISSION: 10/28/2018 15:22 (CDT) PHONE: AGE: 77 SSN# [id number] GENDER: Female ENCOUNTER PHYSICIAN: Dr. Harpreet Alan M.D. 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 EATING: Activity did not occur on this shift EATING - SCORE: 0-UNK GROOMING: Activity did not occur on this shift GROOMING - SCORE: 0-UNK BATHING: Activity did not occur on this shift BATHING - SCORE: 0-UNK DRESSING - UPPER BODY: Activity did not occur on this shift Patient is not dressing in public clothing ARTICLES SCORE Total number of steps: 0 DRESSING - UPPER BODY - SCORE: 0-UNK DRESSING - LOWER BODY: Activity did not occur on this shift Patient is not dressing in public clothing ARTICLES SCORE Total number of steps: 0 DRESSING - LOWER BODY - SCORE: 0-UNK TOILETING: Activity did not occur on this shift TOILETING - SCORE: 0-UNK BLADDER MANAGEMENT: Activity did not occur on this shift BLADDER MANAGEMENT - SCORE: 7-IND BOWEL MANAGEMENT: Activity did not occur on this shift BOWEL MANAGEMENT - SCORE: 7-IND TRANSFERS: BED, CHAIR, WHEELCHAIR: TRANSFERS: BED, CHAIR, WHEELCHAIR - STEP 1: Does the patient require assistance of a person or device, or need extra time with bed, chair, or whe elchair transfers? Yes. TRANSFERS: BED, CHAIR, WHEELCHAIR - STEP 2: Does the patient require the assistance of a helper? Yes. TRANSFERS: BED, CHAIR, WHEELCHAIR - STEP 3: How much assistance does the patient require from the helper? Lifting of the patient TRANSFERS: BED, CHAIR, WHEELCHAIR - STEP 4: Does the helper lift the patient ONLY up? ONLY down? Up AND Down? Up AND Down. TRANSFERS: BED, CHAIR, WHEELCHAIR - SCORE: 2-MAX TRANSFERS: TOILET: Activity did not occur on this shift TRANSFERS: TOILET - SCORE: 0-UNK TRANSFERS: SHOWER: Activity did not occur on this shift TRANSFERS: SHOWER - SCORE: 0-UNK TRANSFERS: TUB: Activity did not occur on this shift TRANSFERS: TUB - SCORE: 0-UNK LOCOMOTION: WALK: Activity did not occur on this shift LOCOMOTION: WALK - SCORE: 0-UNK LOCOMOTION: WHEELCHAIR: LOCOMOTION: WHEELCHAIR - STEP 1: Does the patient need help to go 150 feet in a wheelchair? Yes. LOCOMOTION: WHEELCHAIR - STEP 2: How much assistance does the patient need from the helper? More than incidental help LOCOMOTION: WHEELCHAIR - SCORE: 3-MOD LOCOMOTION: STAIRS: Activity did not occur on this shift LOCOMOTION: STAIRS - SCORE: 0-UNK COMPREHENSION: COMPREHENSION - SCORE: 0-UNK EXPRESSION EXPRESSION - SCORE: 0-UNK SOCIAL INTERACTION: SOCIAL INTERACTION - SCORE: 0-UNK PROBLEM SOLVING: PROBLEM SOLVING - SCORE: 0-UNK MEMORY: MEMORY - SCORE: 0-UNK SIGNATURE PANEL: The following modified sections: Transfers: Bed, Chair, Wheelchair - Score, Transfers: Toilet - Score , Locomotion: Walk - Score, Locomotion: Wheelchair - Score, Locomotion: Stairs - Score were [electron felicita] signed by Jennifer Hendrickson PTA on WedNov 04 2018 14:33:41 GMT-0500 (Central Daylight Time)
--- NOTE | 2018-11-04 19:27 | PN ---
Date of Progress Note: 11/04/2018 Patient has showed some progress in the use of her upper extremity. However, she is still quite depr essed about the scenario, and after the meeting today, it was felt that she would take 2-3 weeks of t reatment and then make the disposition call. Her vital signs are stable. HR/MODL Voice ID: [id number] Report ID: [id number]
[2018-11-04] MEDS: CRANBERRY FRUIT EXTRACT 200 MG CAP PO SCH (21:02)
[2018-11-04] MEDS: IRBESARTAN 150 MG TAB PO SCH (21:03)
--- NOTE | 2018-11-05 02:17 | FAST ---
SHIFT START DATE/TIME: 11/04/2018 19:00 (CDT) SHIFT END DATE/TIME: 11/05/2018 07:00 (CDT) NAME LEONORA HOFF DATE OF : 1940 DATE OF ADMISSION: 10/28/2018 15:22 (CDT) PHONE: AGE: 77 N# [id number] GENDER: Female ENCOUNTER PHYSICIAN: Dr. Harpreet Alan M.D. 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 EATING: Activity did not occur on this shift EATING - SCORE: 0-UNK GROOMING: Oral care Wash, rinse, and dry face Wash, rinse, and dry hands GROOMING - STEP 1: Does the patient require the assistance of a person or device, or need extra time when grooming? Yes. GROOMING - STEP 2: Does the patient require the assistance of a helper? Yes. GROOMING - STEP 3: How much assistance does the patient require from the helper? Only prior equipment preparation/set up from the helper GROOMING - SCORE: 5-SUP BATHING: Activity did not occur on this shift BATHING - SCORE: 0-UNK DRESSING - UPPER BODY: Patient is not dressing in public clothing ARTICLES SCORE Total number of steps: 0 DRESSING - UPPER BODY - SCORE: 0-UNK DRESSING - LOWER BODY: Patient is not dressing in public clothing ARTICLES SCORE Total number of steps: 0 DRESSING - LOWER BODY - SCORE: 0-UNK TOILETING: TOILETING - STEP 1: Does the patient require the assistance of a person or device, or need extra time with toileting? Yes . TOILETING - STEP 2: Does the patient require the assistance of a helper? Yes. TOILETING - STEP 3: How much assistance does the patient require from the helper? Hands-on assistance from the helper TOILETING - STEP 4: Of the 3 tasks: 1) Adjusting clothing prior to use, 2) Cleansing of perineal area, 3) Adjusting clot juan f after use; How many tasks does the patient perform WITHOUT assistance of the helper? No tasks; h elper performs all three tasks TOILETING - SCORE: 1-DEP BLADDER MANAGEMENT: BLADDER MANAGEMENT - STEP 1: Does the patient control the bladder completely and intentionally without equipment or devices or med ications, and is always continent? No. BLADDER MANAGEMENT - STEP 2: Does the patient require the assistance of a helper? Yes. BLADDER MANAGEMENT - STEP 3: How much assistance does the patient require from the helper? Patient requires contact assistance fro m the helper BLADDER MANAGEMENT - STEP 4: How much contact assistance does the patient require from the helper? Patient requires minimal assist ance to maintain an external device - by positioning, and the patient performs 75% or more of bladder management tasks, while the helper provides less than 25% of the assistance to position patient on / off bedpan BLADDER MANAGEMENT - SCORE: 4-MIN BOWEL MANAGEMENT: Activity did not occur on this shift BOWEL MANAGEMENT - SCORE: 7-IND TRANSFERS: BED, CHAIR, WHEELCHAIR: Patient requires more than one helper and/or the use of a mechanical lift is utilized TRANSFERS: BED, CHAIR, WHEELCHAIR - SCORE: 1-DEP TRANSFERS: TOILET: Patient requires more than one helper and/or the use of a mechanical lift is utilized TRANSFERS: TOILET - SCORE: 1-DEP TRANSFERS: SHOWER: Activity did not occur on this shift TRANSFERS: SHOWER - SCORE: 0-UNK TRANSFERS: TUB: Activity did not occur on this shift TRANSFERS: TUB - SCORE: 0-UNK LOCOMOTION: WALK: Activity did not occur on this shift LOCOMOTION: WALK - SCORE: 0-UNK LOCOMOTION: WHEELCHAIR: Activity did not occur on this shift LOCOMOTION: WHEELCHAIR - SCORE: 0-UNK COMPREHENSION: COMPREHENSION: TYPE: Both COMPREHENSION - STEP 1: Does the patient require help from a person or device, or need extra time to understand complex and a bstract ideas (such as current events, finances, discharge planning, medical issues, relationships, e tc)? No. COMPREHENSION - STEP 2: Does the patient need extra time, require an assistive device (such as glasses for visual comprehensi on or a hearing aid for auditory comprehension) or does s/he have mild difficulty understanding compl ex and abstract information? Yes. COMPREHENSION - SCORE: 6-RANDY EXPRESSION EXPRESSION: TYPE: Both EXPRESSION - STEP 1: Does the patient require help from a person or device, or need extra time expressing complex and abst ract ideas (such as current events, finances, discharge planning, medical issues, relationships, etc) ? No. EXPRESSION - STEP 2: Does the patient need extra time, require an assistive device (such as augmentive communication syste m or a communication board), OR does s/he have mild difficulty expressing complex and abstract ideas (including mild dysarthria or mild word-find problems)? Yes. EXPRESSION - SCORE: 6-RANDY SOCIAL INTERACTION: SOCIAL INTERACTION - STEP 1: Does the patient require a helper to interact with others in social and therapeutic situations? No. SOCIAL INTERACTION - STEP 2: Does the patient need extra time in social situations, OR does s/he interact with staff, other patien ts, and family members ONLY in structured environments, OR does s/he require medication for social in teraction? Yes, patient needs extra time SOCIAL INTERACTION - SCORE: 6-RANDY PROBLEM SOLVING: PROBLEM SOLVING - STEP 1: Does the patient need help from a person or device, or need extra time to solve complex problems such as managing a checking account or confronting interpersonal problems? Yes. PROBLEM SOLVING - STEP 2: Does the patient solve basic routine problems half or more of the time? Yes. PROBLEM SOLVING - STEP 3: How often does the patient need help to solve basic routine problems? 10%-24% of the time PROBLEM SOLVING - SCORE: 4-MIN MEMORY: MEMORY - STEP 1: Does the patient need help from a person or device, or need extra time to remember frequently encount ered people, daily routines, and executing requests? No. MEMORY - STEP 2: Does the patient have slight difficulty recognizing frequently encountered people, daily routines, or executing requests without the need for repetition or using self-initiated or environmental cues to remember? Yes. MEMORY - SCORE: 6-RANDY
[2018-11-05] MEDS: LIDOCAINE 5% PATCH TOP SCH (06:52)
[2018-11-05] MEDS: ENOXAPARIN 40 MG/0.4 ML SQ SCH (06:52)
[2018-11-05] MEDS: TRAMADOL HCL 50 MG TAB PO PRN (06:52)
[2018-11-05] MEDS: PANTOPRAZOLE 40MG TABLET PO SCH (06:52)
[2018-11-05] MEDS: GABAPENTIN 100 MG CAP PO SCH ×2 (08:57→20:52)
[2018-11-05] MEDS: CRANBERRY FRUIT EXTRACT 200 MG CAP PO SCH ×2 (08:57→20:50)
[2018-11-05] MEDS: CALCIUM CARBONATE 500 MG TAB PO SCH ×2 (08:57→20:51)
[2018-11-05] MEDS: ATORVASTATIN 10 MG TAB PO SCH (08:58)
[2018-11-05] MEDS: SMZ./TMP. 800/160 MG TABLET PO SCH ×2 (08:58→20:51)
[2018-11-05] MEDS: FOLIC ACID 1 MG TABLET PO SCH (08:58)
[2018-11-05] MEDS: VITAMIN D 1000 UNIT TAB PO SCH (08:58)
[2018-11-05] MEDS: CLOPIDOGREL 75 MG TABLET PO SCH (08:58)
[2018-11-05] MEDS: DULOXETINE 20 MG CAP PO SCH (08:58)
[2018-11-05] MEDS: ONDANSETRON 4 MG (ODT) TAB PO PRN ×3 (12:12→19:51)
[2018-11-05] MEDS: predniSONE 5 MG TAB PO SCH (15:53)
[2018-11-05] MEDS: IRBESARTAN 150 MG TAB PO SCH (20:51)
[2018-11-05] MEDS: DOCUSATE NA/SENNA CONC 1 TAB PO SCH (20:58)
--- NOTE | 2018-11-06 00:53 | FAST ---
SHIFT START DATE/TIME: 11/05/2018 19:00 (CDT) SHIFT END DATE/TIME: 11/06/2018 07:00 (CDT) NAME LEONORA HOFF DATE OF : 1940 DATE OF ADMISSION: 10/28/2018 15:22 (CDT) PHONE: AGE: 77 N# [id number] GENDER: Female ENCOUNTER PHYSICIAN: Dr. Harpreet Alan M.D. 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 EATING: Activity did not occur on this shift EATING - SCORE: 0-UNK GROOMING: Activity did not occur on this shift GROOMING - SCORE: 0-UNK BATHING: Activity did not occur on this shift BATHING - SCORE: 0-UNK DRESSING - UPPER BODY: Patient is not dressing in public clothing ARTICLES SCORE Total number of steps: 0 DRESSING - UPPER BODY - SCORE: 0-UNK DRESSING - LOWER BODY: Patient is not dressing in public clothing ARTICLES SCORE Total number of steps: 0 DRESSING - LOWER BODY - SCORE: 0-UNK TOILETING: TOILETING - STEP 1: Does the patient require the assistance of a person or device, or need extra time with toileting? Yes . TOILETING - STEP 2: Does the patient require the assistance of a helper? Yes. TOILETING - STEP 3: How much assistance does the patient require from the helper? Hands-on assistance from the helper TOILETING - STEP 4: Of the 3 tasks: 1) Adjusting clothing prior to use, 2) Cleansing of perineal area, 3) Adjusting clot juan f after use; How many tasks does the patient perform WITHOUT assistance of the helper? No tasks; h abhilash performs all three tasks TOILETING - SCORE: 1-DEP BLADDER MANAGEMENT: BLADDER MANAGEMENT - STEP 1: Does the patient control the bladder completely and intentionally without equipment or devices or med ications, and is always continent? No. BLADDER MANAGEMENT - STEP 2: Does the patient require the assistance of a helper? Yes. BLADDER MANAGEMENT - STEP 3: How much assistance does the patient require from the helper? Patient requires contact assistance fro m the helper BLADDER MANAGEMENT - STEP 4: How much contact assistance does the patient require from the helper? Patient requires minimal assist ance to maintain an external device - by positioning, and the patient performs 75% or more of bladder management tasks, while the helper provides less than 25% of the assistance to position patient on / off bedpan BLADDER MANAGEMENT - SCORE: 4-MIN BOWEL MANAGEMENT: BOWEL MANAGEMENT - STEP 1: Does the patient control bowels completely and intentionally without equipment devices or medications AND is always continent? No. BOWEL MANAGEMENT - STEP 2: Does the patient require the assistance of a helper? No, patient requires medication for control such as stool softeners, suppositories, laxatives, enemas, or OTC medications BOWEL MANAGEMENT - SCORE: 6-RANDY TRANSFERS: BED, CHAIR, WHEELCHAIR: Patient requires more than one helper and/or the use of a mechanical lift is utilized TRANSFERS: BED, CHAIR, WHEELCHAIR - SCORE: 1-DEP TRANSFERS: TOILET: Patient requires more than one helper and/or the use of a mechanical lift is utilized TRANSFERS: TOILET - SCORE: 1-DEP TRANSFERS: SHOWER: Activity did not occur on this shift TRANSFERS: SHOWER - SCORE: 0-UNK TRANSFERS: TUB: Activity did not occur on this shift TRANSFERS: TUB - SCORE: 0-UNK LOCOMOTION: WALK: Activity did not occur on this shift LOCOMOTION: WALK - SCORE: 0-UNK LOCOMOTION: WHEELCHAIR: Activity did not occur on this shift LOCOMOTION: WHEELCHAIR - SCORE: 0-UNK COMPREHENSION: COMPREHENSION: TYPE: Both COMPREHENSION - STEP 1: Does the patient require help from a person or device, or need extra time to understand complex and a bstract ideas (such as current events, finances, discharge planning, medical issues, relationships, e tc)? Yes. COMPREHENSION - STEP 2: Does the patient require help to understand questions or statements about basic needs or ideas (such as hunger, thirst, sleep, safety, daily schedule, room location, or discomfort) half or more of the t davin? No. COMPREHENSION - STEP 3: How often does the patient need help to understand directions and conversation about basic needs? 10% - 24% of the time COMPREHENSION - SCORE: 4-MIN EXPRESSION EXPRESSION: TYPE: Both EXPRESSION - STEP 1: Does the patient require help from a person or device, or need extra time expressing complex and abst ract ideas (such as current events, finances, discharge planning, medical issues, relationships, etc) ? No. EXPRESSION - STEP 2: Does the patient need extra time, require an assistive device (such as augmentive communication syste m or a communication board), OR does s/he have mild difficulty expressing complex and abstract ideas (including mild dysarthria or mild word-find problems)? No. EXPRESSION - SCORE: 7-IND SOCIAL INTERACTION: SOCIAL INTERACTION - STEP 1: Does the patient require a helper to interact with others in social and therapeutic situations? No. SOCIAL INTERACTION - STEP 2: Does the patient need extra time in social situations, OR does s/he interact with staff, other patien ts, and family members ONLY in structured environments, OR does s/he require medication for social in teraction? Yes, patient requires medication for social interaction SOCIAL INTERACTION - SCORE: 6-RANDY PROBLEM SOLVING: PROBLEM SOLVING - STEP 1: Does the patient need help from a person or device, or need extra time to solve complex problems such as managing a checking account or confronting interpersonal problems? Yes. PROBLEM SOLVING - STEP 2: Does the patient solve basic routine problems half or more of the time? Yes. PROBLEM SOLVING - STEP 3: How often does the patient need help to solve basic routine problems? 25%-49% of the time PROBLEM SOLVING - SCORE: 3-MOD MEMORY: MEMORY - STEP 1: Does the patient need help from a person or device, or need extra time to remember frequently encount ered people, daily routines, and executing requests? No. MEMORY - STEP 2: Does the patient have slight difficulty recognizing frequently encountered people, daily routines, or executing requests without the need for repetition or using self-initiated or environmental cues to remember? Yes. MEMORY - SCORE: 6-RANDY SIGNATURE PANEL: The following modified sections: Eating - Score, Grooming - Score, Dressing - Upper Body - Score, Vitaliy ssing - Lower Body - Score, Toileting - Score, Bladder Management - Score, Bowel Management - Score, Transfers: Bed, Chair, Wheelchair - Score, Transfers: Toilet - Score, Transfers: Shower - Score, Levine sfers: Tub - Score, Locomotion: Walk - Score, Locomotion: Wheelchair - Score, Comprehension - Score, Expression - Score, Social Interaction - Score, Problem Solving - Score, Memory - Score were [electro nically] signed by Jayda Tejeda CNA on WedNov 06 2018 00:52:38 GMT-0500 (Central Daylight Time)
[2018-11-06] MEDS: ONDANSETRON 4 MG (ODT) TAB PO PRN ×4 (03:19→15:37)
[2018-11-06] MEDS: PANTOPRAZOLE 40MG TABLET PO SCH (06:49)
[2018-11-06] MEDS: ENOXAPARIN 40 MG/0.4 ML SQ SCH (06:50)
[2018-11-06] MEDS: LIDOCAINE 5% PATCH TOP SCH ×2 (06:50→07:01)
[2018-11-06] MEDS: CRANBERRY FRUIT EXTRACT 200 MG CAP PO SCH ×2 (08:44→20:28)
[2018-11-06] MEDS: DULOXETINE 20 MG CAP PO SCH (08:45)
[2018-11-06] MEDS: CALCIUM CARBONATE 500 MG TAB PO SCH ×2 (08:45→20:28)
[2018-11-06] MEDS: FOLIC ACID 1 MG TABLET PO SCH (08:45)
[2018-11-06] MEDS: VITAMIN D 1000 UNIT TAB PO SCH (08:45)
[2018-11-06] MEDS: SMZ./TMP. 800/160 MG TABLET PO SCH ×2 (08:45→20:28)
[2018-11-06] MEDS: ATORVASTATIN 10 MG TAB PO SCH (08:46)
[2018-11-06] MEDS: CLOPIDOGREL 75 MG TABLET PO SCH (08:46)
[2018-11-06] MEDS: GABAPENTIN 100 MG CAP PO SCH ×2 (08:46→20:28)
[2018-11-06 09:33] LABS: Absolute Lymphocytes (CBC) 1.2 K/uL (0.7-4.9); Basophils % 0.9 % (0-1.3); Hematocrit 35.5 % (36.0-45.0); Lymphocytes % 16.7 % (15.3-44.8); MPV 8.4 fL (7.6-11.3); RBC Red Blood Cell Count 3.95 M/uL (3.86-4.86)
[2018-11-06 09:46] LABS: Potassium 4.4 mmol/L (3.5-5.1)
[2018-11-06 11:32] LABS: Urine Appearance CLOUDY; Urine Bilirubin NEGATIVE (NEG); Urine Blood NEGATIVE (NEG); Urine Color YELLOW; Urine Glucose NEGATIVE (NEG); Urine Protein NEGATIVE (NEG); Urine pH 7.5 (5.0-7.0)
[2018-11-06 12:39] LABS: Urine Amorphous Sediment 1+ /HPF (NONE SEEN); Urine Bacteria >50 /HPF (<20); Urine Culture Reflex Order NOT NEEDED; Urine RBC <5 /HPF (NONE SEEN)
[2018-11-06] MEDS: DOCUSATE NA/SENNA CONC 1 TAB PO SCH (20:29)
[2018-11-06] MEDS: IRBESARTAN 150 MG TAB PO SCH (20:37)
--- NOTE | 2018-11-07 01:26 | FAST ---
SHIFT START DATE/TIME: 11/06/2018 19:00 (CDT) SHIFT END DATE/TIME: 11/07/2018 07:00 (CDT) NAME LEONORA HOFF DATE OF : 1940 DATE OF ADMISSION: 10/28/2018 15:22 (CDT) PHONE: AGE: 77 N# [id number] GENDER: Female ENCOUNTER PHYSICIAN: Dr. Harpreet Alan M.D. 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 EATING: Activity did not occur on this shift EATING - SCORE: 0-UNK GROOMING: Activity did not occur on this shift GROOMING - SCORE: 0-UNK BATHING: Activity did not occur on this shift BATHING - SCORE: 0-UNK DRESSING - UPPER BODY: Patient is not dressing in public clothing ARTICLES SCORE Total number of steps: 0 DRESSING - UPPER BODY - SCORE: 0-UNK DRESSING - LOWER BODY: Patient is not dressing in public clothing ARTICLES SCORE Total number of steps: 0 DRESSING - LOWER BODY - SCORE: 0-UNK TOILETING: TOILETING - STEP 1: Does the patient require the assistance of a person or device, or need extra time with toileting? Yes . TOILETING - STEP 2: Does the patient require the assistance of a helper? Yes. TOILETING - STEP 3: How much assistance does the patient require from the helper? Hands-on assistance from the helper TOILETING - STEP 4: Of the 3 tasks: 1) Adjusting clothing prior to use, 2) Cleansing of perineal area, 3) Adjusting clot juan f after use; How many tasks does the patient perform WITHOUT assistance of the helper? No tasks; h abhilash performs all three tasks TOILETING - SCORE: 1-DEP BLADDER MANAGEMENT: BLADDER MANAGEMENT - STEP 1: Does the patient control the bladder completely and intentionally without equipment or devices or med ications, and is always continent? No. BLADDER MANAGEMENT - STEP 2: Does the patient require the assistance of a helper? Yes. BLADDER MANAGEMENT - STEP 3: How much assistance does the patient require from the helper? Patient requires contact assistance fro m the helper BLADDER MANAGEMENT - STEP 4: How much contact assistance does the patient require from the helper? Patient requires minimal assist ance to maintain an external device - by positioning, and the patient performs 75% or more of bladder management tasks, while the helper provides less than 25% of the assistance to position patient on / off bedpan BLADDER MANAGEMENT - SCORE: 4-MIN BOWEL MANAGEMENT: BOWEL MANAGEMENT - STEP 1: Does the patient control bowels completely and intentionally without equipment devices or medications AND is always continent? No. BOWEL MANAGEMENT - STEP 2: Does the patient require the assistance of a helper? No, patient requires medication for control such as stool softeners, suppositories, laxatives, enemas, or OTC medications BOWEL MANAGEMENT - SCORE: 6-RANDY TRANSFERS: BED, CHAIR, WHEELCHAIR: Patient requires more than one helper and/or the use of a mechanical lift is utilized TRANSFERS: BED, CHAIR, WHEELCHAIR - SCORE: 1-DEP TRANSFERS: TOILET: Patient requires more than one helper and/or the use of a mechanical lift is utilized TRANSFERS: TOILET - SCORE: 1-DEP TRANSFERS: SHOWER: Activity did not occur on this shift TRANSFERS: SHOWER - SCORE: 0-UNK TRANSFERS: TUB: Activity did not occur on this shift TRANSFERS: TUB - SCORE: 0-UNK LOCOMOTION: WALK: Activity did not occur on this shift LOCOMOTION: WALK - SCORE: 0-UNK LOCOMOTION: WHEELCHAIR: Activity did not occur on this shift LOCOMOTION: WHEELCHAIR - SCORE: 0-UNK COMPREHENSION: COMPREHENSION: TYPE: Both COMPREHENSION - STEP 1: Does the patient require help from a person or device, or need extra time to understand complex and a bstract ideas (such as current events, finances, discharge planning, medical issues, relationships, e tc)? Yes. COMPREHENSION - STEP 2: Does the patient require help to understand questions or statements about basic needs or ideas (such as hunger, thirst, sleep, safety, daily schedule, room location, or discomfort) half or more of the t davin? No. COMPREHENSION - STEP 3: How often does the patient need help to understand directions and conversation about basic needs? 10% - 24% of the time COMPREHENSION - SCORE: 4-MIN EXPRESSION EXPRESSION: TYPE: Both EXPRESSION - STEP 1: Does the patient require help from a person or device, or need extra time expressing complex and abst ract ideas (such as current events, finances, discharge planning, medical issues, relationships, etc) ? No. EXPRESSION - STEP 2: Does the patient need extra time, require an assistive device (such as augmentive communication syste m or a communication board), OR does s/he have mild difficulty expressing complex and abstract ideas (including mild dysarthria or mild word-find problems)? No. EXPRESSION - SCORE: 7-IND SOCIAL INTERACTION: SOCIAL INTERACTION - STEP 1: Does the patient require a helper to interact with others in social and therapeutic situations? No. SOCIAL INTERACTION - STEP 2: Does the patient need extra time in social situations, OR does s/he interact with staff, other patien ts, and family members ONLY in structured environments, OR does s/he require medication for social in teraction? Yes, patient needs extra time SOCIAL INTERACTION - SCORE: 6-RANDY PROBLEM SOLVING: PROBLEM SOLVING - STEP 1: Does the patient need help from a person or device, or need extra time to solve complex problems such as managing a checking account or confronting interpersonal problems? Yes. PROBLEM SOLVING - STEP 2: Does the patient solve basic routine problems half or more of the time? Yes. PROBLEM SOLVING - STEP 3: How often does the patient need help to solve basic routine problems? 10%-24% of the time PROBLEM SOLVING - SCORE: 4-MIN MEMORY: MEMORY - STEP 1: Does the patient need help from a person or device, or need extra time to remember frequently encount ered people, daily routines, and executing requests? No. MEMORY - STEP 2: Does the patient have slight difficulty recognizing frequently encountered people, daily routines, or executing requests without the need for repetition or using self-initiated or environmental cues to remember? Yes. MEMORY - SCORE: 6-RANDY SIGNATURE PANEL: The following modified sections: Eating - Score, Grooming - Score, Dressing - Upper Body - Score, Vitaliy ssing - Lower Body - Score, Toileting - Score, Bladder Management - Score, Bowel Management - Score, Transfers: Bed, Chair, Wheelchair - Score, Transfers: Toilet - Score, Transfers: Shower - Score, Levine sfers: Tub - Score, Locomotion: Walk - Score, Locomotion: Wheelchair - Score, Comprehension - Score, Expression - Score, Social Interaction - Score, Problem Solving - Score, Memory - Score were [electro nically] signed by Jayda Tejeda CNA on WedNov 07 2018 01:24:38 T-0500 (Central Daylight Time)
[2018-11-07] MEDS: TRAMADOL HCL 50 MG TAB PO PRN ×3 (01:53→21:39)
[2018-11-07] MEDS: PANTOPRAZOLE 40MG TABLET PO SCH (06:49)
[2018-11-07] MEDS: ENOXAPARIN 40 MG/0.4 ML SQ SCH (06:52)
[2018-11-07] MEDS: LIDOCAINE 5% PATCH TOP SCH (08:00)
[2018-11-07] MEDS: ONDANSETRON 4 MG (ODT) TAB PO PRN ×2 (08:02→13:44)
[2018-11-07] MEDS: GABAPENTIN 100 MG CAP PO SCH ×2 (08:34→20:35)
[2018-11-07] MEDS: CLOPIDOGREL 75 MG TABLET PO SCH (08:34)
[2018-11-07] MEDS: FOLIC ACID 1 MG TABLET PO SCH (08:34)
[2018-11-07] MEDS: CRANBERRY FRUIT EXTRACT 200 MG CAP PO SCH ×2 (08:34→20:35)
[2018-11-07] MEDS: SMZ./TMP. 800/160 MG TABLET PO SCH ×2 (08:34→20:36)
[2018-11-07] MEDS: VITAMIN D 1000 UNIT TAB PO SCH (08:35)
[2018-11-07] MEDS: ATORVASTATIN 10 MG TAB PO SCH (08:35)
[2018-11-07] MEDS: DULOXETINE 20 MG CAP PO SCH (08:35)
[2018-11-07] MEDS: CALCIUM CARBONATE 500 MG TAB PO SCH ×2 (08:35→20:35)
--- NOTE | 2018-11-07 12:35 | FAST ---
ENCOUNTER DATE AND TIME: 11/07/2018 08:00 (CDT) NAME LEONORA HOFF DATE OF : 1940 DATE OF ADMISSION: 10/28/2018 15:22 (CDT) PHONE: AGE: 77 SSN# [id number] GENDER: Female ENCOUNTER PHYSICIAN: Dr. Harpreet Alan M.D. 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 EATING: Activity did not occur on this shift EATING - SCORE: 0-UNK GROOMING: Activity did not occur on this shift GROOMING - SCORE: 0-UNK BATHING: Activity did not occur on this shift BATHING - SCORE: 0-UNK DRESSING - UPPER BODY: Activity did not occur on this shift Patient is not dressing in public clothing ARTICLES SCORE Total number of steps: 0 DRESSING - UPPER BODY - SCORE: 0-UNK DRESSING - LOWER BODY: Activity did not occur on this shift Patient is not dressing in public clothing ARTICLES SCORE Total number of steps: 0 DRESSING - LOWER BODY - SCORE: 0-UNK TOILETING: Activity did not occur on this shift TOILETING - SCORE: 0-UNK BLADDER MANAGEMENT: Activity did not occur on this shift BLADDER MANAGEMENT - SCORE: 7-IND BOWEL MANAGEMENT: Activity did not occur on this shift BOWEL MANAGEMENT - SCORE: 7-IND TRANSFERS: BED, CHAIR, WHEELCHAIR: TRANSFERS: BED, CHAIR, WHEELCHAIR - STEP 1: Does the patient require assistance of a person or device, or need extra time with bed, chair, or whe elchair transfers? Yes. TRANSFERS: BED, CHAIR, WHEELCHAIR - STEP 2: Does the patient require the assistance of a helper? Yes. TRANSFERS: BED, CHAIR, WHEELCHAIR - STEP 3: How much assistance does the patient require from the helper? Lifting of the patient TRANSFERS: BED, CHAIR, WHEELCHAIR - STEP 4: Does the helper lift the patient ONLY up? ONLY down? Up AND Down? Up AND Down. TRANSFERS: BED, CHAIR, WHEELCHAIR - SCORE: 2-MAX TRANSFERS: TOILET: Activity did not occur on this shift TRANSFERS: TOILET - SCORE: 0-UNK TRANSFERS: SHOWER: Activity did not occur on this shift TRANSFERS: SHOWER - SCORE: 0-UNK TRANSFERS: TUB: Activity did not occur on this shift TRANSFERS: TUB - SCORE: 0-UNK LOCOMOTION: WALK: Patient walks less than 50 feet LOCOMOTION: WALK - SCORE: 1-DEP LOCOMOTION: WHEELCHAIR: LOCOMOTION: WHEELCHAIR - STEP 1: Does the patient need help to go 150 feet in a wheelchair? Yes. LOCOMOTION: WHEELCHAIR - STEP 2: How much assistance does the patient need from the helper? More than incidental help LOCOMOTION: WHEELCHAIR - SCORE: 3-MOD LOCOMOTION: STAIRS: Activity did not occur on this shift LOCOMOTION: STAIRS - SCORE: 0-UNK COMPREHENSION: COMPREHENSION - SCORE: 0-UNK EXPRESSION EXPRESSION - SCORE: 0-UNK SOCIAL INTERACTION: SOCIAL INTERACTION - SCORE: 0-UNK PROBLEM SOLVING: PROBLEM SOLVING - SCORE: 0-UNK MEMORY: MEMORY - SCORE: 0-UNK SIGNATURE PANEL: The following modified sections: Transfers: Bed, Chair, Wheelchair - Score, Transfers: Toilet - Score , Locomotion: Walk - Score, Locomotion: Wheelchair - Score, Locomotion: Stairs - Score were [electron felicita] signed by Jennifer Hendrickson PTA on WedNov 07 2018 12:35:04 T-0500 (Central Daylight Time)
[2018-11-07] MEDS: predniSONE 5 MG TAB PO SCH (16:53)
--- NOTE | 2018-11-07 17:58 | FAST ---
SHIFT START DATE/TIME: 11/07/2018 07:00 (CDT) SHIFT END DATE/TIME: 11/07/2018 19:00 (CDT) NAME LEONORA HOFF DATE OF : 1940 DATE OF ADMISSION: 10/28/2018 15:22 (CDT) PHONE: AGE: 77 N# [id number] GENDER: Female ENCOUNTER PHYSICIAN: Dr. Harpreet Alan M.D. 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 EATING: EATING - STEP 1: Does the patient require the assistance of a person or device, or need extra time when eating? Yes. EATING - STEP 2: Does the patient require the assistance of a helper? Yes. EATING - STEP 3: Does the patient perform half or more of the eating tasks? Yes. EATING - STEP 4: Does the patient need only supervision, cuing, coaxing OR help to apply an orthosis OR help to cut fo od, open containers, pour liquids, or butter bread? Yes. EATING - SCORE: 5-SUP GROOMING: Activity did not occur on this shift GROOMING - SCORE: 0-UNK BATHING: Activity did not occur on this shift BATHING - SCORE: 0-UNK DRESSING - UPPER BODY: Activity did not occur on this shift ARTICLES SCORE Total number of steps: 0 DRESSING - UPPER BODY - SCORE: 0-UNK DRESSING - LOWER BODY: Activity did not occur on this shift ARTICLES SCORE Total number of steps: 0 DRESSING - LOWER BODY - SCORE: 0-UNK TOILETING: TOILETING - STEP 1: Does the patient require the assistance of a person or device, or need extra time with toileting? Yes . TOILETING - STEP 2: Does the patient require the assistance of a helper? Yes. TOILETING - STEP 3: How much assistance does the patient require from the helper? Hands-on assistance from the helper TOILETING - STEP 4: Of the 3 tasks: 1) Adjusting clothing prior to use, 2) Cleansing of perineal area, 3) Adjusting clot juan f after use; How many tasks does the patient perform WITHOUT assistance of the helper? One task TOILETING - SCORE: 2-MAX BLADDER MANAGEMENT: BLADDER MANAGEMENT - STEP 1: Does the patient control the bladder completely and intentionally without equipment or devices or med ications, and is always continent? No. BLADDER MANAGEMENT - STEP 2: Does the patient require the assistance of a helper? No, patient requires and independently uses an a ssistive device, such as a urinal, bedpan, bedside commode, catheter, absorbent pad, or collecting de vice BLADDER MANAGEMENT - SCORE: 6-RANDY BOWEL MANAGEMENT: Activity did not occur on this shift BOWEL MANAGEMENT - SCORE: 7-IND TRANSFERS: BED, CHAIR, WHEELCHAIR: TRANSFERS: BED, CHAIR, WHEELCHAIR - STEP 1: Does the patient require assistance of a person or device, or need extra time with bed, chair, or whe elchair transfers? Yes. TRANSFERS: BED, CHAIR, WHEELCHAIR - STEP 2: Does the patient require the assistance of a helper? Yes. TRANSFERS: BED, CHAIR, WHEELCHAIR - STEP 3: How much assistance does the patient require from the helper? Lifting of the patient TRANSFERS: BED, CHAIR, WHEELCHAIR - STEP 4: Does the helper lift the patient ONLY up? ONLY down? Up AND Down? Up AND Down. TRANSFERS: BED, CHAIR, WHEELCHAIR - SCORE: 2-MAX TRANSFERS: TOILET: TRANSFERS: TOILET - STEP 1: Does the patient require the assistance of a person or device, or need extra time with toilet transfe rs? Yes. TRANSFERS: TOILET - STEP 2: Does the patient require the assistance of a helper? Yes. TRANSFERS: TOILET - STEP 3: How much assistance does the patient require from the helper? Patient performs less than half of the transferring tasks TRANSFERS: TOILET - STEP 4: Does the patient require total assistance for the toilet transfer such as the helper doing basically all the lifting? No. TRANSFERS: TOILET - SCORE: 2-MAX TRANSFERS: SHOWER: Activity did not occur on this shift TRANSFERS: SHOWER - SCORE: 0-UNK TRANSFERS: TUB: Activity did not occur on this shift TRANSFERS: TUB - SCORE: 0-UNK LOCOMOTION: WALK: Activity did not occur on this shift LOCOMOTION: WALK - SCORE: 0-UNK LOCOMOTION: WHEELCHAIR: Activity did not occur on this shift LOCOMOTION: WHEELCHAIR - SCORE: 0-UNK COMPREHENSION: COMPREHENSION: TYPE: Both COMPREHENSION - STEP 1: Does the patient require help from a person or device, or need extra time to understand complex and a bstract ideas (such as current events, finances, discharge planning, medical issues, relationships, e tc)? No. COMPREHENSION - STEP 2: Does the patient need extra time, require an assistive device (such as glasses for visual comprehensi on or a hearing aid for auditory comprehension) or does s/he have mild difficulty understanding compl ex and abstract information? Yes. COMPREHENSION - SCORE: 6-RANDY EXPRESSION EXPRESSION: TYPE: Both EXPRESSION - STEP 1: Does the patient require help from a person or device, or need extra time expressing complex and abst ract ideas (such as current events, finances, discharge planning, medical issues, relationships, etc) ? No. EXPRESSION - STEP 2: Does the patient need extra time, require an assistive device (such as augmentive communication syste m or a communication board), OR does s/he have mild difficulty expressing complex and abstract ideas (including mild dysarthria or mild word-find problems)? Yes. EXPRESSION - SCORE: 6-RANDY SOCIAL INTERACTION: SOCIAL INTERACTION - STEP 1: Does the patient require a helper to interact with others in social and therapeutic situations? No. SOCIAL INTERACTION - STEP 2: Does the patient need extra time in social situations, OR does s/he interact with staff, other patien ts, and family members ONLY in structured environments, OR does s/he require medication for social in teraction? Yes, patient needs extra time SOCIAL INTERACTION - SCORE: 6-RANDY PROBLEM SOLVING: PROBLEM SOLVING - STEP 1: Does the patient need help from a person or device, or need extra time to solve complex problems such as managing a checking account or confronting interpersonal problems? No. PROBLEM SOLVING - STEP 2: Does the patient require extra time to make decisions or solve problems, OR does s/he have slight dif ficulty reading, initiating, or self-correcting in unfamiliar situations? Yes, patient needs extra ti me. PROBLEM SOLVING - SCORE: 6-RANDY MEMORY: MEMORY - STEP 1: Does the patient need help from a person or device, or need extra time to remember frequently encount ered people, daily routines, and executing requests? No. MEMORY - STEP 2: Does the patient have slight difficulty recognizing frequently encountered people, daily routines, or executing requests without the need for repetition or using self-initiated or environmental cues to remember? Yes. MEMORY - SCORE: 6-RANDY SIGNATURE PANEL: The following modified sections: Eating - Score, Grooming - Score, Bathing - Score, Dressing - Upper Body - Score, Dressing - Lower Body - Score, Toileting - Score, Bladder Management - Score, Bowel Man agement - Score, Transfers: Bed, Chair, Wheelchair - Score, Transfers: Toilet - Score, Transfers: Amrita wer - Score, Transfers: Tub - Score, Locomotion: Walk - Score, Locomotion: Wheelchair - Score, Compre hension - Score, Expression - Score, Social Interaction - Score, Problem Solving - Score, Memory - Sc ore were [electronically] signed by Germán Camilo on WedNov 07 2018 17:56:53 GMT-0500 (Central Daylight Time)
[2018-11-07] MEDS: PROMETHAZINE 25 MG TABLET PO PRN (18:11)
[2018-11-07] MEDS: IRBESARTAN 150 MG TAB PO SCH (20:36)
[2018-11-07] MEDS: DOCUSATE NA/SENNA CONC 1 TAB PO SCH (20:36)
--- NOTE | 2018-11-07 23:10 | R.PN ---
ENCOUNTER DATE AND TIME: 11/07/2018 23:09 (CDT) NAME LEONORA HOFF DATE OF : 1940 DATE OF ADMISSION: 10/28/2018 15:22 (CDT) acute parenchymal hemorrhage in the left thalamocapsular region and left gallego radiata with intraven tricular extensionCHIEF COMPLAINT: Intracerebral hemorrhage SUBJECTIVE: Pt denied any Shortness of Breath. Pt denied any depression. Hgb 11.5, WBC 6.4, prealbumin 17.9 Ambulated 12' with moderate assistance in the parallel bars. Toilet transfers with maximum assistance . Mobilized wheelchair 250' with moderate assistance. VITAL SIGNS Temperature: 97.6 F SBP/DBP: 121/60 Pulse: 88 Resp: 16 MEDICATION ALLERGIES: No Known Drug Allergies (NKDA) ENVIRONMENTAL ALLERGIES: - Substance Allergies None Known - Other Allergies None Known NURSING: - Shower allowing shower - Bladder care per protocol - Skin care per protocol PRECAUTIONS: - Weight Bearing Precaution WBAT right LE ACTIVITIES OOB only with supervision THERAPIES: - Occupational Therapy Cognitive Retraining. Visual Perceptual Training. - Dietary and Nutrition Adequate Nutrition. Nutritional Education. Nutritional Supplements. - Speech Therapy Cognitive Training. Expressive Language Skills. Memory Strategies. Receptive Language Skills. Speech Intelligibility Training. PHYSICAL EXAM - Gen Alert and awake Lying in bed No apparent distress Oriented to: person, time, and place - Skin No breakdown No abnormalities - Eyes No abnormalities - ENMT No abnormalities - Neck No pain - CVS RRR - Chest Clear - Abd Soft - GI Non distended Deferred - No abnormalities - Ext Mild right more than left lower extremity edema. - MSK 2/5 weakness in right upper and 4/5 weakness in right lower extremity. - Neuro 2/5 weakness in right upper and 4/5 weakness in right lower extremity. - Psych No abnormalities ASSESSMENT: Pt. is a 77 yo Right-handed white female.On 10/18/2018 Pt. presented to 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 was independent/mod-I in Self-Care, Sphincter Control, Tra nsfers Control, Locomotion, Communication, and Social Cognition; and she had good Sphincter Control.C urrently, she has deficits of Transfers Control, Locomotion, Endurance, Balance, Safety Awareness, an d Self-Care.Pt. is now referred to [facility] for acute in-patient rehabilitat ion in order to maximize patient's functional independence in activities of daily living, strength, R OM, and mobility.- Rehab Goal Patient has realistic goal of being discharged at assistance level 2-maxA to reside at Home with Fam blanka/Relatives. MDM/PLAN: - Physical Therapy Gait dysfunction - to improve, our physical therapists will perform initial evaluation of pt's statu s upon admission and devise an individualized program for Gait Training, and Wheel Chair mobility Inability to transfer - to improve, our physical therapists will perform initial evaluation of pt's status upon admission and devise an individualized program for Bed mobility Need for home safety evaluation - to improve, our physical therapists will perform initial evaluatio n of pt's status upon admission and devise an individualized program for Home Evaluation Need in caregiver upon discharge - to improve, our physical therapists will perform initial evaluati on of pt's status upon admission and devise an individualized program for Caregiver Training New precaution - to improve, our physical therapists will perform initial evaluation of pt's status upon admission and devise an individualized program for Patient precaution education Poor balance - to improve, our physical therapists will perform initial evaluation of pt's status up on admission and devise an individualized program for Balance Training Poor endurance - to improve, our physical therapists will perform initial evaluation of pt's status upon admission and devise an individualized program for Endurance Training Weakness - to improve, our physical therapists will perform initial evaluation of pt's status upon a dmission and devise an individualized program for Aquatic Therapy, Neuromuscular Reeducation, and Str engthening Edema - to improve, our physical therapists will perform initial evaluation of pt's status upon admi ssion and devise an individualized program for Elevation Training, and Lymphedema Therapy - Occupational Therapy ADL deficits - to improve, our occupation therapists will perform initial evaluation of pt's status upon admission and devise an individualized program for Bathing, Bed mobility, Community Reintegratio n, Cooking, Dressing, Eating, Fine Motor Skills, Grooming, Homemaking, Kitchen Mobility, Laundry, Pat ient Education, Safety Awareness, Splinting - Positioning, Transfers(Toilet, Tub, Shower), and Wheel Chair Management Need for complex care nurse practitioner - to improve, our occupation therapists will perform initial evaluation of pt's status upon admission and devise an individualized program for Caregiver Training Weakness - to improve, our occupation therapists will perform initial evaluation of pt's status upon admission and devise an individualized program for Aquatic Therapy, Balance, Endurance, UE ROM, and UE strengthening - Other See attached MAR (Medication Administration Record) [id number].pdf - Bladder care per protocol - Weight Bearing Precaution WBAT right UE andLE - Skin care per protocol - Diet - Solid Texture Continue Regular - Shower allowing shower for Dementia, TBI, Stroke, or others FUNCTIONAL STATUS: UPDATED AT WEEKLY TEAM CONFERENCE - Bladder Same accident frequency: 7-Ind - No accidents in the past 7 days - Bowel Same accident frequency: 7-Ind - No accidents in the past 7 days - Walking Same score based on distance walked: 1(<=50ft) - Wheelchair Same score based on distance traveled: 1(<=50ft) FUNCTIONAL STATUS: - Self-Care A. Eating Ind B. Grooming modA C. Bathing maxA D. Dressing - Upper modA E. Dressing - Lower Dep F. Toileting maxA - Sphincter Control G: Bladder control Ind H: Bowel control Ind - Transfers Control I. Bed/Chair/Wheelchair maxA J. Toilet maxA K. Tub/Shower maxA - Locomotion L. Walk/Wheelchair (C) maxA L. Walk/Wheelchair (W) maxA M. Stairs ADNO - Communication N. Comprehension (B) Ind O. Expression (B) Ind - Social Cognition P. Social Interaction Ind Q. Problem Solving Ind R. Memory Ind - Endurance Poor - Balance Poor - Safety Awareness Poor CURRENT FUNC. DEFICITS: Transfers Control, Locomotion, Endurance, Balance, Safety Awareness, and Self-Care SIGNATURE PANEL: (CDT)
--- NOTE | 2018-11-08 02:04 | FAST ---
SHIFT START DATE/TIME: 11/07/2018 19:00 (CDT) SHIFT END DATE/TIME: 11/08/2018 07:00 (CDT) NAME LEONORA HOFF DATE OF : 1940 DATE OF ADMISSION: 10/28/2018 15:22 (CDT) PHONE: AGE: 77 N# [id number] GENDER: Female ENCOUNTER PHYSICIAN: Dr. Harpreet Alan M.D. 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 EATING: Activity did not occur on this shift EATING - SCORE: 0-UNK GROOMING: Activity did not occur on this shift GROOMING - SCORE: 0-UNK BATHING: Activity did not occur on this shift BATHING - SCORE: 0-UNK DRESSING - UPPER BODY: Patient is not dressing in public clothing ARTICLES SCORE Total number of steps: 0 DRESSING - UPPER BODY - SCORE: 0-UNK DRESSING - LOWER BODY: Patient is not dressing in public clothing ARTICLES SCORE Total number of steps: 0 DRESSING - LOWER BODY - SCORE: 0-UNK TOILETING: TOILETING - STEP 1: Does the patient require the assistance of a person or device, or need extra time with toileting? Yes . TOILETING - STEP 2: Does the patient require the assistance of a helper? Yes. TOILETING - STEP 3: How much assistance does the patient require from the helper? Hands-on assistance from the helper TOILETING - STEP 4: Of the 3 tasks: 1) Adjusting clothing prior to use, 2) Cleansing of perineal area, 3) Adjusting clot juna f after use; How many tasks does the patient perform WITHOUT assistance of the helper? No tasks; h abhilash performs all three tasks TOILETING - SCORE: 1-DEP BLADDER MANAGEMENT: BLADDER MANAGEMENT - STEP 1: Does the patient control the bladder completely and intentionally without equipment or devices or med ications, and is always continent? No. BLADDER MANAGEMENT - STEP 2: Does the patient require the assistance of a helper? Yes. BLADDER MANAGEMENT - STEP 3: How much assistance does the patient require from the helper? Only set-up of equipment - such as plac ing it within reach of the patient or emptying a device - to maintain either satisfactory voiding pat tern or managing an external device, such as an absorbent pad, ileal device, or catheter BLADDER MANAGEMENT - SCORE: 5-SUP BOWEL MANAGEMENT: Activity did not occur on this shift BOWEL MANAGEMENT - SCORE: 7-IND TRANSFERS: BED, CHAIR, WHEELCHAIR: Patient requires more than one helper and/or the use of a mechanical lift is utilized TRANSFERS: BED, CHAIR, WHEELCHAIR - SCORE: 1-DEP TRANSFERS: TOILET: Patient requires more than one helper and/or the use of a mechanical lift is utilized TRANSFERS: TOILET - SCORE: 1-DEP TRANSFERS: SHOWER: Activity did not occur on this shift TRANSFERS: SHOWER - SCORE: 0-UNK TRANSFERS: TUB: Activity did not occur on this shift TRANSFERS: TUB - SCORE: 0-UNK LOCOMOTION: WALK: Activity did not occur on this shift LOCOMOTION: WALK - SCORE: 0-UNK LOCOMOTION: WHEELCHAIR: Activity did not occur on this shift LOCOMOTION: WHEELCHAIR - SCORE: 0-UNK COMPREHENSION: COMPREHENSION: TYPE: Both COMPREHENSION - STEP 1: Does the patient require help from a person or device, or need extra time to understand complex and a bstract ideas (such as current events, finances, discharge planning, medical issues, relationships, e tc)? Yes. COMPREHENSION - STEP 2: Does the patient require help to understand questions or statements about basic needs or ideas (such as hunger, thirst, sleep, safety, daily schedule, room location, or discomfort) half or more of the t davin? No. COMPREHENSION - STEP 3: How often does the patient need help to understand directions and conversation about basic needs? 25% - 49% of the time COMPREHENSION - SCORE: 3-MOD EXPRESSION EXPRESSION: TYPE: Both EXPRESSION - STEP 1: Does the patient require help from a person or device, or need extra time expressing complex and abst ract ideas (such as current events, finances, discharge planning, medical issues, relationships, etc) ? No. EXPRESSION - STEP 2: Does the patient need extra time, require an assistive device (such as augmentive communication syste m or a communication board), OR does s/he have mild difficulty expressing complex and abstract ideas (including mild dysarthria or mild word-find problems)? Yes. EXPRESSION - SCORE: 6-RANDY SOCIAL INTERACTION: SOCIAL INTERACTION - STEP 1: Does the patient require a helper to interact with others in social and therapeutic situations? No. SOCIAL INTERACTION - STEP 2: Does the patient need extra time in social situations, OR does s/he interact with staff, other patien ts, and family members ONLY in structured environments, OR does s/he require medication for social in teraction? Yes, patient needs extra time SOCIAL INTERACTION - SCORE: 6-RANDY PROBLEM SOLVING: PROBLEM SOLVING - STEP 1: Does the patient need help from a person or device, or need extra time to solve complex problems such as managing a checking account or confronting interpersonal problems? Yes. PROBLEM SOLVING - STEP 2: Does the patient solve basic routine problems half or more of the time? Yes. PROBLEM SOLVING - STEP 3: How often does the patient need help to solve basic routine problems? 10%-24% of the time PROBLEM SOLVING - SCORE: 4-MIN MEMORY: MEMORY - STEP 1: Does the patient need help from a person or device, or need extra time to remember frequently encount ered people, daily routines, and executing requests? No. MEMORY - STEP 2: Does the patient have slight difficulty recognizing frequently encountered people, daily routines, or executing requests without the need for repetition or using self-initiated or environmental cues to remember? Yes. MEMORY - SCORE: 6-RANDY
[2018-11-08] MEDS: TRAMADOL HCL 50 MG TAB PO PRN ×2 (06:43→22:21)
[2018-11-08] MEDS: PROMETHAZINE 25 MG TABLET PO PRN (06:44)
[2018-11-08] MEDS: ENOXAPARIN 40 MG/0.4 ML SQ SCH (06:45)
[2018-11-08 06:54] LABS: Albumin 3.4 g/dL (3.4-5.0); Bilirubin Direct 0.1 mg/dL (0-0.2); Bilirubin Total 0.5 mg/dL (0.2-1.0)
[2018-11-08] MEDS: PANTOPRAZOLE 40MG TABLET PO SCH (06:55)
[2018-11-08] MEDS: DULOXETINE 20 MG CAP PO SCH ×2 (08:00→08:19)
[2018-11-08] MEDS: LIDOCAINE 5% PATCH TOP SCH (08:00)
[2018-11-08] MEDS: ONDANSETRON 4 MG (ODT) TAB PO PRN (08:03)
[2018-11-08] MEDS: SMZ./TMP. 800/160 MG TABLET PO SCH (08:16)
[2018-11-08] MEDS: CALCIUM CARBONATE 500 MG TAB PO SCH ×2 (08:17→19:43)
[2018-11-08] MEDS: GABAPENTIN 100 MG CAP PO SCH ×2 (08:18→19:43)
[2018-11-08] MEDS: CLOPIDOGREL 75 MG TABLET PO SCH (08:18)
[2018-11-08] MEDS: CRANBERRY FRUIT EXTRACT 200 MG CAP PO SCH ×2 (08:18→19:42)
[2018-11-08] MEDS: FOLIC ACID 1 MG TABLET PO SCH (08:19)
[2018-11-08] MEDS: ATORVASTATIN 10 MG TAB PO SCH (08:20)
[2018-11-08] MEDS: VITAMIN D 1000 UNIT TAB PO SCH (08:24)
--- NOTE | 2018-11-08 14:00 | FAST ---
SHIFT START DATE/TIME: 11/08/2018 07:00 (CDT) SHIFT END DATE/TIME: 11/08/2018 19:00 (CDT) NAME LEONORA HOFF DATE OF : 1940 DATE OF ADMISSION: 10/28/2018 15:22 (CDT) PHONE: AGE: 77 N# [id number] GENDER: Female ENCOUNTER PHYSICIAN: Dr. Harpreet Alan M.D. 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 EATING: EATING - STEP 1: Does the patient require the assistance of a person or device, or need extra time when eating? Yes. EATING - STEP 2: Does the patient require the assistance of a helper? Yes. EATING - STEP 3: Does the patient perform half or more of the eating tasks? Yes. EATING - STEP 4: Does the patient need only supervision, cuing, coaxing OR help to apply an orthosis OR help to cut fo od, open containers, pour liquids, or butter bread? Yes. EATING - SCORE: 5-SUP GROOMING: Comb/brush hair Oral care Wash, rinse, and dry face Wash, rinse, and dry hands GROOMING - STEP 1: Does the patient require the assistance of a person or device, or need extra time when grooming? Yes. GROOMING - STEP 2: Does the patient require the assistance of a helper? No. The patient only requires an assistive devic e, OR takes more than reasonable time to groom, OR there is a concern for safety as the patient groom s GROOMING - SCORE: 6-RANDY BATHING: Activity did not occur on this shift BATHING - SCORE: 0-UNK DRESSING - UPPER BODY: Activity did not occur on this shift ARTICLES SCORE Total number of steps: 0 DRESSING - UPPER BODY - SCORE: 0-UNK DRESSING - LOWER BODY: Activity did not occur on this shift ARTICLES SCORE Total number of steps: 0 DRESSING - LOWER BODY - SCORE: 0-UNK TOILETING: TOILETING - STEP 1: Does the patient require the assistance of a person or device, or need extra time with toileting? Yes . TOILETING - STEP 2: Does the patient require the assistance of a helper? Yes. TOILETING - STEP 3: How much assistance does the patient require from the helper? Hands-on assistance from the helper TOILETING - STEP 4: Of the 3 tasks: 1) Adjusting clothing prior to use, 2) Cleansing of perineal area, 3) Adjusting clot juan f after use; How many tasks does the patient perform WITHOUT assistance of the helper? One task TOILETING - SCORE: 2-MAX BLADDER MANAGEMENT: BLADDER MANAGEMENT - STEP 1: Does the patient control the bladder completely and intentionally without equipment or devices or med ications, and is always continent? No. BLADDER MANAGEMENT - STEP 2: Does the patient require the assistance of a helper? No, patient requires and independently uses an a ssistive device, such as a urinal, bedpan, bedside commode, catheter, absorbent pad, or collecting de vice BLADDER MANAGEMENT - SCORE: 6-RANDY BOWEL MANAGEMENT: Activity did not occur on this shift BOWEL MANAGEMENT - SCORE: 7-IND TRANSFERS: BED, CHAIR, WHEELCHAIR: TRANSFERS: BED, CHAIR, WHEELCHAIR - STEP 1: Does the patient require assistance of a person or device, or need extra time with bed, chair, or whe elchair transfers? Yes. TRANSFERS: BED, CHAIR, WHEELCHAIR - STEP 2: Does the patient require the assistance of a helper? Yes. TRANSFERS: BED, CHAIR, WHEELCHAIR - STEP 3: How much assistance does the patient require from the helper? Lifting of the patient TRANSFERS: BED, CHAIR, WHEELCHAIR - STEP 4: Does the helper lift the patient ONLY up? ONLY down? Up AND Down? Up AND Down. TRANSFERS: BED, CHAIR, WHEELCHAIR - SCORE: 2-MAX TRANSFERS: TOILET: TRANSFERS: TOILET - STEP 1: Does the patient require the assistance of a person or device, or need extra time with toilet transfe rs? Yes. TRANSFERS: TOILET - STEP 2: Does the patient require the assistance of a helper? Yes. TRANSFERS: TOILET - STEP 3: How much assistance does the patient require from the helper? Patient performs less than half of the transferring tasks TRANSFERS: TOILET - STEP 4: Does the patient require total assistance for the toilet transfer such as the helper doing basically all the lifting? No. TRANSFERS: TOILET - SCORE: 2-MAX TRANSFERS: SHOWER: Activity did not occur on this shift TRANSFERS: SHOWER - SCORE: 0-UNK TRANSFERS: TUB: Activity did not occur on this shift TRANSFERS: TUB - SCORE: 0-UNK LOCOMOTION: WALK: Activity did not occur on this shift LOCOMOTION: WALK - SCORE: 0-UNK LOCOMOTION: WHEELCHAIR: Activity did not occur on this shift LOCOMOTION: WHEELCHAIR - SCORE: 0-UNK COMPREHENSION: COMPREHENSION: TYPE: Both COMPREHENSION - STEP 1: Does the patient require help from a person or device, or need extra time to understand complex and a bstract ideas (such as current events, finances, discharge planning, medical issues, relationships, e tc)? No. COMPREHENSION - STEP 2: Does the patient need extra time, require an assistive device (such as glasses for visual comprehensi on or a hearing aid for auditory comprehension) or does s/he have mild difficulty understanding compl ex and abstract information? Yes. COMPREHENSION - SCORE: 6-RANDY EXPRESSION EXPRESSION: TYPE: Both EXPRESSION - STEP 1: Does the patient require help from a person or device, or need extra time expressing complex and abst ract ideas (such as current events, finances, discharge planning, medical issues, relationships, etc) ? No. EXPRESSION - STEP 2: Does the patient need extra time, require an assistive device (such as augmentive communication syste m or a communication board), OR does s/he have mild difficulty expressing complex and abstract ideas (including mild dysarthria or mild word-find problems)? Yes. EXPRESSION - SCORE: 6-RANDY SOCIAL INTERACTION: SOCIAL INTERACTION - STEP 1: Does the patient require a helper to interact with others in social and therapeutic situations? No. SOCIAL INTERACTION - STEP 2: Does the patient need extra time in social situations, OR does s/he interact with staff, other patien ts, and family members ONLY in structured environments, OR does s/he require medication for social in teraction? Yes, patient needs extra time SOCIAL INTERACTION - SCORE: 6-RANDY PROBLEM SOLVING: PROBLEM SOLVING - STEP 1: Does the patient need help from a person or device, or need extra time to solve complex problems such as managing a checking account or confronting interpersonal problems? No. PROBLEM SOLVING - STEP 2: Does the patient require extra time to make decisions or solve problems, OR does s/he have slight dif ficulty reading, initiating, or self-correcting in unfamiliar situations? Yes, patient needs extra ti me. PROBLEM SOLVING - SCORE: 6-RANDY MEMORY: MEMORY - STEP 1: Does the patient need help from a person or device, or need extra time to remember frequently encount ered people, daily routines, and executing requests? Yes. MEMORY - STEP 2: How often does the patient need help to remember frequently encountered people, daily routines, and e xecuting requests? Less than 10% of the time MEMORY - SCORE: 5-SUP SIGNATURE PANEL: The following modified sections: Eating - Score, Grooming - Score, Bathing - Score, Dressing - Upper Body - Score, Dressing - Lower Body - Score, Toileting - Score, Bladder Management - Score, Bowel Man agement - Score, Transfers: Bed, Chair, Wheelchair - Score, Transfers: Toilet - Score, Transfers: Amrita wer - Score, Transfers: Tub - Score, Locomotion: Walk - Score, Locomotion: Wheelchair - Score, Compre hension - Score, Expression - Score, Social Interaction - Score, Problem Solving - Score, Memory - Sc ore were [electronically] signed by Germán Camilo on WedNov 08 2018 13:59:04 GMT-0500 (Central Daylight Time)
--- NOTE | 2018-11-08 15:01 | FAST ---
ENCOUNTER DATE AND TIME: 11/08/2018 08:00 (CDT) NAME LEONORA HOFF DATE OF : 1940 DATE OF ADMISSION: 10/28/2018 15:22 (CDT) PHONE: AGE: 77 SSN# [id number] GENDER: Female ENCOUNTER PHYSICIAN: Dr. Harpreet Alan M.D. 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 EATING: Activity did not occur on this shift EATING - SCORE: 0-UNK GROOMING: Activity did not occur on this shift GROOMING - SCORE: 0-UNK BATHING: Activity did not occur on this shift BATHING - SCORE: 0-UNK DRESSING - UPPER BODY: Activity did not occur on this shift Patient is not dressing in public clothing ARTICLES SCORE Total number of steps: 0 DRESSING - UPPER BODY - SCORE: 0-UNK DRESSING - LOWER BODY: Activity did not occur on this shift Patient is not dressing in public clothing ARTICLES SCORE Total number of steps: 0 DRESSING - LOWER BODY - SCORE: 0-UNK TOILETING: Activity did not occur on this shift TOILETING - SCORE: 0-UNK BLADDER MANAGEMENT: Activity did not occur on this shift BLADDER MANAGEMENT - SCORE: 7-IND BOWEL MANAGEMENT: Activity did not occur on this shift BOWEL MANAGEMENT - SCORE: 7-IND TRANSFERS: BED, CHAIR, WHEELCHAIR: TRANSFERS: BED, CHAIR, WHEELCHAIR - STEP 1: Does the patient require assistance of a person or device, or need extra time with bed, chair, or whe elchair transfers? Yes. TRANSFERS: BED, CHAIR, WHEELCHAIR - STEP 2: Does the patient require the assistance of a helper? Yes. TRANSFERS: BED, CHAIR, WHEELCHAIR - STEP 3: How much assistance does the patient require from the helper? Lifting of the patient TRANSFERS: BED, CHAIR, WHEELCHAIR - STEP 4: Does the helper lift the patient ONLY up? ONLY down? Up AND Down? Up AND Down. TRANSFERS: BED, CHAIR, WHEELCHAIR - SCORE: 2-MAX TRANSFERS: TOILET: Activity did not occur on this shift TRANSFERS: TOILET - SCORE: 0-UNK TRANSFERS: SHOWER: Activity did not occur on this shift TRANSFERS: SHOWER - SCORE: 0-UNK TRANSFERS: TUB: Activity did not occur on this shift TRANSFERS: TUB - SCORE: 0-UNK LOCOMOTION: WALK: Patient walks less than 50 feet LOCOMOTION: WALK - SCORE: 1-DEP LOCOMOTION: WHEELCHAIR: Activity did not occur on this shift LOCOMOTION: WHEELCHAIR - SCORE: 0-UNK LOCOMOTION: STAIRS: Activity did not occur on this shift LOCOMOTION: STAIRS - SCORE: 0-UNK COMPREHENSION: COMPREHENSION - SCORE: 0-UNK EXPRESSION EXPRESSION - SCORE: 0-UNK SOCIAL INTERACTION: SOCIAL INTERACTION - SCORE: 0-UNK PROBLEM SOLVING: PROBLEM SOLVING - SCORE: 0-UNK MEMORY: MEMORY - SCORE: 0-UNK SIGNATURE PANEL: The following modified sections: Transfers: Bed, Chair, Wheelchair - Score, Transfers: Toilet - Score , Locomotion: Walk - Score, Locomotion: Wheelchair - Score, Locomotion: Stairs - Score were [electron ically] signed by Michael Vazquez PT on WedNov 08 2018 15:01:24 T-0500 (Central Daylight Time)
--- NOTE | 2018-11-08 18:51 | R.PN ---
ENCOUNTER DATE AND TIME: 11/08/2018 18:45 (CDT) NAME LEONORA HOFF DATE OF : 1940 DATE OF ADMISSION: 10/28/2018 15:22 (CDT) acute parenchymal hemorrhage in the left thalamocapsular region and left gallego radiata with intraven tricular extensionCHIEF COMPLAINT: Intracerebral hemorrhage SUBJECTIVE: Pt denied any Shortness of Breath. Pt denied any depression. Patient reported abdominal pain with nausea after eating. On Zofran and protonix. LFTs were normal. H gb 11.5, WBC 6.4, prealbumin 17.9 Ambulated 75' with moderate to maximum assistance using a platform walker. Toilet transfers with mode rate to maximum assistance. Mobilized wheelchair 250' with moderate assistance. VITAL SIGNS Temperature: 97.8 F SBP/DBP: 131/63 Pulse: 91 Resp: 16 MEDICATION ALLERGIES: No Known Drug Allergies (NKDA) ENVIRONMENTAL ALLERGIES: - Substance Allergies None Known - Other Allergies None Known NURSING: - Shower allowing shower - Bladder care per protocol - Skin care per protocol PRECAUTIONS: - Weight Bearing Precaution WBAT right LE ACTIVITIES OOB only with supervision THERAPIES: - Occupational Therapy Cognitive Retraining. Visual Perceptual Training. - Dietary and Nutrition Adequate Nutrition. Nutritional Education. Nutritional Supplements. - Speech Therapy Cognitive Training. Expressive Language Skills. Memory Strategies. Receptive Language Skills. Speech Intelligibility Training. PHYSICAL EXAM - Gen Alert and awake Lying in bed No apparent distress Oriented to: person, time, and place - Skin No breakdown No abnormalities - Eyes No abnormalities - ENMT No abnormalities - Neck No pain - CVS RRR - Chest Clear - Abd Soft - GI Non distended Deferred - No abnormalities - Ext Mild right more than left lower extremity edema. - MSK 2/5 weakness in right upper and 4/5 weakness in right lower extremity. - Neuro 2/5 weakness in right upper and 4/5 weakness in right lower extremity. - Psych No abnormalities ASSESSMENT: Pt. is a 77 yo Right-handed white female.On 10/18/2018 Pt. 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 was independent/mod-I in Self-Care, Sphincter Control, Tra nsfers Control, Locomotion, Communication, and Social Cognition; and she had good Sphincter Control.C urrently, she has deficits of Transfers Control, Locomotion, Endurance, Balance, Safety Awareness, an d Self-Care.Pt. is now referred to [facility] for acute in-patient rehabilitat ion in order to maximize patient's functional independence in activities of daily living, strength, R OM, and mobility.- Rehab Goal Patient has realistic goal of being discharged at assistance level 2-maxA to reside at Home with Fam blanka/Relatives. MDM/PLAN: - Physical Therapy Gait dysfunction - to improve, our physical therapists will perform initial evaluation of pt's statu s upon admission and devise an individualized program for Gait Training, and Wheel Chair mobility Inability to transfer - to improve, our physical therapists will perform initial evaluation of pt's status upon admission and devise an individualized program for Bed mobility Need for home safety evaluation - to improve, our physical therapists will perform initial evaluatio n of pt's status upon admission and devise an individualized program for Home Evaluation Need in caregiver upon discharge - to improve, our physical therapists will perform initial evaluati on of pt's status upon admission and devise an individualized program for Caregiver Training New precaution - to improve, our physical therapists will perform initial evaluation of pt's status upon admission and devise an individualized program for Patient precaution education Poor balance - to improve, our physical therapists will perform initial evaluation of pt's status up on admission and devise an individualized program for Balance Training Poor endurance - to improve, our physical therapists will perform initial evaluation of pt's status upon admission and devise an individualized program for Endurance Training Weakness - to improve, our physical therapists will perform initial evaluation of pt's status upon a dmission and devise an individualized program for Aquatic Therapy, Neuromuscular Reeducation, and Str engthening Edema - to improve, our physical therapists will perform initial evaluation of pt's status upon admi ssion and devise an individualized program for Elevation Training, and Lymphedema Therapy - Occupational Therapy ADL deficits - to improve, our occupation therapists will perform initial evaluation of pt's status upon admission and devise an individualized program for Bathing, Bed mobility, Community Reintegratio n, Cooking, Dressing, Eating, Fine Motor Skills, Grooming, Homemaking, Kitchen Mobility, Laundry, Pat ient Education, Safety Awareness, Splinting - Positioning, Transfers(Toilet, Tub, Shower), and Wheel Chair Management Need for pet care worker - to improve, our occupation therapists will perform initial evaluation of pt's status upon admission and devise an individualized program for Caregiver Training Weakness - to improve, our occupation therapists will perform initial evaluation of pt's status upon admission and devise an individualized program for Aquatic Therapy, Balance, Endurance, UE ROM, and UE strengthening - Other See attached MAR (Medication Administration Record) [id number].pdf - Bladder care per protocol - Weight Bearing Precaution WBAT right UE andLE - Skin care per protocol - Diet - Solid Texture Continue Regular - Shower allowing shower for Dementia, TBI, Stroke, or others FUNCTIONAL STATUS: UPDATED AT WEEKLY TEAM CONFERENCE - Bladder Same accident frequency: 7-Ind - No accidents in the past 7 days - Bowel Same accident frequency: 7-Ind - No accidents in the past 7 days - Walking Same score based on distance walked: 1(<=50ft) - Wheelchair Same score based on distance traveled: 1(<=50ft) FUNCTIONAL STATUS: - Self-Care A. Eating Ind B. Grooming modA C. Bathing maxA D. Dressing - Upper modA E. Dressing - Lower Dep F. Toileting maxA - Sphincter Control G: Bladder control Ind H: Bowel control Ind - Transfers Control I. Bed/Chair/Wheelchair maxA J. Toilet maxA K. Tub/Shower maxA - Locomotion L. Walk/Wheelchair (C) maxA L. Walk/Wheelchair (W) maxA M. Stairs ADNO - Communication N. Comprehension (B) Ind O. Expression (B) Ind - Social Cognition P. Social Interaction Ind Q. Problem Solving Ind R. Memory Ind - Endurance Poor - Balance Poor - Safety Awareness Poor CURRENT FUNC. DEFICITS: Transfers Control, Locomotion, Endurance, Balance, Safety Awareness, and Self-Care SIGNATURE PANEL: (CDT)
[2018-11-08] MEDS: DOCUSATE NA/SENNA CONC 1 TAB PO SCH (19:43)
[2018-11-08] MEDS: IRBESARTAN 150 MG TAB PO SCH (19:43)
--- NOTE | 2018-11-09 00:33 | FAST ---
SHIFT START DATE/TIME: 11/08/2018 19:00 (CDT) SHIFT END DATE/TIME: 11/09/2018 07:00 (CDT) NAME LEONORA HOFF DATE OF : 1940 DATE OF ADMISSION: 10/28/2018 15:22 (CDT) PHONE: AGE: 77 N# [id number] GENDER: Female ENCOUNTER PHYSICIAN: Dr. Harpreet Alan M.D. 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 EATING: Activity did not occur on this shift EATING - SCORE: 0-UNK GROOMING: Wash, rinse, and dry hands GROOMING - STEP 1: Does the patient require the assistance of a person or device, or need extra time when grooming? Yes. GROOMING - STEP 2: Does the patient require the assistance of a helper? Yes. GROOMING - STEP 3: How much assistance does the patient require from the helper? Only prior equipment preparation/set up from the helper GROOMING - SCORE: 5-SUP BATHING: Activity did not occur on this shift BATHING - SCORE: 0-UNK DRESSING - UPPER BODY: Patient is not dressing in public clothing ARTICLES SCORE Total number of steps: 0 DRESSING - UPPER BODY - SCORE: 0-UNK DRESSING - LOWER BODY: Patient is not dressing in public clothing ARTICLES SCORE Total number of steps: 0 DRESSING - LOWER BODY - SCORE: 0-UNK TOILETING: TOILETING - STEP 1: Does the patient require the assistance of a person or device, or need extra time with toileting? Yes . TOILETING - STEP 2: Does the patient require the assistance of a helper? Yes. TOILETING - STEP 3: How much assistance does the patient require from the helper? Hands-on assistance from the helper TOILETING - STEP 4: Of the 3 tasks: 1) Adjusting clothing prior to use, 2) Cleansing of perineal area, 3) Adjusting clot juan f after use; How many tasks does the patient perform WITHOUT assistance of the helper? No tasks; h elper performs all three tasks TOILETING - SCORE: 1-DEP BLADDER MANAGEMENT: BLADDER MANAGEMENT - STEP 1: Does the patient control the bladder completely and intentionally without equipment or devices or med ications, and is always continent? No. BLADDER MANAGEMENT - STEP 2: Does the patient require the assistance of a helper? Yes. BLADDER MANAGEMENT - STEP 3: How much assistance does the patient require from the helper? Patient requires contact assistance fro m the helper BLADDER MANAGEMENT - STEP 4: How much contact assistance does the patient require from the helper? Patient requires minimal assist ance to maintain an external device - by positioning, and the patient performs 75% or more of bladder management tasks, while the helper provides less than 25% of the assistance to position patient on / off bedpan BLADDER MANAGEMENT - SCORE: 4-MIN BOWEL MANAGEMENT: BOWEL MANAGEMENT - STEP 1: Does the patient control bowels completely and intentionally without equipment devices or medications AND is always continent? No. BOWEL MANAGEMENT - STEP 2: Does the patient require the assistance of a helper? No, patient requires medication for control such as stool softeners, suppositories, laxatives, enemas, or OTC medications BOWEL MANAGEMENT - SCORE: 6-RANDY TRANSFERS: BED, CHAIR, WHEELCHAIR: Patient requires more than one helper and/or the use of a mechanical lift is utilized TRANSFERS: BED, CHAIR, WHEELCHAIR - SCORE: 1-DEP TRANSFERS: TOILET: Patient requires more than one helper and/or the use of a mechanical lift is utilized TRANSFERS: TOILET - SCORE: 1-DEP TRANSFERS: SHOWER: Activity did not occur on this shift TRANSFERS: SHOWER - SCORE: 0-UNK TRANSFERS: TUB: Activity did not occur on this shift TRANSFERS: TUB - SCORE: 0-UNK LOCOMOTION: WALK: Activity did not occur on this shift LOCOMOTION: WALK - SCORE: 0-UNK LOCOMOTION: WHEELCHAIR: Activity did not occur on this shift LOCOMOTION: WHEELCHAIR - SCORE: 0-UNK COMPREHENSION: COMPREHENSION: TYPE: Both COMPREHENSION - STEP 1: Does the patient require help from a person or device, or need extra time to understand complex and a bstract ideas (such as current events, finances, discharge planning, medical issues, relationships, e tc)? No. COMPREHENSION - STEP 2: Does the patient need extra time, require an assistive device (such as glasses for visual comprehensi on or a hearing aid for auditory comprehension) or does s/he have mild difficulty understanding compl ex and abstract information? Yes. COMPREHENSION - SCORE: 6-RANDY EXPRESSION EXPRESSION: TYPE: Both EXPRESSION - STEP 1: Does the patient require help from a person or device, or need extra time expressing complex and abst ract ideas (such as current events, finances, discharge planning, medical issues, relationships, etc) ? No. EXPRESSION - STEP 2: Does the patient need extra time, require an assistive device (such as augmentive communication syste m or a communication board), OR does s/he have mild difficulty expressing complex and abstract ideas (including mild dysarthria or mild word-find problems)? No. EXPRESSION - SCORE: 7-IND SOCIAL INTERACTION: SOCIAL INTERACTION - STEP 1: Does the patient require a helper to interact with others in social and therapeutic situations? No. SOCIAL INTERACTION - STEP 2: Does the patient need extra time in social situations, OR does s/he interact with staff, other patien ts, and family members ONLY in structured environments, OR does s/he require medication for social in teraction? Yes, patient requires medication for social interaction SOCIAL INTERACTION - SCORE: 6-RANDY PROBLEM SOLVING: PROBLEM SOLVING - STEP 1: Does the patient need help from a person or device, or need extra time to solve complex problems such as managing a checking account or confronting interpersonal problems? Yes. PROBLEM SOLVING - STEP 2: Does the patient solve basic routine problems half or more of the time? Yes. PROBLEM SOLVING - STEP 3: How often does the patient need help to solve basic routine problems? 10%-24% of the time PROBLEM SOLVING - SCORE: 4-MIN MEMORY: MEMORY - STEP 1: Does the patient need help from a person or device, or need extra time to remember frequently encount ered people, daily routines, and executing requests? No. MEMORY - STEP 2: Does the patient have slight difficulty recognizing frequently encountered people, daily routines, or executing requests without the need for repetition or using self-initiated or environmental cues to remember? Yes. MEMORY - SCORE: 6-RANDY SIGNATURE PANEL: The following modified sections: Eating - Score, Grooming - Score, Dressing - Upper Body - Score, Vitaliy ssing - Lower Body - Score, Toileting - Score, Bladder Management - Score, Bowel Management - Score, Transfers: Bed, Chair, Wheelchair - Score, Transfers: Toilet - Score, Transfers: Shower - Score, Levine sfers: Tub - Score, Locomotion: Walk - Score, Locomotion: Wheelchair - Score, Comprehension - Score, Expression - Score, Social Interaction - Score, Problem Solving - Score, Memory - Score were [electro nically] signed by Jayda Tejeda CNA on WedNov 09 2018 00:32:24 GMT-0500 (Central Daylight Time)
[2018-11-09] MEDS: PROMETHAZINE 25 MG TABLET PO PRN (04:39)
[2018-11-09] MEDS: ENOXAPARIN 40 MG/0.4 ML SQ SCH (06:57)
[2018-11-09] MEDS: LIDOCAINE 5% PATCH TOP SCH ×2 (08:00→12:21)
[2018-11-09] MEDS: VITAMIN D 1000 UNIT TAB PO SCH (08:00)
[2018-11-09] MEDS: CRANBERRY FRUIT EXTRACT 200 MG CAP PO SCH ×2 (08:18→20:37)
[2018-11-09] MEDS: CALCIUM CARBONATE 500 MG TAB PO SCH ×2 (08:18→20:38)
[2018-11-09] MEDS: DULOXETINE 20 MG CAP PO SCH (08:18)
[2018-11-09] MEDS: ATORVASTATIN 10 MG TAB PO SCH (08:19)
[2018-11-09] MEDS: GABAPENTIN 100 MG CAP PO SCH ×2 (08:19→20:38)
[2018-11-09] MEDS: FOLIC ACID 1 MG TABLET PO SCH (08:19)
[2018-11-09] MEDS: ONDANSETRON 4 MG (ODT) TAB PO PRN (08:19)
[2018-11-09] MEDS: CLOPIDOGREL 75 MG TABLET PO SCH (08:20)
[2018-11-09] MEDS: PANTOPRAZOLE 40MG TABLET PO SCH (08:20)
[2018-11-09] MEDS: predniSONE 5 MG TAB PO SCH (17:08)
[2018-11-09] MEDS: IRBESARTAN 150 MG TAB PO SCH (20:38)
[2018-11-09] MEDS: DOCUSATE NA/SENNA CONC 1 TAB PO SCH (20:38)
[2018-11-09] MEDS: ACETAMINOPHEN 500 MG TAB PO PRN (21:33)
--- NOTE | 2018-11-10 01:49 | FAST ---
SHIFT START DATE/TIME: 11/09/2018 19:00 (CDT) SHIFT END DATE/TIME: 11/10/2018 07:00 (CDT) NAME LEONORA HOFF DATE OF : 1940 DATE OF ADMISSION: 10/28/2018 15:22 (CDT) PHONE: AGE: 77 N# [id number] GENDER: Female ENCOUNTER PHYSICIAN: Dr. Harpreet Alan M.D. 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 EATING: Activity did not occur on this shift EATING - SCORE: 0-UNK GROOMING: Oral care Wash, rinse, and dry hands GROOMING - STEP 1: Does the patient require the assistance of a person or device, or need extra time when grooming? Yes. GROOMING - STEP 2: Does the patient require the assistance of a helper? Yes. GROOMING - STEP 3: How much assistance does the patient require from the helper? Incidental touching assistance from the helper while grooming GROOMING - SCORE: 4-MIN BATHING: Activity did not occur on this shift BATHING - SCORE: 0-UNK DRESSING - UPPER BODY: Patient is not dressing in public clothing ARTICLES SCORE Total number of steps: 0 DRESSING - UPPER BODY - SCORE: 0-UNK DRESSING - LOWER BODY: Patient is not dressing in public clothing ARTICLES SCORE Total number of steps: 0 DRESSING - LOWER BODY - SCORE: 0-UNK TOILETING: TOILETING - STEP 1: Does the patient require the assistance of a person or device, or need extra time with toileting? Yes . TOILETING - STEP 2: Does the patient require the assistance of a helper? Yes. TOILETING - STEP 3: How much assistance does the patient require from the helper? Hands-on assistance from the helper TOILETING - STEP 4: Of the 3 tasks: 1) Adjusting clothing prior to use, 2) Cleansing of perineal area, 3) Adjusting clot juan f after use; How many tasks does the patient perform WITHOUT assistance of the helper? No tasks; h elper performs all three tasks TOILETING - SCORE: 1-DEP BLADDER MANAGEMENT: BLADDER MANAGEMENT - STEP 1: Does the patient control the bladder completely and intentionally without equipment or devices or med ications, and is always continent? No. BLADDER MANAGEMENT - STEP 2: Does the patient require the assistance of a helper? Yes. BLADDER MANAGEMENT - STEP 3: How much assistance does the patient require from the helper? Only set-up of equipment - such as plac ing it within reach of the patient or emptying a device - to maintain either satisfactory voiding pat tern or managing an external device, such as an absorbent pad, ileal device, or catheter BLADDER MANAGEMENT - SCORE: 5-SUP BOWEL MANAGEMENT: BOWEL MANAGEMENT - STEP 1: Does the patient control bowels completely and intentionally without equipment devices or medications AND is always continent? No. BOWEL MANAGEMENT - STEP 2: Does the patient require the assistance of a helper? No, patient requires medication for control such as stool softeners, suppositories, laxatives, enemas, or OTC medications BOWEL MANAGEMENT - SCORE: 6-RANDY TRANSFERS: BED, CHAIR, WHEELCHAIR: Patient requires more than one helper and/or the use of a mechanical lift is utilized TRANSFERS: BED, CHAIR, WHEELCHAIR - SCORE: 1-DEP TRANSFERS: TOILET: Patient requires more than one helper and/or the use of a mechanical lift is utilized TRANSFERS: TOILET - SCORE: 1-DEP TRANSFERS: SHOWER: Activity did not occur on this shift TRANSFERS: SHOWER - SCORE: 0-UNK TRANSFERS: TUB: Activity did not occur on this shift TRANSFERS: TUB - SCORE: 0-UNK LOCOMOTION: WALK: Activity did not occur on this shift LOCOMOTION: WALK - SCORE: 0-UNK LOCOMOTION: WHEELCHAIR: Activity did not occur on this shift LOCOMOTION: WHEELCHAIR - SCORE: 0-UNK COMPREHENSION: COMPREHENSION: TYPE: Both COMPREHENSION - STEP 1: Does the patient require help from a person or device, or need extra time to understand complex and a bstract ideas (such as current events, finances, discharge planning, medical issues, relationships, e tc)? No. COMPREHENSION - STEP 2: Does the patient need extra time, require an assistive device (such as glasses for visual comprehensi on or a hearing aid for auditory comprehension) or does s/he have mild difficulty understanding compl ex and abstract information? Yes. COMPREHENSION - SCORE: 6-RANDY EXPRESSION EXPRESSION: TYPE: Both EXPRESSION - STEP 1: Does the patient require help from a person or device, or need extra time expressing complex and abst ract ideas (such as current events, finances, discharge planning, medical issues, relationships, etc) ? No. EXPRESSION - STEP 2: Does the patient need extra time, require an assistive device (such as augmentive communication syste m or a communication board), OR does s/he have mild difficulty expressing complex and abstract ideas (including mild dysarthria or mild word-find problems)? No. EXPRESSION - SCORE: 7-IND SOCIAL INTERACTION: SOCIAL INTERACTION - STEP 1: Does the patient require a helper to interact with others in social and therapeutic situations? No. SOCIAL INTERACTION - STEP 2: Does the patient need extra time in social situations, OR does s/he interact with staff, other patien ts, and family members ONLY in structured environments, OR does s/he require medication for social in teraction? Yes, patient requires medication for social interaction SOCIAL INTERACTION - SCORE: 6-RANDY PROBLEM SOLVING: PROBLEM SOLVING - STEP 1: Does the patient need help from a person or device, or need extra time to solve complex problems such as managing a checking account or confronting interpersonal problems? Yes. PROBLEM SOLVING - STEP 2: Does the patient solve basic routine problems half or more of the time? Yes. PROBLEM SOLVING - STEP 3: How often does the patient need help to solve basic routine problems? 25%-49% of the time PROBLEM SOLVING - SCORE: 3-MOD MEMORY: MEMORY - STEP 1: Does the patient need help from a person or device, or need extra time to remember frequently encount ered people, daily routines, and executing requests? No. MEMORY - STEP 2: Does the patient have slight difficulty recognizing frequently encountered people, daily routines, or executing requests without the need for repetition or using self-initiated or environmental cues to remember? Yes. MEMORY - SCORE: 6-RANDY SIGNATURE PANEL: The following modified sections: Eating - Score, Grooming - Score, Dressing - Upper Body - Score, Vitaliy ssing - Lower Body - Score, Toileting - Score, Bladder Management - Score, Bowel Management - Score, Transfers: Bed, Chair, Wheelchair - Score, Transfers: Toilet - Score, Transfers: Shower - Score, Levine sfers: Tub - Score, Locomotion: Walk - Score, Locomotion: Wheelchair - Score, Comprehension - Score, Expression - Score, Social Interaction - Score, Problem Solving - Score, Memory - Score were [electro nically] signed by Jayda Tejeda CNA on WedNov 10 2018 01:47:33 GMT-0500 (Central Daylight Time)
[2018-11-10 06:09] LABS: Absolute Lymphocytes (CBC) 1.4 K/uL (0.7-4.9); Basophils % 0.5 % (0-1.3); Hematocrit 34.5 % (36.0-45.0); Lymphocytes % 20.4 % (15.3-44.8); MPV 8.5 fL (7.6-11.3); RBC Red Blood Cell Count 3.85 M/uL (3.86-4.86)
[2018-11-10 06:35] LABS: Prealbumin 19.4 mg/dL (20-40)
[2018-11-10] MEDS: VITAMIN D 1000 UNIT TAB PO SCH (08:00)
[2018-11-10] MEDS: LIDOCAINE 5% PATCH TOP SCH (08:00)
[2018-11-10] MEDS: ENOXAPARIN 40 MG/0.4 ML SQ SCH (08:51)
[2018-11-10] MEDS: CRANBERRY FRUIT EXTRACT 200 MG CAP PO SCH ×2 (08:51→20:33)
[2018-11-10] MEDS: PANTOPRAZOLE 40MG TABLET PO SCH (08:52)
[2018-11-10] MEDS: DULOXETINE 20 MG CAP PO SCH (08:52)
[2018-11-10] MEDS: GABAPENTIN 100 MG CAP PO SCH ×2 (08:52→20:33)
[2018-11-10] MEDS: CLOPIDOGREL 75 MG TABLET PO SCH (08:52)
[2018-11-10] MEDS: ATORVASTATIN 10 MG TAB PO SCH (08:53)
[2018-11-10] MEDS: FOLIC ACID 1 MG TABLET PO SCH (08:53)
[2018-11-10] MEDS: CALCIUM CARBONATE 500 MG TAB PO SCH ×2 (08:53→20:33)
--- NOTE | 2018-11-10 08:58 | FAST ---
SHIFT START DATE/TIME: 11/10/2018 07:00 (CDT) SHIFT END DATE/TIME: 11/10/2018 19:00 (CDT) NAME LEONORA HOFF DATE OF : 1940 DATE OF ADMISSION: 10/28/2018 15:22 (CDT) PHONE: AGE: 77 N# [id number] GENDER: Female ENCOUNTER PHYSICIAN: Dr. Harpreet Alan M.D. 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 EATING: EATING - STEP 1: Does the patient require the assistance of a person or device, or need extra time when eating? Yes. EATING - STEP 2: Does the patient require the assistance of a helper? Yes. EATING - STEP 3: Does the patient perform half or more of the eating tasks? Yes. EATING - STEP 4: Does the patient need only supervision, cuing, coaxing OR help to apply an orthosis OR help to cut fo od, open containers, pour liquids, or butter bread? Yes. EATING - SCORE: 5-SUP GROOMING: Comb/brush hair Oral care Patient applied make-up Wash, rinse, and dry face Wash, rinse, and dry hands GROOMING - STEP 1: Does the patient require the assistance of a person or device, or need extra time when grooming? Yes. GROOMING - STEP 2: Does the patient require the assistance of a helper? Yes. GROOMING - STEP 3: How much assistance does the patient require from the helper? Incidental touching assistance from the helper while grooming GROOMING - SCORE: 4-MIN BATHING: Activity did not occur on this shift BATHING - SCORE: 0-UNK DRESSING - UPPER BODY: Bra (three steps) T-shirt/pullover shirt (four steps) ARTICLES SCORE Total number of steps: 7 DRESSING - UPPER BODY - STEP 1: Does the patient require help from a person or device, or need extra time when dressing above the [address]? Yes. DRESSING - UPPER BODY - STEP 2: Does the patient require the assistance of a helper? Yes. DRESSING - UPPER BODY - STEP 3: Does the helper touch the patient while dressing? Yes. DRESSING - UPPER BODY - STEP 4: How many of the total steps does the patient complete on his/her own? 6 DRESSING - UPPER BODY - SCORE: 4-MIN DRESSING - LOWER BODY: Elastic waist pants (three steps) Underwear (three steps) ARTICLES SCORE Total number of steps: 6 DRESSING - LOWER BODY - STEP 1: Does the patient require help from a person or device, or need extra time when dressing below the [address]? Yes. DRESSING - LOWER BODY - STEP 2: Does the patient require the assistance of a helper? Yes. DRESSING - LOWER BODY - STEP 3: Does the helper touch the patient while dressing? Yes. DRESSING - LOWER BODY - STEP 4: How many of the total steps does the patient complete on his/her own? 5 DRESSING - LOWER BODY - SCORE: 4-MIN TOILETING: TOILETING - STEP 1: Does the patient require the assistance of a person or device, or need extra time with toileting? Yes . TOILETING - STEP 2: Does the patient require the assistance of a helper? Yes. TOILETING - STEP 3: How much assistance does the patient require from the helper? Hands-on assistance from the helper TOILETING - STEP 4: Of the 3 tasks: 1) Adjusting clothing prior to use, 2) Cleansing of perineal area, 3) Adjusting clot juan f after use; How many tasks does the patient perform WITHOUT assistance of the helper? No tasks; h abhilash performs all three tasks TOILETING - SCORE: 1-DEP BLADDER MANAGEMENT: BLADDER MANAGEMENT - STEP 1: Does the patient control the bladder completely and intentionally without equipment or devices or med ications, and is always continent? Yes. BLADDER MANAGEMENT - SCORE: 7-IND BLADDER MANAGEMENT - FREQUENCY OF ACCIDENTS: BLADDER MANAGEMENT(FA) - STEP 1: How many accidents has the patient had during the current shift? 0 BOWEL MANAGEMENT: BOWEL MANAGEMENT - STEP 1: Does the patient control bowels completely and intentionally without equipment devices or medications AND is always continent? Yes. BOWEL MANAGEMENT - SCORE: 7-IND BOWEL MANAGEMENT - FREQUENCY OF ACCIDENTS: BOWEL MANAGEMENT(FA) - STEP 1: How many accidents has the patient had during the current shift? 0 TRANSFERS: BED, CHAIR, WHEELCHAIR: TRANSFERS: BED, CHAIR, WHEELCHAIR - STEP 1: Does the patient require assistance of a person or device, or need extra time with bed, chair, or whe elchair transfers? Yes. TRANSFERS: BED, CHAIR, WHEELCHAIR - STEP 2: Does the patient require the assistance of a helper? Yes. TRANSFERS: BED, CHAIR, WHEELCHAIR - STEP 3: How much assistance does the patient require from the helper? Lifting of the patient TRANSFERS: BED, CHAIR, WHEELCHAIR - STEP 4: Does the helper lift the patient ONLY up? ONLY down? Up AND Down? ONLY up. TRANSFERS: BED, CHAIR, WHEELCHAIR - SCORE: 3-MOD TRANSFERS: TOILET: TRANSFERS: TOILET - STEP 1: Does the patient require the assistance of a person or device, or need extra time with toilet transfe rs? Yes. TRANSFERS: TOILET - STEP 2: Does the patient require the assistance of a helper? Yes. TRANSFERS: TOILET - STEP 3: How much assistance does the patient require from the helper? Patient performs half or more of the tr ansferring tasks TRANSFERS: TOILET - STEP 4: Does the patient need only incidental help such as contact guard or steadying during toilet transfer? No. Patient needs more than incidental help TRANSFERS: TOILET - SCORE: 3-MOD TRANSFERS: SHOWER: Activity did not occur on this shift TRANSFERS: SHOWER - SCORE: 0-UNK TRANSFERS: TUB: Activity did not occur on this shift TRANSFERS: TUB - SCORE: 0-UNK LOCOMOTION: WALK: Activity did not occur on this shift LOCOMOTION: WALK - SCORE: 0-UNK LOCOMOTION: WHEELCHAIR: Activity did not occur on this shift LOCOMOTION: WHEELCHAIR - SCORE: 0-UNK COMPREHENSION: COMPREHENSION - SCORE: 0-UNK EXPRESSION EXPRESSION - SCORE: 0-UNK SOCIAL INTERACTION: SOCIAL INTERACTION - SCORE: 0-UNK PROBLEM SOLVING: PROBLEM SOLVING - SCORE: 0-UNK MEMORY: MEMORY - SCORE: 0-UNK SIGNATURE PANEL: The following modified sections: Eating - Score, Grooming - Score, Bathing - Score, Dressing - Upper Body - Score, Dressing - Lower Body - Score, Toileting - Score, Bladder Management - Score, Bowel Man agement - Score, Transfers: Bed, Chair, Wheelchair - Score, Transfers: Toilet - Score, Transfers: Amrita wer - Score, Transfers: Tub - Score, Locomotion: Walk - Score, Locomotion: Wheelchair - Score, Compre hension - Score, Expression - Score, Social Interaction - Score, Problem Solving - Score, Memory - Sc ore were [electronically] signed by Abril Khoury CNA on WedNov 10 2018 08:57:30 T-0500 (Cent[place] Daylight Time)
--- NOTE | 2018-11-10 16:00 | FAST ---
ENCOUNTER DATE AND TIME: 11/10/2018 08:00 (CDT) NAME LEONORA HOFF DATE OF : 1940 DATE OF ADMISSION: 10/28/2018 15:22 (CDT) PHONE: AGE: 77 SSN# [id number] GENDER: Female ENCOUNTER PHYSICIAN: Dr. Harpreet Alan M.D. 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 EATING: Activity did not occur on this shift EATING - SCORE: 0-UNK GROOMING: Activity did not occur on this shift GROOMING - SCORE: 0-UNK BATHING: Activity did not occur on this shift BATHING - SCORE: 0-UNK DRESSING - UPPER BODY: Activity did not occur on this shift Patient is not dressing in public clothing ARTICLES SCORE Total number of steps: 0 DRESSING - UPPER BODY - SCORE: 0-UNK DRESSING - LOWER BODY: Activity did not occur on this shift Patient is not dressing in public clothing ARTICLES SCORE Total number of steps: 0 DRESSING - LOWER BODY - SCORE: 0-UNK TOILETING: Activity did not occur on this shift TOILETING - SCORE: 0-UNK BLADDER MANAGEMENT: Activity did not occur on this shift BLADDER MANAGEMENT - SCORE: 7-IND BOWEL MANAGEMENT: Activity did not occur on this shift BOWEL MANAGEMENT - SCORE: 7-IND TRANSFERS: BED, CHAIR, WHEELCHAIR: TRANSFERS: BED, CHAIR, WHEELCHAIR - STEP 1: Does the patient require assistance of a person or device, or need extra time with bed, chair, or whe elchair transfers? Yes. TRANSFERS: BED, CHAIR, WHEELCHAIR - STEP 2: Does the patient require the assistance of a helper? Yes. TRANSFERS: BED, CHAIR, WHEELCHAIR - STEP 3: How much assistance does the patient require from the helper? Lifting of the legs TRANSFERS: BED, CHAIR, WHEELCHAIR - STEP 4: How many legs does the patient require the helper to lift? both legs TRANSFERS: BED, CHAIR, WHEELCHAIR - SCORE: 3-MOD TRANSFERS: TOILET: Activity did not occur on this shift TRANSFERS: TOILET - SCORE: 0-UNK TRANSFERS: SHOWER: Activity did not occur on this shift TRANSFERS: SHOWER - SCORE: 0-UNK TRANSFERS: TUB: Activity did not occur on this shift TRANSFERS: TUB - SCORE: 0-UNK LOCOMOTION: WALK: LOCOMOTION: WALK - STEP 1: Does the patient need help from a person or device, or need extra time to walk 150 feet? Yes. LOCOMOTION: WALK - STEP 2: How much assistance does the patient require to walk a minimum of 150 feet? Patient walks less than 1 50 feet - but more than 50 feet - with the assistance of only one helper LOCOMOTION: WALK - SCORE: 2-MAX LOCOMOTION: WHEELCHAIR: LOCOMOTION: WHEELCHAIR - STEP 1: Does the patient need help to go 150 feet in a wheelchair? Yes. LOCOMOTION: WHEELCHAIR - STEP 2: How much assistance does the patient need from the helper? Only incidental help such as around corner s or over thresholds LOCOMOTION: WHEELCHAIR - SCORE: 4-MIN LOCOMOTION: STAIRS: Activity did not occur on this shift LOCOMOTION: STAIRS - SCORE: 0-UNK COMPREHENSION: COMPREHENSION - SCORE: 0-UNK EXPRESSION EXPRESSION - SCORE: 0-UNK SOCIAL INTERACTION: SOCIAL INTERACTION - SCORE: 0-UNK PROBLEM SOLVING: PROBLEM SOLVING - SCORE: 0-UNK MEMORY: MEMORY - SCORE: 0-UNK SIGNATURE PANEL: The following modified sections: Transfers: Bed, Chair, Wheelchair - Score, Transfers: Toilet - Score , Locomotion: Walk - Score, Locomotion: Wheelchair - Score, Locomotion: Stairs - Score were [electron felicita] signed by Mason Lechuga PTA on WedNov 10 2018 15:58:54 GMT-0500 (Central Daylight Time)
--- NOTE | 2018-11-10 16:08 | FAST ---
ENCOUNTER DATE AND TIME: 11/09/2018 08:00 (CDT) NAME LEONORA HOFF DATE OF : 1940 DATE OF ADMISSION: 10/28/2018 15:22 (CDT) PHONE: AGE: 77 SSN# [id number] GENDER: Female ENCOUNTER PHYSICIAN: Dr. Harpreet Alan M.D. 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 EATING: Activity did not occur on this shift EATING - SCORE: 0-UNK GROOMING: Activity did not occur on this shift GROOMING - SCORE: 0-UNK BATHING: Activity did not occur on this shift BATHING - SCORE: 0-UNK DRESSING - UPPER BODY: Activity did not occur on this shift Patient is not dressing in public clothing ARTICLES SCORE Total number of steps: 0 DRESSING - UPPER BODY - SCORE: 0-UNK DRESSING - LOWER BODY: Activity did not occur on this shift Patient is not dressing in public clothing ARTICLES SCORE Total number of steps: 0 DRESSING - LOWER BODY - SCORE: 0-UNK TOILETING: Activity did not occur on this shift TOILETING - SCORE: 0-UNK BLADDER MANAGEMENT: Activity did not occur on this shift BLADDER MANAGEMENT - SCORE: 7-IND BOWEL MANAGEMENT: Activity did not occur on this shift BOWEL MANAGEMENT - SCORE: 7-IND TRANSFERS: BED, CHAIR, WHEELCHAIR: TRANSFERS: BED, CHAIR, WHEELCHAIR - STEP 1: Does the patient require assistance of a person or device, or need extra time with bed, chair, or whe elchair transfers? Yes. TRANSFERS: BED, CHAIR, WHEELCHAIR - STEP 2: Does the patient require the assistance of a helper? Yes. TRANSFERS: BED, CHAIR, WHEELCHAIR - STEP 3: How much assistance does the patient require from the helper? Lifting of the legs TRANSFERS: BED, CHAIR, WHEELCHAIR - STEP 4: How many legs does the patient require the helper to lift? both legs TRANSFERS: BED, CHAIR, WHEELCHAIR - SCORE: 3-MOD TRANSFERS: TOILET: Activity did not occur on this shift TRANSFERS: TOILET - SCORE: 0-UNK TRANSFERS: SHOWER: Activity did not occur on this shift TRANSFERS: SHOWER - SCORE: 0-UNK TRANSFERS: TUB: Activity did not occur on this shift TRANSFERS: TUB - SCORE: 0-UNK LOCOMOTION: WALK: LOCOMOTION: WALK - STEP 1: Does the patient need help from a person or device, or need extra time to walk 150 feet? Yes. LOCOMOTION: WALK - STEP 2: How much assistance does the patient require to walk a minimum of 150 feet? Patient walks less than 1 50 feet - but more than 50 feet - with the assistance of only one helper LOCOMOTION: WALK - SCORE: 2-MAX LOCOMOTION: WHEELCHAIR: Activity did not occur on this shift LOCOMOTION: WHEELCHAIR - SCORE: 0-UNK LOCOMOTION: STAIRS: Activity did not occur on this shift LOCOMOTION: STAIRS - SCORE: 0-UNK COMPREHENSION: COMPREHENSION - SCORE: 0-UNK EXPRESSION EXPRESSION - SCORE: 0-UNK SOCIAL INTERACTION: SOCIAL INTERACTION - SCORE: 0-UNK PROBLEM SOLVING: PROBLEM SOLVING - SCORE: 0-UNK MEMORY: MEMORY - SCORE: 0-UNK SIGNATURE PANEL: The following modified sections: Transfers: Bed, Chair, Wheelchair - Score, Transfers: Toilet - Score , Locomotion: Walk - Score, Locomotion: Wheelchair - Score, Locomotion: Stairs - Score were [electron icallbeatris] signed by Mason Lechuga PTA on WedNov 10 2018 16:07:03 GMT-0500 (Central Daylight Time)
[2018-11-10] MEDS: IRBESARTAN 150 MG TAB PO SCH (20:35)
[2018-11-10] MEDS: DOCUSATE NA/SENNA CONC 1 TAB PO SCH (20:39)
[2018-11-10] MEDS: ACETAMINOPHEN 500 MG TAB PO PRN (23:39)
--- NOTE | 2018-11-11 01:19 | FAST ---
SHIFT START DATE/TIME: 11/10/2018 19:00 (CDT) SHIFT END DATE/TIME: 11/11/2018 07:00 (CDT) NAME LEONORA HOFF DATE OF : 1940 DATE OF ADMISSION: 10/28/2018 15:22 (CDT) PHONE: AGE: 77 N# [id number] GENDER: Female ENCOUNTER PHYSICIAN: Dr. Harpreet Alan M.D. 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 EATING: Activity did not occur on this shift EATING - SCORE: 0-UNK GROOMING: Wash, rinse, and dry hands GROOMING - STEP 1: Does the patient require the assistance of a person or device, or need extra time when grooming? Yes. GROOMING - STEP 2: Does the patient require the assistance of a helper? Yes. GROOMING - STEP 3: How much assistance does the patient require from the helper? Only prior equipment preparation/set up from the helper GROOMING - SCORE: 5-SUP BATHING: Activity did not occur on this shift BATHING - SCORE: 0-UNK DRESSING - UPPER BODY: Patient is not dressing in public clothing ARTICLES SCORE Total number of steps: 0 DRESSING - UPPER BODY - SCORE: 0-UNK DRESSING - LOWER BODY: Patient is not dressing in public clothing ARTICLES SCORE Total number of steps: 0 DRESSING - LOWER BODY - SCORE: 0-UNK TOILETING: TOILETING - STEP 1: Does the patient require the assistance of a person or device, or need extra time with toileting? Yes . TOILETING - STEP 2: Does the patient require the assistance of a helper? Yes. TOILETING - STEP 3: How much assistance does the patient require from the helper? Hands-on assistance from the helper TOILETING - STEP 4: Of the 3 tasks: 1) Adjusting clothing prior to use, 2) Cleansing of perineal area, 3) Adjusting clot juan f after use; How many tasks does the patient perform WITHOUT assistance of the helper? No tasks; h elper performs all three tasks TOILETING - SCORE: 1-DEP BLADDER MANAGEMENT: BLADDER MANAGEMENT - STEP 1: Does the patient control the bladder completely and intentionally without equipment or devices or med ications, and is always continent? No. BLADDER MANAGEMENT - STEP 2: Does the patient require the assistance of a helper? Yes. BLADDER MANAGEMENT - STEP 3: How much assistance does the patient require from the helper? Only set-up of equipment - such as plac ing it within reach of the patient or emptying a device - to maintain either satisfactory voiding pat tern or managing an external device, such as an absorbent pad, ileal device, or catheter BLADDER MANAGEMENT - SCORE: 5-SUP BOWEL MANAGEMENT: BOWEL MANAGEMENT - STEP 1: Does the patient control bowels completely and intentionally without equipment devices or medications AND is always continent? No. BOWEL MANAGEMENT - STEP 2: Does the patient require the assistance of a helper? No, patient requires medication for control such as stool softeners, suppositories, laxatives, enemas, or OTC medications BOWEL MANAGEMENT - SCORE: 6-RANDY TRANSFERS: BED, CHAIR, WHEELCHAIR: Patient requires more than one helper and/or the use of a mechanical lift is utilized TRANSFERS: BED, CHAIR, WHEELCHAIR - SCORE: 1-DEP TRANSFERS: TOILET: Patient requires more than one helper and/or the use of a mechanical lift is utilized TRANSFERS: TOILET - SCORE: 1-DEP TRANSFERS: SHOWER: Activity did not occur on this shift TRANSFERS: SHOWER - SCORE: 0-UNK TRANSFERS: TUB: Activity did not occur on this shift TRANSFERS: TUB - SCORE: 0-UNK LOCOMOTION: WALK: Activity did not occur on this shift LOCOMOTION: WALK - SCORE: 0-UNK LOCOMOTION: WHEELCHAIR: Activity did not occur on this shift LOCOMOTION: WHEELCHAIR - SCORE: 0-UNK COMPREHENSION: COMPREHENSION: TYPE: Both COMPREHENSION - STEP 1: Does the patient require help from a person or device, or need extra time to understand complex and a bstract ideas (such as current events, finances, discharge planning, medical issues, relationships, e tc)? No. COMPREHENSION - STEP 2: Does the patient need extra time, require an assistive device (such as glasses for visual comprehensi on or a hearing aid for auditory comprehension) or does s/he have mild difficulty understanding compl ex and abstract information? Yes. COMPREHENSION - SCORE: 6-RANDY EXPRESSION EXPRESSION: TYPE: Both EXPRESSION - STEP 1: Does the patient require help from a person or device, or need extra time expressing complex and abst ract ideas (such as current events, finances, discharge planning, medical issues, relationships, etc) ? No. EXPRESSION - STEP 2: Does the patient need extra time, require an assistive device (such as augmentive communication syste m or a communication board), OR does s/he have mild difficulty expressing complex and abstract ideas (including mild dysarthria or mild word-find problems)? Yes. EXPRESSION - SCORE: 6-RANDY SOCIAL INTERACTION: SOCIAL INTERACTION - STEP 1: Does the patient require a helper to interact with others in social and therapeutic situations? No. SOCIAL INTERACTION - STEP 2: Does the patient need extra time in social situations, OR does s/he interact with staff, other patien ts, and family members ONLY in structured environments, OR does s/he require medication for social in teraction? Yes, patient requires medication for social interaction SOCIAL INTERACTION - SCORE: 6-RANDY PROBLEM SOLVING: PROBLEM SOLVING - STEP 1: Does the patient need help from a person or device, or need extra time to solve complex problems such as managing a checking account or confronting interpersonal problems? Yes. PROBLEM SOLVING - STEP 2: Does the patient solve basic routine problems half or more of the time? Yes. PROBLEM SOLVING - STEP 3: How often does the patient need help to solve basic routine problems? 10%-24% of the time PROBLEM SOLVING - SCORE: 4-MIN MEMORY: MEMORY - STEP 1: Does the patient need help from a person or device, or need extra time to remember frequently encount ered people, daily routines, and executing requests? No. MEMORY - STEP 2: Does the patient have slight difficulty recognizing frequently encountered people, daily routines, or executing requests without the need for repetition or using self-initiated or environmental cues to remember? Yes. MEMORY - SCORE: 6-RANDY SIGNATURE PANEL: The following modified sections: Eating - Score, Grooming - Score, Dressing - Upper Body - Score, Vitaliy ssing - Lower Body - Score, Toileting - Score, Bladder Management - Score, Bowel Management - Score, Transfers: Bed, Chair, Wheelchair - Score, Transfers: Toilet - Score, Transfers: Shower - Score, Levine sfers: Tub - Score, Locomotion: Walk - Score, Locomotion: Wheelchair - Score, Comprehension - Score, Expression - Score, Social Interaction - Score, Problem Solving - Score, Memory - Score were [electro nically] signed by Jayda Tejeda CNA on WedNov 11 2018 01:18:41 GMT-0500 (Central Daylight Time)
[2018-11-11] MEDS: PANTOPRAZOLE 40MG TABLET PO SCH (07:01)
[2018-11-11] MEDS: ACETAMINOPHEN 500 MG TAB PO PRN ×2 (07:01→22:19)
[2018-11-11] MEDS: ENOXAPARIN 40 MG/0.4 ML SQ SCH (07:02)
[2018-11-11] MEDS: DULOXETINE 20 MG CAP PO SCH (08:00)
[2018-11-11] MEDS: LIDOCAINE 5% PATCH TOP SCH (08:00)
[2018-11-11] MEDS: CRANBERRY FRUIT EXTRACT 200 MG CAP PO SCH ×2 (08:20→20:18)
[2018-11-11] MEDS: CLOPIDOGREL 75 MG TABLET PO SCH (08:20)
[2018-11-11] MEDS: ATORVASTATIN 10 MG TAB PO SCH (08:20)
[2018-11-11] MEDS: CALCIUM CARBONATE 500 MG TAB PO SCH ×2 (08:20→20:19)
[2018-11-11] MEDS: FOLIC ACID 1 MG TABLET PO SCH (08:21)
[2018-11-11] MEDS: GABAPENTIN 100 MG CAP PO SCH ×2 (08:21→20:20)
[2018-11-11] MEDS: VITAMIN D 1000 UNIT TAB PO SCH (08:27)
--- NOTE | 2018-11-11 09:46 | P.RH.PN ---
Estimated Length of Stay: 23 Expected Discharge Date: 11/19/18 Discharge Disposition Plan: Home Family Support: Yes Detention Goal: Mobility, Transfers, Self Care Vital Signs: Last Vital Signs Temp 97.1 F 11/11/18 07:36 Pulse 102 H 11/11/18 07:36 Resp 16 11/11/18 07:36 BP 147/77 H 11/11/18 07:36 Pulse Ox 96 11/11/18 07:36 Laboratory: Laboratory Last Values WBC 7.0 K/uL (4.3-10.9) 11/10/18 05:51 RBC 3.85 M/uL (3.86-4.86) L 11/10/18 05:51 Hgb 11.7 g/dL (12.0-15.0) L 11/10/18 05:51 Hct 34.5 % (36.0-45.0) L 11/10/18 05:51 MCV 89.6 fL (80-100) 11/10/18 05:51 MCH 30.3 pg (27.0-35.0) 11/10/18 05:51 MCHC 33.8 g/dL (32.0-36.0) 11/10/18 05:51 RDW 14.8 % (12.1-15.2) 11/10/18 05:51 Plt Count 268 K/uL (152-406) 11/10/18 05:51 MPV 8.5 fL (7.6-11.3) 11/10/18 05:51 Neutrophils % 61.1 % (41.7-73.7) 11/10/18 05:51 Lymphocytes % 20.4 % (15.3-44.8) 11/10/18 05:51 Monocytes % 10.1 % (3.3-12.3) 11/10/18 05:51 Eosinophils % 7.9 % (0-4.4) H 11/10/18 05:51 Basophils % 0.5 % (0-1.3) 11/10/18 05:51 Absolute Neutrophils 4.3 K/uL (1.8-8.0) 11/10/18 05:51 Absolute Lymphocytes 1.4 K/uL (0.7-4.9) 11/10/18 05:51 Absolute Monocytes 0.7 K/uL (0.1-1.3) 11/10/18 05:51 Absolute Eosinophils 0.6 K/uL (0-0.5) H 11/10/18 05:51 Absolute Basophils 0.0 K/uL (0-0.5) 11/10/18 05:51 Sodium 135 mmol/L (136-145) L 11/10/18 05:51 Potassium 5.0 mmol/L (3.5-5.1) 11/10/18 05:51 Chloride 100 mmol/L (98-107) 11/10/18 05:51 Carbon Dioxide 31 mmol/L (21-32) 11/10/18 05:51 BUN 16 mg/dL (7-18) 11/10/18 05:51 Creatinine 0.94 mg/dL (0.55-1.3) 11/10/18 05:51 Estimated GFR 58 mL/min (=/>90) L 11/10/18 05:51 Glucose 102 mg/dL (74-106) 11/10/18 05:51 Lactic Acid 0.8 mmol/L (0.4-2.0) 11/06/18 09:22 Calcium 8.9 mg/dL (8.5-10.1) 11/10/18 05:51 Magnesium 2.1 mg/dL (1.8-2.4) 11/03/18 05:49 Total Bilirubin 0.5 mg/dL (0.2-1.0) 11/08/18 06:07 Direct Bilirubin 0.1 mg/dL (0-0.2) 11/08/18 06:07 AST 14 U/L (15-37) L 11/08/18 06:07 ALT 25 U/L (12-78) 11/08/18 06:07 Alkaline Phosphatase 59 U/L (45-117) 11/08/18 06:07 Serum Total Protein 7.0 g/dL (6.4-8.2) 11/08/18 06:07 Albumin 3.4 g/dL (3.4-5.0) 11/08/18 06:07 Globulin 3.6 g/dL (2.3-3.5) H 11/08/18 06:07 Albumin/Globulin Ratio 0.9 (1.1-1.8) L 11/08/18 06:07 Prealbumin 19.4 mg/dL (20-40) L 11/10/18 05:51 Urine Color Yellow 11/06/18 11:14 Urine Appearance Cloudy 11/06/18 11:14 Urine pH 7.5 (5.0-7.0) H 11/06/18 11:14 Ur Specific [place] 1.010 (1.005-1.030) 11/06/18 11:14 Urine Ketones Negative (NEG) 11/06/18 11:14 Urine Blood Negative (NEG) 11/06/18 11:14 Urine Nitrite Negative (NEG) 11/06/18 11:14 Urine Bilirubin Negative (NEG) 11/06/18 11:14 Urine Urobilinogen 1.0 mg/dL (0.2-1.0) 11/06/18 11:14 Ur Leukocyte Esterase 1+ (NEG) H 11/06/18 11:14 Urine RBC <5 /HPF (NONE SEEN) 11/06/18 11:14 Urine WBC 10-20 /HPF (<5) H 11/06/18 11:14 Ur Squamous Epith Cells Loaded /HPF (NONE SEEN) H 11/06/18 11:14 Amorphous Sediment 1+ /HPF (NONE SEEN) 11/06/18 11:14 Urine Bacteria >50 /HPF (<20) H 11/06/18 11:14 Urine Culture Reflexed Not needed 11/06/18 11:14 Urine Glucose Negative (NEG) 11/06/18 11:14 Urine Total Protein Negative (NEG) 11/06/18 11:14 Weight: 190 lb 9.6 oz Wound Present: No Closed Surgical Incision Present: No Negative Pressure Wound Therapy Present: No Physician Update: Labs reviewed and are stable. She is doing better with walking 60' with moderate assistance. She has a tendency to drift to the right. She refused speech and antidepressants. She is at minimum assitance with ADLs. She reports her will help her. She is a moderate assistance with transfers. She is easily distracted. She has potential to improve and will be helped by more time in rehabilitation. Medical Issues: DVT Prophylaxis - Lovenox 40mg SQ Daily Pain Issues: Tramadol 50mg Q4H PRN PO. Gabapentin 100mg BID PO. Lidoderm patch 5% Daily Functional Improvement: Patient has met all short-term goals at this time and is progressing well toward long-term goals. Patient has improved well w/ the technique during gait tx. Functional Improvement Occupational Therapy: Cont to increase pt's safety awareness and energy conservation techniques for safety including UB/LB dressing using A/E as needed. Cont to increase pt's right UE ROM/UB strength for Self ROM and AROM for neur re-ed to increase pt's proprioception in the right UE finger dexterity and movements. Cont to address pt's static standing balance and educating on posture and foot placement for safety while managing clothing and for toileting. Cont to increase pt's overall weakness and endurance for adl tasks. Speech Therapy Update: Pt requires SUPV to MOD I for Auditory Comprehension ( for complex, novel information), MOD I to I for Verbal Expression and Social Interaction, SUPV to MOD I for Problem Solving, and SUPV for Memory. She requires repeated, simplified instruction and extra response time, as well as verbal reminders. Summary: Patient's care plan and assisted goals have been reviewed and revised as necessary. Please see the Rehabilitation Signature page for all necessary signatures.
--- NOTE | 2018-11-11 15:27 | FAST ---
ENCOUNTER DATE AND TIME: 11/11/2018 08:00 (CDT) NAME LEONORA HOFF DATE OF : 1940 DATE OF ADMISSION: 10/28/2018 15:22 (CDT) PHONE: AGE: 77 SSN# [id number] GENDER: Female ENCOUNTER PHYSICIAN: Dr. Harpreet Alan M.D. 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 EATING: Activity did not occur on this shift EATING - SCORE: 0-UNK GROOMING: Activity did not occur on this shift GROOMING - SCORE: 0-UNK BATHING: Activity did not occur on this shift BATHING - SCORE: 0-UNK DRESSING - UPPER BODY: Activity did not occur on this shift Patient is not dressing in public clothing ARTICLES SCORE Total number of steps: 0 DRESSING - UPPER BODY - SCORE: 0-UNK DRESSING - LOWER BODY: Activity did not occur on this shift Patient is not dressing in public clothing ARTICLES SCORE Total number of steps: 0 DRESSING - LOWER BODY - SCORE: 0-UNK TOILETING: Activity did not occur on this shift TOILETING - SCORE: 0-UNK BLADDER MANAGEMENT: Activity did not occur on this shift BLADDER MANAGEMENT - SCORE: 7-IND BOWEL MANAGEMENT: Activity did not occur on this shift BOWEL MANAGEMENT - SCORE: 7-IND TRANSFERS: BED, CHAIR, WHEELCHAIR: TRANSFERS: BED, CHAIR, WHEELCHAIR - STEP 1: Does the patient require assistance of a person or device, or need extra time with bed, chair, or whe elchair transfers? Yes. TRANSFERS: BED, CHAIR, WHEELCHAIR - STEP 2: Does the patient require the assistance of a helper? Yes. TRANSFERS: BED, CHAIR, WHEELCHAIR - STEP 3: How much assistance does the patient require from the helper? Lifting of the legs TRANSFERS: BED, CHAIR, WHEELCHAIR - STEP 4: How many legs does the patient require the helper to lift? both legs TRANSFERS: BED, CHAIR, WHEELCHAIR - SCORE: 3-MOD TRANSFERS: TOILET: Activity did not occur on this shift TRANSFERS: TOILET - SCORE: 0-UNK TRANSFERS: SHOWER: Activity did not occur on this shift TRANSFERS: SHOWER - SCORE: 0-UNK TRANSFERS: TUB: Activity did not occur on this shift TRANSFERS: TUB - SCORE: 0-UNK LOCOMOTION: WALK: LOCOMOTION: WALK - STEP 1: Does the patient need help from a person or device, or need extra time to walk 150 feet? Yes. LOCOMOTION: WALK - STEP 2: How much assistance does the patient require to walk a minimum of 150 feet? Patient walks less than 1 50 feet - but more than 50 feet - with the assistance of only one helper LOCOMOTION: WALK - SCORE: 2-MAX LOCOMOTION: WHEELCHAIR: LOCOMOTION: WHEELCHAIR - STEP 1: Does the patient need help to go 150 feet in a wheelchair? Yes. LOCOMOTION: WHEELCHAIR - STEP 2: How much assistance does the patient need from the helper? Only incidental help such as around corner s or over thresholds LOCOMOTION: WHEELCHAIR - SCORE: 4-MIN LOCOMOTION: STAIRS: Activity did not occur on this shift LOCOMOTION: STAIRS - SCORE: 0-UNK COMPREHENSION: COMPREHENSION - SCORE: 0-UNK EXPRESSION EXPRESSION - SCORE: 0-UNK SOCIAL INTERACTION: SOCIAL INTERACTION - SCORE: 0-UNK PROBLEM SOLVING: PROBLEM SOLVING - SCORE: 0-UNK MEMORY: MEMORY - SCORE: 0-UNK SIGNATURE PANEL: The following modified sections: Transfers: Bed, Chair, Wheelchair - Score, Transfers: Toilet - Score , Locomotion: Walk - Score, Locomotion: Wheelchair - Score, Locomotion: Stairs - Score were [moises mims] signed by Mason Lechuga PTA on WedNov 11 2018 15:26:40 GMT-0500 (Central Daylight Time)
[2018-11-11] MEDS: predniSONE 5 MG TAB PO SCH (17:11)
[2018-11-11] MEDS: IRBESARTAN 150 MG TAB PO SCH (20:18)
[2018-11-11] MEDS: DOCUSATE NA/SENNA CONC 1 TAB PO SCH (20:19)
[2018-11-12] MEDS: TRAMADOL HCL 50 MG TAB PO PRN ×2 (01:58→23:14)
--- NOTE | 2018-11-12 02:13 | FAST ---
SHIFT START DATE/TIME: 11/11/2018 19:00 (CDT) SHIFT END DATE/TIME: 11/12/2018 07:00 (CDT) NAME LEONORA HOFF DATE OF : 1940 DATE OF ADMISSION: 10/28/2018 15:22 (CDT) PHONE: AGE: 77 N# [id number] GENDER: Female ENCOUNTER PHYSICIAN: Dr. Harpreet Alan M.D. 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 EATING: Activity did not occur on this shift EATING - SCORE: 0-UNK GROOMING: Oral care Wash, rinse, and dry face Wash, rinse, and dry hands GROOMING - STEP 1: Does the patient require the assistance of a person or device, or need extra time when grooming? Yes. GROOMING - STEP 2: Does the patient require the assistance of a helper? Yes. GROOMING - STEP 3: How much assistance does the patient require from the helper? Only prior equipment preparation/set up from the helper GROOMING - SCORE: 5-SUP BATHING: Activity did not occur on this shift BATHING - SCORE: 0-UNK DRESSING - UPPER BODY: Patient is not dressing in public clothing ARTICLES SCORE Total number of steps: 0 DRESSING - UPPER BODY - SCORE: 0-UNK DRESSING - LOWER BODY: Patient is not dressing in public clothing ARTICLES SCORE Total number of steps: 0 DRESSING - LOWER BODY - SCORE: 0-UNK TOILETING: TOILETING - STEP 1: Does the patient require the assistance of a person or device, or need extra time with toileting? Yes . TOILETING - STEP 2: Does the patient require the assistance of a helper? Yes. TOILETING - STEP 3: How much assistance does the patient require from the helper? Hands-on assistance from the helper TOILETING - STEP 4: Of the 3 tasks: 1) Adjusting clothing prior to use, 2) Cleansing of perineal area, 3) Adjusting clot juan f after use; How many tasks does the patient perform WITHOUT assistance of the helper? No tasks; h elper performs all three tasks TOILETING - SCORE: 1-DEP BLADDER MANAGEMENT: BLADDER MANAGEMENT - STEP 1: Does the patient control the bladder completely and intentionally without equipment or devices or med ications, and is always continent? No. BLADDER MANAGEMENT - STEP 2: Does the patient require the assistance of a helper? Yes. BLADDER MANAGEMENT - STEP 3: How much assistance does the patient require from the helper? Only set-up of equipment - such as plac ing it within reach of the patient or emptying a device - to maintain either satisfactory voiding pat tern or managing an external device, such as an absorbent pad, ileal device, or catheter BLADDER MANAGEMENT - SCORE: 5-SUP BOWEL MANAGEMENT: Activity did not occur on this shift BOWEL MANAGEMENT - SCORE: 7-IND TRANSFERS: BED, CHAIR, WHEELCHAIR: Patient requires more than one helper and/or the use of a mechanical lift is utilized TRANSFERS: BED, CHAIR, WHEELCHAIR - SCORE: 1-DEP TRANSFERS: TOILET: Patient requires more than one helper and/or the use of a mechanical lift is utilized TRANSFERS: TOILET - SCORE: 1-DEP TRANSFERS: SHOWER: Activity did not occur on this shift TRANSFERS: SHOWER - SCORE: 0-UNK TRANSFERS: TUB: Activity did not occur on this shift TRANSFERS: TUB - SCORE: 0-UNK LOCOMOTION: WALK: Activity did not occur on this shift LOCOMOTION: WALK - SCORE: 0-UNK LOCOMOTION: WHEELCHAIR: Activity did not occur on this shift LOCOMOTION: WHEELCHAIR - SCORE: 0-UNK COMPREHENSION: COMPREHENSION: TYPE: Both COMPREHENSION - STEP 1: Does the patient require help from a person or device, or need extra time to understand complex and a bstract ideas (such as current events, finances, discharge planning, medical issues, relationships, e tc)? No. COMPREHENSION - STEP 2: Does the patient need extra time, require an assistive device (such as glasses for visual comprehensi on or a hearing aid for auditory comprehension) or does s/he have mild difficulty understanding compl ex and abstract information? Yes. COMPREHENSION - SCORE: 6-RANDY EXPRESSION EXPRESSION: TYPE: Both EXPRESSION - STEP 1: Does the patient require help from a person or device, or need extra time expressing complex and abst ract ideas (such as current events, finances, discharge planning, medical issues, relationships, etc) ? No. EXPRESSION - STEP 2: Does the patient need extra time, require an assistive device (such as augmentive communication syste m or a communication board), OR does s/he have mild difficulty expressing complex and abstract ideas (including mild dysarthria or mild word-find problems)? Yes. EXPRESSION - SCORE: 6-RANDY SOCIAL INTERACTION: SOCIAL INTERACTION - STEP 1: Does the patient require a helper to interact with others in social and therapeutic situations? No. SOCIAL INTERACTION - STEP 2: Does the patient need extra time in social situations, OR does s/he interact with staff, other patien ts, and family members ONLY in structured environments, OR does s/he require medication for social in teraction? Yes, patient requires medication for social interaction SOCIAL INTERACTION - SCORE: 6-RANDY PROBLEM SOLVING: PROBLEM SOLVING - STEP 1: Does the patient need help from a person or device, or need extra time to solve complex problems such as managing a checking account or confronting interpersonal problems? Yes. PROBLEM SOLVING - STEP 2: Does the patient solve basic routine problems half or more of the time? Yes. PROBLEM SOLVING - STEP 3: How often does the patient need help to solve basic routine problems? 10%-24% of the time PROBLEM SOLVING - SCORE: 4-MIN MEMORY: MEMORY - STEP 1: Does the patient need help from a person or device, or need extra time to remember frequently encount ered people, daily routines, and executing requests? No. MEMORY - STEP 2: Does the patient have slight difficulty recognizing frequently encountered people, daily routines, or executing requests without the need for repetition or using self-initiated or environmental cues to remember? Yes. MEMORY - SCORE: 6-RNADY
[2018-11-12] MEDS: ACETAMINOPHEN 500 MG TAB PO PRN (03:14)
[2018-11-12] MEDS: ENOXAPARIN 40 MG/0.4 ML SQ SCH (06:51)
[2018-11-12] MEDS: DULOXETINE 20 MG CAP PO SCH (08:00)
[2018-11-12] MEDS: LIDOCAINE 5% PATCH TOP SCH (08:00)
[2018-11-12] MEDS: VITAMIN D 1000 UNIT TAB PO SCH (08:00)
[2018-11-12] MEDS: CALCIUM CARBONATE 500 MG TAB PO SCH ×2 (08:56→20:50)
[2018-11-12] MEDS: GABAPENTIN 100 MG CAP PO SCH ×2 (08:56→20:50)
[2018-11-12] MEDS: CRANBERRY FRUIT EXTRACT 200 MG CAP PO SCH ×2 (08:56→20:50)
[2018-11-12] MEDS: CLOPIDOGREL 75 MG TABLET PO SCH (08:56)
[2018-11-12] MEDS: FOLIC ACID 1 MG TABLET PO SCH (08:57)
[2018-11-12] MEDS: ATORVASTATIN 10 MG TAB PO SCH (08:57)
[2018-11-12] MEDS: PANTOPRAZOLE 40MG TABLET PO SCH (08:57)
--- NOTE | 2018-11-12 10:02 | FAST ---
SHIFT START DATE/TIME: 11/12/2018 07:00 (CDT) SHIFT END DATE/TIME: 11/12/2018 19:00 (CDT) NAME LEONORA HOFF DATE OF : 1940 DATE OF ADMISSION: 10/28/2018 15:22 (CDT) PHONE: AGE: 77 N# [id number] GENDER: Female ENCOUNTER PHYSICIAN: Dr. Harpreet Alan M.D. 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 EATING: EATING - STEP 1: Does the patient require the assistance of a person or device, or need extra time when eating? Yes. EATING - STEP 2: Does the patient require the assistance of a helper? Yes. EATING - STEP 3: Does the patient perform half or more of the eating tasks? Yes. EATING - STEP 4: Does the patient need only supervision, cuing, coaxing OR help to apply an orthosis OR help to cut fo od, open containers, pour liquids, or butter bread? Yes. EATING - SCORE: 5-SUP GROOMING: Comb/brush hair Oral care Patient applied make-up Wash, rinse, and dry face Wash, rinse, and dry hands GROOMING - STEP 1: Does the patient require the assistance of a person or device, or need extra time when grooming? Yes. GROOMING - STEP 2: Does the patient require the assistance of a helper? Yes. GROOMING - STEP 3: How much assistance does the patient require from the helper? Cuing, coaxing, instructions, or encour agement for completion of grooming GROOMING - SCORE: 5-SUP BATHING: Activity did not occur on this shift BATHING - SCORE: 0-UNK DRESSING - UPPER BODY: Bra (three steps) T-shirt/pullover shirt (four steps) ARTICLES SCORE Total number of steps: 7 DRESSING - UPPER BODY - STEP 1: Does the patient require help from a person or device, or need extra time when dressing above the [address]? Yes. DRESSING - UPPER BODY - STEP 2: Does the patient require the assistance of a helper? Yes. DRESSING - UPPER BODY - STEP 3: Does the helper touch the patient while dressing? Yes. DRESSING - UPPER BODY - STEP 4: How many of the total steps does the patient complete on his/her own? 4 DRESSING - UPPER BODY - SCORE: 3-MOD DRESSING - LOWER BODY: ARTICLES SCORE Total number of steps: 8 DRESSING - LOWER BODY - STEP 1: Does the patient require help from a person or device, or need extra time when dressing below the [address]? Yes. DRESSING - LOWER BODY - STEP 2: Does the patient require the assistance of a helper? Yes. DRESSING - LOWER BODY - STEP 3: Does the helper touch the patient while dressing? Yes. DRESSING - LOWER BODY - STEP 4: How many of the total steps does the patient complete on his/her own? 3 DRESSING - LOWER BODY - STEP 5: Does patient require total assistance for dressing below the waist such as the helper holding clothin g and performing basically all the activities? No. DRESSING - LOWER BODY - SCORE: 2-MAX TOILETING: TOILETING - STEP 1: Does the patient require the assistance of a person or device, or need extra time with toileting? Yes . TOILETING - STEP 2: Does the patient require the assistance of a helper? Yes. TOILETING - STEP 3: How much assistance does the patient require from the helper? Hands-on assistance from the helper TOILETING - STEP 4: Of the 3 tasks: 1) Adjusting clothing prior to use, 2) Cleansing of perineal area, 3) Adjusting clot juan f after use; How many tasks does the patient perform WITHOUT assistance of the helper? One task TOILETING - SCORE: 2-MAX BLADDER MANAGEMENT: BLADDER MANAGEMENT - STEP 1: Does the patient control the bladder completely and intentionally without equipment or devices or med ications, and is always continent? No. BLADDER MANAGEMENT - STEP 2: Does the patient require the assistance of a helper? No, patient requires and independently uses an a ssistive device, such as a urinal, bedpan, bedside commode, catheter, absorbent pad, or collecting de vice BLADDER MANAGEMENT - SCORE: 6-RANDY BOWEL MANAGEMENT: Activity did not occur on this shift BOWEL MANAGEMENT - SCORE: 7-IND TRANSFERS: BED, CHAIR, WHEELCHAIR: TRANSFERS: BED, CHAIR, WHEELCHAIR - STEP 1: Does the patient require assistance of a person or device, or need extra time with bed, chair, or whe elchair transfers? Yes. TRANSFERS: BED, CHAIR, WHEELCHAIR - STEP 2: Does the patient require the assistance of a helper? Yes. TRANSFERS: BED, CHAIR, WHEELCHAIR - STEP 3: How much assistance does the patient require from the helper? Lifting of the patient TRANSFERS: BED, CHAIR, WHEELCHAIR - STEP 4: Does the helper lift the patient ONLY up? ONLY down? Up AND Down? ONLY up. TRANSFERS: BED, CHAIR, WHEELCHAIR - SCORE: 3-MOD TRANSFERS: TOILET: TRANSFERS: TOILET - STEP 1: Does the patient require the assistance of a person or device, or need extra time with toilet transfe rs? Yes. TRANSFERS: TOILET - STEP 2: Does the patient require the assistance of a helper? Yes. TRANSFERS: TOILET - STEP 3: How much assistance does the patient require from the helper? Patient performs half or more of the tr ansferring tasks TRANSFERS: TOILET - STEP 4: Does the patient need only incidental help such as contact guard or steadying during toilet transfer? No. Patient needs more than incidental help TRANSFERS: TOILET - SCORE: 3-MOD TRANSFERS: SHOWER: Activity did not occur on this shift TRANSFERS: SHOWER - SCORE: 0-UNK TRANSFERS: TUB: Activity did not occur on this shift TRANSFERS: TUB - SCORE: 0-UNK LOCOMOTION: WALK: Activity did not occur on this shift LOCOMOTION: WALK - SCORE: 0-UNK LOCOMOTION: WHEELCHAIR: Activity did not occur on this shift LOCOMOTION: WHEELCHAIR - SCORE: 0-UNK COMPREHENSION: COMPREHENSION: TYPE: Both COMPREHENSION - STEP 1: Does the patient require help from a person or device, or need extra time to understand complex and a bstract ideas (such as current events, finances, discharge planning, medical issues, relationships, e tc)? Yes. COMPREHENSION - STEP 2: Does the patient require help to understand questions or statements about basic needs or ideas (such as hunger, thirst, sleep, safety, daily schedule, room location, or discomfort) half or more of the t davin? No. COMPREHENSION - STEP 3: How often does the patient need help to understand directions and conversation about basic needs? Les s than 10% of the time COMPREHENSION - SCORE: 5-SUP EXPRESSION EXPRESSION: TYPE: Both EXPRESSION - STEP 1: Does the patient require help from a person or device, or need extra time expressing complex and abst ract ideas (such as current events, finances, discharge planning, medical issues, relationships, etc) ? No. EXPRESSION - STEP 2: Does the patient need extra time, require an assistive device (such as augmentive communication syste m or a communication board), OR does s/he have mild difficulty expressing complex and abstract ideas (including mild dysarthria or mild word-find problems)? Yes. EXPRESSION - SCORE: 6-RANDY SOCIAL INTERACTION: SOCIAL INTERACTION - STEP 1: Does the patient require a helper to interact with others in social and therapeutic situations? No. SOCIAL INTERACTION - STEP 2: Does the patient need extra time in social situations, OR does s/he interact with staff, other patien ts, and family members ONLY in structured environments, OR does s/he require medication for social in teraction? Yes, patient needs extra time SOCIAL INTERACTION - SCORE: 6-RANDY PROBLEM SOLVING: PROBLEM SOLVING - STEP 1: Does the patient need help from a person or device, or need extra time to solve complex problems such as managing a checking account or confronting interpersonal problems? No. PROBLEM SOLVING - STEP 2: Does the patient require extra time to make decisions or solve problems, OR does s/he have slight dif ficulty reading, initiating, or self-correcting in unfamiliar situations? Yes, patient needs extra ti me. PROBLEM SOLVING - SCORE: 6-RANDY MEMORY: MEMORY - STEP 1: Does the patient need help from a person or device, or need extra time to remember frequently encount ered people, daily routines, and executing requests? Yes. MEMORY - STEP 2: How often does the patient need help to remember frequently encountered people, daily routines, and e xecuting requests? Less than 10% of the time MEMORY - SCORE: 5-SUP SIGNATURE PANEL: The following modified sections: Eating - Score, Grooming - Score, Bathing - Score, Dressing - Upper Body - Score, Dressing - Lower Body - Score, Toileting - Score, Bladder Management - Score, Bowel Man agement - Score, Transfers: Bed, Chair, Wheelchair - Score, Transfers: Toilet - Score, Transfers: Amrita wer - Score, Transfers: Tub - Score, Locomotion: Walk - Score, Locomotion: Wheelchair - Score, Compre hension - Score, Expression - Score, Social Interaction - Score, Problem Solving - Score, Memory - Sc ore were [electronically] signed by Germán Camilo on Sat Nov 12 2018 10:01:20 T-0500 (Central Daylight Time)
[2018-11-12] MEDS: IRBESARTAN 150 MG TAB PO SCH (20:50)
[2018-11-12] MEDS: DOCUSATE NA/SENNA CONC 1 TAB PO SCH (20:53)
[2018-11-13] MEDS: PANTOPRAZOLE 40MG TABLET PO SCH (06:22)
[2018-11-13] MEDS: ENOXAPARIN 40 MG/0.4 ML SQ SCH (06:22)
[2018-11-13] MEDS: LIDOCAINE 5% PATCH TOP SCH (08:00)
[2018-11-13] MEDS: DULOXETINE 20 MG CAP PO SCH (08:00)
[2018-11-13] MEDS: CRANBERRY FRUIT EXTRACT 200 MG CAP PO SCH ×2 (08:27→20:50)
[2018-11-13] MEDS: CLOPIDOGREL 75 MG TABLET PO SCH (08:28)
[2018-11-13] MEDS: ATORVASTATIN 10 MG TAB PO SCH (08:28)
[2018-11-13] MEDS: CALCIUM CARBONATE 500 MG TAB PO SCH ×2 (08:28→20:51)
[2018-11-13] MEDS: GABAPENTIN 100 MG CAP PO SCH ×2 (08:28→20:51)
[2018-11-13] MEDS: FOLIC ACID 1 MG TABLET PO SCH (08:28)
[2018-11-13] MEDS: VITAMIN D 1000 UNIT TAB PO SCH (08:29)
--- NOTE | 2018-11-13 13:44 | FAST ---
SHIFT START DATE/TIME: 11/13/2018 07:00 (CDT) SHIFT END DATE/TIME: 11/13/2018 19:00 (CDT) NAME LEONORA HOFF DATE OF : 1940 DATE OF ADMISSION: 10/28/2018 15:22 (CDT) PHONE: AGE: 77 N# [id number] GENDER: Female ENCOUNTER PHYSICIAN: Dr. Harpreet Alan M.D. 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 EATING: EATING - STEP 1: Does the patient require the assistance of a person or device, or need extra time when eating? Yes. EATING - STEP 2: Does the patient require the assistance of a helper? Yes. EATING - STEP 3: Does the patient perform half or more of the eating tasks? No. EATING - STEP 4: Does the patient require total assistance to eat, such as the helper holding the utensil and bringing all food and liquids to the mouth? No. EATING - SCORE: 2-MAX GROOMING: Comb/brush hair Patient applied make-up GROOMING - STEP 1: Does the patient require the assistance of a person or device, or need extra time when grooming? Yes. GROOMING - STEP 2: Does the patient require the assistance of a helper? Yes. GROOMING - STEP 3: How much assistance does the patient require from the helper? Cuing, coaxing, instructions, or encour agement for completion of grooming GROOMING - SCORE: 5-SUP BATHING: Activity did not occur on this shift BATHING - SCORE: 0-UNK DRESSING - UPPER BODY: Activity did not occur on this shift ARTICLES SCORE Total number of steps: 0 DRESSING - UPPER BODY - SCORE: 0-UNK DRESSING - LOWER BODY: Activity did not occur on this shift ARTICLES SCORE Total number of steps: 0 DRESSING - LOWER BODY - SCORE: 0-UNK TOILETING: TOILETING - STEP 1: Does the patient require the assistance of a person or device, or need extra time with toileting? Yes . TOILETING - STEP 2: Does the patient require the assistance of a helper? Yes. TOILETING - STEP 3: How much assistance does the patient require from the helper? Hands-on assistance from the helper TOILETING - STEP 4: Of the 3 tasks: 1) Adjusting clothing prior to use, 2) Cleansing of perineal area, 3) Adjusting clot juan f after use; How many tasks does the patient perform WITHOUT assistance of the helper? One task TOILETING - SCORE: 2-MAX BLADDER MANAGEMENT: BLADDER MANAGEMENT - STEP 1: Does the patient control the bladder completely and intentionally without equipment or devices or med ications, and is always continent? Yes. BLADDER MANAGEMENT - SCORE: 7-IND BOWEL MANAGEMENT: Activity did not occur on this shift BOWEL MANAGEMENT - SCORE: 7-IND TRANSFERS: BED, CHAIR, WHEELCHAIR: TRANSFERS: BED, CHAIR, WHEELCHAIR - STEP 1: Does the patient require assistance of a person or device, or need extra time with bed, chair, or whe elchair transfers? Yes. TRANSFERS: BED, CHAIR, WHEELCHAIR - STEP 2: Does the patient require the assistance of a helper? Yes. TRANSFERS: BED, CHAIR, WHEELCHAIR - STEP 3: How much assistance does the patient require from the helper? Lifting of the patient TRANSFERS: BED, CHAIR, WHEELCHAIR - STEP 4: Does the helper lift the patient ONLY up? ONLY down? Up AND Down? ONLY up. TRANSFERS: BED, CHAIR, WHEELCHAIR - SCORE: 3-MOD TRANSFERS: TOILET: TRANSFERS: TOILET - STEP 1: Does the patient require the assistance of a person or device, or need extra time with toilet transfe rs? Yes. TRANSFERS: TOILET - STEP 2: Does the patient require the assistance of a helper? Yes. TRANSFERS: TOILET - STEP 3: How much assistance does the patient require from the helper? Patient performs half or more of the tr ansferring tasks TRANSFERS: TOILET - STEP 4: Does the patient need only incidental help such as contact guard or steadying during toilet transfer? No. Patient needs more than incidental help TRANSFERS: TOILET - SCORE: 3-MOD TRANSFERS: SHOWER: Activity did not occur on this shift TRANSFERS: SHOWER - SCORE: 0-UNK TRANSFERS: TUB: Activity did not occur on this shift TRANSFERS: TUB - SCORE: 0-UNK LOCOMOTION: WALK: Activity did not occur on this shift LOCOMOTION: WALK - SCORE: 0-UNK LOCOMOTION: WHEELCHAIR: Activity did not occur on this shift LOCOMOTION: WHEELCHAIR - SCORE: 0-UNK COMPREHENSION: COMPREHENSION: TYPE: Both COMPREHENSION - STEP 1: Does the patient require help from a person or device, or need extra time to understand complex and a bstract ideas (such as current events, finances, discharge planning, medical issues, relationships, e tc)? No. COMPREHENSION - STEP 2: Does the patient need extra time, require an assistive device (such as glasses for visual comprehensi on or a hearing aid for auditory comprehension) or does s/he have mild difficulty understanding compl ex and abstract information? Yes. COMPREHENSION - SCORE: 6-RANDY EXPRESSION EXPRESSION: TYPE: Both EXPRESSION - STEP 1: Does the patient require help from a person or device, or need extra time expressing complex and abst ract ideas (such as current events, finances, discharge planning, medical issues, relationships, etc) ? No. EXPRESSION - STEP 2: Does the patient need extra time, require an assistive device (such as augmentive communication syste m or a communication board), OR does s/he have mild difficulty expressing complex and abstract ideas (including mild dysarthria or mild word-find problems)? Yes. EXPRESSION - SCORE: 6-ARNDY SOCIAL INTERACTION: SOCIAL INTERACTION - STEP 1: Does the patient require a helper to interact with others in social and therapeutic situations? No. SOCIAL INTERACTION - STEP 2: Does the patient need extra time in social situations, OR does s/he interact with staff, other patien ts, and family members ONLY in structured environments, OR does s/he require medication for social in teraction? Yes, patient needs extra time SOCIAL INTERACTION - SCORE: 6-RANDY PROBLEM SOLVING: PROBLEM SOLVING - STEP 1: Does the patient need help from a person or device, or need extra time to solve complex problems such as managing a checking account or confronting interpersonal problems? No. PROBLEM SOLVING - STEP 2: Does the patient require extra time to make decisions or solve problems, OR does s/he have slight dif ficulty reading, initiating, or self-correcting in unfamiliar situations? Yes, patient needs extra ti me. PROBLEM SOLVING - SCORE: 6-RANDY MEMORY: MEMORY - STEP 1: Does the patient need help from a person or device, or need extra time to remember frequently encount ered people, daily routines, and executing requests? No. MEMORY - STEP 2: Does the patient have slight difficulty recognizing frequently encountered people, daily routines, or executing requests without the need for repetition or using self-initiated or environmental cues to remember? Yes. MEMORY - SCORE: 6-RANDY SIGNATURE PANEL: The following modified sections: Eating - Score, Grooming - Score, Bathing - Score, Dressing - Upper Body - Score, Dressing - Lower Body - Score, Toileting - Score, Bladder Management - Score, Bowel Man agement - Score, Transfers: Bed, Chair, Wheelchair - Score, Transfers: Toilet - Score, Transfers: Amrita wer - Score, Transfers: Tub - Score, Locomotion: Walk - Score, Locomotion: Wheelchair - Score, Compre hension - Score, Expression - Score, Social Interaction - Score, Problem Solving - Score, Memory - Sc ore were [electronically] signed by Germán Camilo on WedNov 13 2018 13:44:03 T-0500 (Central Daylight Time)
[2018-11-13] MEDS: predniSONE 5 MG TAB PO SCH (16:59)
[2018-11-13] MEDS: IRBESARTAN 150 MG TAB PO SCH (20:50)
[2018-11-13] MEDS: DOCUSATE NA/SENNA CONC 1 TAB PO SCH (20:51)
[2018-11-13] MEDS: TRAMADOL HCL 50 MG TAB PO PRN (21:57)
--- NOTE | 2018-11-14 01:24 | FAST ---
SHIFT START DATE/TIME: 11/13/2018 19:00 (CDT) SHIFT END DATE/TIME: 11/14/2018 07:00 (CDT) NAME LEONORA HOFF DATE OF : 1940 DATE OF ADMISSION: 10/28/2018 15:22 (CDT) PHONE: AGE: 77 N# [id number] GENDER: Female ENCOUNTER PHYSICIAN: Dr. Harpreet Alan M.D. 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 EATING: Activity did not occur on this shift EATING - SCORE: 0-UNK GROOMING: Wash, rinse, and dry hands GROOMING - STEP 1: Does the patient require the assistance of a person or device, or need extra time when grooming? Yes. GROOMING - STEP 2: Does the patient require the assistance of a helper? Yes. GROOMING - STEP 3: How much assistance does the patient require from the helper? Only prior equipment preparation/set up from the helper GROOMING - SCORE: 5-SUP BATHING: Activity did not occur on this shift BATHING - SCORE: 0-UNK DRESSING - UPPER BODY: Patient is not dressing in public clothing ARTICLES SCORE Total number of steps: 0 DRESSING - UPPER BODY - SCORE: 0-UNK DRESSING - LOWER BODY: Patient is not dressing in public clothing ARTICLES SCORE Total number of steps: 0 DRESSING - LOWER BODY - SCORE: 0-UNK TOILETING: TOILETING - STEP 1: Does the patient require the assistance of a person or device, or need extra time with toileting? Yes . TOILETING - STEP 2: Does the patient require the assistance of a helper? Yes. TOILETING - STEP 3: How much assistance does the patient require from the helper? Hands-on assistance from the helper TOILETING - STEP 4: Of the 3 tasks: 1) Adjusting clothing prior to use, 2) Cleansing of perineal area, 3) Adjusting clot juan f after use; How many tasks does the patient perform WITHOUT assistance of the helper? No tasks; h elper performs all three tasks TOILETING - SCORE: 1-DEP BLADDER MANAGEMENT: BLADDER MANAGEMENT - STEP 1: Does the patient control the bladder completely and intentionally without equipment or devices or med ications, and is always continent? No. BLADDER MANAGEMENT - STEP 2: Does the patient require the assistance of a helper? Yes. BLADDER MANAGEMENT - STEP 3: How much assistance does the patient require from the helper? Only set-up of equipment - such as plac ing it within reach of the patient or emptying a device - to maintain either satisfactory voiding pat tern or managing an external device, such as an absorbent pad, ileal device, or catheter BLADDER MANAGEMENT - SCORE: 5-SUP BOWEL MANAGEMENT: BOWEL MANAGEMENT - STEP 1: Does the patient control bowels completely and intentionally without equipment devices or medications AND is always continent? No. BOWEL MANAGEMENT - STEP 2: Does the patient require the assistance of a helper? No, patient requires medication for control such as stool softeners, suppositories, laxatives, enemas, or OTC medications BOWEL MANAGEMENT - SCORE: 6-RANDY TRANSFERS: BED, CHAIR, WHEELCHAIR: TRANSFERS: BED, CHAIR, WHEELCHAIR - STEP 1: Does the patient require assistance of a person or device, or need extra time with bed, chair, or whe elchair transfers? Yes. TRANSFERS: BED, CHAIR, WHEELCHAIR - STEP 2: Does the patient require the assistance of a helper? Yes. TRANSFERS: BED, CHAIR, WHEELCHAIR - STEP 3: How much assistance does the patient require from the helper? Lifting of the patient TRANSFERS: BED, CHAIR, WHEELCHAIR - STEP 4: Does the helper lift the patient ONLY up? ONLY down? Up AND Down? Patient needs help with all lifting TRANSFERS: BED, CHAIR, WHEELCHAIR - SCORE: 1-DEP TRANSFERS: TOILET: TRANSFERS: TOILET - STEP 1: Does the patient require the assistance of a person or device, or need extra time with toilet transfe rs? Yes. TRANSFERS: TOILET - STEP 2: Does the patient require the assistance of a helper? Yes. TRANSFERS: TOILET - STEP 3: How much assistance does the patient require from the helper? Patient performs less than half of the transferring tasks TRANSFERS: TOILET - STEP 4: Does the patient require total assistance for the toilet transfer such as the helper doing basically all the lifting? Yes. TRANSFERS: TOILET - SCORE: 1-DEP TRANSFERS: SHOWER: Activity did not occur on this shift TRANSFERS: SHOWER - SCORE: 0-UNK TRANSFERS: TUB: Activity did not occur on this shift TRANSFERS: TUB - SCORE: 0-UNK LOCOMOTION: WALK: Activity did not occur on this shift LOCOMOTION: WALK - SCORE: 0-UNK LOCOMOTION: WHEELCHAIR: Activity did not occur on this shift LOCOMOTION: WHEELCHAIR - SCORE: 0-UNK COMPREHENSION: COMPREHENSION: TYPE: Both COMPREHENSION - STEP 1: Does the patient require help from a person or device, or need extra time to understand complex and a bstract ideas (such as current events, finances, discharge planning, medical issues, relationships, e tc)? No. COMPREHENSION - STEP 2: Does the patient need extra time, require an assistive device (such as glasses for visual comprehensi on or a hearing aid for auditory comprehension) or does s/he have mild difficulty understanding compl ex and abstract information? Yes. COMPREHENSION - SCORE: 6-RANDY EXPRESSION EXPRESSION: TYPE: Both EXPRESSION - STEP 1: Does the patient require help from a person or device, or need extra time expressing complex and abst ract ideas (such as current events, finances, discharge planning, medical issues, relationships, etc) ? No. EXPRESSION - STEP 2: Does the patient need extra time, require an assistive device (such as augmentive communication syste m or a communication board), OR does s/he have mild difficulty expressing complex and abstract ideas (including mild dysarthria or mild word-find problems)? No. EXPRESSION - SCORE: 7-IND SOCIAL INTERACTION: SOCIAL INTERACTION - STEP 1: Does the patient require a helper to interact with others in social and therapeutic situations? No. SOCIAL INTERACTION - STEP 2: Does the patient need extra time in social situations, OR does s/he interact with staff, other patien ts, and family members ONLY in structured environments, OR does s/he require medication for social in teraction? Yes, patient requires medication for social interaction SOCIAL INTERACTION - SCORE: 6-RANDY PROBLEM SOLVING: PROBLEM SOLVING - STEP 1: Does the patient need help from a person or device, or need extra time to solve complex problems such as managing a checking account or confronting interpersonal problems? Yes. PROBLEM SOLVING - STEP 2: Does the patient solve basic routine problems half or more of the time? Yes. PROBLEM SOLVING - STEP 3: How often does the patient need help to solve basic routine problems? 10%-24% of the time PROBLEM SOLVING - SCORE: 4-MIN MEMORY: MEMORY - STEP 1: Does the patient need help from a person or device, or need extra time to remember frequently encount ered people, daily routines, and executing requests? No. MEMORY - STEP 2: Does the patient have slight difficulty recognizing frequently encountered people, daily routines, or executing requests without the need for repetition or using self-initiated or environmental cues to remember? Yes. MEMORY - SCORE: 6-RANDY SIGNATURE PANEL: The following modified sections: Eating - Score, Grooming - Score, Dressing - Upper Body - Score, Vitaliy ssing - Lower Body - Score, Toileting - Score, Bladder Management - Score, Bowel Management - Score, Transfers: Bed, Chair, Wheelchair - Score, Transfers: Toilet - Score, Transfers: Shower - Score, Levine sfers: Tub - Score, Locomotion: Walk - Score, Locomotion: Wheelchair - Score, Comprehension - Score, Expression - Score, Social Interaction - Score, Problem Solving - Score, Memory - Score were [electro nically] signed by Jayda Tejeda CNA on WedNov 14 2018 01:23:06 GMT-0500 (Central Daylight Time)
[2018-11-14] MEDS: ENOXAPARIN 40 MG/0.4 ML SQ SCH (07:09)
[2018-11-14] MEDS: CRANBERRY FRUIT EXTRACT 200 MG CAP PO SCH ×2 (07:48→20:19)
[2018-11-14] MEDS: CLOPIDOGREL 75 MG TABLET PO SCH (07:49)
[2018-11-14] MEDS: VITAMIN D 1000 UNIT TAB PO SCH (07:49)
[2018-11-14] MEDS: PANTOPRAZOLE 40MG TABLET PO SCH (07:49)
[2018-11-14] MEDS: ATORVASTATIN 10 MG TAB PO SCH (07:49)
[2018-11-14] MEDS: GABAPENTIN 100 MG CAP PO SCH ×2 (07:49→20:20)
[2018-11-14] MEDS: FOLIC ACID 1 MG TABLET PO SCH (07:49)
[2018-11-14] MEDS: CALCIUM CARBONATE 500 MG TAB PO SCH ×2 (07:49→20:20)
[2018-11-14] MEDS: DULOXETINE 20 MG CAP PO SCH (08:00)
[2018-11-14] MEDS: LIDOCAINE 5% PATCH TOP SCH (08:00)
--- NOTE | 2018-11-14 12:50 | FAST ---
ENCOUNTER DATE AND TIME: 11/14/2018 08:00 (CDT) NAME LEONORA HOFF DATE OF : 1940 DATE OF ADMISSION: 10/28/2018 15:22 (CDT) PHONE: AGE: 77 SSN# [id number] GENDER: Female ENCOUNTER PHYSICIAN: Dr. Harpreet Alan M.D. 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 EATING: Activity did not occur on this shift EATING - SCORE: 0-UNK GROOMING: Activity did not occur on this shift GROOMING - SCORE: 0-UNK BATHING: Activity did not occur on this shift BATHING - SCORE: 0-UNK DRESSING - UPPER BODY: Activity did not occur on this shift Patient is not dressing in public clothing ARTICLES SCORE Total number of steps: 0 DRESSING - UPPER BODY - SCORE: 0-UNK DRESSING - LOWER BODY: Activity did not occur on this shift Patient is not dressing in public clothing ARTICLES SCORE Total number of steps: 0 DRESSING - LOWER BODY - SCORE: 0-UNK TOILETING: Activity did not occur on this shift TOILETING - SCORE: 0-UNK BLADDER MANAGEMENT: Activity did not occur on this shift BLADDER MANAGEMENT - SCORE: 7-IND BOWEL MANAGEMENT: Activity did not occur on this shift BOWEL MANAGEMENT - SCORE: 7-IND TRANSFERS: BED, CHAIR, WHEELCHAIR: TRANSFERS: BED, CHAIR, WHEELCHAIR - STEP 1: Does the patient require assistance of a person or device, or need extra time with bed, chair, or whe elchair transfers? Yes. TRANSFERS: BED, CHAIR, WHEELCHAIR - STEP 2: Does the patient require the assistance of a helper? Yes. TRANSFERS: BED, CHAIR, WHEELCHAIR - STEP 3: How much assistance does the patient require from the helper? Lifting of the patient TRANSFERS: BED, CHAIR, WHEELCHAIR - STEP 4: Does the helper lift the patient ONLY up? ONLY down? Up AND Down? ONLY up. TRANSFERS: BED, CHAIR, WHEELCHAIR - SCORE: 3-MOD TRANSFERS: TOILET: Activity did not occur on this shift TRANSFERS: TOILET - SCORE: 0-UNK TRANSFERS: SHOWER: Activity did not occur on this shift TRANSFERS: SHOWER - SCORE: 0-UNK TRANSFERS: TUB: Activity did not occur on this shift TRANSFERS: TUB - SCORE: 0-UNK LOCOMOTION: WALK: LOCOMOTION: WALK - STEP 1: Does the patient need help from a person or device, or need extra time to walk 150 feet? Yes. LOCOMOTION: WALK - STEP 2: How much assistance does the patient require to walk a minimum of 150 feet? Patient walks less than 1 50 feet - but more than 50 feet - with the assistance of only one helper LOCOMOTION: WALK - SCORE: 2-MAX LOCOMOTION: WHEELCHAIR: LOCOMOTION: WHEELCHAIR - STEP 1: Does the patient need help to go 150 feet in a wheelchair? Yes. LOCOMOTION: WHEELCHAIR - STEP 2: How much assistance does the patient need from the helper? Only supervision, cuing, or coaxing LOCOMOTION: WHEELCHAIR - SCORE: 5-SUP LOCOMOTION: STAIRS: Activity did not occur on this shift LOCOMOTION: STAIRS - SCORE: 0-UNK COMPREHENSION: COMPREHENSION - SCORE: 0-UNK EXPRESSION EXPRESSION - SCORE: 0-UNK SOCIAL INTERACTION: SOCIAL INTERACTION - SCORE: 0-UNK PROBLEM SOLVING: PROBLEM SOLVING - SCORE: 0-UNK MEMORY: MEMORY - SCORE: 0-UNK SIGNATURE PANEL: The following modified sections: Transfers: Bed, Chair, Wheelchair - Score, Transfers: Toilet - Score , Locomotion: Walk - Score, Locomotion: Wheelchair - Score, Locomotion: Stairs - Score were [moises mims] signed by Michael Vazquez PT on WedNov 14 2018 12:48:55 T-0500 (Central Daylight Time)
[2018-11-14] MEDS: DOCUSATE NA/SENNA CONC 1 TAB PO SCH (20:20)
[2018-11-14] MEDS: IRBESARTAN 150 MG TAB PO SCH (21:13)
[2018-11-14] MEDS: ACETAMINOPHEN 500 MG TAB PO PRN (22:22)
--- NOTE | 2018-11-15 02:21 | FAST ---
SHIFT START DATE/TIME: 11/14/2018 19:00 (CDT) SHIFT END DATE/TIME: 11/15/2018 07:00 (CDT) NAME LEONORA HOFF DATE OF : 1940 DATE OF ADMISSION: 10/28/2018 15:22 (CDT) PHONE: AGE: 77 N# [id number] GENDER: Female ENCOUNTER PHYSICIAN: Dr. Harpreet Alan M.D. 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 EATING: Activity did not occur on this shift EATING - SCORE: 0-UNK GROOMING: Wash, rinse, and dry hands GROOMING - STEP 1: Does the patient require the assistance of a person or device, or need extra time when grooming? Yes. GROOMING - STEP 2: Does the patient require the assistance of a helper? Yes. GROOMING - STEP 3: How much assistance does the patient require from the helper? Only prior equipment preparation/set up from the helper GROOMING - SCORE: 5-SUP BATHING: Activity did not occur on this shift BATHING - SCORE: 0-UNK DRESSING - UPPER BODY: Patient is not dressing in public clothing ARTICLES SCORE Total number of steps: 0 DRESSING - UPPER BODY - SCORE: 0-UNK DRESSING - LOWER BODY: Patient is not dressing in public clothing ARTICLES SCORE Total number of steps: 0 DRESSING - LOWER BODY - SCORE: 0-UNK TOILETING: TOILETING - STEP 1: Does the patient require the assistance of a person or device, or need extra time with toileting? Yes . TOILETING - STEP 2: Does the patient require the assistance of a helper? Yes. TOILETING - STEP 3: How much assistance does the patient require from the helper? Hands-on assistance from the helper TOILETING - STEP 4: Of the 3 tasks: 1) Adjusting clothing prior to use, 2) Cleansing of perineal area, 3) Adjusting clot juan f after use; How many tasks does the patient perform WITHOUT assistance of the helper? No tasks; h elper performs all three tasks TOILETING - SCORE: 1-DEP BLADDER MANAGEMENT: BLADDER MANAGEMENT - STEP 1: Does the patient control the bladder completely and intentionally without equipment or devices or med ications, and is always continent? No. BLADDER MANAGEMENT - STEP 2: Does the patient require the assistance of a helper? Yes. BLADDER MANAGEMENT - STEP 3: How much assistance does the patient require from the helper? Only set-up of equipment - such as plac ing it within reach of the patient or emptying a device - to maintain either satisfactory voiding pat tern or managing an external device, such as an absorbent pad, ileal device, or catheter BLADDER MANAGEMENT - SCORE: 5-SUP BOWEL MANAGEMENT: BOWEL MANAGEMENT - STEP 1: Does the patient control bowels completely and intentionally without equipment devices or medications AND is always continent? No. BOWEL MANAGEMENT - STEP 2: Does the patient require the assistance of a helper? No, patient requires medication for control such as stool softeners, suppositories, laxatives, enemas, or OTC medications BOWEL MANAGEMENT - SCORE: 6-RANDY TRANSFERS: BED, CHAIR, WHEELCHAIR: TRANSFERS: BED, CHAIR, WHEELCHAIR - STEP 1: Does the patient require assistance of a person or device, or need extra time with bed, chair, or whe elchair transfers? Yes. TRANSFERS: BED, CHAIR, WHEELCHAIR - STEP 2: Does the patient require the assistance of a helper? Yes. TRANSFERS: BED, CHAIR, WHEELCHAIR - STEP 3: How much assistance does the patient require from the helper? Lifting of the patient TRANSFERS: BED, CHAIR, WHEELCHAIR - STEP 4: Does the helper lift the patient ONLY up? ONLY down? Up AND Down? Patient needs help with all lifting TRANSFERS: BED, CHAIR, WHEELCHAIR - SCORE: 1-DEP TRANSFERS: TOILET: TRANSFERS: TOILET - STEP 1: Does the patient require the assistance of a person or device, or need extra time with toilet transfe rs? Yes. TRANSFERS: TOILET - STEP 2: Does the patient require the assistance of a helper? Yes. TRANSFERS: TOILET - STEP 3: How much assistance does the patient require from the helper? Patient performs half or more of the tr ansferring tasks TRANSFERS: TOILET - STEP 4: Does the patient need only incidental help such as contact guard or steadying during toilet transfer? No. Patient needs more than incidental help TRANSFERS: TOILET - SCORE: 3-MOD TRANSFERS: SHOWER: Activity did not occur on this shift TRANSFERS: SHOWER - SCORE: 0-UNK TRANSFERS: TUB: Activity did not occur on this shift TRANSFERS: TUB - SCORE: 0-UNK LOCOMOTION: WALK: Activity did not occur on this shift LOCOMOTION: WALK - SCORE: 0-UNK LOCOMOTION: WHEELCHAIR: Activity did not occur on this shift LOCOMOTION: WHEELCHAIR - SCORE: 0-UNK COMPREHENSION: COMPREHENSION: TYPE: Both COMPREHENSION - STEP 1: Does the patient require help from a person or device, or need extra time to understand complex and a bstract ideas (such as current events, finances, discharge planning, medical issues, relationships, e tc)? No. COMPREHENSION - STEP 2: Does the patient need extra time, require an assistive device (such as glasses for visual comprehensi on or a hearing aid for auditory comprehension) or does s/he have mild difficulty understanding compl ex and abstract information? Yes. COMPREHENSION - SCORE: 6-RANDY EXPRESSION EXPRESSION: TYPE: Both EXPRESSION - STEP 1: Does the patient require help from a person or device, or need extra time expressing complex and abst ract ideas (such as current events, finances, discharge planning, medical issues, relationships, etc) ? No. EXPRESSION - STEP 2: Does the patient need extra time, require an assistive device (such as augmentive communication syste m or a communication board), OR does s/he have mild difficulty expressing complex and abstract ideas (including mild dysarthria or mild word-find problems)? No. EXPRESSION - SCORE: 7-IND SOCIAL INTERACTION: SOCIAL INTERACTION - STEP 1: Does the patient require a helper to interact with others in social and therapeutic situations? No. SOCIAL INTERACTION - STEP 2: Does the patient need extra time in social situations, OR does s/he interact with staff, other patien ts, and family members ONLY in structured environments, OR does s/he require medication for social in teraction? Yes, patient needs extra time SOCIAL INTERACTION - SCORE: 6-RANDY PROBLEM SOLVING: PROBLEM SOLVING - STEP 1: Does the patient need help from a person or device, or need extra time to solve complex problems such as managing a checking account or confronting interpersonal problems? Yes. PROBLEM SOLVING - STEP 2: Does the patient solve basic routine problems half or more of the time? Yes. PROBLEM SOLVING - STEP 3: How often does the patient need help to solve basic routine problems? 10%-24% of the time PROBLEM SOLVING - SCORE: 4-MIN MEMORY: MEMORY - STEP 1: Does the patient need help from a person or device, or need extra time to remember frequently encount ered people, daily routines, and executing requests? No. MEMORY - STEP 2: Does the patient have slight difficulty recognizing frequently encountered people, daily routines, or executing requests without the need for repetition or using self-initiated or environmental cues to remember? Yes. MEMORY - SCORE: 6-RANDY SIGNATURE PANEL: The following modified sections: Eating - Score, Grooming - Score, Dressing - Upper Body - Score, Vitaliy ssing - Lower Body - Score, Toileting - Score, Bladder Management - Score, Bowel Management - Score, Transfers: Bed, Chair, Wheelchair - Score, Transfers: Toilet - Score, Transfers: Shower - Score, Levine sfers: Tub - Score, Locomotion: Walk - Score, Locomotion: Wheelchair - Score, Comprehension - Score, Expression - Score, Social Interaction - Score, Problem Solving - Score, Memory - Score were [electro nically] signed by Jayda Tejeda CNA on WedNov 15 2018 02:19:36 T-0500 (Central Daylight Time)
[2018-11-15] MEDS: ENOXAPARIN 40 MG/0.4 ML SQ SCH (07:08)
[2018-11-15] MEDS: DULOXETINE 20 MG CAP PO SCH (08:00)
[2018-11-15] MEDS: LIDOCAINE 5% PATCH TOP SCH (08:00)
[2018-11-15] MEDS: PANTOPRAZOLE 40MG TABLET PO SCH (08:17)
[2018-11-15] MEDS: CRANBERRY FRUIT EXTRACT 200 MG CAP PO SCH ×2 (08:17→20:03)
[2018-11-15] MEDS: ATORVASTATIN 10 MG TAB PO SCH (08:17)
[2018-11-15] MEDS: VITAMIN D 1000 UNIT TAB PO SCH (08:18)
[2018-11-15] MEDS: GABAPENTIN 100 MG CAP PO SCH ×2 (08:18→20:02)
[2018-11-15] MEDS: CLOPIDOGREL 75 MG TABLET PO SCH (08:18)
[2018-11-15] MEDS: CALCIUM CARBONATE 500 MG TAB PO SCH ×2 (08:18→20:02)
[2018-11-15] MEDS: FOLIC ACID 1 MG TABLET PO SCH (08:18)
--- NOTE | 2018-11-15 14:44 | FAST ---
ENCOUNTER DATE AND TIME: 11/15/2018 08:00 (CDT) NAME LEONORA HOFF DATE OF : 1940 DATE OF ADMISSION: 10/28/2018 15:22 (CDT) PHONE: AGE: 77 SSN# [id number] GENDER: Female ENCOUNTER PHYSICIAN: Dr. Harpreet Alan M.D. 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 EATING: Activity did not occur on this shift EATING - SCORE: 0-UNK GROOMING: Activity did not occur on this shift GROOMING - SCORE: 0-UNK BATHING: Activity did not occur on this shift BATHING - SCORE: 0-UNK DRESSING - UPPER BODY: Activity did not occur on this shift Patient is not dressing in public clothing ARTICLES SCORE Total number of steps: 0 DRESSING - UPPER BODY - SCORE: 0-UNK DRESSING - LOWER BODY: Activity did not occur on this shift Patient is not dressing in public clothing ARTICLES SCORE Total number of steps: 0 DRESSING - LOWER BODY - SCORE: 0-UNK TOILETING: Activity did not occur on this shift TOILETING - SCORE: 0-UNK BLADDER MANAGEMENT: Activity did not occur on this shift BLADDER MANAGEMENT - SCORE: 7-IND BOWEL MANAGEMENT: Activity did not occur on this shift BOWEL MANAGEMENT - SCORE: 7-IND TRANSFERS: BED, CHAIR, WHEELCHAIR: TRANSFERS: BED, CHAIR, WHEELCHAIR - STEP 1: Does the patient require assistance of a person or device, or need extra time with bed, chair, or whe elchair transfers? Yes. TRANSFERS: BED, CHAIR, WHEELCHAIR - STEP 2: Does the patient require the assistance of a helper? Yes. TRANSFERS: BED, CHAIR, WHEELCHAIR - STEP 3: How much assistance does the patient require from the helper? Steadying/guiding assistance TRANSFERS: BED, CHAIR, WHEELCHAIR - SCORE: 4-MIN TRANSFERS: TOILET: Activity did not occur on this shift TRANSFERS: TOILET - SCORE: 0-UNK TRANSFERS: SHOWER: Activity did not occur on this shift TRANSFERS: SHOWER - SCORE: 0-UNK TRANSFERS: TUB: Activity did not occur on this shift TRANSFERS: TUB - SCORE: 0-UNK LOCOMOTION: WALK: LOCOMOTION: WALK - STEP 1: Does the patient need help from a person or device, or need extra time to walk 150 feet? Yes. LOCOMOTION: WALK - STEP 2: How much assistance does the patient require to walk a minimum of 150 feet? Only supervision, cuing, or coaxing LOCOMOTION: WALK - SCORE: 5-SUP LOCOMOTION: WHEELCHAIR: Activity did not occur on this shift LOCOMOTION: WHEELCHAIR - SCORE: 0-UNK LOCOMOTION: STAIRS: Activity did not occur on this shift LOCOMOTION: STAIRS - SCORE: 0-UNK COMPREHENSION: COMPREHENSION - SCORE: 0-UNK EXPRESSION EXPRESSION - SCORE: 0-UNK SOCIAL INTERACTION: SOCIAL INTERACTION - SCORE: 0-UNK PROBLEM SOLVING: PROBLEM SOLVING - SCORE: 0-UNK MEMORY: MEMORY - SCORE: 0-UNK SIGNATURE PANEL: The following modified sections: Transfers: Bed, Chair, Wheelchair - Score, Transfers: Toilet - Score , Locomotion: Walk - Score, Locomotion: Wheelchair - Score, Locomotion: Stairs - Score were [electron ically] signed by Mason Lechuga PTA on WedNov 15 2018 14:44:00 GMT-0500 (Central Daylight Time)
[2018-11-15] MEDS: predniSONE 5 MG TAB PO SCH (16:23)
--- NOTE | 2018-11-15 19:33 | R.PN ---
ENCOUNTER DATE AND TIME: 11/15/2018 19:33 (CDT) NAME LEONORA HOFF DATE OF : 1940 DATE OF ADMISSION: 10/28/2018 15:22 (CDT) acute parenchymal hemorrhage in the left thalamocapsular region and left gallego radiata with intraven tricular extensionCHIEF COMPLAINT: Intracerebral hemorrhage SUBJECTIVE: Pt denied any Shortness of Breath. Pt denied any depression. Patient reported abdominal pain with nausea after eating. On Zofran and protonix. LFTs were normal. H gb 11.5, WBC 6.4, prealbumin 17.9 Ambulated 300' with standby assistance using a platform walker. Toilet transfers with contact guard a ssistance. Mobilized wheelchair 250' with contact guard assistance. VITAL SIGNS Temperature: 97.6F SBP/DBP: 142/64 Pulse: 95 Resp: 16 MEDICATION ALLERGIES: No Known Drug Allergies (NKDA) ENVIRONMENTAL ALLERGIES: - Substance Allergies None Known - Other Allergies None Known NURSING: - Shower allowing shower - Bladder care per protocol - Skin care per protocol PRECAUTIONS: - Weight Bearing Precaution WBAT right LE ACTIVITIES OOB only with supervision THERAPIES: - Occupational Therapy Cognitive Retraining. Visual Perceptual Training. - Dietary and Nutrition Adequate Nutrition. Nutritional Education. Nutritional Supplements. - Speech Therapy Cognitive Training. Expressive Language Skills. Memory Strategies. Receptive Language Skills. Speech Intelligibility Training. PHYSICAL EXAM - Gen Alert and awake Lying in bed No apparent distress Oriented to: person, time, and place - Skin No breakdown No abnormalities - Eyes No abnormalities - ENMT No abnormalities - Neck No pain - CVS RRR - Chest Clear - Abd Soft - GI Non distended Deferred - No abnormalities - Ext Mild right more than left lower extremity edema. - MSK 2/5 weakness in right upper and 4/5 weakness in right lower extremity. - Neuro 2/5 weakness in right upper and 4/5 weakness in right lower extremity. - Psych No abnormalities ASSESSMENT: Pt. is a 77 yo Right-handed white female.On 10/18/2018 Pt. presented to [facility] with sudden onset of right-side weakness.On 10/18/2018 she was admitted to [facility] with diagnosis acute parenchymal hemorrhage in the left thalamocapsular region a nd left gallego radiata with intraventricular extension.Her impairment category is Stroke 01 - Right Body (Left Brain) (01.2).Pre-morbidly, Pt. was independent/mod-I in Self-Care, Sphincter Control, Tra nsfers Control, Locomotion, Communication, and Social Cognition; and she had good Sphincter Control.C urrently, she has deficits of Transfers Control, Locomotion, Endurance, Balance, Safety Awareness, an d Self-Care.Pt. is now referred to [facility] for acute in-patient rehabilitat ion in order to maximize patient's functional independence in activities of daily living, strength, R OM, and mobility.- Rehab Goal Patient has realistic goal of being discharged at assistance level 2-maxA to reside at Home with Fam blanka/Relatives. MDM/PLAN: - Physical Therapy Gait dysfunction - to improve, our physical therapists will perform initial evaluation of pt's statu s upon admission and devise an individualized program for Gait Training, and Wheel Chair mobility Inability to transfer - to improve, our physical therapists will perform initial evaluation of pt's status upon admission and devise an individualized program for Bed mobility Need for home safety evaluation - to improve, our physical therapists will perform initial evaluatio n of pt's status upon admission and devise an individualized program for Home Evaluation Need in caregiver upon discharge - to improve, our physical therapists will perform initial evaluati on of pt's status upon admission and devise an individualized program for Caregiver Training New precaution - to improve, our physical therapists will perform initial evaluation of pt's status upon admission and devise an individualized program for Patient precaution education Poor balance - to improve, our physical therapists will perform initial evaluation of pt's status up on admission and devise an individualized program for Balance Training Poor endurance - to improve, our physical therapists will perform initial evaluation of pt's status upon admission and devise an individualized program for Endurance Training Weakness - to improve, our physical therapists will perform initial evaluation of pt's status upon a dmission and devise an individualized program for Aquatic Therapy, Neuromuscular Reeducation, and Str engthening Edema - to improve, our physical therapists will perform initial evaluation of pt's status upon admi ssion and devise an individualized program for Elevation Training, and Lymphedema Therapy - Occupational Therapy ADL deficits - to improve, our occupation therapists will perform initial evaluation of pt's status upon admission and devise an individualized program for Bathing, Bed mobility, Community Reintegratio n, Cooking, Dressing, Eating, Fine Motor Skills, Grooming, Homemaking, Kitchen Mobility, Laundry, Pat ient Education, Safety Awareness, Splinting - Positioning, Transfers(Toilet, Tub, Shower), and Wheel Chair Management Need for healthcare business analyst - to improve, our occupation therapists will perform initial evaluation of pt's status upon admission and devise an individualized program for Caregiver Training Weakness - to improve, our occupation therapists will perform initial evaluation of pt's status upon admission and devise an individualized program for Aquatic Therapy, Balance, Endurance, UE ROM, and UE strengthening - Other See attached MAR (Medication Administration Record) [id number].pdf - Bladder care per protocol - Weight Bearing Precaution WBAT right UE andLE - Skin care per protocol - Diet - Solid Texture Continue Regular - Shower allowing shower for Dementia, TBI, Stroke, or others FUNCTIONAL STATUS: UPDATED AT WEEKLY TEAM CONFERENCE - Bladder Same accident frequency: 7-Ind - No accidents in the past 7 days - Bowel Same accident frequency: 7-Ind - No accidents in the past 7 days - Walking Same score based on distance walked: 1(<=50ft) - Wheelchair Same score based on distance traveled: 1(<=50ft) FUNCTIONAL STATUS: - Self-Care A. Eating Ind B. Grooming modA C. Bathing maxA D. Dressing - Upper modA E. Dressing - Lower Dep F. Toileting maxA - Sphincter Control G: Bladder control Ind H: Bowel control Ind - Transfers Control I. Bed/Chair/Wheelchair maxA J. Toilet maxA K. Tub/Shower maxA - Locomotion L. Walk/Wheelchair (C) maxA L. Walk/Wheelchair (W) maxA M. Stairs ADNO - Communication N. Comprehension (B) Ind O. Expression (B) Ind - Social Cognition P. Social Interaction Ind Q. Problem Solving Ind R. Memory Ind - Endurance Poor - Balance Poor - Safety Awareness Poor CURRENT FUNC. DEFICITS: Transfers Control, Locomotion, Endurance, Balance, Safety Awareness, and Self-Care SIGNATURE PANEL: (CDT)
[2018-11-15] MEDS: IRBESARTAN 150 MG TAB PO SCH (20:02)
[2018-11-15] MEDS: DOCUSATE NA/SENNA CONC 1 TAB PO SCH (20:03)
[2018-11-15] MEDS: TRAMADOL HCL 50 MG TAB PO PRN (21:57)
[2018-11-16] MEDS: ENOXAPARIN 40 MG/0.4 ML SQ SCH (06:49)
[2018-11-16] MEDS: PANTOPRAZOLE 40MG TABLET PO SCH (06:50)
[2018-11-16] MEDS: GABAPENTIN 100 MG CAP PO SCH ×2 (07:52→20:27)
[2018-11-16] MEDS: CLOPIDOGREL 75 MG TABLET PO SCH (07:52)
[2018-11-16] MEDS: CRANBERRY FRUIT EXTRACT 200 MG CAP PO SCH ×2 (07:52→20:27)
[2018-11-16] MEDS: VITAMIN D 1000 UNIT TAB PO SCH (07:52)
[2018-11-16] MEDS: CALCIUM CARBONATE 500 MG TAB PO SCH ×2 (07:52→20:27)
[2018-11-16] MEDS: DULOXETINE 20 MG CAP PO SCH (07:53)
[2018-11-16] MEDS: LIDOCAINE 5% PATCH TOP SCH (07:53)
[2018-11-16] MEDS: FOLIC ACID 1 MG TABLET PO SCH (07:53)
[2018-11-16] MEDS: ATORVASTATIN 10 MG TAB PO SCH (07:53)
--- NOTE | 2018-11-16 14:21 | FAST ---
SHIFT START DATE/TIME: 11/16/2018 07:00 (CDT) SHIFT END DATE/TIME: 11/16/2018 19:00 (CDT) NAME LEONORA HOFF DATE OF : 1940 DATE OF ADMISSION: 10/28/2018 15:22 (CDT) PHONE: AGE: 77 N# [id number] GENDER: Female ENCOUNTER PHYSICIAN: Dr. Harpreet Alan M.D. 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 EATING: EATING - STEP 1: Does the patient require the assistance of a person or device, or need extra time when eating? Yes. EATING - STEP 2: Does the patient require the assistance of a helper? Yes. EATING - STEP 3: Does the patient perform half or more of the eating tasks? Yes. EATING - STEP 4: Does the patient need only supervision, cuing, coaxing OR help to apply an orthosis OR help to cut fo od, open containers, pour liquids, or butter bread? Yes. EATING - SCORE: 5-SUP GROOMING: Comb/brush hair Oral care Wash, rinse, and dry face Wash, rinse, and dry hands GROOMING - STEP 1: Does the patient require the assistance of a person or device, or need extra time when grooming? Yes. GROOMING - STEP 2: Does the patient require the assistance of a helper? No. The patient only requires an assistive devic e, OR takes more than reasonable time to groom, OR there is a concern for safety as the patient groom s GROOMING - SCORE: 6-RANDY BATHING: Activity did not occur on this shift BATHING - SCORE: 0-UNK DRESSING - UPPER BODY: Activity did not occur on this shift ARTICLES SCORE Total number of steps: 0 DRESSING - UPPER BODY - SCORE: 0-UNK DRESSING - LOWER BODY: Activity did not occur on this shift ARTICLES SCORE Total number of steps: 0 DRESSING - LOWER BODY - SCORE: 0-UNK TOILETING: TOILETING - STEP 1: Does the patient require the assistance of a person or device, or need extra time with toileting? Yes . TOILETING - STEP 2: Does the patient require the assistance of a helper? Yes. TOILETING - STEP 3: How much assistance does the patient require from the helper? Hands-on assistance from the helper TOILETING - STEP 4: Of the 3 tasks: 1) Adjusting clothing prior to use, 2) Cleansing of perineal area, 3) Adjusting clot juan f after use; How many tasks does the patient perform WITHOUT assistance of the helper? Two tasks TOILETING - SCORE: 3-MOD BLADDER MANAGEMENT: BLADDER MANAGEMENT - STEP 1: Does the patient control the bladder completely and intentionally without equipment or devices or med ications, and is always continent? No. BLADDER MANAGEMENT - STEP 2: Does the patient require the assistance of a helper? No, patient requires and independently uses an a ssistive device, such as a urinal, bedpan, bedside commode, catheter, absorbent pad, or collecting de vice BLADDER MANAGEMENT - SCORE: 6-RANDY BOWEL MANAGEMENT: Activity did not occur on this shift BOWEL MANAGEMENT - SCORE: 7-IND TRANSFERS: BED, CHAIR, WHEELCHAIR: TRANSFERS: BED, CHAIR, WHEELCHAIR - STEP 1: Does the patient require assistance of a person or device, or need extra time with bed, chair, or whe elchair transfers? Yes. TRANSFERS: BED, CHAIR, WHEELCHAIR - STEP 2: Does the patient require the assistance of a helper? Yes. TRANSFERS: BED, CHAIR, WHEELCHAIR - STEP 3: How much assistance does the patient require from the helper? Lifting of the patient TRANSFERS: BED, CHAIR, WHEELCHAIR - STEP 4: Does the helper lift the patient ONLY up? ONLY down? Up AND Down? ONLY up. TRANSFERS: BED, CHAIR, WHEELCHAIR - SCORE: 3-MOD TRANSFERS: TOILET: TRANSFERS: TOILET - STEP 1: Does the patient require the assistance of a person or device, or need extra time with toilet transfe rs? Yes. TRANSFERS: TOILET - STEP 2: Does the patient require the assistance of a helper? Yes. TRANSFERS: TOILET - STEP 3: How much assistance does the patient require from the helper? Patient performs half or more of the tr ansferring tasks TRANSFERS: TOILET - STEP 4: Does the patient need only incidental help such as contact guard or steadying during toilet transfer? No. Patient needs more than incidental help TRANSFERS: TOILET - SCORE: 3-MOD TRANSFERS: SHOWER: Activity did not occur on this shift TRANSFERS: SHOWER - SCORE: 0-UNK TRANSFERS: TUB: Activity did not occur on this shift TRANSFERS: TUB - SCORE: 0-UNK LOCOMOTION: WALK: Activity did not occur on this shift LOCOMOTION: WALK - SCORE: 0-UNK LOCOMOTION: WHEELCHAIR: Activity did not occur on this shift LOCOMOTION: WHEELCHAIR - SCORE: 0-UNK COMPREHENSION: COMPREHENSION: TYPE: Both COMPREHENSION - STEP 1: Does the patient require help from a person or device, or need extra time to understand complex and a bstract ideas (such as current events, finances, discharge planning, medical issues, relationships, e tc)? No. COMPREHENSION - STEP 2: Does the patient need extra time, require an assistive device (such as glasses for visual comprehensi on or a hearing aid for auditory comprehension) or does s/he have mild difficulty understanding compl ex and abstract information? Yes. COMPREHENSION - SCORE: 6-RANDY EXPRESSION EXPRESSION: TYPE: Both EXPRESSION - STEP 1: Does the patient require help from a person or device, or need extra time expressing complex and abst ract ideas (such as current events, finances, discharge planning, medical issues, relationships, etc) ? No. EXPRESSION - STEP 2: Does the patient need extra time, require an assistive device (such as augmentive communication syste m or a communication board), OR does s/he have mild difficulty expressing complex and abstract ideas (including mild dysarthria or mild word-find problems)? Yes. EXPRESSION - SCORE: 6-RANDY SOCIAL INTERACTION: SOCIAL INTERACTION - STEP 1: Does the patient require a helper to interact with others in social and therapeutic situations? No. SOCIAL INTERACTION - STEP 2: Does the patient need extra time in social situations, OR does s/he interact with staff, other patien ts, and family members ONLY in structured environments, OR does s/he require medication for social in teraction? Yes, patient needs extra time SOCIAL INTERACTION - SCORE: 6-RANDY PROBLEM SOLVING: PROBLEM SOLVING - STEP 1: Does the patient need help from a person or device, or need extra time to solve complex problems such as managing a checking account or confronting interpersonal problems? No. PROBLEM SOLVING - STEP 2: Does the patient require extra time to make decisions or solve problems, OR does s/he have slight dif ficulty reading, initiating, or self-correcting in unfamiliar situations? Yes, patient needs extra ti me. PROBLEM SOLVING - SCORE: 6-RANDY MEMORY: MEMORY - STEP 1: Does the patient need help from a person or device, or need extra time to remember frequently encount ered people, daily routines, and executing requests? Yes. MEMORY - STEP 2: How often does the patient need help to remember frequently encountered people, daily routines, and e xecuting requests? Less than 10% of the time MEMORY - SCORE: 5-SUP SIGNATURE PANEL: The following modified sections: Eating - Score, Grooming - Score, Bathing - Score, Dressing - Upper Body - Score, Dressing - Lower Body - Score, Toileting - Score, Bladder Management - Score, Bowel Man agement - Score, Transfers: Bed, Chair, Wheelchair - Score, Transfers: Toilet - Score, Transfers: Amrita wer - Score, Transfers: Tub - Score, Locomotion: Walk - Score, Locomotion: Wheelchair - Score, Compre hension - Score, Expression - Score, Social Interaction - Score, Problem Solving - Score, Memory - Sc ore were [electronically] signed by Germán Camilo on WedNov 16 2018 14:20:33 T-0500 (Central Daylight Time)
--- NOTE | 2018-11-16 16:17 | FAST ---
ENCOUNTER DATE AND TIME: 11/16/2018 08:00 (CDT) NAME LEONORA HOFF DATE OF : 1940 DATE OF ADMISSION: 10/28/2018 15:22 (CDT) PHONE: AGE: 77 SSN# [id number] GENDER: Female ENCOUNTER PHYSICIAN: Dr. Harpreet Alan M.D. 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 EATING: Activity did not occur on this shift EATING - SCORE: 0-UNK GROOMING: Activity did not occur on this shift GROOMING - SCORE: 0-UNK BATHING: Activity did not occur on this shift BATHING - SCORE: 0-UNK DRESSING - UPPER BODY: Activity did not occur on this shift Patient is not dressing in public clothing ARTICLES SCORE Total number of steps: 0 DRESSING - UPPER BODY - SCORE: 0-UNK DRESSING - LOWER BODY: Activity did not occur on this shift Patient is not dressing in public clothing ARTICLES SCORE Total number of steps: 0 DRESSING - LOWER BODY - SCORE: 0-UNK TOILETING: Activity did not occur on this shift TOILETING - SCORE: 0-UNK BLADDER MANAGEMENT: Activity did not occur on this shift BLADDER MANAGEMENT - SCORE: 7-IND BOWEL MANAGEMENT: Activity did not occur on this shift BOWEL MANAGEMENT - SCORE: 7-IND TRANSFERS: BED, CHAIR, WHEELCHAIR: TRANSFERS: BED, CHAIR, WHEELCHAIR - STEP 1: Does the patient require assistance of a person or device, or need extra time with bed, chair, or whe elchair transfers? Yes. TRANSFERS: BED, CHAIR, WHEELCHAIR - STEP 2: Does the patient require the assistance of a helper? Yes. TRANSFERS: BED, CHAIR, WHEELCHAIR - STEP 3: How much assistance does the patient require from the helper? Only supervision TRANSFERS: BED, CHAIR, WHEELCHAIR - SCORE: 5-SUP TRANSFERS: TOILET: TRANSFERS: TOILET - STEP 1: Does the patient require the assistance of a person or device, or need extra time with toilet transfe rs? Yes. TRANSFERS: TOILET - STEP 2: Does the patient require the assistance of a helper? Yes. TRANSFERS: TOILET - STEP 3: How much assistance does the patient require from the helper? Only supervision, cuing, coaxing, OR he lp to set out transfer equipment or to lock brakes and/or lift foot rests TRANSFERS: TOILET - SCORE: 5-SUP TRANSFERS: SHOWER: Activity did not occur on this shift TRANSFERS: SHOWER - SCORE: 0-UNK TRANSFERS: TUB: Activity did not occur on this shift TRANSFERS: TUB - SCORE: 0-UNK LOCOMOTION: WALK: LOCOMOTION: WALK - STEP 1: Does the patient need help from a person or device, or need extra time to walk 150 feet? Yes. LOCOMOTION: WALK - STEP 2: How much assistance does the patient require to walk a minimum of 150 feet? Only incidental help such as contact guarding or steadying LOCOMOTION: WALK - SCORE: 4-MIN LOCOMOTION: WHEELCHAIR: LOCOMOTION: WHEELCHAIR - STEP 1: Does the patient need help to go 150 feet in a wheelchair? Yes. LOCOMOTION: WHEELCHAIR - STEP 2: How much assistance does the patient need from the helper? Only supervision, cuing, or coaxing LOCOMOTION: WHEELCHAIR - SCORE: 5-SUP LOCOMOTION: STAIRS: Activity did not occur on this shift LOCOMOTION: STAIRS - SCORE: 0-UNK COMPREHENSION: COMPREHENSION - SCORE: 0-UNK EXPRESSION EXPRESSION - SCORE: 0-UNK SOCIAL INTERACTION: SOCIAL INTERACTION - SCORE: 0-UNK PROBLEM SOLVING: PROBLEM SOLVING - SCORE: 0-UNK MEMORY: MEMORY - SCORE: 0-UNK SIGNATURE PANEL: The following modified sections: Transfers: Bed, Chair, Wheelchair - Score, Transfers: Toilet - Score , Locomotion: Walk - Score, Locomotion: Wheelchair - Score, Locomotion: Stairs - Score were [electron felicita] signed by Michael Vazquez PT on WedNov 16 2018 16:16:40 T-0500 (Central Daylight Time)
--- NOTE | 2018-11-16 20:02 | R.PN ---
ENCOUNTER DATE AND TIME: 11/16/2018 20:00 (CDT) NAME LEONORA HOFF DATE OF : 1940 DATE OF ADMISSION: 10/28/2018 15:22 (CDT) acute parenchymal hemorrhage in the left thalamocapsular region and left gallego radiata with intraven tricular extensionCHIEF COMPLAINT: Intracerebral hemorrhage SUBJECTIVE: Pt denied any Shortness of Breath. Pt denied any depression. Patient reported abdominal pain with nausea after eating. On Zofran and protonix. LFTs were normal. H gb 11.5, WBC 6.4, prealbumin 17.9 Ambulated 525' with contact guard assistance using a platform walker. Toilet transfers with contact g uard assistance. Mobilized wheelchair 250' with contact guard assistance. VITAL SIGNS Temperature: 97.4F SBP/DBP: 122/60 Pulse: 95 Resp: 16 MEDICATION ALLERGIES: No Known Drug Allergies (NKDA) ENVIRONMENTAL ALLERGIES: - Substance Allergies None Known - Other Allergies None Known NURSING: - Shower allowing shower - Bladder care per protocol - Skin care per protocol PRECAUTIONS: - Weight Bearing Precaution WBAT right LE ACTIVITIES OOB only with supervision THERAPIES: - Occupational Therapy Cognitive Retraining. Visual Perceptual Training. - Dietary and Nutrition Adequate Nutrition. Nutritional Education. Nutritional Supplements. - Speech Therapy Cognitive Training. Expressive Language Skills. Memory Strategies. Receptive Language Skills. Speech Intelligibility Training. PHYSICAL EXAM - Gen Alert and awake Lying in bed No apparent distress Oriented to: person, time, and place - Skin No breakdown No abnormalities - Eyes No abnormalities - ENMT No abnormalities - Neck No pain - CVS RRR - Chest Clear - Abd Soft - GI Non distended Deferred - No abnormalities - Ext Mild right more than left lower extremity edema. - MSK 2/5 weakness in right upper and 4/5 weakness in right lower extremity. - Neuro 2/5 weakness in right upper and 4/5 weakness in right lower extremity. - Psych No abnormalities ASSESSMENT: Pt. is a 77 yo Right-handed white female.On 10/18/2018 Pt. presented to [facility] with sudden onset of right-side weakness.On 10/18/2018 she was admitted to [facility] with diagnosis acute parenchymal hemorrhage in the left thalamocapsular region a nd left gallego radiata with intraventricular extension.Her impairment category is Stroke 01 - Right Body (Left Brain) (01.2).Pre-morbidly, Pt. was independent/mod-I in Self-Care, Sphincter Control, Tra nsfers Control, Locomotion, Communication, and Social Cognition; and she had good Sphincter Control.C urrently, she has deficits of Transfers Control, Locomotion, Endurance, Balance, Safety Awareness, an d Self-Care.Pt. is now referred to [facility] for acute in-patient rehabilitat ion in order to maximize patient's functional independence in activities of daily living, strength, R OM, and mobility.- Rehab Goal Patient has realistic goal of being discharged at assistance level 2-maxA to reside at Home with Fam blanka/Relatives. MDM/PLAN: - Physical Therapy Gait dysfunction - to improve, our physical therapists will perform initial evaluation of pt's statu s upon admission and devise an individualized program for Gait Training, and Wheel Chair mobility Inability to transfer - to improve, our physical therapists will perform initial evaluation of pt's status upon admission and devise an individualized program for Bed mobility Need for home safety evaluation - to improve, our physical therapists will perform initial evaluatio n of pt's status upon admission and devise an individualized program for Home Evaluation Need in caregiver upon discharge - to improve, our physical therapists will perform initial evaluati on of pt's status upon admission and devise an individualized program for Caregiver Training New precaution - to improve, our physical therapists will perform initial evaluation of pt's status upon admission and devise an individualized program for Patient precaution education Poor balance - to improve, our physical therapists will perform initial evaluation of pt's status up on admission and devise an individualized program for Balance Training Poor endurance - to improve, our physical therapists will perform initial evaluation of pt's status upon admission and devise an individualized program for Endurance Training Weakness - to improve, our physical therapists will perform initial evaluation of pt's status upon a dmission and devise an individualized program for Aquatic Therapy, Neuromuscular Reeducation, and Str engthening Edema - to improve, our physical therapists will perform initial evaluation of pt's status upon admi ssion and devise an individualized program for Elevation Training, and Lymphedema Therapy - Occupational Therapy ADL deficits - to improve, our occupation therapists will perform initial evaluation of pt's status upon admission and devise an individualized program for Bathing, Bed mobility, Community Reintegratio n, Cooking, Dressing, Eating, Fine Motor Skills, Grooming, Homemaking, Kitchen Mobility, Laundry, Pat ient Education, Safety Awareness, Splinting - Positioning, Transfers(Toilet, Tub, Shower), and Wheel Chair Management Need for companion caregiver - to improve, our occupation therapists will perform initial evaluation of pt's status upon admission and devise an individualized program for Caregiver Training Weakness - to improve, our occupation therapists will perform initial evaluation of pt's status upon admission and devise an individualized program for Aquatic Therapy, Balance, Endurance, UE ROM, and UE strengthening - Other See attached MAR (Medication Administration Record) [id number].pdf - Bladder care per protocol - Weight Bearing Precaution WBAT right UE andLE - Skin care per protocol - Diet - Solid Texture Continue Regular - Shower allowing shower for Dementia, TBI, Stroke, or others FUNCTIONAL STATUS: UPDATED AT WEEKLY TEAM CONFERENCE - Bladder Same accident frequency: 7-Ind - No accidents in the past 7 days - Bowel Same accident frequency: 7-Ind - No accidents in the past 7 days - Walking Same score based on distance walked: 1(<=50ft) - Wheelchair Same score based on distance traveled: 1(<=50ft) FUNCTIONAL STATUS: - Self-Care A. Eating Ind B. Grooming modA C. Bathing maxA D. Dressing - Upper modA E. Dressing - Lower Dep F. Toileting maxA - Sphincter Control G: Bladder control Ind H: Bowel control Ind - Transfers Control I. Bed/Chair/Wheelchair maxA J. Toilet maxA K. Tub/Shower maxA - Locomotion L. Walk/Wheelchair (C) maxA L. Walk/Wheelchair (W) maxA M. Stairs ADNO - Communication N. Comprehension (B) Ind O. Expression (B) Ind - Social Cognition P. Social Interaction Ind Q. Problem Solving Ind R. Memory Ind - Endurance Poor - Balance Poor - Safety Awareness Poor CURRENT FUNC. DEFICITS: Transfers Control, Locomotion, Endurance, Balance, Safety Awareness, and Self-Care SIGNATURE PANEL: (CDT)
[2018-11-16] MEDS: DOCUSATE NA/SENNA CONC 1 TAB PO SCH (20:27)
[2018-11-16] MEDS: IRBESARTAN 150 MG TAB PO SCH (20:27)
[2018-11-16] MEDS: TRAMADOL HCL 50 MG TAB PO PRN (23:00)
[2018-11-17 07:00] LABS: Albumin 2.9 g/dL (3.4-5.0); BUN Blood Urea Nitrogen 11 mg/dL (7-18); Bicarbonate 28 mmol/L (21-32); Glucose Level 97 mg/dL (74-106); Potassium 3.7 mmol/L (3.5-5.1); Prealbumin 17.4 mg/dL (20-40); Sodium Level 138 mmol/L (136-145)
[2018-11-17] MEDS: PANTOPRAZOLE 40MG TABLET PO SCH (07:35)
[2018-11-17] MEDS: ENOXAPARIN 40 MG/0.4 ML SQ SCH (07:36)
[2018-11-17] MEDS: LIDOCAINE 5% PATCH TOP SCH (08:00)
[2018-11-17] MEDS: DULOXETINE 20 MG CAP PO SCH (08:00)
[2018-11-17] MEDS: CALCIUM CARBONATE 500 MG TAB PO SCH ×2 (08:46→21:15)
[2018-11-17] MEDS: CRANBERRY FRUIT EXTRACT 200 MG CAP PO SCH ×2 (08:47→21:15)
[2018-11-17] MEDS: GABAPENTIN 100 MG CAP PO SCH ×2 (08:47→21:15)
[2018-11-17] MEDS: FOLIC ACID 1 MG TABLET PO SCH (08:47)
[2018-11-17] MEDS: CLOPIDOGREL 75 MG TABLET PO SCH (08:47)
[2018-11-17] MEDS: ATORVASTATIN 10 MG TAB PO SCH (08:48)
[2018-11-17] MEDS: VITAMIN D 1000 UNIT TAB PO SCH (08:48)
--- NOTE | 2018-11-17 13:27 | FAST ---
SHIFT START DATE/TIME: 11/17/2018 07:00 (CDT) SHIFT END DATE/TIME: 11/17/2018 19:00 (CDT) NAME LEONORA HOFF DATE OF : 1940 DATE OF ADMISSION: 10/28/2018 15:22 (CDT) PHONE: AGE: 77 N# [id number] GENDER: Female ENCOUNTER PHYSICIAN: Dr. Harpreet Alan M.D. 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 EATING: EATING - STEP 1: Does the patient require the assistance of a person or device, or need extra time when eating? Yes. EATING - STEP 2: Does the patient require the assistance of a helper? Yes. EATING - STEP 3: Does the patient perform half or more of the eating tasks? Yes. EATING - STEP 4: Does the patient need only supervision, cuing, coaxing OR help to apply an orthosis OR help to cut fo od, open containers, pour liquids, or butter bread? Yes. EATING - SCORE: 5-SUP GROOMING: Comb/brush hair Oral care GROOMING - STEP 1: Does the patient require the assistance of a person or device, or need extra time when grooming? Yes. GROOMING - STEP 2: Does the patient require the assistance of a helper? Yes. GROOMING - STEP 3: How much assistance does the patient require from the helper? Cuing, coaxing, instructions, or encour agement for completion of grooming GROOMING - SCORE: 5-SUP BATHING: Activity did not occur on this shift BATHING - SCORE: 0-UNK DRESSING - UPPER BODY: Activity did not occur on this shift ARTICLES SCORE Total number of steps: 0 DRESSING - UPPER BODY - SCORE: 0-UNK DRESSING - LOWER BODY: Activity did not occur on this shift ARTICLES SCORE Total number of steps: 0 DRESSING - LOWER BODY - SCORE: 0-UNK TOILETING: TOILETING - STEP 1: Does the patient require the assistance of a person or device, or need extra time with toileting? Yes . TOILETING - STEP 2: Does the patient require the assistance of a helper? Yes. TOILETING - STEP 3: How much assistance does the patient require from the helper? Hands-on assistance from the helper TOILETING - STEP 4: Of the 3 tasks: 1) Adjusting clothing prior to use, 2) Cleansing of perineal area, 3) Adjusting clot juan f after use; How many tasks does the patient perform WITHOUT assistance of the helper? Two tasks TOILETING - SCORE: 3-MOD BLADDER MANAGEMENT: BLADDER MANAGEMENT - STEP 1: Does the patient control the bladder completely and intentionally without equipment or devices or med ications, and is always continent? No. BLADDER MANAGEMENT - STEP 2: Does the patient require the assistance of a helper? No, patient requires and independently uses an a ssistive device, such as a urinal, bedpan, bedside commode, catheter, absorbent pad, or collecting de vice BLADDER MANAGEMENT - SCORE: 6-RANDY BOWEL MANAGEMENT: Activity did not occur on this shift BOWEL MANAGEMENT - SCORE: 7-IND TRANSFERS: BED, CHAIR, WHEELCHAIR: TRANSFERS: BED, CHAIR, WHEELCHAIR - STEP 1: Does the patient require assistance of a person or device, or need extra time with bed, chair, or whe elchair transfers? Yes. TRANSFERS: BED, CHAIR, WHEELCHAIR - STEP 2: Does the patient require the assistance of a helper? Yes. TRANSFERS: BED, CHAIR, WHEELCHAIR - STEP 3: How much assistance does the patient require from the helper? Lifting of the patient TRANSFERS: BED, CHAIR, WHEELCHAIR - STEP 4: Does the helper lift the patient ONLY up? ONLY down? Up AND Down? ONLY up. TRANSFERS: BED, CHAIR, WHEELCHAIR - SCORE: 3-MOD TRANSFERS: TOILET: TRANSFERS: TOILET - STEP 1: Does the patient require the assistance of a person or device, or need extra time with toilet transfe rs? Yes. TRANSFERS: TOILET - STEP 2: Does the patient require the assistance of a helper? Yes. TRANSFERS: TOILET - STEP 3: How much assistance does the patient require from the helper? Patient performs half or more of the tr ansferring tasks TRANSFERS: TOILET - STEP 4: Does the patient need only incidental help such as contact guard or steadying during toilet transfer? No. Patient needs more than incidental help TRANSFERS: TOILET - SCORE: 3-MOD TRANSFERS: SHOWER: Activity did not occur on this shift TRANSFERS: SHOWER - SCORE: 0-UNK TRANSFERS: TUB: Activity did not occur on this shift TRANSFERS: TUB - SCORE: 0-UNK LOCOMOTION: WALK: Activity did not occur on this shift LOCOMOTION: WALK - SCORE: 0-UNK LOCOMOTION: WHEELCHAIR: Activity did not occur on this shift LOCOMOTION: WHEELCHAIR - SCORE: 0-UNK COMPREHENSION: COMPREHENSION: TYPE: Both COMPREHENSION - STEP 1: Does the patient require help from a person or device, or need extra time to understand complex and a bstract ideas (such as current events, finances, discharge planning, medical issues, relationships, e tc)? No. COMPREHENSION - STEP 2: Does the patient need extra time, require an assistive device (such as glasses for visual comprehensi on or a hearing aid for auditory comprehension) or does s/he have mild difficulty understanding compl ex and abstract information? Yes. COMPREHENSION - SCORE: 6-RANDY EXPRESSION EXPRESSION: TYPE: Both EXPRESSION - STEP 1: Does the patient require help from a person or device, or need extra time expressing complex and abst ract ideas (such as current events, finances, discharge planning, medical issues, relationships, etc) ? No. EXPRESSION - STEP 2: Does the patient need extra time, require an assistive device (such as augmentive communication syste m or a communication board), OR does s/he have mild difficulty expressing complex and abstract ideas (including mild dysarthria or mild word-find problems)? Yes. EXPRESSION - SCORE: 6-RANDY SOCIAL INTERACTION: SOCIAL INTERACTION - STEP 1: Does the patient require a helper to interact with others in social and therapeutic situations? No. SOCIAL INTERACTION - STEP 2: Does the patient need extra time in social situations, OR does s/he interact with staff, other patien ts, and family members ONLY in structured environments, OR does s/he require medication for social in teraction? Yes, patient needs extra time SOCIAL INTERACTION - SCORE: 6-RANDY PROBLEM SOLVING: PROBLEM SOLVING - STEP 1: Does the patient need help from a person or device, or need extra time to solve complex problems such as managing a checking account or confronting interpersonal problems? No. PROBLEM SOLVING - STEP 2: Does the patient require extra time to make decisions or solve problems, OR does s/he have slight dif ficulty reading, initiating, or self-correcting in unfamiliar situations? Yes, patient needs extra ti me. PROBLEM SOLVING - SCORE: 6-RANDY MEMORY: MEMORY - STEP 1: Does the patient need help from a person or device, or need extra time to remember frequently encount ered people, daily routines, and executing requests? No. MEMORY - STEP 2: Does the patient have slight difficulty recognizing frequently encountered people, daily routines, or executing requests without the need for repetition or using self-initiated or environmental cues to remember? Yes. MEMORY - SCORE: 6-RANDY SIGNATURE PANEL: The following modified sections: Eating - Score, Grooming - Score, Bathing - Score, Dressing - Upper Body - Score, Dressing - Lower Body - Score, Toileting - Score, Bladder Management - Score, Bowel Man agement - Score, Transfers: Bed, Chair, Wheelchair - Score, Transfers: Toilet - Score, Transfers: Amrita wer - Score, Transfers: Tub - Score, Locomotion: Walk - Score, Locomotion: Wheelchair - Score, Compre hension - Score, Expression - Score, Social Interaction - Score, Problem Solving - Score, Memory - Sc ore were [electronically] signed by Germán Camilo on WedNov 17 2018 13:26:01 GMT-0500 (Central Daylight Time)
[2018-11-17] MEDS: predniSONE 5 MG TAB PO SCH (17:56)
[2018-11-17] MEDS: DOCUSATE NA/SENNA CONC 1 TAB PO SCH (21:00)
[2018-11-17] MEDS: IRBESARTAN 150 MG TAB PO SCH (21:14)
[2018-11-17] MEDS: TRAMADOL HCL 50 MG TAB PO PRN (22:20)
[2018-11-18] MEDS: LIDOCAINE 5% PATCH TOP SCH (06:23)
[2018-11-18 07:57] LABS: Absolute Lymphocytes (CBC) 1.6 K/uL (0.7-4.9); Basophils % 0.7 % (0-1.3); Hematocrit 34.1 % (36.0-45.0); Lymphocytes % 28.6 % (15.3-44.8); MPV 8.9 fL (7.6-11.3); RBC Red Blood Cell Count 3.76 M/uL (3.86-4.86)
[2018-11-18] MEDS: DULOXETINE 20 MG CAP PO SCH (08:00)
[2018-11-18] MEDS: GABAPENTIN 100 MG CAP PO SCH ×2 (08:17→20:16)
[2018-11-18] MEDS: CRANBERRY FRUIT EXTRACT 200 MG CAP PO SCH ×2 (08:17→20:16)
[2018-11-18] MEDS: VITAMIN D 1000 UNIT TAB PO SCH (08:17)
[2018-11-18] MEDS: ATORVASTATIN 10 MG TAB PO SCH (08:17)
[2018-11-18] MEDS: PANTOPRAZOLE 40MG TABLET PO SCH (08:17)
[2018-11-18] MEDS: ENOXAPARIN 40 MG/0.4 ML SQ SCH (08:18)
[2018-11-18] MEDS: CLOPIDOGREL 75 MG TABLET PO SCH (08:18)
[2018-11-18] MEDS: CALCIUM CARBONATE 500 MG TAB PO SCH ×2 (08:18→20:16)
[2018-11-18] MEDS: FOLIC ACID 1 MG TABLET PO SCH (08:18)
--- NOTE | 2018-11-18 09:51 | P.RH.PN ---
Estimated Length of Stay: 23 Expected Discharge Date: 11/19/18 Discharge Disposition Plan: Home Family Support: Yes Vital Signs: Last Vital Signs Temp 98.1 F 11/18/18 06:20 Pulse 88 11/18/18 06:20 Resp 18 11/18/18 06:20 BP 140/60 11/18/18 06:20 Pulse Ox 97 11/18/18 06:20 Laboratory: Laboratory Last Values WBC 5.8 K/uL (4.3-10.9) D 11/18/18 06:47 RBC 3.76 M/uL (3.86-4.86) L 11/18/18 06:47 Hgb 11.3 g/dL (12.0-15.0) L 11/18/18 06:47 Hct 34.1 % (36.0-45.0) L 11/18/18 06:47 MCV 90.7 fL (80-100) 11/18/18 06:47 MCH 30.1 pg (27.0-35.0) 11/18/18 06:47 MCHC 33.2 g/dL (32.0-36.0) 11/18/18 06:47 RDW 14.6 % (12.1-15.2) 11/18/18 06:47 Plt Count 233 K/uL (152-406) 11/18/18 06:47 MPV 8.9 fL (7.6-11.3) 11/18/18 06:47 Neutrophils % 54.0 % (41.7-73.7) 11/18/18 06:47 Lymphocytes % 28.6 % (15.3-44.8) 11/18/18 06:47 Monocytes % 10.4 % (3.3-12.3) 11/18/18 06:47 Eosinophils % 6.3 % (0-4.4) H 11/18/18 06:47 Basophils % 0.7 % (0-1.3) 11/18/18 06:47 Absolute Neutrophils 3.1 K/uL (1.8-8.0) 11/18/18 06:47 Absolute Lymphocytes 1.6 K/uL (0.7-4.9) 11/18/18 06:47 Absolute Monocytes 0.6 K/uL (0.1-1.3) 11/18/18 06:47 Absolute Eosinophils 0.4 K/uL (0-0.5) 11/18/18 06:47 Absolute Basophils 0.0 K/uL (0-0.5) 11/18/18 06:47 Sodium 138 mmol/L (136-145) 11/17/18 06:24 Potassium 3.7 mmol/L (3.5-5.1) 11/17/18 06:24 Chloride 105 mmol/L (98-107) 11/17/18 06:24 Carbon Dioxide 28 mmol/L (21-32) 11/17/18 06:24 BUN 11 mg/dL (7-18) 11/17/18 06:24 Creatinine 0.58 mg/dL (0.55-1.3) 11/17/18 06:24 Estimated GFR > 90 mL/min (=/>90) 11/17/18 06:24 Glucose 97 mg/dL (74-106) 11/17/18 06:24 Lactic Acid 0.8 mmol/L (0.4-2.0) 11/06/18 09:22 Calcium 8.1 mg/dL (8.5-10.1) L 11/17/18 06:24 Magnesium 2.0 mg/dL (1.8-2.4) 11/17/18 06:24 Total Bilirubin 0.5 mg/dL (0.2-1.0) 11/08/18 06:07 Direct Bilirubin 0.1 mg/dL (0-0.2) 11/08/18 06:07 AST 14 U/L (15-37) L 11/08/18 06:07 ALT 25 U/L (12-78) 11/08/18 06:07 Alkaline Phosphatase 59 U/L (45-117) 11/08/18 06:07 Serum Total Protein 7.0 g/dL (6.4-8.2) 11/08/18 06:07 Albumin 2.9 g/dL (3.4-5.0) L 11/17/18 06:24 Globulin 3.6 g/dL (2.3-3.5) H 11/08/18 06:07 Albumin/Globulin Ratio 0.9 (1.1-1.8) L 11/08/18 06:07 Prealbumin 17.4 mg/dL (20-40) L 11/17/18 06:24 Urine Color Yellow 11/06/18 11:14 Urine Appearance Cloudy 11/06/18 11:14 Urine pH 7.5 (5.0-7.0) H 11/06/18 11:14 Ur Specific [place] 1.010 (1.005-1.030) 11/06/18 11:14 Urine Ketones Negative (NEG) 11/06/18 11:14 Urine Blood Negative (NEG) 11/06/18 11:14 Urine Nitrite Negative (NEG) 11/06/18 11:14 Urine Bilirubin Negative (NEG) 11/06/18 11:14 Urine Urobilinogen 1.0 mg/dL (0.2-1.0) 11/06/18 11:14 Ur Leukocyte Esterase 1+ (NEG) H 11/06/18 11:14 Urine RBC <5 /HPF (NONE SEEN) 11/06/18 11:14 Urine WBC 10-20 /HPF (<5) H 11/06/18 11:14 Ur Squamous Epith Cells Loaded /HPF (NONE SEEN) H 11/06/18 11:14 Amorphous Sediment 1+ /HPF (NONE SEEN) 11/06/18 11:14 Urine Bacteria >50 /HPF (<20) H 11/06/18 11:14 Urine Culture Reflexed Not needed 11/06/18 11:14 Urine Glucose Negative (NEG) 11/06/18 11:14 Urine Total Protein Negative (NEG) 11/06/18 11:14 Weight: 189 lb 3.2 oz Wound Present: No Closed Surgical Incision Present: No Negative Pressure Wound Therapy Present: No Physician Update: Walked 250' with contact guard to standby assistance. Up and down 3 stairs. She wants to go home in the AM. Her has worked well with her and will help her at home. She will have [facility] home health. Labs reviewed and are stable. Medical Issues: DVT Prophylaxis - Lovenox 40mg SQ Daily Pain Issues: Tramadol 50mg Q4H PRN PO. Gabapentin 100mg BID PO. Lidoderm patch 5% Daily Functional Improvement: Patient has met all short-term goals at this time and is progressing well toward long-term goals. Patient has improved well w/ the technique during gait tx. Functional Improvement Occupational Therapy: Cont to educate and train pt on safety and energy conservation techniques for adl tasks.Pt can benifit with further therapy to address pt's overall weakness. Cont to address and increase pt's static standing balance for transfers and for clothing mgmt. Cont to educated and train pt on using the A/E as needed for LB dressing tasks. Cont to increase pt's Right UE by increasing pt's FMC/GMC and ROM for adl tasks for grooming and clothing and for functional activities, by address finger dextertiy and broke handler strength. Speech Therapy Update: Pt requires SUPV to MOD I for Auditory Comprehension ( for complex, novel information), MOD I to I for Verbal Expression and Social Interaction, SUPV to MOD I for Problem Solving, and SUPV for Memory. She requires repeated, simplified instruction and extra response time, as well as verbal reminders. Summary: Patient's care plan and nursing home goals have been reviewed and revised as necessary. Please see the Rehabilitation Signature page for all necessary signatures.
--- NOTE | 2018-11-18 13:36 | FAST ---
SHIFT START DATE/TIME: 11/18/2018 07:00 (CDT) SHIFT END DATE/TIME: 11/18/2018 19:00 (CDT) NAME LEONORA HOFF DATE OF : 1940 DATE OF ADMISSION: 10/28/2018 15:22 (CDT) PHONE: AGE: 77 N# [id number] GENDER: Female ENCOUNTER PHYSICIAN: Dr. Harpreet Alan M.D. 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 EATING: EATING - STEP 1: Does the patient require the assistance of a person or device, or need extra time when eating? Yes. EATING - STEP 2: Does the patient require the assistance of a helper? Yes. EATING - STEP 3: Does the patient perform half or more of the eating tasks? Yes. EATING - STEP 4: Does the patient need only supervision, cuing, coaxing OR help to apply an orthosis OR help to cut fo od, open containers, pour liquids, or butter bread? Yes. EATING - SCORE: 5-SUP GROOMING: GROOMING - STEP 1: Does the patient require the assistance of a person or device, or need extra time when grooming? Yes. GROOMING - STEP 2: Does the patient require the assistance of a helper? Yes. GROOMING - STEP 3: How much assistance does the patient require from the helper? Incidental touching assistance from the helper while grooming GROOMING - SCORE: 4-MIN BATHING: Activity did not occur on this shift BATHING - SCORE: 0-UNK DRESSING - UPPER BODY: Bra (three steps) T-shirt/pullover shirt (four steps) ARTICLES SCORE Total number of steps: 7 DRESSING - UPPER BODY - STEP 1: Does the patient require help from a person or device, or need extra time when dressing above the [address]? Yes. DRESSING - UPPER BODY - STEP 2: Does the patient require the assistance of a helper? Yes. DRESSING - UPPER BODY - STEP 3: Does the helper touch the patient while dressing? Yes. DRESSING - UPPER BODY - STEP 4: How many of the total steps does the patient complete on his/her own? 6 DRESSING - UPPER BODY - SCORE: 4-MIN DRESSING - LOWER BODY: Elastic waist pants (three steps) Underwear (three steps) ARTICLES SCORE Total number of steps: 6 DRESSING - LOWER BODY - STEP 1: Does the patient require help from a person or device, or need extra time when dressing below the [address] st? Yes. DRESSING - LOWER BODY - STEP 2: Does the patient require the assistance of a helper? Yes. DRESSING - LOWER BODY - STEP 3: Does the helper touch the patient while dressing? Yes. DRESSING - LOWER BODY - STEP 4: How many of the total steps does the patient complete on his/her own? 3 DRESSING - LOWER BODY - SCORE: 3-MOD TOILETING: TOILETING - STEP 1: Does the patient require the assistance of a person or device, or need extra time with toileting? Yes . TOILETING - STEP 2: Does the patient require the assistance of a helper? Yes. TOILETING - STEP 3: How much assistance does the patient require from the helper? Hands-on assistance from the helper TOILETING - STEP 4: Of the 3 tasks: 1) Adjusting clothing prior to use, 2) Cleansing of perineal area, 3) Adjusting clot juan f after use; How many tasks does the patient perform WITHOUT assistance of the helper? Two tasks TOILETING - SCORE: 3-MOD BLADDER MANAGEMENT: BLADDER MANAGEMENT - STEP 1: Does the patient control the bladder completely and intentionally without equipment or devices or med ications, and is always continent? Yes. BLADDER MANAGEMENT - SCORE: 7-IND BLADDER MANAGEMENT - FREQUENCY OF ACCIDENTS: BLADDER MANAGEMENT(FA) - STEP 1: How many accidents has the patient had during the current shift? 0 BOWEL MANAGEMENT: BOWEL MANAGEMENT - STEP 1: Does the patient control bowels completely and intentionally without equipment devices or medications AND is always continent? Yes. BOWEL MANAGEMENT - SCORE: 7-IND BOWEL MANAGEMENT - FREQUENCY OF ACCIDENTS: BOWEL MANAGEMENT(FA) - STEP 1: How many accidents has the patient had during the current shift? 0 TRANSFERS: BED, CHAIR, WHEELCHAIR: TRANSFERS: BED, CHAIR, WHEELCHAIR - STEP 1: Does the patient require assistance of a person or device, or need extra time with bed, chair, or whe elchair transfers? Yes. TRANSFERS: BED, CHAIR, WHEELCHAIR - STEP 2: Does the patient require the assistance of a helper? Yes. TRANSFERS: BED, CHAIR, WHEELCHAIR - STEP 3: How much assistance does the patient require from the helper? Lifting of the patient TRANSFERS: BED, CHAIR, WHEELCHAIR - STEP 4: Does the helper lift the patient ONLY up? ONLY down? Up AND Down? ONLY up. TRANSFERS: BED, CHAIR, WHEELCHAIR - SCORE: 3-MOD TRANSFERS: TOILET: TRANSFERS: TOILET - STEP 1: Does the patient require the assistance of a person or device, or need extra time with toilet transfe rs? Yes. TRANSFERS: TOILET - STEP 2: Does the patient require the assistance of a helper? Yes. TRANSFERS: TOILET - STEP 3: How much assistance does the patient require from the helper? Patient performs half or more of the tr ansferring tasks TRANSFERS: TOILET - STEP 4: Does the patient need only incidental help such as contact guard or steadying during toilet transfer? No. Patient needs more than incidental help TRANSFERS: TOILET - SCORE: 3-MOD TRANSFERS: SHOWER: Activity did not occur on this shift TRANSFERS: SHOWER - SCORE: 0-UNK TRANSFERS: TUB: Activity did not occur on this shift TRANSFERS: TUB - SCORE: 0-UNK LOCOMOTION: WALK: Activity did not occur on this shift LOCOMOTION: WALK - SCORE: 0-UNK LOCOMOTION: WHEELCHAIR: Activity did not occur on this shift LOCOMOTION: WHEELCHAIR - SCORE: 0-UNK COMPREHENSION: COMPREHENSION - SCORE: 0-UNK EXPRESSION EXPRESSION - SCORE: 0-UNK SOCIAL INTERACTION: SOCIAL INTERACTION - SCORE: 0-UNK PROBLEM SOLVING: PROBLEM SOLVING - SCORE: 0-UNK MEMORY: MEMORY - SCORE: 0-UNK SIGNATURE PANEL: The following modified sections: Eating - Score, Grooming - Score, Bathing - Score, Dressing - Upper Body - Score, Dressing - Lower Body - Score, Toileting - Score, Bladder Management - Score, Bowel Man agement - Score, Transfers: Bed, Chair, Wheelchair - Score, Transfers: Toilet - Score, Transfers: Amrita wer - Score, Transfers: Tub - Score, Locomotion: Walk - Score, Locomotion: Wheelchair - Score, Compre hension - Score, Expression - Score, Social Interaction - Score, Problem Solving - Score, Memory - Sc ore were [electronically] signed by Abril Khoury CNA on WedNov 18 2018 13:35:46 T-0500 (Centra l Daylight Time)
[2018-11-18] MEDS: IRBESARTAN 150 MG TAB PO SCH (20:16)
[2018-11-18] MEDS: DOCUSATE NA/SENNA CONC 1 TAB PO SCH (20:17)
[2018-11-18] MEDS: PROMOD 30 ML DOSE PO SCH (20:17)
[2018-11-18] MEDS: TRAMADOL HCL 50 MG TAB PO PRN (22:09)
[2018-11-19] MEDS: DULOXETINE 20 MG CAP PO SCH (07:55)
[2018-11-19] MEDS: LIDOCAINE 5% PATCH TOP SCH (07:56)
[2018-11-19] MEDS: PROMOD 30 ML DOSE PO SCH (08:00)
[2018-11-19] MEDS: ENOXAPARIN 40 MG/0.4 ML SQ SCH (08:00)
[2018-11-19] MEDS: CRANBERRY FRUIT EXTRACT 200 MG CAP PO SCH (08:03)
[2018-11-19] MEDS: FOLIC ACID 1 MG TABLET PO SCH (08:03)
[2018-11-19] MEDS: GABAPENTIN 100 MG CAP PO SCH (08:04)
[2018-11-19] MEDS: CLOPIDOGREL 75 MG TABLET PO SCH (08:04)
[2018-11-19] MEDS: VITAMIN D 1000 UNIT TAB PO SCH (08:04)
[2018-11-19] MEDS: PANTOPRAZOLE 40MG TABLET PO SCH (08:04)
[2018-11-19] MEDS: CALCIUM CARBONATE 500 MG TAB PO SCH (08:04)
[2018-11-19] MEDS: ATORVASTATIN 10 MG TAB PO SCH (08:04)
== END 2018-11-19 09:20 | disposition home health service (06) | DRG 57 ==
LOC: 5TH 15:22
PROVIDERS: ADMIT Psychiatry & Neurology Neurology with Special Qualifications in Child Neurology; ATTEND Psychiatry & Neurology Neurology with Special Qualifications in Child Neurology
DX: I69.154 Hemiplegia and hemiparesis following nontraumatic intracerebral hemorrhage affecting left non-dominant side (principal); M06.9 Rheumatoid arthritis, unspecified; Z23 Encounter for immunization
CPT/HCPCS: 36415; 80048; 80076; 81001; 82040; 83605; 83735; 84134; 85025; 87040; 87077; 87086; 87088; 87186; 90471; 90670; 92507; 92508; 92523; 97110; 97112; 97116; 97127; 97150; 97162; 97167; 97530; 97542; J1650; J7512

== ENCOUNTER 2019-04-12 00:05 | Emergency (ER) | payer OTHER ==
--- OUTSIDE RECORDS SUMMARY | 2019-04-12 00:09 | XMS REPORT ---
:1940 [facility] Address [address] [place] [address] Dr. Kaminski [address] [place] [id number] Care Team Providers Name Role Phone NISHI AMARAL Unavailable Unavailable Problems This patient has no known problems. Allergies, Adverse Reactions, Alerts This patient has no known allergies or adverse reactions. Medications This patient has no known medications. Results Test Description Test Time Test Comments Text Results Atomic Results Result Comments MR, MRA, BRAIN, WITHOUT 2019-04-06 10:41:00 FINAL REPORT PATIENT ID: CONTRAST [id number] MRA Head Clinical History: THALAMIC HEMORRHAGE Technique: MRA of the head utilizing 3-D iyyj-tw-xjfvie technique with 3-D reconstructions. Comparison: Outside MRA 12/26/2018 Findings: There is no evidence for a [place] proximal branch vessel occlusion. There is severe stenosis of the proximal right middle cerebral artery. There is moderate stenosis of the proximal left anterior cerebral artery. 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 Signed: Lia Gibbons MDReport Verified Date/Time: 04/06/2019 10:41:25 Reading Location: [facility] C0V Neuro Reading Room , BRAIN, WITHOUT CONTRAST 2019-04-06 10:10:00 FINAL REPORT MRI Brain without contrast Clinical History: THALAMIC HEMORRHAGE Technique: MRI of the brain utilizing axial T2, FLAIR, GRE, DWI; sagittal and coronal T1-weighted images. Comparisons: CT 10/19/2018 Findings: There is no evidence of acute infarct or hemorrhage. The previous left thalamocapsular hemorrhage has resorbed, with residual hemosiderin staining and encephalomalacia. There is moderate periventricular and subcortical white matter T2 hyperintensity, which is nonspecific but compatible with chronic microvascular ischemic change, including in the pa. There is generalized parenchymal volume loss without hydrocephalus, midline shift, or apparent mass effect. There are no extra-axial fluid collections. The craniocervical junction is preserved. The major intracranial flow-voids appear patent. There is bilateral cataract surgery. IMPRESSION: No evidence of acute infarct, hemorrhage, or hydrocephalus. Resolution of previous left thalamocapsular hemorrhage with hemosiderin staining encephalomalacia. Chronic microvascular ischemic disease with generalized parenchymal volume loss. Signed: Lia Gibbons MDReport Verified Date/Time: 04/06/2019 10:10:55 Reading Location: [address] Neuro Reading Room -GLUCOSE METER 2018-10-28 13:37:00 Test Item Value Reference Range Comments POC-GLUCOSE METER (BEAKER) (test 124 mg/dL 70-110 TESTED AT [address] dbhu=5885) [facility] [address] POCT-GLUCOSE [id number] 12:26:00 Test Item Value Reference Range Comments POC-GLUCOSE METER (BEAKER) 327 mg/dL 70-110 Notified DAISHA VILLALOBOS/TESTED AT [facility] (test vwge=0580) [address] [place] [address] POCT-GLUCOSE [id number] 06:25:00 Test Item Value Reference Range Comments POC-GLUCOSE METER (BEAKER) 102 mg/dL 70-110 TESTED AT [address] (test tvaw=2356) [facility] [address] POCT-GLUCOSE [id number] 17:56:00 Test Item Value Reference Range Comments POC-GLUCOSE METER (BEAKER) 111 mg/dL 70-110 TESTED AT [address] (test gugx=7058) [facility] [address] POCT-GLUCOSE [id number] 14:04:00 Test Item Value Reference Range Comments POC-GLUCOSE METER (BEAKER) 188 mg/dL 70-110 TESTED AT [address] (test khno=6494) [facility] [address] POCT-GLUCOSE [id number] 00:42:00 Test Item Value Reference Range Comments POC-GLUCOSE METER (BEAKER) 123 mg/dL 70-110 TESTED AT [address] (test qzvo=5224) [facility] [address] POCT-GLUCOSE [id number] 17:58:00 Test Item Value Reference Range Comments POC-GLUCOSE METER (BEAKER) 162 mg/dL 70-110 TESTED AT [address] (test hjax=1741) [facility] [address] POCT-GLUCOSE [id number] 12:17:00 Test Item Value Reference Range Comments POC-GLUCOSE METER (BEAKER) 133 mg/dL 70-110 TESTED AT [address] (test rllv=1203) [facility] [address] POCT-GLUCOSE [id number] 17:18:00 Test Item Value Reference Range Comments POC-GLUCOSE METER (BEAKER) 101 mg/dL 70-110 TESTED AT [address] (test yicf=3702) [facility] [address] POCT-GLUCOSE [id number] 12:05:00 Test Item Value Reference Range Comments POC-GLUCOSE METER (BEAKER) 131 mg/dL 70-110 TESTED AT [address] (test ysku=2770) [facility] [address] POCT-GLUCOSE [id number] 00:07:00 Test Item Value Reference Range Comments POC-GLUCOSE METER (BEAKER) 103 mg/dL 70-110 TESTED AT [address] (test lqpx=5813) [facility] [address] POCT-GLUCOSE [id number] 18:41:00 Test Item Value Reference Range Comments POC-GLUCOSE METER (BEAKER) 136 mg/dL 70-110 TESTED AT [address] (test tlgt=8363) [facility] [address] POCT-GLUCOSE [id number] 14:11:00 Test Item Value Reference Range Comments POC-GLUCOSE METER (BEAKER) 150 mg/dL 70-110 TESTED AT [address] (test zkfm=5430) [facility] [address] POCT-GLUCOSE [id number] 08:37:00 Test Item Value Reference Range Comments POC-GLUCOSE METER (BEAKER) 119 mg/dL 70-110 TESTED AT [address] (test ryyp=8083) [facility] [address] POCT-GLUCOSE [id number] 21:50:00 Test Item Value Reference Range Comments POC-GLUCOSE METER (BEAKER) 123 mg/dL 70-110 TESTED AT [address] (test qzue=0214) [facility] [address] POCT-GLUCOSE [id number] 17:49:00 Test Item Value Reference Range Comments POC-GLUCOSE METER (BEAKER) 126 mg/dL 70-110 TESTED AT [address] (test fjtz=2053) [facility] [address] POCT-GLUCOSE [id number] 08:22:00 Test Item Value Reference Range Comments POC-GLUCOSE METER (BEAKER) 122 mg/dL 70-110 TESTED AT [address] (test wwux=1098) [facility] [address] POCT-GLUCOSE [id number] 08:19:00 Test Item Value Reference Range Comments POC-GLUCOSE METER (BEAKER) 107 mg/dL 70-110 TESTED AT [address] (test phmd=5965) [place] [id number] POCT-GLUCOSE [id number] 22:45:00 Test Item Value Reference Range Comments POC-GLUCOSE METER (BEAKER) 117 mg/dL 70-110 TESTED AT [address] (test pdsu=2610) [facility] [address] POCT-GLUCOSE [id number] 17:17:00 Test Item Value Reference Range Comments POC-GLUCOSE METER (BEAKER) 131 mg/dL 70-110 TESTED AT [address] (test xfpg=2394) [facility] [address] POCT-GLUCOSE [id number] 05:42:00 Test Item Value Reference Range Comments POC-GLUCOSE METER (BEAKER) 101 mg/dL 70-110 TESTED AT [address] (test bnox=5976) [facility] [address] BASIC METABOLIC [id number] 04:34:00 Test Item Value Reference Range Comments SODIUM (BEAKER) (test 139 meq/L 136-145 elql=461) POTASSIUM (BEAKER) (test 4.1 meq/L 3.5-5.1 ppbc=992) CHLORIDE (BEAKER) (test 106 meq/L 98-107 brff=644) CO2 (BEAKER) (test 26 meq/L 22-29 amxs=015) BLOOD UREA NITROGEN 12 mg/dL 7-21 (BEAKER) (test desh=955) CREATININE (BEAKER) (test 0.69 mg/dL 0.57-1.25 npik=800) GLUCOSE RANDOM (BEAKER) 114 mg/dL 70-105 (test abhd=505) CALCIUM (BEAKER) (test 8.1 mg/dL 8.4-10.2 iqvp=105) EGFR (BEAKER) (test 83 mL/min/1.73 sq m ESTIMATED GFR IS NOT xmdv=1157) ACCURATE CREATININE CLEARANCE IN PREDICTING GLOMERULAR FILTRATION RATE. ESTIMATED GFR IS NOT APPLICABLE FOR DIALYSIS PATIENTS. Once on admission and Daily [facility]2018-10-21 03:59:00 Test Item Value Reference Range Comments WHITE BLOOD CELL COUNT (BEAKER) (test yzpc=925) 7.1 K/ L 3.5-10.5 RED BLOOD CELL COUNT (BEAKER) (test lknc=052) 3.63 M/ L 3.93-5.22 HEMOGLOBIN (BEAKER) (test ofnh=445) 10.7 GM/DL 11.2-15.7 HEMATOCRIT (BEAKER) (test glwd=639) 34.1 % 34.1-44.9 MEAN CORPUSCULAR VOLUME (BEAKER) (test uzog=534) 93.9 fL 79.4-94.8 MEAN CORPUSCULAR HEMOGLOBIN (BEAKER) (test 29.5 pg 25.6-32.2 buje=290) MEAN CORPUSCULAR HEMOGLOBIN CONC (BEAKER) (test 31.4 GM/DL 32.2-35.5 oomb=109) RED CELL DISTRIBUTION WIDTH (BEAKER) (test 14.7 % 11.7-14.4 fpot=274) PLATELET COUNT (BEAKER) (test vswn=780) 279 K/CU MM 150-450 MEAN PLATELET VOLUME (BEAKER) (test nnrn=639) 10.0 fL 9.4-12.3 NUCLEATED RED BLOOD CELLS (BEAKER) (test 0 /100 WBC 0-0 xfmg=103) POCT-GLUCOSE [id number] 23:50:00 Test Item Value Reference Range Comments POC-GLUCOSE METER (BEAKER) 116 mg/dL 70-110 TESTED AT [facility] [address] [facility] (test griz=4565) [facility] [address] POCT-GLUCOSE [id number] 18:45:00 Test Item Value Reference Range Comments POC-GLUCOSE METER (BEAKER) 107 mg/dL 70-110 TESTED AT [address] (test yzgg=3116) [facility] [address] RAD, FOREARM, 2 VIEWS, [id number] 13:04:00Reason for exam:->Rule out fractureShould this be performed at the bedside?->YesFINAL REPORT Technique: 2 views of the right forearm COMPARISON: None FINDINGS: Exam limited by diffuse osteopenia and suboptimal technique and positioning. No gross acute fracture or dislocation involving the right forearm. Osteopenia and degenerative changes of the wrist bonesnoted. No gross radiopaque soft tissue foreign body. Signed: Stevan Villagran MDReport Verified Date/Time: 10/20/2018 13:04 :50 Reading Location: [address] Transitional Reading Room POCT-GLUCOSE [id number] 12:53:00 Test Item Value Reference Range Comments POC-GLUCOSE METER (BEAKER) 144 mg/dL 70-110 TESTED AT [address] (test xtsh=0894) [place] [address] [id number] 06:18:00 Test Item Value Reference Range Comments PHOSPHORUS (BEAKER) (test vrmd=879) 2.5 mg/dL 2.3-4.7 Once on admission and Daily AM afterwardsOnce on admission and Daily AM afterwardsOnce on admission and Daily AM [id number] 06:18:00 Test Item Value Reference Range Comments MAGNESIUM (BEAKER) (test dfng=614) 2.3 mg/dL 1.6-2.6 Once on admission and Daily AM afterwardsOnce on admission and Daily AM afterwardsOnce on admission and Daily AM afterwardsBASIC METABOLIC [id number] 06:18:00 Test Item Value Reference Range Comments SODIUM (BEAKER) (test 138 meq/L 136-145 uqhe=208) POTASSIUM (BEAKER) (test 3.9 meq/L 3.5-5.1 uzzy=732) CHLORIDE (BEAKER) (test 107 meq/L 98-107 caab=249) CO2 (BEAKER) (test 26 meq/L 22-29 wdje=589) BLOOD UREA NITROGEN 10 mg/dL 7-21 (BEAKER) (test wqfm=233) CREATININE (BEAKER) (test 0.66 mg/dL 0.57-1.25 jnxf=575) GLUCOSE RANDOM (BEAKER) 107 mg/dL 70-105 (test mrde=135) CALCIUM (BEAKER) (test 8.3 mg/dL 8.4-10.2 dnll=190) EGFR (BEAKER) (test 87 mL/min/1.73 sq m ESTIMATED GFR IS NOT nwon=7861) ACCURATE CREATININE CLEARANCE IN PREDICTING GLOMERULAR FILTRATION RATE. ESTIMATED GFR IS NOT APPLICABLE FOR DIALYSIS PATIENTS. Once on admission and Daily AM afterwardsOnce on admission and Daily AM afterwardsOnce on admission and Daily AM afterwardsPOCT-GLUCOSE [id number] 05:59:00 Test Item Value Reference Range Comments POC-GLUCOSE METER (BEAKER) 98 mg/dL 70-110 TESTED AT [facility] [address] [facility] (test kbyg=5378) [facility] [address] CBC (HEMOGRAM ONLY)2018-10-20 05:47:00 Test Item Value Reference Range Comments WHITE BLOOD CELL COUNT (BEAKER) (test svrd=249) 7.0 K/ L 3.5-10.5 RED BLOOD CELL COUNT (BEAKER) (test albo=163) 3.92 M/ L 3.93-5.22 HEMOGLOBIN (BEAKER) (test rctw=826) 11.3 GM/DL 11.2-15.7 HEMATOCRIT (BEAKER) (test xapq=811) 37.5 % 34.1-44.9 MEAN CORPUSCULAR VOLUME (BEAKER) (test zmva=830) 95.7 fL 79.4-94.8 MEAN CORPUSCULAR HEMOGLOBIN (BEAKER) (test 28.8 pg 25.6-32.2 jtyt=140) MEAN CORPUSCULAR HEMOGLOBIN CONC (BEAKER) (test 30.1 GM/DL 32.2-35.5 lqoy=729) RED CELL DISTRIBUTION WIDTH (BEAKER) (test 14.8 % 11.7-14.4 onfg=264) PLATELET COUNT (BEAKER) (test znwd=753) 286 K/CU MM 150-450 MEAN PLATELET VOLUME (BEAKER) (test iplc=731) 9.9 fL 9.4-12.3 NUCLEATED RED BLOOD CELLS (BEAKER) (test 0 /100 WBC 0-0 uqkg=187) POCT-GLUCOSE [id number] 21:36:00 Test Item Value Reference Range Comments POC-GLUCOSE METER (BEAKER) 146 mg/dL 70-110 TESTED AT [address] (test tsfd=5424) [place] [address] BASIC METABOLIC [id number] 18:49:00 Test Item Value Reference Range Comments SODIUM (BEAKER) (test 136 meq/L 136-145 zqyj=848) POTASSIUM (BEAKER) (test 4.3 meq/L 3.5-5.1 kiih=946) CHLORIDE (BEAKER) (test 105 meq/L 98-107 srvg=916) CO2 (BEAKER) (test 23 meq/L 22-29 cvvz=814) BLOOD UREA NITROGEN 8 mg/dL 7-21 (BEAKER) (test osbk=978) CREATININE (BEAKER) (test 0.69 mg/dL 0.57-1.25 oipn=263) GLUCOSE RANDOM (BEAKER) 118 mg/dL 70-105 (test fsqw=479) CALCIUM (BEAKER) (test 8.5 mg/dL 8.4-10.2 pzrp=060) EGFR (BEAKER) (test 83 mL/min/1.73 sq m ESTIMATED GFR IS NOT mtga=6756) ACCURATE CREATININE CLEARANCE IN PREDICTING GLOMERULAR FILTRATION RATE. ESTIMATED GFR IS NOT APPLICABLE FOR DIALYSIS PATIENTS. POCT-GLUCOSE [id number] 18:31:00 Test Item Value Reference Range Comments POC-GLUCOSE METER (BEAKER) 162 mg/dL 70-110 TESTED AT [address] (test zjur=3681) [place] [address] [id number] 16:03:00 Test Item Value Reference Range Comments POTASSIUM (BEAKER) (test dptv=297) 5.7 meq/L 3.5-5.1 Check Serum Potassium level 2 hours after oral potassium replacement completed or 30 min after intravenous potassium replacement.[id number] 16:03:00 Test Item Value Reference Range Comments MAGNESIUM (BEAKER) (test nryp=129) 2.1 mg/dL 1.6-2.6 Check Serum Potassium level 2 hours after oral potassium replacement completed or 30 min after intravenous potassium replacement.RAD, LEG, [id number] 15: 57:00Reason for exam:->Fracture rule outShould this [...] MDReport Verified Date/Time: 10/19/2018 15:57:30 Reading Location: [address] Consult Reading Room RAD, WRIST, RIGHT, [...] MDReport Verified Date/Time: 10/19/2018 15:55:55 Reading Location: [facility] C0[facility] Consult Reading Room RAD, HIP, 2 VIEWS, [id number] 15:52:00Reason for exam :->Fall, rule out fractureShould [...] MDReport Verified Date/Time: 10/19/2018 15:52:13 Reading Location: [address] Consult Reading Room RAD, ELBOW, 3 VIEWS, [id number] 15:49:00Reason for exam:-> FallShould this be performed [...] MDReport Verified Date/Time: 10/19/2018 15:49:56 Reading Location: [address] Consult Reading Room RAD, SHOULDER, COMPLETE (MIN 2 VIEWS), [id number] 15: 47:00Reason for exam:->fractureShould this be performed [...] MDReport Verified Date/Time: 10/19/2018 15:47:55 Reading Location: [address] Consult Reading Room POCT-GLUCOSE [id number] 12:47:00 Test Item Value Reference Range Comments POC-GLUCOSE METER (BEAKER) 109 mg/dL 70-110 TESTED AT [facility] [address] [facility] (test wmpk=4777) [facility] [address] POCT-GLUCOSE [id number] 07:04:00 Test Item Value Reference Range Comments POC-GLUCOSE METER (BEAKER) 111 mg/dL 70-110 TESTED AT [address] (test altg=9256) [facility] [address] CT, BRAIN, WITHOUT [id number] 05:05:00FINAL REPORT EXAM: CT head without contrast. [...] Griselda Dowling MDReport Verified Date/Time: 10/19/2018 05:05:44 [id number] 05:02:00 Test Item Value Reference Range Comments PHOSPHORUS (BEAKER) (test twsm=519) 2.8 mg/dL 2.3-4.7 Once on admission and Daily AM afterwardsOnce on admission and Daily AM afterwardsOnce on admission and Daily AM [id number] 05:02:00 Test Item Value Reference Range Comments MAGNESIUM (BEAKER) (test kkfo=785) 1.7 mg/dL 1.6-2.6 Once on admission and Daily AM afterwardsOnce on admission and Daily AM afterwardsOnce on admission and Daily AM afterwardsBASIC METABOLIC [id number] 05:02:00 Test Item Value Reference Range Comments SODIUM (BEAKER) (test 140 meq/L 136-145 snkq=123) POTASSIUM (BEAKER) (test 3.7 meq/L 3.5-5.1 wxcs=551) CHLORIDE (BEAKER) (test 106 meq/L 98-107 dgmt=134) CO2 (BEAKER) (test 27 meq/L 22-29 ouwf=526) BLOOD UREA NITROGEN 9 mg/dL 7-21 (BEAKER) (test cynd=216) CREATININE (BEAKER) (test 0.70 mg/dL 0.57-1.25 rtce=578) GLUCOSE RANDOM (BEAKER) 122 mg/dL 70-105 (test gkgh=671) CALCIUM (BEAKER) (test 9.0 mg/dL 8.4-10.2 fhmc=047) EGFR (BEAKER) (test 82 mL/min/1.73 sq m ESTIMATED GFR IS NOT wass=4617) ACCURATE CREATININE CLEARANCE IN PREDICTING GLOMERULAR FILTRATION RATE. ESTIMATED GFR IS NOT APPLICABLE FOR DIALYSIS PATIENTS. Once on admission and Daily AM afterwardsOnce on admission and Daily AM afterwardsOnce on admission and Daily AM afterwardsCBC (HEMOGRAM ONLY) 04:48:00 Test Item Value Reference Range Comments WHITE BLOOD CELL COUNT (BEAKER) (test hkfm=450) 8.3 K/ L 3.5-10.5 RED BLOOD CELL COUNT (BEAKER) (test lapd=328) 3.80 M/ L 3.93-5.22 HEMOGLOBIN (BEAKER) (test dgqz=113) 11.3 GM/DL 11.2-15.7 HEMATOCRIT (BEAKER) (test ohwt=018) 35.4 % 34.1-44.9 MEAN CORPUSCULAR VOLUME (BEAKER) (test cycf=299) 93.2 fL 79.4-94.8 MEAN CORPUSCULAR HEMOGLOBIN (BEAKER) (test 29.7 pg 25.6-32.2 kxjf=921) MEAN CORPUSCULAR HEMOGLOBIN CONC (BEAKER) (test 31.9 GM/DL 32.2-35.5 qwtw=305) RED CELL DISTRIBUTION WIDTH (BEAKER) (test 14.7 % 11.7-14.4 bybm=690) PLATELET COUNT (BEAKER) (test mdeq=181) 269 K/CU MM 150-450 MEAN PLATELET VOLUME (BEAKER) (test qttw=681) 9.7 fL 9.4-12.3 NUCLEATED RED BLOOD CELLS (BEAKER) (test 0 /100 WBC 0-0 frrd=864) POCT-GLUCOSE [id number] 00:34:00 Test Item Value Reference Range Comments POC-GLUCOSE METER (BEAKER) 122 mg/dL 70-110 TESTED AT [address] (test kfkr=7308) [facility] [address] TROPONIN [id number] 20:52:00 Test Item Value Reference Range Comments TROPONIN I (BEAKER) (test lzaj=795) < ng/mL 0.00-0.03 Troponin I (TnI) levels [...] AM afterwardsOnce on admission and Daily AM [id number] 20:47:00 Test Item Value Reference Range Comments PHOSPHORUS (BEAKER) (test qzmz=071) 3.3 mg/dL 2.3-4.7 Once on admission and Daily AM afterwardsOnce on admission and Daily AM afterwardsOnce on admission and Daily AM [id number] 20:47:00 Test Item Value Reference Range Comments MAGNESIUM (BEAKER) (test ciak=089) 1.7 mg/dL 1.6-2.6 Once on admission and Daily AM afterwardsOnce on admission and Daily AM afterwardsOnce on admission and Daily AM afterwardsBASIC METABOLIC [id number] 20:47:00 Test Item Value Reference Range Comments SODIUM (BEAKER) (test 140 meq/L 136-145 sqvw=369) POTASSIUM (BEAKER) (test 3.8 meq/L 3.5-5.1 zdhm=267) CHLORIDE (BEAKER) (test 104 meq/L 98-107 zyzi=741) CO2 (BEAKER) (test 26 meq/L 22-29 mpvm=789) BLOOD UREA NITROGEN 11 mg/dL 7-21 (BEAKER) (test rtod=590) CREATININE (BEAKER) (test 0.74 mg/dL 0.57-1.25 ksqy=063) GLUCOSE RANDOM (BEAKER) 123 mg/dL 70-105 (test uuab=887) CALCIUM (BEAKER) (test 9.8 mg/dL 8.4-10.2 pyaf=509) EGFR (BEAKER) (test 77 mL/min/1.73 sq m ESTIMATED GFR IS NOT ghbd=1917) ACCURATE CREATININE CLEARANCE IN PREDICTING GLOMERULAR FILTRATION RATE. ESTIMATED GFR IS NOT APPLICABLE FOR DIALYSIS PATIENTS. Once on admission and Daily AM afterwardsOnce on admission and Daily AM afterwardsOnce on admission and Daily AM afterwardsHEPATIC FUNCTION [id number] 20:47:00 Test Item Value Reference Range Comments TOTAL PROTEIN (BEAKER) (test mraz=381) 7.1 gm/dL 6.0-8.3 ALBUMIN (BEAKER) (test pwmt=2427) 4.0 g/dL 3.5-5.0 BILIRUBIN TOTAL (BEAKER) (test cyaj=753) 0.6 mg/dL 0.2-1.2 BILIRUBIN DIRECT (BEAKER) (test vbqc=837) 0.3 mg/dL 0.1-0.5 ALKALINE PHOSPHATASE (BEAKER) (test dggb=408) 47 U/L 40-150 AST (SGOT) (BEAKER) (test ikgr=740) 14 U/L 5-34 ALT (SGPT) (BEAKER) (test aksg=056) 14 U/L 6-55 Once on admission and Daily AM afterwardsOnce on admission and Daily AM afterwardsOnce on admission and Daily AM [id number] 20:37:00 Test Item Value Reference Range Comments PARTIAL THROMBOPLASTIN TIME (BEAKER) (test 25.4 seconds 22.5-36.0 zpnu=063) PROTHROMBIN TIME/[id number] 20:36:00 Test Item Value Reference Range Comments PROTIME (BEAKER) (test vvjo=520) 13.3 seconds 11.9-14.2 INR (BEAKER) (test bnrk=583) 1.1 <=5.9 Effective 09/14/2018: PT Reference Range ChangeNew: 11.9-14.2 Previous: 11.7- 14.7RECOMMENDED COUMADIN/WARFARIN INR THERAPY RANGESSTANDARD DOSE: 2.0-3.0 Includes: PROPHYLAXIS for venous thrombosis, systemic embolization; TREATMENT for venous thrombosis and/or pulmonary embolus.HIGH RISK: Target INR is2.5-3.5 for patients wiht mechanical heart valves.CBC (HEMOGRAM ONLY)2018-10-18 20:30:00 Test Item Value Reference Range Comments WHITE BLOOD CELL COUNT (BEAKER) (test iiai=101) 10.8 K/ L 3.5-10.5 RED BLOOD CELL COUNT (BEAKER) (test fnxl=188) 4.42 M/ L 3.93-5.22 HEMOGLOBIN (BEAKER) (test sfqw=965) 13.1 GM/DL 11.2-15.7 HEMATOCRIT (BEAKER) (test ywlz=499) 40.4 % 34.1-44.9 MEAN CORPUSCULAR VOLUME (BEAKER) (test fqzk=039) 91.4 fL 79.4-94.8 MEAN CORPUSCULAR HEMOGLOBIN (BEAKER) (test 29.6 pg 25.6-32.2 bhxa=279) MEAN CORPUSCULAR HEMOGLOBIN CONC (BEAKER) (test 32.4 GM/DL 32.2-35.5 qthi=085) RED CELL DISTRIBUTION WIDTH (BEAKER) (test 14.7 % 11.7-14.4 rmwr=302) PLATELET COUNT (BEAKER) (test teuy=269) 255 K/CU MM 150-450 MEAN PLATELET VOLUME (BEAKER) (test ebrl=606) 9.5 fL 9.4-12.3 NUCLEATED RED BLOOD CELLS (BEAKER) (test 0 /100 WBC 0-0 ijnk=539)
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
--- OUTSIDE RECORDS SUMMARY | 2019-04-12 00:09 | XMS REPORT | Summary of Care ---
:1940 Author Organization [facility] [place] [address] Care Team Providers Name Role Phone Rene Pimetnel MD Primary Care Provider Reason for Visit Reason Comments Disease Management Encounter Details Date Type Department Care Team Description 02/09/2019 Office Visit [facility] Sita Lai, Disease Management Medicine Rheumatology [address] [facility] 8th Floor, [address] [place] [address] [place] [address] Allergies No Known Allergiesdocumented as of this encounter (statuses as of 02/09/2019) Medications Medication Sig Dispensed Refills Start Date End Date Status pantoprazole Take 40 mg by 0 Active (PROTONIX) 40 MG mouth two tabletIndications: times daily. Rheumatoid arthritis(714.0), Senile osteoporosis, Encounter for long-term (current) use of other medications clopidogrel (PLAVIX) Take 75 mg by 0 Active 75 MG tablet mouth daily. valsartan (DIOVAN) 80 Take 80 mg by 0 Active MG tablet mouth daily. atorvastatin Take 10 mg by 0 Active (LIPITOR) 10 MG mouth daily. tablet lidocaine-prilocaine Apply to 30 g 1 04/28/2016 Active (EMLA) cream injection site for burning IRON, FERROUS Take by 0 Active GLUCONATE, OR mouth. Cholecalciferol Take by 0 Active (VITAMIN D OR) mouth. CALCIUM OR Take by 0 Active mouth. folic acid (FOLVITE) TAKE 1 TABLET 90 Tab 1 03/01/2017 Active 1 MG tablet DAILY Diclofenac Sodium 1 % Apply twice 120 g 1 12/14/2017 Active CREA daily-4 mg to right elbow predniSONE TAKE 1 TABLET 90 Tab 1 11/24/2018 Active (DELTASONE) 2.5 MG DAILY tablet acetaminophen Take 500 mg by 0 Active (TYLENOL) 500 mg mouth. tablet duloxetine (CYMBALTA) TAKE ONE 0 11/18/2018 Active 20 MG capsule CAPSULE BY MOUTH EVERY DAY gabapentin TAKE ONE 0 11/18/2018 Active (NEURONTIN) 100 MG CAPSULE BY capsule MOUTH TWICE A DAY irbesartan (AVAPRO) Take 75 mg by 0 Active 75 MG tablet mouth. [facility] SENNA PLUS 8.6-50 TAKE 2 TABLETS 0 11/18/2018 Active MG per tablet BY MOUTH AT BEDTIME tramadol (ULTRAM) 50 TAKE 1 TABLET 0 11/22/2018 Active MG tablet BY MOUTH EVERY 4 HOURS NEEDED FOR PAIN Etanercept 25 MG 25 mg 2 times 24 Each 3 02/09/2019 Active SOLRIndications: weekly. Inject Seropositive sc twice a rheumatoid arthritis week (HCCode) predniSONE Take 1 Tab by 90 Tab 1 12/27/2014 Discontinued (DELTASONE) 2.5 MG mouth daily. 9 tabletIndications: Rheumatoid arthritis(714.0) Etanercept 25 MG 25 mg 2 times 24 Each 1 06/07/2018 Discontinued SOLRIndications: weekly. Inject 9 Seropositive sc twice a rheumatoid arthritis week (HCCode) documented as of this encounter (statuses as of 02/09/2019) Active Problems Patient Care Coordination Note METHOTREXATE [...] as of this encounter (statuses as of 02/09/2019) Immunizations Name Administration Dates Next Due Influenza [...] Sign Reading Time Taken Comments Blood Pressure 120/68 02/09/2019 10:05 AM CDT Pulse - - Temperature 36.7 C (98.1 F) 02/09/2019 10:05 AM CDT Respiratory Rate 16 02/09/2019 10:05 AM CDT Oxygen Saturation - - Inhaled Oxygen Concentration - - Weight 81.6 kg (180 lb) 02/09/2019 10:05 AM CDT Height 160 cm (5' 3") 02/09/2019 10:05 AM CDT Body Mass Index 31.89 02/09/2019 10:05 AM CDT documented in this encounter Progress Notes Sita Lai MD - 02/09/2019 10:15 AM CDT Marisabel Bello is a 78 y.o. 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 06/07 echo-. EstimatedEFis 60-64%.Estimated PA systolic pressure is 41 mmHg, assuming a mean RAPof 5 mmHg. 01/04 CT chest_ 1.Numerous pulmonary nodules, most of which are calcified, clustered/linear , and therefore very likely postinflammatory. There are solid noncalcified pulmonary nodules measuring up to 5 mm which could also represent granulomas or intrapulmonary lymph nodes but are technically indeterminate. 2.Diffuse mosaicism with mild cylindrical bronchiectasis and bronchial wall thickening, compatible with nonspecific large and small airways disease. 3.Moderate hiatal hernia. 4.Cholelithiasis without evidence of cholecystitis. 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 atorvastatin (LIPITOR) 10 MG tablet Take 10 mg by mouth daily. CALCIUM OR Take by mouth. Cholecalciferol (VITAMIN D OR) Take by mouth. clopidogrel (PLAVIX) 75 MG tablet Take 75 mg by mouth daily. [facility] SENNA PLUS 8.6-50 MG per tablet TAKE 2 TABLETS BY MOUTH AT BEDTIME 0 Diclofenac Sodium 1 % CREA Apply twice daily-4 mg to right elbow (Patient taking differently: as needed. Apply twice daily-4 mg to right elbow) 120 g 1 duloxetine (CYMBALTA) 20 MG capsule TAKE ONE CAPSULE BY MOUTH EVERY DAY 0 Etanercept 25 MG SOLR 25 mg 2 times weekly. Inject sc twice a week 24 Each 1 folic acid (FOLVITE) 1 MG tablet TAKE 1 TABLET DAILY 90 Tab 1 gabapentin (NEURONTIN) 100 MG capsule TAKE ONE CAPSULE BY MOUTH TWICE A DAY 0 irbesartan (AVAPRO) 75 MG tablet Take 75 mg by mouth. IRON, FERROUS GLUCONATE, OR Take by mouth. lidocaine-prilocaine (EMLA) cream Apply to injection site for burning ( Patient taking differently: as needed. Apply to injection site for burning) 30 g 1 pantoprazole (PROTONIX) 40 MG tablet Take 40 mg by mouth two times daily. predniSONE (DELTASONE) 2.5 MG tablet TAKE 1 TABLET DAILY 90 Tab 1 predniSONE (DELTASONE) 2.5 MG tablet Take 1 Tab by mouth daily. 90 Tab 1 tramadol (ULTRAM) 50 MG tablet TAKE 1 TABLET BY MOUTH EVERY 4 HOURS NEEDED FOR PAIN 0 valsartan (DIOVAN) 80 MG tablet Take 80 mg by mouth daily. No current facility-administered medications for this visit. REVIEW OF SYSTEMS: Constitutional: negative HEENT: negative Cardiovascular: negative Respiratory: negative Genitourinary: negative Musculoskeletal:as in HPI GI:negative Skin: negative Neuro: negative Endo: negative Hemat: negative Psych;negative PHYSICAL EXAM General: Constitutional: Moderately built older lady with longstanding deformities in hands-walks with limp HEENT: Mouth/Throat: Oropharynx is clear and moist. No oral or nasal ulcers. Good salivary pool. No parotid enlargement. Eyes: Extraocular motions are normal. Pupils are equal, round, and reactive to light. No conjuctivitis or scleral icterus. Neck: Normal range of motion. Neck supple. No adenopathy or thyromegaly present. Cardiovascular: Regular rate and rhythm. Normal heart sounds. Pulmonary/Chest: Mild crackles at base-left worse than right Neurological: Grossly intact. Skin: No rashes Extremities: . Left ankle swelling-limitation Musculoskeletal exam: Gait: within normal limits Neck: full painless cervical ROM Hands: Advanced RA type deformities with MCP's subluxation, ulnar deviation. + Heberden's nodes L>R hands. Synovial thickening B MCPs Wrists: Mkd decr ROM without synovitis B Elbows: R elbow 15 degree flexion contracture.Slight warmth. +lateral epicondylitis Left with painless ROM without synovitis. + L olecranon nodules. Shoulders: Full painless active and passive ROM, no effusions or warmth. Hips: Full painless ROM, no effusions or warmth. No trochanteric tenderness. Knees: Bilateral TKA Ankles: R ankle with marked synovial thickening, deformity, healed surgical scar 2 to ankle replacement. Left ankle with mild synovial thickening, no synovitis.No tenderness Feet: MTP's: no synovitis or tenderness, negative lateral squeeze test. CBC/COMP-ok 05/07 IMPRESSION AND PLAN Seropositive rheumatoid arthritis Stable joint disease on ENBREL monotherapy-not on methotrexate over 2 years with no discernable issues with joints and no improvement/detrioration off methotrexate 2 years Remains on Prednsione 2.5 mg every other day No tender swollen joints-check ESR/CRP - SEDIMENTATION RATE MODIFIED WESTERGREN - C-REACTIVE PROTEIN - Etanercept 25 MG SOLR; 25 mg 2 times weekly. Inject sc twice a week Therapeutic drug monitoring CBC/COMP today Dyspnea on exertion Likely mechanical with kyphoscoliosis and restrictive lung issues Hiatal hernia might be contributing-lung imaging appears stable-with no ground glass on HRCT- bronchiectatic changes Exerting less in last year Senile osteoporosis Received RECLAST previously-DEXA stable but received another dose 12/04 through PCP and now on PROLIA - VITAMIN D, 25-HYDROXY, LC/MS/MS RTC 3-4 months 11: 07 AM CDTdocumented in this encounter Plan of Treatment Date Type Specialty Care Team Description 03/30/2019 Office Visit Neurosurgery Xiomy Payne MD [address] [place] [address] Name Type Priority Associated Diagnoses Order Schedule CBC W/AUTO DIFF WITH Lab Routine Therapeutic drug Ordered: 02/09/2019 PLATELETS monitoring SEDIMENTATION RATE Lab Routine Seropositive rheumatoid Ordered: 02/09/2019 MODIFIED WESTERGREN arthritis (HCCode) COMPREHENSIVE METABOLIC Lab Routine Therapeutic drug Ordered: 02/09/2019 PANEL monitoring C-REACTIVE PROTEIN Lab Routine Seropositive rheumatoid Ordered: 02/09/2019 arthritis (HCCode) VITAMIN D 25 HYDROXY Lab Routine Senile osteoporosis Ordered: 02/09/2019 Health Maintenance Due Date Last Done Comments [...] filedocumented in this encounter Visit Diagnoses Diagnosis Seropositive rheumatoid arthritis (HCCode) - Primary Rheumatoid arthritis Therapeutic drug monitoring Encounter for therapeutic drug monitoring Dyspnea on exertion Other dyspnea and respiratory abnormality Senile osteoporosis documented in this encounter Insurance Payer Benefit Plan / Subscriber ID Effective Phone Address Type Group Dates [employer] TRS-CARE xxxxxxxxx 2017-Hilario [address] [address] Medicare HEALTHCARE MEDICARE nt [place], [place] [address] ([place]) [place] [address] documented as of this encounter
[2019-04-12] MEDS ORDERED: HYDROCODONE/APAP 5/325 MG TAB ONE (01:47)
--- NOTE | 2019-04-12 01:50 | ER ---
Nurse's Notes [facility] Name: Marisabel Bello Age: 78 yrs Sex: Female : 1940 Arrival Date: 04/12/2019 Time: 00:06 Bed 20 Private MD: Diagnosis: Right tibial and fibular fractures Presentation: 04/12 00:25 Presenting complaint: EMS states: she was walking with her walker when she missed the mg2 step, fell on her front side. hitting her knee and eventually her forehead. denies LOC. takes blood thinner. Care prior to arrival: None. Mechanism of Injury: Fall down 1 steps. 00:25 Acuity: ZECHARIAH 3 mg2 00:25 Method Of Arrival: EMS: [place] [id number] 00:43 Transition of care: patient was not received from another setting of care. Onset of mg2 symptoms was April 11, 2019 at 23:30. Risk Assessment: Do you want to hurt yourself or someone else? Patient reports no desire to harm self or others. Initial Sepsis Screen: Does the patient meet any 2 criteria? No. Patient's initial sepsis screen is negative. Does the patient have a suspected source of infection? No. Patient's initial sepsis screen is negative. Triage Assessment: 00:29 General: Appears in no apparent distress. Behavior is calm, cooperative. Pain: mg2 Complains of pain in right hand and right leg, forehead. Neuro: Level of Consciousness is awake, alert, obeys commands, Oriented to person, place, time, situation. Cardiovascular: Patient's skin is warm and dry. Respiratory: Airway is patent. GI: No signs and/or symptoms were reported involving the gastrointestinal system. : No signs and/or symptoms were reported regarding the genitourinary system. Derm: Skin is intact. Musculoskeletal: No signs and/or symptoms reported regarding the musculoskeletal system. Trauma Activation: Physician: ED Physician; Name: dr amato; Notified At: ; Arrived At: Physician: General Surgeon; Name: ; Notified At: ; Arrived At: Physician: Radiology; Name: ; Notified At: ; Arrived At: Physician: Respiratory; Name: ; Notified At: ; Arrived At: Physician: Lab; Name: ; Notified At: ; Arrived At: Historical: - Allergies: 00:28 No Known Allergies; mg2 - PMHx: 00:28 Back pain; DVT; Hyperlipidemia; Hypertension; Rheumatoid Arthritis; mg2 - PSHx: 00:28 None; mg2 - Immunization history:: Adult Immunizations up to date. - Social history:: Smoking status: Patient/guardian denies using tobacco. - Immunization history: Last tetanus immunization: unknown. - Ebola Screening: : No symptoms or risks identified at this time. Screenin:42 Abuse screen: Denies threats or abuse. Denies injuries from another. Nutritional mg2 screening: No deficits noted. Tuberculosis screening: No symptoms or risk factors identified. Fall Risk None identified. Primary Survey: 00:43 NO uncontrolled hemorrhage observed. Breathing/Chest: Respiratory pattern: regular, mg2 Respiratory effort: spontaneous. Circulation: Cardiac rhythm: sinus rhythm. Disability Alert. Exposure/Environment: All clothing and personal items were removed. There is no evidence of uncontrolled external bleeding. No obvious injuries are noted at this time. A warming method has been applied: A warm blanket has been provided to the patient. 01:58 Reassessment Airway Airway Patent Breathing/Chest Respiratory pattern Regular. rv Assessment: 00:42 General: Appears in no apparent distress. uncomfortable, Behavior is calm, cooperative. mg2 Pain: Complains of pain in right hand and right leg. Neuro: Level of Consciousness is awake, alert, obeys commands, Oriented to person, place, time, situation. Cardiovascular: Patient's skin is warm and dry. Respiratory: Reports. GI: No signs and/or symptoms were reported involving the gastrointestinal system. : No signs and/or symptoms were reported regarding the genitourinary system. EENT: No signs and/or symptoms were reported regarding the EENT system. Derm: Skin is intact. Vital Signs: 00:28 BP 158 / 100; Pulse 103; Resp 19; Temp 98; Pulse Ox 97% ; Weight 81.65 kg; mg2 01:56 BP 145 / 96; Pulse 95; Resp 16; Pulse Ox 98% on R/A; rv Nish Com[place] Score: 00:43 Eye Response: spontaneous(4). Verbal Response: oriented(5). Motor Response: obeys mg2 commands(6). Total: 15. Trauma Score (Adult): 00:43 Eye Response: spontaneous(1); Verbal Response: oriented(1); Motor Response: obeys mg2 commands(2); Systolic BP: > 89 mm Hg(4); Respiratory Rate: 10 to 29 per min(4); [place] Score: 15; Trauma Score: 12 ED Course: 00:06 Patient arrived in ED. ds1 00:12 Teddy Amato MD is Attending Physician. pkl 00:25 Zachary Wilson, RN is Primary Nurse. mg2 00:27 Triage completed. mg2 00:43 Arm band placed on right wrist. mg2 00:44 Patient has correct armband on for positive identification. Bed in low position. Call mg2 light in reach. Side rails up X 1. school lunch monitor on. Pulse ox on. NIBP on. 00:44 Patient maintains SpO2 saturation greater than 95% on room air. mg2 00:52 Knee Right 3 View XRAY In Process Unspecified. EDMS 00:52 Tib Fib Right XRAY In Process Unspecified. EDMS 01:00 No provider procedures requiring assistance completed. Maintain EMS IV. Dressing rv intact. Good blood return noted. Site clean \T\ dry. Gauge \T\ site: g20 right ac. 01:57 IV discontinued, intact, bleeding controlled, No redness/swelling at site. Pressure rv dressing applied. 02:08 Orthoglass splint: Posterior long leg splint applied on right leg. ds4 Administered Medications: 01:56 Drug: [place] 5 mg-325 mg 1 tabs {Note: rass 0.} Route: PO; rv 02:39 Follow up: Response: No adverse reaction; Pain is decreased; RASS: Alert and Calm (0) Outcome: 01:48 Discharge ordered by . pkl 01:58 Discharged to home with family. rv 01:58 Condition: good 01:58 Discharge instructions given to patient, family, Instructed on discharge instructions, follow up and referral plans. medication usage, Demonstrated understanding of instructions, follow-up care, medications, splint care, Prescriptions given X 1. 02:39 Patient left the ED. Signatures: Dispatcher [employer] EDMS Teddy Amato MD MD pkl [place], Demi ds1 Haris Duncan ds4 Lena Potter Zachary Wilson, RN RN mg2 Sinan Hidalgo RN RN rv
--- NOTE | 2019-04-12 01:51 | EDPHYS ---
Physician Documentation [facility] Name: Marisabel Bello Age: 78 yrs Sex: Female : 1940 Arrival Date: 04/12/2019 Time: 00:06 Bed 20 Private MD: ED Physician Teddy Gusman HPI: 04/12 00:28 This 78 yrs old Female presents to ER via EMS with complaints of Fall Injury. pkl 00:28 Details of fall: The patient fell from an upright position, while walking. Onset: The pkl symptoms/episode began/occurred just prior to arrival. Associated injuries: The patient sustained right knee and leg. Historical: - Allergies: 00:28 No Known Allergies; mg2 - PMHx: 00:28 Back pain; DVT; Hyperlipidemia; Hypertension; Rheumatoid Arthritis; mg2 - PSHx: 00:28 None; mg2 - Immunization history:: Adult Immunizations up to date. - Social history:: Smoking status: Patient/guardian denies using tobacco. - Immunization history: Last tetanus immunization: unknown. - Ebola Screening: : No symptoms or risks identified at this time. ROS: 00:28 Eyes: Negative for injury, pain, redness, and discharge, ENT: Negative for injury, pkl pain, and discharge, Neck: Negative for injury, pain, and swelling, Cardiovascular: Negative for chest pain, palpitations, and edema, Respiratory: Negative for shortness of breath, cough, wheezing, and pleuritic chest pain, Abdomen/GI: Negative for abdominal pain, nausea, vomiting, diarrhea, and constipation, Back: Negative for injury and pain, : Negative for injury, bleeding, discharge, and swelling, Skin: Negative for injury, rash, and discoloration, Neuro: Negative for headache, weakness, numbness, tingling, and seizure. 00:28 MS/extremity: Positive for pain, of the right knee and leg. Exam: 00:28 Head/Face: Normocephalic, atraumatic. Eyes: Pupils equal round and reactive to light, pkl extra-ocular motions intact. Lids and lashes normal. Conjunctiva and sclera are non-icteric and not injected. Cornea within normal limits. Periorbital areas with no swelling, redness, or edema. ENT: Nares patent. No nasal discharge, no septal abnormalities noted. Tympanic membranes are normal and external auditory canals are clear. Oropharynx with no redness, swelling, or masses, exudates, or evidence of obstruction, uvula midline. Mucous membranes moist. Neck: Trachea midline, no thyromegaly or masses palpated, and no cervical lymphadenopathy. Supple, full range of motion without nuchal rigidity, or vertebral point tenderness. No Meningismus. Chest/axilla: Normal chest wall appearance and motion. Nontender with no deformity. No lesions are appreciated. Cardiovascular: Regular rate and rhythm with a normal S1 and S2. No gallops, murmurs, or rubs. Normal PMI, no JVD. No pulse deficits. Respiratory: Lungs have equal breath sounds bilaterally, clear to auscultation and percussion. No rales, rhonchi or wheezes noted. No increased work of breathing, no retractions or nasal flaring. Abdomen/GI: Soft, non-tender, with normal bowel sounds. No distension or tympany. No guarding or rebound. No evidence of tenderness throughout. Back: No spinal tenderness. No costovertebral tenderness. Full range of motion. Skin: Warm, dry with normal turgor. Normal color with no rashes, no lesions, and no evidence of cellulitis. Neuro: Awake and alert, GCS 15, oriented to person, place, time, and situation. Cranial nerves II-XII grossly intact. Motor strength 5/5 in all extremities. Sensory grossly intact. Cerebellar exam normal. Normal gait. 00:28 Musculoskeletal/extremity: Extremities: grossly normal except: noted in the right knee and leg: pain, tenderness. Vital Signs: 00:28 BP 158 / 100; Pulse 103; Resp 19; Temp 98; Pulse Ox 97% ; Weight 81.65 kg; mg2 01:56 BP 145 / 96; Pulse 95; Resp 16; Pulse Ox 98% on R/A; rv [place] Score: 00:43 Eye Response: spontaneous(4). Verbal Response: oriented(5). Motor Response: obeys mg2 commands(6). Total: 15. Trauma Score (Adult): 00:43 Eye Response: spontaneous(1); Verbal Response: oriented(1); Motor Response: obeys mg2 commands(2); Systolic BP: > 89 mm Hg(4); Respiratory Rate: 10 to 29 per min(4); Nish Score: 15; Trauma Score: 12 Procedures: 02:05 Splinting: Splint applied to right leg using long leg posterior splint. applied by pkl myself. nurse. Examined by me, post splint application: neurovascular intact, 2+ distal pulses palpable, brisk capillary refill noted, Patient tolerated well. MDM: 00:12 Patient medically screened. pkl 01:43 Data reviewed: vital signs, nurses notes, radiologic studies, plain films. ED course: pkl Discussed X,rays results with patient. Advised to follow up with her Orthopedic surgeon in [place] in 2 to 3 days. To use walker. Patient understood instructions. 04/12 00:19 Order name: Knee Right 3 View XRAY pkl 04/12 00:19 Order name: Tib Fib Right XRAY pkl 04/12 01:43 Order name: Splint - Posterior Leg; Complete Time: 02:08 pkl Administered Medications: 01:56 Drug: [place] 5 mg-325 mg 1 tabs {Note: rass 0.} Route: PO; rv 02:39 Follow up: Response: No adverse reaction; Pain is decreased; RASS: Alert and Calm (0) wh Disposition: 04/12/19 01:48 Discharged to Home. Impression: Right tibial and fibular fractures. - Condition is Stable. - Prescriptions for Ultram 50 mg Oral Tablet - take 1 tablet by ORAL route every 8 hours As needed; 15 tablet. - Medication Reconciliation Form, Thank You Letter, Antibiotic Education, Prescription Opioid Use form. - Follow up: Private Physician; When: 2 - 3 days; Reason: Re-evaluation by your physician. - Problem is new. - Symptoms have improved. Signatures: Dispatcher [employer] EDVT Teddy Gusman MD MD pkl [place], Winsy Zachary Wilson RN RN [facility] Sinan Hidalgo RN RN rv Corrections: (The following items were deleted from the chart) 02:07 01:49 Splinting: Splint applied to right leg using long leg posterior splint. applied pkl by nurse. Examined by me, post splint application: neurovascular intact, 2+ distal pulses palpable, brisk capillary refill noted, Patient tolerated well, pkl 02:39 01:48 04/12/2019 01:48 Discharged to Home. Impression: Right tibial and fibular wh fractures. Condition is Stable. Forms are Medication Reconciliation Form, Thank You Letter, Antibiotic Education, Prescription Opioid Use. Follow up: Private Physician; When: 2 - 3 days; Reason: Re-evaluation by your physician. Problem is new. Symptoms have improved. pkl
[2019-04-12 02:44] VITALS: TEMP 98
[2019-04-12 02:45] VITALS: BP 145/96; O2SAT 98
--- NOTE | 2019-04-12 12:04 | RAD REPORT ---
EXAM DESCRIPTION: Tib Fib Right CLINICAL HISTORY Fall;Pain COMPARISON: None. TECHNIQUE: XR TIBIA FIBULA 04/12/2019 12:19 AM HUMAN RESOURCES CLERK FINDINGS: Known fracture of the proximal fibula is poorly seen. There is an essentially nondisplaced fracture of the lower shaft of the tibia. Joint spaces are preserved. Soft tissues are unremarkabl e. There are postoperative changes of total knee and ankle replacement. IMPRESSION: Tibial and fibular fractures. Electronically signed by: Sean Ramachandran MD 04/12/2019 1:28 AM HUMAN RESOURCES CLERK Due to temporary technical issues with the PACS/Fluency reporting system, reports are being signed by the in house radiologist as a courtesy to ensure prompt reporting. The interpreting radiologist is f ully responsible for the content of the report.
--- NOTE | 2019-04-12 12:05 | RAD REPORT ---
EXAM DESCRIPTION: Knee Right 3 View CLINICAL HISTORY: Fall;Pain COMPARISON: None. TECHNIQUE: XR KNEE 3 VIEWS 04/12/2019 12:19 AM PIANO TECHNICIAN FINDINGS: There is an old fracture of the distal femur. There is a minimally displaced fracture of t he proximal fibula. Total knee arthroplasty was performed. Lateral plate and screw fixation of the di stal femur was performed. Soft tissues are unremarkable. IMPRESSION: Proximal fibular fracture. Electronically signed by: Sean Ramachandran MD 04/12/2019 1:27 AM PIANO TECHNICIAN Due to temporary technical issues with the PACS/Fluency reporting system, reports are being signed by the in house radiologist as a courtesy to ensure prompt reporting. The interpreting radiologist is f ully responsible for the content of the report.
== END 2019-04-12 02:39 | disposition home or self-care (01) ==
LOC: ER 00:05
PROC: 2W3LX1Z Immobilization of Right Lower Extremity using Splint (ICD-10-PCS; principal; 2019-04-12)
DX: S82.401A Unspecified fracture of shaft of right fibula, initial encounter for closed fracture (principal); S82.301A Unspecified fracture of lower end of right tibia, initial encounter for closed fracture; W18.30XA Fall on same level, unspecified, initial encounter; Y93.9 Activity, unspecified; Y92.9 Unspecified place or not applicable
CPT/HCPCS: 99285

== ENCOUNTER 2024-05-12 13:45 | Emergency (ER) | payer OTHER ==
--- NOTE | 2024-05-12 14:22 | RAD REPORT ---
EXAMINATION: Ankle Right 3 View CLINICAL INDICATION: Female, 83 years old. PAIN COMPARISON: No prior exam. FINDINGS: Significant deformity at the ankle. No arthroplasty is present which is have some lucency around the tibial stem. No acute fracture is seen. Advanced degenerative changes at the subtalar joint and talonavicular joint. Partial midfoot fusion also noted. Likely remote mid tibial fracture that is onl y partially imaged. Postoperative changes at the metatarsals from partial resection. This is only partially imaged. IMPRESSION: No definite acute fracture. Right ankle arthroplasty with mild lucency around the proximal tibial shy m. Correlate with any prior imaging to exclude mild loosening. Advanced secondary degenerative changes present.
--- NOTE | 2024-05-12 14:39 | EDPHYS ---
Physician Documentation [facility] Name: Marisabel Bello Age: 83 yrs Sex: Female : 1940 Arrival Date: 05/12/2024 Time: 13:45 Bed DX3 Private MD: ED Physician Los Clifton HPI: 05/12 14:34 This 83 yrs old Female presents to ER via Wheelchair with complaints of Right, Ankle kb Injury. 14:34 Pt is an 83 year old female who presents for pain to right ankle that started at 0100. kb States she tried to get out of bed to use the restroom and could not bear weight due to pain. Denies injury or trauma. States she had an ankle replacement years ago . Historical: - Allergies: 13:59 No Known Allergies; hb - PMHx: 13:59 Hyperlipidemia; Hypertension; DVT; Back pain; Rheumatoid Arthritis; hb - Immunization history:: Adult Immunizations up to date. - Infectious Disease History:: Denies. - Social history:: Smoking status: Patient denies any tobacco usage or history of. ROS: 14:33 Constitutional: As per HPI kb Exam: 14:33 Constitutional: This is a well developed, well nourished patient who is awake, alert, kb and in no acute distress. Head/Face: Normocephalic, atraumatic. ENT: Moist Mucous membranes Cardiovascular: Regular rate Respiratory: Respirations even and unlabored. No increased work of breathing. Talking in full sentences Skin: Warm, dry with normal turgor. Normal color. Neuro: Awake and alert, GCS 15, oriented to person, place, time, and situation. 14:33 Musculoskeletal/extremity: Extremities: grossly normal except: noted in the right ankle: pain, tenderness, ROM: intact in all extremities, Circulation is intact in all extremities. Sensation intact. Weight bearing: is unable to bear weight, Vital Signs: 13:58 BP 178 / 103; Pulse 88; Resp 16; Temp 98.2; Pulse Ox 100% on R/A; Pain 8/10; hb 13:58 Pain Scale: Adult hb MDM: 13:50 Medical Screening Exam initiated kb 14:33 Data reviewed: vital signs, nurses notes. kb 14:37 Differential diagnosis: strain, fracture, gout, arthritis. Counseling: I had a detailed kb discussion with the patient and/or guardian regarding the historical points, exam findings, and any diagnostic results supporting the discharge/admit diagnosis, radiology results, the need for outpatient follow up, a orthopedic surgeon, to return to the emergency department if symptoms worsen or persist or if there are any questions or concerns that arise at home. 05/12 13:59 Order name: Ankle Right 3 View XRAY; Complete Time: 14:24 kb Administered Medications: 14:38 CANCELLED (Physician Discretion): [id number] mg IM once kb 15:00 Drug: Acetaminophen-Codeine PO (300 mg-30 mg) 1 tablet PO once; RASS on ADMIN: Combtv4, ap3 Very Agttd3, Agttd2, Rstlss1, AlertClm0, Drwsy-1, Lt Sdtn-2, Mod Sdtn-3, Dp Sdtn-4, UnArsble-5 Route: PO; 15:02 Follow up: Response: Medication administered at discharge. ap3 Disposition: 16:37 Co-signature as Attending Physician, Los Clifton MD I reviewed the patient's care rt provided by the Advanced Practice Provider and agree with the diagnosis and treatment plan. Disposition Summary: 05/12/24 14:39 Discharge Ordered Notes: Location: Home kb Condition: Stable kb Diagnosis - Pain in right ankle and joints of right foot kb Followup: kb - With: Emergency Department - When: As needed - Reason: Worsening of condition Followup: kb - With: Private Physician - When: 2 - 3 days - Reason: Recheck today's complaints, Continuance of care, Re-evaluation by your physician Discharge Instructions: - Discharge Summary Sheet kb - Musculoskeletal Pain kb Forms: - Medication Reconciliation Form kb - Antibiotic Education kb - Prescription Opioid Use kb - Patient Portal Instructions kb - Leadership Thank You Letter kb Prescriptions: - Mobic 7.5 mg Oral Tablet - take 1 tablet ORAL route once daily take with food; 20 tablet; Refills: 0, kb Product Selection Permitted Signatures: Dispatcher [employer] Ellen Ospina FNP-C FNP-Ckb Baxter, Heather RN RN Dennise Skinner RN RN ap3 Los Clifton MD MD rt Corrections: (The following items were deleted from the chart) 14:37 14:33 Musculoskeletal/extremity: Extremities: grossly normal except: noted in the right kb ankle: pain, tenderness, ROM: intact in all extremities, Circulation is intact in all extremities. Sensation intact. Weight bearing: is unable to bear weight, kb 14:38 14:38 Ketorolac IM 30 mg IM once ordered. kb kb
--- NOTE | 2024-05-12 14:39 | ER ---
Nurse's Notes [facility] Name: Marisabel Bello Age: 83 yrs Sex: Female : 1940 Arrival Date: 05/12/2024 Time: 13:45 Bed DX3 Private MD: Diagnosis: Pain in right ankle and joints of right foot Presentation: 05/12 13:58 Chief complaint: Right ankle pain since last night. Unable to bear weight. Coronavirus hb screen: At this time, the client does not indicate any symptoms associated with coronavirus-19. Ebola Screen: No symptoms or risks identified at this time. Initial Sepsis Screen: Does the patient meet any 2 criteria? No. Patient's initial sepsis screen is negative. Does the patient have a suspected source of infection? No. Patient's initial sepsis screen is negative. Risk Assessment: Do you want to hurt yourself or someone else? Patient reports no desire to harm self or others. Onset of symptoms was May 12, 2024. 13:58 Method Of Arrival: Wheelchair hb 13:58 Acuity: ZECHARIAH 4 hb Triage Assessment: 15:02 Musculoskeletal: Reports pain in right ankle. ap3 Historical: - Allergies: 13:59 No Known Allergies; hb - PMHx: 13:59 Hyperlipidemia; Hypertension; DVT; Back pain; Rheumatoid Arthritis; hb - Immunization history:: Adult Immunizations up to date. - Infectious Disease History:: Denies. - Social history:: Smoking status: Patient denies any tobacco usage or history of. Screenin:00 Abuse screen: Denies threats or abuse. Nutritional screening: No deficits noted. ap3 Tuberculosis screening: No symptoms or risk factors identified. 15:01 [facility] ED Fall Risk Assessment (Adult) History of falling in the last 3 months, ap3 including since admission Yes- single mechanical fall (1 pt) Confusion or Disorientation No (0 pts) Intoxicated or Sedated No (0 pts) Impaired Gait No (0 pts) Mobility Assist Device Used Yes (1 pt) Altered Elimination No (0 pt) Score/Fall Risk Level 0 - 2 = Low Risk Oriented to surroundings, Maintained a safe environment, Educated pt \T\ family on fall prevention, incl call for assistance when getting out of bed, Assessed \T\ reinforced patient's understanding of fall precautions, Hourly rounding (assess needs \T\ fall precautionary measures) done, Used ambulatory aids as needed (educated on \T\ assisted with), Used gait belt as appropriate. Assessment: 15:01 General: Appears uncomfortable, Behavior is calm, cooperative, appropriate for age. ap3 Pain: Complains of pain in right ankle Pain currently is 9 out of 10 on a pain scale. Neuro: Level of Consciousness is awake, alert, obeys commands, Oriented to person, place, time, situation, Appropriate for age. Cardiovascular: Patient's skin is warm and dry. Respiratory: Airway is patent Respiratory effort is even, unlabored, Respiratory pattern is regular, symmetrical. Vital Signs: 13:58 BP 178 / 103; Pulse 88; Resp 16; Temp 98.2; Pulse Ox 100% on R/A; Pain 8/10; hb 13:58 Pain Scale: Adult hb ED Course: 13:48 Patient arrived in ED. mr 13:50 Shashi Ellen, [facility]. kb 13:50 Los Clifton MD is Attending Physician. kb 13:59 Triage completed. hb 13:59 Arm band placed on. hb 14:17 Ankle Right 3 View XRAY In Process Unspecified. EDMS 15:01 No provider procedures requiring assistance completed. Patient did not have IV access ap3 during this emergency room visit. 15:02 Patient has correct armband on for positive identification. Adult w/ patient. Provided ap3 Education on: medications prior to administration . Administered Medications: 14:38 CANCELLED (Physician Discretion): [id number] mg IM once kb 15:00 Drug: Acetaminophen-Codeine PO (300 mg-30 mg) 1 tablet PO once; RASS on ADMIN: Combtv4, ap3 Very Agttd3, Agttd2, Rstlss1, AlertClm0, Drwsy-1, Lt Sdtn-2, Mod Sdtn-3, Dp Sdtn-4, UnArsble-5 Route: PO; 15:02 Follow up: Response: Medication administered at discharge. ap3 Medication: 15:02 VIS not applicable for this client. ap3 Outcome: 14:39 Discharge ordered by . kb 15:02 Condition: good ap3 15:09 Discharged to home via wheelchair, with family, ap3 15:09 Discharge instructions given to 15:09 Patient left the ED. ap3 Signatures: Dispatcher [employer] EDMS Shashi, Ellen, FAUCETS ASSEMBLER-C FAUCETS ASSEMBLER-Ckb Micah, [facility], Reg Reg mr Amber Galaviz, RN RN hb Dennise Skinner, DAISHA RN ap3
[2024-05-12] MEDS ORDERED: CODEINE 30MG/APAP 300MG TAB ONE (14:58)
[2024-05-12 16:42] VITALS: BP 178/103; TEMP 98.2; O2SAT 100
== END 2024-05-12 15:09 | disposition home or self-care (01) ==
LOC: ER 13:45
DX: M25.571 Pain in right ankle and joints of right foot (principal)
CPT/HCPCS: 99283

== ENCOUNTER 2024-06-06 09:41 | Inpatient (IN) | payer OTHER ==
[2024-06-06] MEDS: ATORVASTATIN 40 MG TAB PO SCH (10:30)
[2024-06-06 10:34] LABS: Absolute Eosinophils 0.3 K/uL (0-0.5); Absolute Lymphocytes (CBC) 1.6 K/uL (0.7-4.9); Absolute Monocytes 0.7 K/uL (0.1-1.3); Absolute Neutrophil 4.1 K/uL (1.8-8.0); Basophils % 0.6 % (0-1.3); Eosinophils % 4.2 % (0-4.4); Hematocrit 26.8 % (36.0-45.0); Hemoglobin 8.7 g/dL (12.0-15.0); Lymphocytes % 23.4 % (15.3-44.8); MCH 31.1 pg (27.0-35.0); MCHC 32.3 g/dL (32.0-36.0); MPV 7.2 fL (7.6-11.3); Monocytes % 10.3 % (3.3-12.3); Neutrophils % 61.5 % (41.7-73.7); Nucleated Red Blood Cells % 0.1 % (0-0); Platelets 275 thou/uL (152-406); RBC Red Blood Cell Count 2.79 M/uL (3.86-4.86); Red Cell Distribution Width 19.6 % (12.1-15.2)
[2024-06-06 10:43] LABS: PT Prothrombin Time 12.5 SECONDS (9.4-12.5); Protime INR 1.19
[2024-06-06 11:02] LABS: AST/SGOT 12 U/L (15-37); Albumin 2.5 g/dL (3.4-5.0); Albumin/Globulin Ratio 0.7 (1.1-1.8); Alkaline Phosphatase 84 U/L (45-117); Anion Gap 7.5 mEq/L (5.0-15.0); BUN Blood Urea Nitrogen 8 mg/dL (7-18); Bicarbonate 32 mEq/L (21-32); Bilirubin Total 0.5 mg/dL (0.2-1.0); Globulin 3.6 g/dL (2.3-3.5); Glomerular Filtration Rate 96 ml/min (=/>90); Glucose Level 113 mg/dL (74-106); Magnesium 1.7 mg/dL (1.6-2.4); NT PRO-BNP 801 pg/mL (<450); Protein, Total 6.1 g/dL (6.4-8.2); Sodium Level 141 mEq/L (136-145); Troponin High Sensitivity 27.5 pg/mL (<58.9)
--- NOTE | 2024-06-06 11:02 | RAD REPORT ---
EXAMINATION: US bilateral LOWER EXTREMITY VENOUS DOPPLER CLINICAL INDICATION: Leg swelling TECHNIQUE: Sonographic evaluation of the veins of the lower extremity bilaterally formed.Grayscale, c olor and spectral analysis performed on all vessels COMPARISON: 2021 FINDINGS: The common femoral, superficial femoral, greater saphenous, popliteal and left posterior tibial veins bilaterally are compressible and demonstrate augmentation. The right posterior tibial vein was not evaluated secondary to a cast in place Doppler demonstrates good flow. IMPRESSION: No evidence of deep venous thrombosis involving either lower extremity
[2024-06-06 11:03] LABS: ALT/SGPT < 14 U/L (13-56); Bilirubin Direct < 0.2 mg/dL (0-0.2); Bilirubin Indirect, Calculated 0.3 mg/dL (0.2-0.8)
[2024-06-06 11:05] LABS: Potassium 2.5 mEq/L (3.5-5.1)
--- NOTE | 2024-06-06 11:18 | RAD REPORT ---
EXAMINATION: CTA CHEST PE CLINICAL INDICATION: Shortness of breath TECHNIQUE: 100 cc 370 Isovue administered intravenously. This examination was performed according to an angiographic protocol with 3D post-processing. This involves 3D reconstructions, MIPs, volume rendered images and/or shaded surface rendering. One or more of the following dose reduction techniqu es were used: Automated exposure control, adjustment of the mA and/or kV according to patient size, and/or iterative reconstruction. Unless otherwise specified, incidental findings do not require dedic ated imaging follow-up. [id number]. COMPARISON: 2023 FINDINGS: A pulmonary embolus is not seen. An aortic aneurysm not noted. Small to moderate bilateral pleural effusions. Cardiomegaly. No pericardial effusion. Bilateral lower lobe atelectasis. Small thyroid nodules likely benign IMPRESSION: No evidence of a pulmonary embolism [id number] bilateral pleural effusions
--- NOTE | 2024-06-06 11:18 | RAD REPORT ---
Procedure: Chest Single View HISTORY: Shortness of breath COMPARISON: 2019 FINDINGS: Bilateral lower lobe atelectasis. [id number] bilateral pleural effusions. The heart is mildly to moderately enlarged. PICC line in the SVC
--- NOTE | 2024-06-06 12:31 | RAD REPORT ---
EXAMINATION: UPPER EXTREMITY VENOUS UNILATE CLINICAL INDICATION: Right arm pain and swelling TECHNIQUE: Complete bilateral duplex sonography of the right upper extremity veins was performed. The examination included compression for vein patency, color Doppler imaging and flow augmentation in response to distal compression of the internal jugular,, subclavian, axillary, brachial, radial, ulna r, cephalic and basilic veins. .Grayscale, color and spectral analysis performed on all vessels COMPARISON: No prior exam. FINDINGS: Echogenic material consistent with acute thrombus is present within the right axillary vein. Diminish ed flow is present. The vein is partially compressible. The internal jugular, subclavian, brachial, basilic, cephalic, radial and ulnar veins are generally compressible and demonstrate augmentation. Color Doppler demonstrates good flow. IMPRESSION: Acute thrombus right axillary vein
--- NOTE | 2024-06-06 12:45 | EDPHYS ---
Physician Documentation [facility] Name: Marisabel Bello Age: 83 yrs Sex: Female : 1940 Arrival Date: 06/06/2024 Time: 09:41 Bed 19 Private MD: ED Physician Sundar Villar HPI: 06/06 10:18 This 83 yrs old Female presents to ER via Wheelchair with complaints of Shortness Of sp3 Breath, Arm Problem - swelling, Feet Swelling - Left. 10:18 83-year-old female history of hypertension, rheumatoid arthritis, back pain, with sp3 recent surgery of the right ankle approximate 1 week ago at [facility] for infected hardware from a prior surgery now presents to the ED with chief complaint shortness of breath, orthopnea and extremity swelling of the left lower and right upper extremities. Patient also has a history of DVT. 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 No other antiplatelet or anticoagulant agents reported. She denies any chest pain, abdominal pain, vomiting, diarrhea, syncope, headache, bleeding, or any other signs or symptoms on ROS at this time. Her main complaint is shortness of breath particularly on laying down.. Historical: - Allergies: 10:08 No Known Allergies; hb - PMHx: 10:08 DVT; Back pain; Hyperlipidemia; Hypertension; Rheumatoid Arthritis; hb - Immunization history:: Adult Immunizations up to date. - Infectious Disease History:: Denies. - Social history:: Smoking status: Patient denies any tobacco usage or history of. ROS: 10:19 Constitutional: Negative for fever, chills, and weight loss, Eyes: Negative for injury, sp3 pain, redness, and discharge, ENT: Negative for injury, pain, and discharge, Neck: Negative for injury, pain, and swelling, Cardiovascular: Negative for chest pain, palpitations, and edema, Abdomen/GI: Negative for abdominal pain, nausea, vomiting, diarrhea, and constipation, Back: Negative for injury and pain, Skin: Negative for injury, rash, and discoloration, Neuro: Negative for headache, weakness, numbness, tingling, and seizure, Psych: Negative for depression, anxiety, suicide ideation, homicidal ideation, and hallucinations, Allergy/Immunology: Negative for hives, rash, and allergies, Endocrine: Negative for neck swelling, polydipsia, polyuria, polyphagia, and marked weight changes, 10:19 All other systems are negative, Exam: 10:19 Constitutional: This is a well developed, well nourished patient who is awake, alert, sp3 and in no acute distress. Head/Face: Normocephalic, atraumatic. Eyes: Pupils equal round and reactive to light, extra-ocular motions intact. Lids and lashes normal. Conjunctiva and sclera are non-icteric and not injected. Cornea within normal limits. Periorbital areas with no swelling, redness, or edema. Neck: Trachea midline, no thyromegaly or masses palpated, and no cervical lymphadenopathy. Supple, full range of motion without nuchal rigidity, or vertebral point tenderness. No Meningismus. Chest/axilla: Normal chest wall appearance and motion. Nontender with no deformity. No lesions are appreciated. Cardiovascular: Regular rate and rhythm with a normal S1 and S2. No gallops, murmurs, or rubs. Normal PMI, no JVD. No pulse deficits. Abdomen/GI: Soft, non-tender, with normal bowel sounds. No distension or tympany. No guarding or rebound. No evidence of tenderness throughout. Back: No spinal tenderness. No costovertebral tenderness. Full range of motion. Skin: Warm, dry with normal turgor. Normal color with no rashes, no lesions, and no evidence of cellulitis. Neuro: Awake and alert, GCS 15, oriented to person, place, time, and situation. Cranial nerves II-XII grossly intact. Motor strength 5/5 in all extremities. Sensory grossly intact. Cerebellar exam normal. Normal gait. Psych: Awake, alert, with orientation to person, place and time. Behavior, mood, and affect are within normal limits. 10:19 Respiratory: Grossly normal breath sounds limited by body habitus, 10:20 Musculoskeletal/extremity: Patient has edema of the left lower extremity, right upper sp3 extremity. Right lower extremity is in a cast and Nir wrap. Left upper extremity has PICC line but does not have significant swelling on that side. Distal pulses present.. 12:30 ECG was reviewed by the Attending Physician. EKG demonstrates normal sinus rhythm at 76 sp3 bpm with normal intervals, normal QRS, normal axis, nonspecific diffuse ST/T changes without evidence of acute ischemia. Vital Signs: 10:10 BP 191 / 81; Pulse 88; Resp 19; Pulse Ox 99% on R/A; iw 13:12 BP 172 / 87; Pulse 78; Resp 16; Pulse Ox 98% on R/A; hb MDM: 10:02 Medical Screening Exam initiated sp3 10:20 Data reviewed: vital signs, nurses notes. sp3 10:21 ED course: 83-year-old female with extensive past medical history, postop with cast on sp3 the right lower extremity ankle, left PICC line who now presents with shortness of breath and orthopnea. Differential diagnosis includes congestive heart failure, other cardiac pathology, PE, DVT, electrolyte abnormality, pneumonia, among others. Workup will include CT scan of the chest PE protocol, general labs, EKG, ultrasound of all 4 extremities, and general supportive care. Disposition pending workup and patient course.. 12:37 ED course: Patient with mild CHF and acute DVT in the right upper extremity. Enoxaparin sp3 started. Also with bilateral pleural effusions. We will go ahead and admit to PCP at this time. Also hypokalemia corrected orally.. 06/06 10:07 Order name: Basic Metabolic Panel; Complete Time: 11:19 sp3 06/06 10:07 Order name: CBC with Diff; Complete Time: 11:19 sp3 06/06 10:07 Order name: LFT's; Complete Time: 11:19 sp3 06/06 10:07 Order name: Magnesium; Complete Time: 11:19 sp3 06/06 10:07 Order name: NT PRO-BNP; Complete Time: 11:19 sp3 06/06 10:07 Order name: PT-INR; Complete Time: 11:19 sp3 06/06 10:07 Order name: Troponin HS; Complete Time: 11:19 sp3 06/06 13:51 Order name: Magnesium EDMS 06/06 13:51 Order name: Phosphorus EDMS 06/06 13:51 Order name: Urinalysis w/ reflexes EDMS 06/06 13:51 Order name: Basic Metabolic Panel EDMS 06/06 13:51 Order name: Basic Metabolic Panel EDMS 06/06 13:51 Order name: CBC with Automated Diff EDMS 06/06 13:51 Order name: CBC with Automated Diff EDMS 06/06 13:51 Order name: NT PRO-BNP EDMS 06/06 13:51 Order name: NT PRO-BNP EDWI 06/06 10:07 Order name: XRAY Chest (1 view); Complete Time: 11:19 sp3 06/06 10:17 Order name: CT Chest For PE Angio; Complete Time: 11:19 sp3 06/06 10:17 Order name: US Extremity Venous W Compression Geraldo; Complete Time: 11:19 sp3 06/06 12:22 Order name: UPPER EXTREMITY VENOUS UNILATE; Complete Time: 12:35 EDMS 06/06 10:07 Order name: Cardiac monitoring; Complete Time: 10: sp3 06/06 10:07 Order name: EKG - Nurse/Tech; Complete Time: 10:52 sp3 06/06 10:07 Order name: IV Saline Lock; Complete Time: : sp3 06/06 10:07 Order name: Labs collected and sent; Complete Time: 10: sp3 06/06 10:07 Order name: O2 Per Protocol; Complete Time: 10: sp3 06/06 10:07 Order name: O2 Sat Monitoring; Complete Time: 10: sp3 Administered Medications: 13:54 Drug: Potassium PO Effervescent Tablet 50 mEq PO once; dissolve in 4 ounces of water or hb juice Route: PO; 13:54 Drug: Enoxaparin Sub-Q 100 mg Sub-Q once Route: Sub-Q; Site: abdomen; hb Disposition Summary: 06/06/24 12:44 Hospitalization Ordered Notes: Hospitalization Status: Inpatient Admission sp3 Provider: Titus Giraldo sp3 Condition: Stable sp3 Problem: an acute exacerbation sp3 Symptoms: have worsened sp3 Bed/Room Type: Standard sp3 Location: [facility] ER HOLD(06/06/24 14:50) Room Assignment: ERHOLD-(06/06/24 14:50) Diagnosis - Acute DVT, dyspnea, mild CHF sp3 Forms: - Medication Reconciliation Form sp3 - SBAR form sp3 - Leadership Thank You Letter sp3 Signatures: Dispatcher [employer] EDMS Amber Galaviz, DAISHA RN Sundar Villar MD MD sp3 Corrections: (The following items were deleted from the chart) 10:18 10:18 Extrem Venous W Compression Geraldo+[id number].RAD.BRZ ordered. EDWI EDWI 12:22 11:35 UPPER EXTREMITY VENOUS BILAT ordered. EDMS EDMS 14:50 12:44 Telemetry/MedSurg (Inpatient) sp3 hb 14:50 12:44 sp3 hb
--- NOTE | 2024-06-06 12:45 | ER ---
Nurse's Notes [facility] Name: Marisabel Bello Age: 83 yrs Sex: Female : 1940 Arrival Date: 06/06/2024 Time: 09:41 Bed 19 Private MD: Diagnosis: Acute DVT, dyspnea, mild CHF Presentation: 06/06 10:10 Chief complaint: Patient states: SOB , worse when lying back X 10 days, has been on IV iw abx for an infection in right ankle. Coronavirus screen: At this time, the client does not indicate any symptoms associated with coronavirus-19. Ebola Screen: No symptoms or risks identified at this time. Initial Sepsis Screen: Does the patient meet any 2 criteria? No. Patient's initial sepsis screen is negative. Does the patient have a suspected source of infection? No. Patient's initial sepsis screen is negative. Risk Assessment: Do you want to hurt yourself or someone else? Patient reports no desire to harm self or others. Onset of symptoms was May 27, 2024. 10:10 Method Of Arrival: Wheelchair iw 10:10 Acuity: ZECHARIAH 3 iw Historical: - Allergies: 10:08 No Known Allergies; hb - PMHx: 10:08 DVT; Back pain; Hyperlipidemia; Hypertension; Rheumatoid Arthritis; hb - Immunization history:: Adult Immunizations up to date. - Infectious Disease History:: Denies. - Social history:: Smoking status: Patient denies any tobacco usage or history of. Screenin:09 [facility] ED Fall Risk Assessment (Adult) History of falling in the last 3 months, hb including since admission No falls in past 3 months (0 pts) Confusion or Disorientation No (0 pts) Intoxicated or Sedated No (0 pts) Impaired Gait No (0 pts) Mobility Assist Device Used No (0 pt) Altered Elimination No (0 pt) Score/Fall Risk Level 0 - 2 = Low Risk Oriented to surroundings, Maintained a safe environment, Educated pt \T\ family on fall prevention, incl call for assistance when getting out of bed. Abuse screen: Denies threats or abuse. Denies injuries from another. Nutritional screening: No deficits noted. Tuberculosis screening: No symptoms or risk factors identified. Assessment: 10:13 General: Appears in no apparent distress. Behavior is calm, cooperative. Pain: Denies hb pain. Neuro: Level of Consciousness is awake, alert, obeys commands, Oriented to person, place, time, situation. Cardiovascular: Patient's skin is warm and dry. Rhythm is regular. Respiratory: Reports shortness of breath at rest on exertion Airway is patent Respiratory effort is even, unlabored, Respiratory pattern is regular, symmetrical. GI: No signs and/or symptoms were reported involving the gastrointestinal system. : No signs and/or symptoms were reported regarding the genitourinary system. EENT: No signs and/or symptoms were reported regarding the EENT system. Derm: Skin is pink, warm \T\ dry. Musculoskeletal: No signs and/or symptoms reported regarding the musculoskeletal system. cast noted to right lower leg, post surgical. 12:00 Reassessment: Patient appears in no apparent distress at this time. No changes from hb previously documented assessment. Patient is alert, oriented x 3, equal unlabored respirations, skin warm/dry/pink. 13:11 Reassessment: Patient appears in no apparent distress at this time. No changes from hb previously documented assessment. Patient is alert, oriented x 3, equal unlabored respirations, skin warm/dry/pink. 13:53 Reassessment: Patient appears in no apparent distress at this time. No changes from hb previously documented assessment. Patient and/or family updated on plan of care and expected duration. Pain level reassessed. Vital Signs: 10:10 BP 191 / 81; Pulse 88; Resp 19; Pulse Ox 99% on R/A; iw 13:12 BP 172 / 87; Pulse 78; Resp 16; Pulse Ox 98% on R/A; hb ED Course: 09:46 Patient arrived in ED. im 09:50 Sundar Villar MD is Attending Physician. sp3 10:08 Amber Galaviz, RN is Primary Nurse. hb 10:09 Arm band placed on. hb 10:09 Patient has correct armband on for positive identification. Bed in low position. Call hb light in reach. Provided Education on: tests, result times. 10:11 Triage completed. iw 10:25 Initial lab(s) drawn, by me, sent to lab. Accessed PICC line. Clean \T\ dry. Dressing hb intact. Good blood return. Flushes easily. 10:26 Basic Metabolic Panel Sent. hb 10:26 CBC with Diff Sent. hb 10:26 LFT's Sent. hb 10:26 Magnesium Sent. hb 10:26 NT PRO-BNP Sent. hb 10:26 PT-INR Sent. hb 10:26 Troponin HS Sent. hb 10:53 XRAY Chest (1 view) In Process Unspecified. EDMS 10:57 US Extremity Venous W Compression Geraldo In Process Unspecified. EDMS 11:06 CT Chest For PE Angio In Process Unspecified. EDMS 12:22 UPPER EXTREMITY VENOUS UNILATE In Process Unspecified. EDMS 12:44 Titus Giraldo MD is Hospitalizing Provider. sp3 14:47 No provider procedures requiring assistance completed. Patient admitted, IV remains in hb place. 14:51 Primary Nurse role handed off by Amber Galaviz RN hb Administered Medications: 13:54 Drug: Potassium PO Effervescent Tablet 50 mEq PO once; dissolve in 4 ounces of water or hb juice Route: PO; 13:54 Drug: Enoxaparin Sub-Q 100 mg Sub-Q once Route: Sub-Q; Site: abdomen; hb Medication: 10:13 VIS not applicable for this client. hb Outcome: 12:44 Decision to Hospitalize by Provider. sp3 14:47 Admitted to ER Hold. Please see [facility] for further documentation. hb 14:47 Condition: stable 14:47 Instructed on the need for admit, Demonstrated understanding of instructions, 14:50 Patient left the ED. hb 18:13 Patient left the ED. iw Signatures: Dispatcher [employer] Magi Morse RN RN iw Baxter, Heather, RN RN Sundar Villar MD MD sp3 Gypsy Can
[2024-06-06] MEDS ORDERED: POTASSIUM 25 MEQ EFFERV TAB ONE (13:41)
[2024-06-06] MEDS ORDERED: ENOXAPARIN 100 MG/ML SYR SQ ONE (13:41)
[2024-06-06] MEDS ORDERED: HEPARIN 500 UNIT/5 ML SYR IV ONE (13:42)
[2024-06-06] MEDS ORDERED: ONDANSETRON 4 MG/2 ML VIAL IV PRN (13:46)
[2024-06-06] MEDS ORDERED: ACETAMINOPHEN 325 MG TABLET PO PRN (13:46)
[2024-06-06] MEDS ORDERED: HEPARIN/D5W 25,000 UNIT/500 ML BAG IV SCH (14:00)
[2024-06-06] MEDS: POTASSIUM CL SA 10 MEQ TAB PO ONE (14:02)
--- NOTE | 2024-06-06 14:02 | P.HP ---
Certification for Inpatient Patient admitted to: Inpatient With expected LOS: >2 Midnights Patient will require the following post-hospital care: None Practitioner: I am a practitioner with admitting privileges, knowledge of patient current condition, hospital course, and medical plan of care. Services: Services provided to patient in accordance with Admission requirements found in Title 42 Section 412.3 of the Code of Federal Regulations Patient History Date of Service: 06/06/24 Reason for admission: Shortness of breath, RUE and LLE swelling History of Present Illness: Patient is a 83-year-old female with a past medical history significant for hyperlipidemia, hypertension, rheumatoid arthritis, back pain, DVT who presents with complaint of shortness of breath, right arm swelling and left lower extremity swelling that has been ongoing for the past 3 days. Patient reported that she had ankle surgery in May 25 2024 due to ankle foot infection. Patient reported associated signs and symptoms of orthopnea. Patient denies any other signs and symptoms. Symptoms are aggravated or relieved by nothing. Patient decided to present to the hospital due to worsening symptoms. Allergies No Known Allergies Allergy (Verified 02/07/18 10:17) Home Medications: Etanercept [Enbrel] 25 mg SQ MO,FR 10/22/15 Folic Acid 1 mg PO DAILY 10/22/15 Pantoprazole [Protonix Tab*] 40 mg PO DAILY 10/22/15 predniSONE [Prednisone*] 2.5 mg PO DIRECTED 10/22/15 Clopidogrel Bisulfate [Plavix*] 75 mg PO DAILY #30 tablet 10/23/15 Atorvastatin Calcium [Lipitor*] 1 tab PO BEDTIME 02/07/18 Cholecalciferol (Vitamin D3) [Vitamin D 1000 Iu Tab*] 1 tab PO DAILY 02/07/18 Acetaminophen [Tylenol Extra Strength] 500 mg PO Q6HP PRN 10/28/18 Calcium Carbonate 500 mg PO BID 10/28/18 Irbesartan [Avapro] 75 mg PO BEDTIME 10/28/18 Docusate/Senna [Senokot-S*] 2 tab PO BEDTIME #60 tab 11/18/18 Gabapentin [Neurontin*] 100 mg PO BID #60 cap 11/18/18 traMADol HCL [Ultram*] 50 mg PO Q4H PRN #30 tab 11/18/18 - Past Medical/Surgical History Diabetic: No -: RA -: chronic back pain -: HLD -: HTN -: RA -: hip replacement -: femur -: ankle sx - Social History Smoking Status: Never smoker Alcohol use: No CD- Drugs: No Caffeine use: No Place of Residence: Home Review of Systems General: Unremarkable Eyes: Unremarkable Respiratory: Shortness of Breath Cardiovascular: Orthopnea Gastrointestinal: Unremarkable Genitourinary: Unremarkable Musculoskeletal: Pedal edema, Other (RUE and LLE swelling) Integumentary: Unremarkable Neurological: Unremarkable Lymphatics: Unremarkable Physical Examination - Physical Exam General: Alert, In no apparent distress, Oriented x3, Cooperative HEENT: Atraumatic, PERRLA, Mucous membr. moist/pink, EOMI, Sclerae nonicteric Neck: Supple, 2+ carotid pulse no bruit, No LAD, Without JVD or thyroid abnormality Respiratory: Clear to auscultation bilaterally, Normal air movement Cardiovascular: Regular rate/rhythm, Normal S1 S2, Edema Capillary refill: <2 Seconds Gastrointestinal: Normal bowel sounds, Soft and benign, No tenderness Musculoskeletal: No tenderness, Swelling Integumentary: No rashes, Other (Right foot wound ) Neurological: Normal gait, Normal speech, Normal strength at 5/5 x4 extr, Normal tone, Normal affect Lymphatics: No axilla or inguinal lymphadenopathy - Studies Laboratory Data (last 24 hrs) 06/06/24 06/06/24 06/06/24 10:22 10:22 10:22 WBC 6.70 Hgb 8.7 L Hct 26.8 L Plt Count 275 PT 12.5 INR 1.19 Sodium 141 Potassium 2.5 L* BUN 8 Creatinine 0.47 L Glucose 113 H Magnesium 1.7 Total Bilirubin 0.5 AST 12 L ALT < 14 Alkaline Phosphatase 84 Assessment and Plan - Plan Right upper extremity DVT. History of DVT --Right upper extremity Doppler indicates Acute thrombus right axillary vein --Patient placed on heparin drip Rheumatoid arthritis Back pain --Continue home medications and current pain medication regimen Hyperlipidemia --Continue statin Hypertension --Poorly controlled --Continue home medications. --Hydralazine as needed for SBP greater than 160 mmHg. Suspected diastolic or systolic CHF. Elevated BNP Right upper\left lower extremity edema --Echocardiogram pending to assess LV\valvular functions and wall motion --Continue diuresis with Lasix. --Daily weight and strict I/O. Anemia of chronic disease. --H&H stable. --Transfuse if hemoglobin less than 7.0 GERD --Continue Protonix Hypokalemia. --Replete as needed. DVT prophylaxis with heparin drip Discharge Plan: Home Plan to discharge in: 48 Hours - Advance Directives Does patient have a Living Will: No Does patient have a Durable POA for Healthcare: No - Code Status/Comfort Care Code Status Assessed: Yes Code Status: Full Code Physician Review: Patient Assessed, Agree with Above Assessment and Plan Critical Care: No
[2024-06-06] MEDS: FUROSEMIDE 20 MG/ 2ML VIAL IV SCH (17:00)
[2024-06-06] MEDS ORDERED: FUROSEMIDE 20 MG/ 2ML VIAL ONE (17:39)
[2024-06-06] MEDS ORDERED: HEPARIN 5000 UNIT/ML 1 ML VIAL SQ SCH (21:00)
[2024-06-06] MEDS: predniSONE 20 MG TAB PO SCH (21:00)
[2024-06-06] MEDS: POTASSIUM CL SA 10 MEQ TAB PO SCH (22:00)
[2024-06-06] MEDS: predniSONE 20 MG TAB PO ONE (22:02)
[2024-06-06] MEDS: GABAPENTIN 100 MG CAP PO SCH (22:02)
[2024-06-06] MEDS: SPIRONOLACTONE 25 MG TABLET PO SCH (22:02)
[2024-06-06] MEDS ORDERED: HYDRALAZINE HCL 20 MG/ML VIAL IV PRN (22:06)
[2024-06-06] MEDS ORDERED: ENOXAPARIN 100 MG/ML SYR SQ SCH (23:00)
[2024-06-06] MEDS: VALSARTAN 80 MG TAB PO SCH (23:53)
[2024-06-06] MEDS: ENOXAPARIN 80 MG/0.8 ML SQ SCH (23:54)
[2024-06-07] MEDS: ROPINIROLE HCL 0.25 MG TAB PO SCH (01:59)
[2024-06-07 07:13] LABS: Absolute Monocytes 0.2 K/uL (0.1-1.3); Absolute Neutrophil 3.1 K/uL (1.8-8.0); Basophils % 0.3 % (0-1.3); Eosinophils % 0.1 % (0-4.4); Hematocrit 24.2 % (36.0-45.0); Lymphocytes % 23.1 % (15.3-44.8); MCH 31.2 pg (27.0-35.0); MCHC 32.9 g/dL (32.0-36.0); MCV 94.8 fL (80-100); Monocytes % 5.4 % (3.3-12.3); Neutrophils % 71.1 % (41.7-73.7); Nucleated Red Blood Cells % 0.1 % (0-0); Platelets 232 thou/uL (152-406); RBC Red Blood Cell Count 2.55 M/uL (3.86-4.86); Red Cell Distribution Width 20.2 % (12.1-15.2)
[2024-06-07 07:30] LABS: Anion Gap 5.3 mEq/L (5.0-15.0); Magnesium 1.9 mg/dL (1.6-2.4); Phosphorus 2.7 mg/dL (2.5-4.9); Potassium 3.3 mEq/L (3.5-5.1)
[2024-06-07] MEDS: predniSONE 20 MG TAB PO SCH (08:11)
[2024-06-07] MEDS: FUROSEMIDE 20 MG TABLET PO SCH (08:11)
[2024-06-07] MEDS: FOLIC ACID 1 MG TABLET PO SCH (08:11)
[2024-06-07] MEDS: CLOPIDOGREL 75 MG TABLET PO SCH (08:12)
[2024-06-07] MEDS: VITAMIN D 1000 UNIT TAB PO SCH (08:12)
[2024-06-07] MEDS: CALCIUM CARBONATE 500 MG TAB PO SCH (08:12)
[2024-06-07] MEDS: PANTOPRAZOLE 40MG TABLET PO SCH (08:12)
[2024-06-07 09:33] VITALS: O2SAT 95
[2024-06-07 10:26] LABS: Anisocytosis 1+; Blood Morphology Comment NOTED (NOT SEEN); Platelet Estimate ADEQ; Polychromasia SLIGHT; White Blood Cell Scan OK (OK)
[2024-06-07 10:27] LABS: Rouleau SLIGHT
[2024-06-07] MEDS: CEFAZOLIN SODIUM 2 GM in NA CHLORIDE 0.9% 100 ML IVPB SCH (10:46)
[2024-06-07] MEDS: HYDROCODONE/APAP 5/325 MG TAB PO PRN (12:29)
[2024-06-07 14:52] VITALS: BMI 4504.8
[2024-06-07 15:57] LABS: Sqamous Epithelial <5 /HPF (None Seen); Urine Bacteria <20 /HPF (<20); Urine Culture Reflex Order NOT NEEDED; Urine Microscopic Reflex YN ORDER UMIC; Urine Mucus Slight /HPF (None Seen); Urine RBC <5 /HPF (None Seen); Urine WBC <5 /HPF (<5); Urine Yeast (Budding) Trace /HPF (None Seen)
[2024-06-07 15:59] LABS: Specific Gravity 1.025 (1.005-1.030); Urine Clarity Slightly Cloudy (Clear); Urine Color Yellow (Yellow)
[2024-06-07 16:00] LABS: Urine Bilirubin Negative (Negative); Urine Blood Negative (Negative); Urine Glucose Negative (Negative); Urine Ketones Negative (Negative); Urine Nitrite Negative (Negative); Urine Protein Trace (Negative); Urine Urobilinogen Normal (Normal); Urine pH 6.5 (5.0-7.0)
[2024-06-07 16:23] VITALS: BP 163/64; TEMP 97.6
[2024-06-07] MEDS: APIXABAN 5 MG TABLET PO SCH (18:26)
[2024-06-07] MEDS ORDERED: DOCUSATE NA/SENNA CONC 1 TAB PO SCH (21:00)
[2024-06-07] MEDS ORDERED: ATORVASTATIN 10 MG TAB PO SCH (21:00)
[2024-06-07] MEDS ORDERED: APIXABAN 5 MG TABLET PO SCH (21:00)
--- NOTE | 2024-06-08 07:04 | ECHO ---
HEIGHT: 0 ft 5.3 in WEIGHT: 180 lb 0 oz DATE OF STUDY: 06/07/[address]: Sammy Clifton 2-DIMENSIONAL: YES M.MODE: YES DOPPLER: YES COLOR FLOW: YES TDS: PORTABLE: YES DEFINITY: BUBBLE STUDY: DIAGNOSIS: RULE OUT CONGESTIVE HEART FAILURE CARDIAC HISTORY: CATHERIZATION: NO SURGERY: NO PROSTHETIC VALVE: NO PACEMAKER: NO MEASUREMENTS (cm) DIASTOLIC (NORMALS) SYSTOLIC (NORMALS) IVSd 1.3 (0.6-1.2) LA Diam 3.4 (1.9-4.0) LVEF 60-65% LVIDd 4.7 (3.5-5.7) LVIDs 3.1 (2.0-3.5) %FS 35% LVPWd 1.3 (0.6-1.2) Ao Diam 3.2 (2.0-3.7) 2 DIMENSIONAL ASSESSMENT: RIGHT ATRIUM: NORMAL LEFT ATRIUM: NORMAL RIGHT VENTRICLE: NORMAL LEFT VENTRICLE: LEFT VENTRICULAR HYPERTROPHY TRICUSPID VALVE: MILD TRICUSPID REGURGITATION MITRAL VALVE: MITRAL ANNULAR CALCIFICATION WITH MILD MITRAL REGURGITATION PULMONIC VALVE: MILD PULMONIC INSUFFICIENCY AORTIC VALVE: MILD AORTIC INSUFFICIENCY PERICARDIAL EFFUSION: NONE AORTIC ROOT: NORMAL LEFT VENTRICULAR WALL MOTION: NORMAL DOPPLER/COLOR FLOW: SEE BELOW COMMENTS: 1. NORMAL LEFT VENTRICULAR EJECTION FRACTION 60-65% WITH NORMAL WALL MOTION 2. GRADE I DIASTOLIC DYSFUNCTION 3. MODERATE PULMONARY HYPERTENSION WITH RIGHT VENTRICULAR SYSTOLIC PRESSURE 50-55 mmHg 4. MILD CONCENTRIC LEFT VENTRICULAR HYPERTROPHY 5. MILD MITRAL REGURGITATION, TRICUSPID REGURGITATION TECHNOLOGIST: XIMENA STRICKLAND
[2024-06-09] MEDS ORDERED: ETANERCEPT 25 MG SQ SCH (17:00)
--- NOTE | 2024-06-12 12:29 | EKG ---
Test Date: 2024-06-06 Test Time: 10:37:47 Managing Partner [employer] [place]: HB MEASUREMENT RESULTS: Intervals: Rate: 76 RI: 162 QRSD: 84 QT: 402 QTc: 452 [place]: P: 45 RI: 162 QRS: -11 T: 36 INTERPRETIVE STATEMENTS: Normal sinus rhythm Normal ECG Compared to ECG 10/18/2018 15:36:55 Sinus tachycardia no longer present Ventricular premature complex(es) no longer present Myocardial infarct finding no longer present Electronically Signed On 06-12-24 12:17:39 GROUND CREW SUPERVISOR by Korey Fan
== END 2024-06-07 19:40 | disposition home or self-care (01) | DRG 299 ==
LOC: ER 09:41 → ERHOLD 13:51 → 4TH 17:26
PROVIDERS: ADMIT Hospitalist; ATTEND Hospitalist
DX: I82.621 Acute embolism and thrombosis of deep veins of right upper extremity (principal); I50.31 Acute diastolic (congestive) heart failure; I11.0 Hypertensive heart disease with heart failure; E87.6 Hypokalemia; M06.9 Rheumatoid arthritis, unspecified; E78.5 Hyperlipidemia, unspecified; K21.9 Gastro-esophageal reflux disease without esophagitis; D63.8 Anemia in other chronic diseases classified elsewhere; Z79.02 Long term (current) use of antithrombotics/antiplatelets; Z79.52 Long term (current) use of systemic steroids; Z79.899 Other long term (current) drug therapy; Z86.711 Personal history of pulmonary embolism; Z96.649 Presence of unspecified artificial hip joint
CPT/HCPCS: 36415; 36569; 71045; 71275; 80048; 80076; 81001; 83735; 83880; 84100; 84484; 85025; 85610; 93005; 93306; 93970; 93971; 96372; 99285; J1642; J1650; J1940; J7512; Q9967

== ENCOUNTER 2024-06-22 13:55 | Emergency (ER) | payer OTHER ==
[2024-06-22 16:23] LABS: Absolute Basophils 0.1 K/uL (0-0.5); Absolute Lymphocytes (CBC) 0.9 K/uL (0.7-4.9); Absolute Monocytes 0.4 K/uL (0.1-1.3); Basophils % 0.9 % (0-1.3); Eosinophils % 0.5 % (0-4.4); Hemoglobin 9.9 g/dL (12.0-15.0); Lymphocytes % 10.5 % (15.3-44.8); MCH 31.4 pg (27.0-35.0); MCHC 33.1 g/dL (32.0-36.0); MPV 7.3 fL (7.6-11.3); Monocytes % 4.7 % (3.3-12.3); Neutrophils % 83.4 % (41.7-73.7); Platelets 259 thou/uL (152-406); RBC Red Blood Cell Count 3.16 M/uL (3.86-4.86)
[2024-06-22] MEDS ORDERED: FUROSEMIDE 40 MG/4 ML VIAL ONE (16:30)
[2024-06-22 16:36] LABS: PT Prothrombin Time 13.7 SECONDS (10.0-13.0); PTT, Activated Partial Thromb 29.7 SECONDS (24.3-36.9); Protime INR 1.21
[2024-06-22 16:46] LABS: Anion Gap 9.3 mEq/L (5.0-15.0); Magnesium 2.1 mg/dL (1.6-2.4); Potassium 3.3 mEq/L (3.5-5.1); Troponin High Sensitivity 25.7 pg/mL (<58.9)
--- NOTE | 2024-06-22 18:11 | RAD REPORT ---
EXAMINATION: ONE VIEW CHEST XR CLINICAL INDICATION: Female, 83 years old.,DYSPNEA TECHNIQUE: Frontal chest projection is submitted. Examination is limited by patient positioning and t echnique. COMPARISON: 06/06/2024 FINDINGS: The lungs are well inflated. Stable retrocardiac opacity, likely with a component of effusion. Mild h azy right basilar opacity with costophrenic angle blunting, also stable. Stable central interstitial prominence. Left arm PICC with tip again at the mid SVC level.. No pneumothorax. Stable cardiomegaly. Mediastinal contours are unremarkable. IMPRESSION: Stable findings as above.
--- NOTE | 2024-06-22 18:15 | ER ---
Nurse's Notes [facility] Name: Marisabel Bello Age: 83 yrs Sex: Female : 1940 Arrival Date: 06/22/2024 Time: 13:55 Bed 4 Private MD: Diagnosis: Acute on chronic diastolic (congestive) heart failure;Dyspnea Presentation: 06/22 14:15 Chief complaint: SOB x 1 month, worse over last few days. Denies fever. Coronavirus hb screen: At this time, the client does not indicate any symptoms associated with coronavirus-19. Ebola Screen: No symptoms or risks identified at this time. Initial Sepsis Screen: Does the patient meet any 2 criteria? No. Patient's initial sepsis screen is negative. Does the patient have a suspected source of infection? No. Patient's initial sepsis screen is negative. Risk Assessment: Do you want to hurt yourself or someone else? Patient reports no desire to harm self or others. Onset of symptoms was May 2024. 14:15 Method Of Arrival: Wheelchair hb 14:15 Acuity: ZECHARIAH 3 hb Triage Assessment: 15:50 General: Appears in no apparent distress. Behavior is calm, cooperative, appropriate bp for age. Pain: Denies pain. EENT: No deficits noted. Neuro: No deficits noted. Cardiovascular: Rhythm is sinus rhythm. Respiratory: Reports shortness of breath Onset: The symptoms/episode began/occurred at an unknown time. the patient has mild shortness of breath. GI: No signs and/or symptoms were reported involving the gastrointestinal system. Historical: - Allergies: 14:17 No Known Allergies; hb - PMHx: 14:17 Back pain; Hyperlipidemia; Hypertension; DVT; Rheumatoid Arthritis; hb Screenin:52 [facility] ED Fall Risk Assessment (Adult) History of falling in the last 3 months, bp including since admission No falls in past 3 months (0 pts) Confusion or Disorientation No (0 pts) Intoxicated or Sedated No (0 pts) Impaired Gait No (0 pts) Mobility Assist Device Used No (0 pt) Altered Elimination No (0 pt) Score/Fall Risk Level 0 - 2 = Low Risk Oriented to surroundings. Abuse screen: Denies threats or abuse. Denies injuries from another. Nutritional screening: No deficits noted. Tuberculosis screening: No symptoms or risk factors identified. Assessment: 15:51 General: Appears in no apparent distress. Behavior is calm, cooperative, appropriate bp for age. Cardiovascular: Rhythm is sinus rhythm. Respiratory: Airway is patent Respiratory effort is even, unlabored, Breath sounds are clear. Vital Signs: 14:15 BP 134 / 104; Pulse 89; Resp 20; Temp 97.8(TE); Pulse Ox 97% on R/A; Weight 72.57 kg; hb Height 5 ft. 2 in. ; Pain 0/10; 16:30 BP 209 / 86; Pulse 83; Resp 20; Pulse Ox 92% ; db 14:15 Body Mass Index 29.26 (72.57 kg, 157.48 cm) hb 14:15 Pain Scale: Adult hb ED Course: 13:59 Patient arrived in ED. cj3 14:17 Triage completed. hb 14:18 Jenniffer Bergman PA-C is PHCP. sb4 14:18 Jb Starr MD is Attending Physician. sb4 14:18 Arm band placed on. hb 15:49 Danilo Valencia, RN is Primary Nurse. bp 15:52 Patient has correct armband on for positive identification. bp 16:12 Initial lab(s) drawn, by me, sent to lab. EKG done, by ED staff, reviewed by Jenniffer Bergman PA-C. Accessed PICC line. Clean \T\ dry. Dressing intact. Good blood return. Flushes easily. 17:39 Chest Single View XRAY In Process Unspecified. EDMS 18:15 Alexi Pepper MD is Referral Physician. sb4 Administered Medications: 16:33 Drug: Furosemide IVP 40 mg IVP once; give over 2 minutes Route: IVP; Site: PICC; bp Outcome: 18:15 Discharge ordered by . sb4 18:53 Patient left the ED. iw Signatures: Dispatcher [employer] EDMS Magi Abrams RN RN iw Amber Galaviz, RN RN Danilo Valencia, RN RN Michelle Chilel, DAISHA RN db Jenniffer Bergman PA-C PA-C sb4 Julienne Jones cj3
--- NOTE | 2024-06-22 18:15 | EDPHYS ---
Physician Documentation [facility] Name: Marisabel Bello Age: 83 yrs Sex: Female : 1940 Arrival Date: 06/22/2024 Time: 13:55 Bed 4 Private MD: ED Physician Jb Starr HPI: 06/22 14:31 This 83 yrs old Female presents to ER via Wheelchair with complaints of Breathing sb4 Difficulty. 14:32 Patient reports shortness of breath for a few months now, has gotten worse over the sb4 past few days. States that she was seen here about a week and a half ago and diagnosed with DVT in her right arm and possibly mild CHF. She was given IV Lasix, had an echocardiogram, and was seen by cardiology but was not placed on any diuretics. She states that her shortness of breath has progressed. She also reports orthopnea and swelling on her legs bilaterally. Historical: - Allergies: 14:17 No Known Allergies; hb - PMHx: 14:17 Back pain; Hyperlipidemia; Hypertension; DVT; Rheumatoid Arthritis; hb ROS: 14:32 Constitutional: Negative for fever, chills, and weight loss, sb4 14:32 Cardiovascular: Positive for edema, 14:32 Respiratory: Positive for orthopnea, shortness of breath, on exertion. 14:32 All other systems are negative, Exam: 14:32 Constitutional: This is a well developed, well nourished patient who is awake, alert, sb4 and in no acute distress. Head/Face: Normocephalic, atraumatic. Eyes: Extra-ocular motions intact. Periorbital areas with no swelling, redness, or edema. ENT: Mucous membranes moist. Cardiovascular: Regular rate and rhythm with a normal S1 and S2. Respiratory: No increased work of breathing, no retractions or nasal flaring. Abdomen/GI: Soft, non-tender, no distension. Neuro: Awake and alert, GCS 15, oriented to person, place, time, and situation. Motor strength 5/5 in all extremities. Sensory grossly intact. 14:32 Cardiovascular: Edema: 1+ edema to level of left midcalf and right midcalf, Vital Signs: 14:15 BP 134 / 104; Pulse 89; Resp 20; Temp 97.8(TE); Pulse Ox 97% on R/A; Weight 72.57 kg; hb Height 5 ft. 2 in. ; Pain 0/10; 16:30 BP 209 / 86; Pulse 83; Resp 20; Pulse Ox 92% ; db 14:15 Body Mass Index 29.26 (72.57 kg, 157.48 cm) hb 14:15 Pain Scale: Adult hb MDM: 14:18 Medical Screening Exam initiated sb4 17:46 Data reviewed: vital signs, nurses notes, lab test result(s), EKG, radiologic studies. 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 06/22 14:26 Order name: BMP; Complete Time: 16:46 sb4 06/22 14:26 Order name: CBC with Diff; Complete Time: 16:24 sb4 06/22 14:26 Order name: Magnesium; Complete Time: 16:46 sb4 06/22 14:26 Order name: NT PRO-BNP; Complete Time: 16:46 sb4 06/22 14:26 Order name: PT-INR; Complete Time: 16:37 sb4 06/22 14:26 Order name: Ptt, Activated; Complete Time: 16:37 sb4 06/22 14:26 Order name: Troponin HS; Complete Time: 16:46 sb4 06/22 16:47 Order name: Chest Single View XRAY; Complete Time: 18:12 sb4 06/22 14:26 Order name: Cardiac monitoring; Complete Time: 15:59 sb4 06/22 14:26 Order name: EKG - Nurse/Tech; Complete Time: 16:18 sb4 06/22 14:26 Order name: IV Saline Lock; Complete Time: 16:18 sb4 06/22 14:26 Order name: Labs collected and sent; Complete Time: 16:18 sb4 06/22 14:26 Order name: O2 Per Protocol; Complete Time: 15:59 sb4 06/22 14:26 Order name: O2 Sat Monitoring; Complete Time: 15:59 sb4 EC:15 Rate is 92 beats/min. Rhythm is regular, Sinus Rhythm with PACs. CO interval is normal. sb4 QRS interval is normal at 82 msec. QT interval is normal at 380 msec. No Q waves. T waves are Normal. No ST changes noted. Clinical impression: No evidence of ischemia. Interpreted by me. Reviewed by me. Administered Medications: 16:33 Drug: Furosemide IVP 40 mg IVP once; give over 2 minutes Route: IVP; Site: PICC; bp Disposition Summary: 06/22/24 18:15 Discharge Ordered Notes: Location: Home sb4 Problem: an ongoing problem sb4 Symptoms: have improved sb4 Condition: Stable sb4 Diagnosis - Acute on chronic diastolic (congestive) heart failure sb4 - Dyspnea sb4 Followup: sb4 - With: Alexi Pepper MD - When: 1 week - Reason: Recheck today's complaints, Re-evaluation by your physician Discharge Instructions: - Discharge Summary Sheet sb4 - Heart Failure, Diagnosis sb4 Forms: - Patient Portal Instructions sb4 - Leadership Thank You Letter sb4 Prescriptions: - furosemide 20 mg Oral tablet - take 1 tablet ORAL route every morning; 20 tablet; Refills: 0, Product sb4 Selection Permitted Signatures: Dispatcher [employer] EDAmber Reyes RN RN Danilo Melgoza RN RN Jenniffer Turner PA-C PA-C sb4 Corrections: (The following items were deleted from the chart) 14:27 14:27 BASIC METABOLIC PANEL+C.LAB.BRZ ordered. EDMS EDMS 14:27 14:27 CBC+H.LAB.BRZ ordered. EDMS EDMS 14:27 14:27 MAGNESIUM+C.LAB.BRZ ordered. EDMS EDMS 14:27 14:27 PROBNP+C.LAB.BRZ ordered. EDMS EDMS 14:27 14:27 PROTIME (+INR)+COAG.LAB.BRZ ordered. EDMS EDMS 14:27 14:27 PTT, ACTIVATED+COAG.LAB.BRZ ordered. EDMS EDMS 14:27 14:27 Troponin High Sensitivity+C.LAB.BRZ ordered. EDMS EDMS
[2024-06-22] MEDS ORDERED: HEPARIN 500 UNIT/5 ML SYR IV ONE (18:29)
[2024-06-22 19:06] VITALS: TEMP 97.8
[2024-06-22 19:07] VITALS: BP 209/86; O2SAT 92
== END 2024-06-22 18:53 | disposition home or self-care (01) ==
LOC: ER 13:55
DX: I50.33 Acute on chronic diastolic (congestive) heart failure (principal); I10 Essential (primary) hypertension
CPT/HCPCS: 93005; 85025; 80048; 36415; 83735; 85610; 85730; 84484; 83880; 71045; 96374; 99284; J1940; J1642